=== PATIENT | male | born 1960 | race Caucasian/White ===

== ENCOUNTER 2019-03-27 11:33 | Inpatient (IN) | payer MEDICARE ==
--- NOTE | 2019-03-27 12:00 | ED ---
Lower Extremity - HPI Summary HPI Summary: 58-year-old male presents with right foot wound for the past year. He states he has seen multiple providers for this infection. He was following up with wound clinic but it has not been healing. He states he saw dr Almanzar yesterday who wants to do an amputation tomorrow so told him to come for admission. He denies any fevers or chills. has been changing dressing and has noticed some erythema around it yesterday but that has resolved today. has been having bloody discharge from the wound. Not currently on antibiotics. Has no pain or sensation in the foot. Denies any other symptoms. No chest pain shortness breath or abdominal pain. No nausea vomiting. He has history of high blood pressure and diabetes. - History of Current Complaint Chief Complaint: EDGeneral Stated Complaint: FOOT PAIN PER PT Time Seen by Provider: 03/27/19 11:40 Pain Intensity: 3 - Allergies/Home Medications Allergies/Adverse Reactions: Allergies Allergy/AdvReac Type Severity Reaction Status Date / Time hydrocortisone Allergy Vomiting Verified 03/27/19 11:38 [From Hydrocortone] Home Medications: Home Medications Aspirin EC TAB* [Ecotrin EC Low Dose 81 MG*] 81 mg PO DAILY 03/27/19 [History Confirmed 03/27/19] Insulin NPH Human Isophane [Novolin N Relion] 50 unit SUBCUT BEDTIME 03/27/19 [ History Confirmed 03/27/19] Insulin NPH Human Isophane [Novolin N Relion] 90 units SUBCUT QAM 03/27/19 [ History Confirmed 03/27/19] Morphine Sulfate [Ms Contin] 15 mg PO Q12HR 03/27/19 [History Confirmed 03/27/19 ] Nortriptyline CAP* [Pamelor CAP*] 125 mg PO BEDTIME 03/27/19 [History Confirmed 03/27/19] Pravastatin (NF) [Pravachol (NF)] 40 mg PO QPM 03/27/19 [History Confirmed 03/27] SitaGLIPtin (NF) [Januvia (NF)] 100 mg PO DAILY 03/27/19 [History Confirmed ] amLODIPine TAB* [Norvasc 5 mg TAB*] 10 mg PO DAILY 03/27/19 [History Confirmed 03/27/19] oxyCODONE/Acetamin 10/325(NF) [Percocet (NF)] 1 tab PO TID PRN 03/27/19 [ History Confirmed 03/27/19] PMH/Surg Hx/FS Hx/Imm Hx Endocrine/Hematology History: Reports: Hx Diabetes Cardiovascular History: Reports: Hx Hypertension - Surgical History Surgery Procedure, Year, and Place: Back x 2 plus stimulator, rods in L3,4,5; left foot; Infectious Disease History: No Infectious Disease History: Denies: Traveled Outside the [place] in Last 30 Days - Family History Known Family History: Positive: Cardiac Disease, Hypertension, Diabetes, Other - cancer, ms Negative: Blood Disorder - Social History Alcohol Use: Rare Substance Use Type: Reports: Prescribed Smoking Status (MU): Former Smoker Review of Systems Negative: Fever Negative: Chest Pain Negative: Shortness Of Breath Positive: Other - diabetic ulcer All Other Systems Reviewed And Are Negative: Yes Physical Exam Triage Information Reviewed: Yes Vital Signs On Initial Exam: Initial Vitals Temp Pulse Resp BP Pulse Ox 98.4 F 78 19 136/86 98 03/27/19 11:34 03/27/19 11:34 03/27/19 11:34 03/27/19 11:34 03/27/19 11:34 Vital Signs Reviewed: Yes Appearance: Positive: Well-Appearing Skin: Positive: Other - 5cm by 6cm ulcer with minimial surround erythema to bottom of right foot Head/Face: Positive: Normal Head/Face Inspection Eyes: Positive: Normal, Conjunctiva Clear ENT: Positive: Pharynx normal Respiratory/Lung Sounds: Positive: Clear to Auscultation, Breath Sounds Present Cardiovascular: Positive: Normal, RRR Musculoskeletal: Positive: Normal, Other - loss of sensation on right foot chronic, capillary refill<2secs Neurological: Positive: Normal Psychiatric: Positive: Normal Diagnostics - Vital Signs Vital Signs Temp Pulse Resp BP Pulse Ox 03/27/19 11:50 75 98 03/27/19 11:49 76 138/80 99 03/27/19 11:34 98.4 F 78 19 136/86 98 - Laboratory Result Diagrams: 03/27/19 12:38 03/27/19 12:38 Lab Statement: Any lab studies that have been ordered have been reviewed, and results considered in the medical decision making process. - EKG No standard instances Cardiac Rate: NL EKG Rhythm: Sinus Rhythm EKG Comparison: No Significant Change Summary of EKG Findings: sinus rhythm Lower Extremity Course/Dx - Course Course Of Treatment: 58-year-old male presents with right foot wound for the past year. He states he has seen multiple providers for this infection. He was following up with wound clinic but it has not been healing. He states he saw dr Almanzar yesterday who wants to do an amputation tomorrow so told him to come for admission. He denies any fevers or chills. has been changing dressing and has noticed some erythema around it yesterday but that has resolved today. has been having bloody discharge from the wound. Not currently on antibiotics. Has no pain or sensation in the foot. Denies any other symptoms. on exam has 6cm by 5cm ulcer on bottom of right foot. minimal erythema around such. wbc normal. ekg sinus rhythm. chest xray shows no acute finding. gave dose of vancomycin as likely osteomyelitis. spoke with dr bolaños who says to talk with ortho. dr almanzar ended up admitting patient - Diagnoses Differential Diagnosis/HQI/PQRI: Positive: Infection, Osteomyelitis, Other - diabetic ulcer Provider Diagnoses: Diabetic ulcer of left foot Discharge - Sign-Out/Discharge Documenting (check all that apply): Patient Departure - Discharge Plan Condition: Stable Disposition: ADMITTED TO [facility] Referrals: Donta Brady MD [Primary Care Provider] - - Billing Disposition and Condition Condition: STABLE Disposition: Admitted to [facility]
[2019-03-27] MEDS ORDERED: Vancomycin(*) 1,750 MG in NS 0.9% 250 ML* 250 ML IVPB ONE (12:03)
[2019-03-27] MEDS ORDERED: Vancomycin(*) 1,750 MG in NS 0.9% 500 ML* 500 ML IVPB ONE (13:00)
[2019-03-27 13:03] LABS: ABS Eosinophils 0.2 10^3/ul (0-0.6); ABS Lymphocytes 1.2 10^3/ul (1.0-4.8); ABS Monocytes 0.7 10^3/ul (0-0.8); ABS Neutrophils 5.5 10^3/ul (1.5-7.7); Eosinophil % 2.2 %; Hematocrit 34 % (42-52); Hemoglobin 11.4 g/dL (14.0-18.0); Lymphocyte % 16.1 %; Mean Corpuscular HGB Conc 34 g/dL (31-36); Mean Corpuscular Hemoglobin 28 pg (27-31); Mean Corpuscular Volume 82 fL (80-94); Mean Platelet Volume 7.6 fL (7.4-10.4); Platelet Count 191 10^3/uL (150-450); Red Cell Distribution Width 14 % (10.5-15); White Blood Count 7.6 10^3/uL (3.5-10.8)
[2019-03-27 13:12] LABS: Activated Partial Thrombo Time 30.7 seconds (26.0-36.3); INR 0.95 (0.82-1.09)
[2019-03-27 13:23] LABS: Albumin 3.8 g/dL (3.2-5.2); Albumin/Globulin Ratio 1.2 (1-3); BUN/Creatinine Ratio 9.6 (8-20); Calcium 9.2 mg/dL (8.6-10.3); EGFR African American 45.3 (>60); EGFR Non-African American 37.4 (>60); Globulin 3.1 g/dL (2-4); Potassium 3.6 mmol/L (3.5-5.0); Total Bilirubin 0.3 mg/dL (0.2-1.0); Total Protein 6.9 g/dL (6.4-8.9)
[2019-03-27 14:07] LABS: C Reactive Protein 55.97 mg/L (<8.01)
[2019-03-27 14:22] LABS: Urine Appearance Clear; Urine Bacteria Absent (Absent); Urine Bilirubin Negative (Negative); Urine Blood 1+ (Negative); Urine Color Straw; Urine Glucose Negative (Negative); Urine Ketones Negative (Negative); Urine Nitrite Negative (Negative); Urine Protein Negative (Negative); Urine Red Blood Cell Trace(0-2/hpf) (Absent); Urine Specific Gravity 1.008 (1.010-1.030); Urine Urobilinogen Negative (Negative); Urine White Blood Cell Absent (Absent)
[2019-03-27 14:26] LABS: Hepatitis C Antibody Nonreactive (Nonreactive)
[2019-03-27] MEDS ORDERED: diPHENhydraMINE IV* 50 MG/ML 1 ml VIAL (BENADRYL) IV PRN (15:21)
[2019-03-27] MEDS ORDERED: Ondansetron INJ* 2 MG/ML VIAL IV PRN (15:21)
[2019-03-27] MEDS: Lactated Ringers 1000 ML Bag* 1,000 ML IV SCH (16:57)
[2019-03-27] MEDS: Atorvastatin* 10 MG TAB PO SCH (18:05)
[2019-03-27] MEDS: Nortriptyline CAP* 25 MG PO SCH (20:51)
[2019-03-27] MEDS: Morphine TAB Extended Release (*) 15 MG TAB.ER PO SCH (20:52)
[2019-03-27] MEDS: cloNIDine TAB* 0.1 MG PO SCH (20:53)
[2019-03-27] MEDS: Metoprolol Tartrate TAB* 100 MG TAB PO SCH (20:53)
[2019-03-27] MEDS: Cyclobenzaprine TAB* 10 MG PO SCH (20:53)
[2019-03-27] MEDS: Insulin NPH(*) 1 UNITS UNIT SUBCUT SCH (20:54)
[2019-03-27] MEDS ORDERED: Insulin NPH(*) 1 UNITS UNIT SUBCUT SCH (21:00)
[2019-03-27] MEDS: oxyCODONE/Acetamin 5/325 MG* TAB PO PRN (21:05)
[2019-03-27] MEDS: oxyCODONE TAB* 5 MG TAB PO PRN (21:05)
[2019-03-27] MEDS: Heparin VIAL(*) 5000 UNITS/ML VIAL (FIVE THOUSAND) SUBCUT SCH (22:31)
--- NOTE | 2019-03-27 22:36 | CONS ---
[facility] MEDICINE CONSULTATION REPORT: DATE OF CONSULT: 03/27/19 PROVIDER: Steph Cannon NP ATTENDING PHYSICIAN: Dr. Perez. CONSULTING PHYSICIAN: Dr. Chandrakant Dee (dictated by Steph Cannon NP). REASON FOR CONSULT: Co-management of chronic medical conditions. HISTORY OF PRESENT ILLNESS: Mr. Landrum is a 58-year-old male with a past medical history significant for diabetes, hypertension, hyperlipidemia, who reports for the past 40 weeks, he has had an infection in his right foot and is currently being followed by the wound clinic due to the foot not healing. He reports he saw Dr. Perez yesterday and wants to amputate part of his foot, so Dr. Perez instructed the patient to present to the emergency room for admission. The patient denies any fever, chills. Denies any chest pain or edema. Denies any cough, hemoptysis, or shortness of breath. No nausea, vomiting, diarrhea or abdominal pain, gross hematuria or dysuria. Denies any focal weakness or sensory loss. No visual complaints, dysphagia. No arthralgias or myalgias. He does have a dressing to the right foot with an ulcer noted to the bottom of the foot with minimal surrounding erythema. While in the emergency room, the patient had routine lab work drawn and was admitted by Orthopedics for surgical intervention of his right foot ulcer. PAST MEDICAL HISTORY: Significant for diabetes, hypertension, hyperlipidemia, chronic foot ulcer, diabetic neuropathy, acid reflux. PAST SURGICAL HISTORY: 1. Laminectomy. 2. Hernia repairs. 3. Surgical removal of nail from left foot. HOME MEDICATIONS: 1. Insulin NPH 50 units at bedtime, 90 units in the a.m. 2. Aspirin 81 mg p.o. daily. 3. Clonidine 0.2 mg p.o. b.i.d. 4. Flexeril 10 mg p.o. t.i.d. 5. Amlodipine 10 mg p.o. daily. 6. Nortriptyline 125 mg p.o. at bedtime. 7. Torsemide 80 mg p.o. daily. 8. Metoprolol 100 mg p.o. b.i.d. 9. Oxycodone 1 tablet t.i.d. 10. Januvia 100 mg p.o. daily. 11. Omeprazole 20 mg p.o. daily. 12. Morphine sulfate 15 mg p.o. q.12 hours. 13. Oxycodone/acetaminophen 10/325 one tablet p.o. t.i.d. p.r.n. ALLERGIES: He has an allergy to VICODIN and HYDROCODONE. FAMILY HISTORY: Father with a pacemaker and hypertension. Father with diabetes and mother with breast cancer. SOCIAL HISTORY: The patient reports he smoked for approximately 1 year at the age of 18. Denies any alcohol or illicit drug use. He is . Surrogate decision maker in the event he is unable to make his own decisions is his , Izabella. He is a full code. REVIEW OF SYSTEMS: An 11-point review of systems was completed, all pertinent positives are mentioned in the HPI. PHYSICAL EXAMINATION: General: At this time, Mr. Landrum is resting comfortably on the stretcher in the emergency room. He is alert and oriented x3. He is in no acute distress. Vital Signs: Temperature 97.8, heart rate 74, respirations 16, O2 saturation 99%, blood pressure was 151/94. HEENT: Head is atraumatic, normocephalic. Eyes: EOMs are intact. Sclerae anicteric and not pale. Oral mucosa appeared to be moist. Neck is supple. Lungs are clear to auscultation bilaterally. No wheezes, rales, or rhonchi. Cardiac: S1 and S2. Regular rate and rhythm. No murmurs, rubs, or gallops. Abdomen is soft and nontender. Bowel sounds are present x4. Extremities: He is able to move all 4 extremities with 5/5 strength. Pedal pulses are +2 bilaterally. He does have a dressing that is dry and intact to the right foot with ulceration noted to the bottom of the foot. Skin: He has a dressing that is dry and intact to the right foot. Neurologic: He is awake, alert, oriented x3. Speech is clear. Thought process is intact. There are no gross focal deficits. DIAGNOSTIC STUDIES/LAB DATA: WBCs are 7.6, RBCs 4.10, hemoglobin 11.4, hematocrit was 34, platelet count 191. INR is 0.95. Sodium 137, potassium 3.6 , chloride 100, carbon dioxide was 31, anion gap was 6, BUN was 18, creatinine 1.87, lactic acid was 1.0 and 0.7, calcium 9.2. ASTs were 8, ALTs were 6, alkaline phosphatase was 91. Troponin is 0.00. C-reactive protein was 55.97. Urine was within normal limits with the exception of specific gravity was 1.008 and blood was 1+. Hepatitis C was nonreactive and CAB index was less than 0.0. He had a chest x-ray, no evidence of active cardiopulmonary disease. He had an electrocardiogram, which showed sinus rhythm at a rate of 72. ASSESSMENT AND PLAN: Mr. Landrum is a 58-year-old male who was sent in by Dr. Perez to have right foot surgical revision of nonhealing foot ulcer. Our recommendations are as follows: 1. Right foot ulcer. Management per Orthopedics. PT/OT per Orthopedics. DVT prophylaxis per Orthopedics. I agree with continued vancomycin pending cultures and sensitivities. 2. Diabetes. I would recommend that we cut his NPH insulin in half as the patient is going to be n.p.o. tomorrow for surgery and even consider holding morning dose of NPH given the fact that the patient will be n.p.o. I would continue with fingersticks a.c. and h.s. and I would recommend that you stop Januvia while in the hospital, can resume at discharge. 3. Hypertension. He can continue on clonidine, metoprolol 100 mg p.o. b.i.d. I will continue amlodipine 10. 4. Gastroesophageal reflux disease. He should continue on Prilosec as previously prescribed. 5. Hyperlipidemia. He will be placed on atorvastatin 10 mg while in the hospitalization, then at discharge can resume pravastatin as previously prescribed. 6. FEN. He should have heart healthy, consistent carb diet. 7. Code status. He is a full code. 8. DVT prophylaxis. As per Orthopedics. TIME SPENT: Time spent on this consultation was approximately 45 minutes, greater than half that time was spent at the bedside reviewing events leading thus far to his hospitalization, performing my physical exam, and reviewing my plan of care. I have discussed with my attending, Dr. Chandrakant Dee, he is in agreement with my plan. STEPH CANNON, HYDRO PLANT TECHNICIAN [id number]/[facility] #: [id number] [facility]ENTERStar
[2019-03-28] MEDS ORDERED: Bupivacaine 0.5%* 50 ML VIAL ONE (06:50)
[2019-03-28] MEDS ORDERED: Lidocaine 2% PF* 10 ML AMP ONE (06:51)
[2019-03-28] MEDS ORDERED: KETAMINE HCL* 50 MG/ML 10 ML VIAL ONE (07:03)
[2019-03-28] MEDS ORDERED: Lidocaine 2% PF * 5 ML VIAL ONE (07:03)
[2019-03-28] MEDS ORDERED: Propofol* 10 MG/ML 20 ML BTL ONE (07:03)
[2019-03-28] MEDS ORDERED: Propofol* 500 MG/50 ML BTL ONE (07:03)
[2019-03-28] MEDS ORDERED: Midazolam* 1 MG/ML 2 ML VIAL (2 MG) ONE (07:08)
[2019-03-28] MEDS ORDERED: fentaNYL* 50 MCG/ML 2 ML VIAL (100 MCG VIAL) ONE (07:09)
[2019-03-28] MEDS ORDERED: Naloxone* 0.4 MG/ML 1 ML VIAL IV PRN (07:59)
[2019-03-28] MEDS ORDERED: fentaNYL* 50 MCG/ML 2 ML VIAL (100 MCG VIAL) IV PRN (07:59)
[2019-03-28] MEDS ORDERED: Acetaminophen TAB* 325 MG PO PRN (07:59)
[2019-03-28] MEDS ORDERED: Metoclopramide IV* 5 MG/ML 2 ML VIAL IV PRN (07:59)
[2019-03-28] MEDS ORDERED: oxyCODONE TAB* 5 MG TAB PO PRN (07:59)
[2019-03-28] MEDS ORDERED: Vancomycin(*) 1,500 MG in NS 0.9% 250 ML* 250 ML IVPB ONE (08:00)
[2019-03-28] MEDS ORDERED: Ondansetron INJ* 2 MG/ML VIAL ONE (08:00)
[2019-03-28] MEDS ORDERED: Labetalol IV* 5 MG/ML 20 ML VIAL ONE (08:17)
[2019-03-28] MEDS ORDERED: CMCS:SitaGLIPtin (NF) 100 MG TAB PO SCH (09:00)
[2019-03-28] MEDS ORDERED: Insulin NPH(*) 1 UNITS UNIT SUBCUT SCH (09:00)
[2019-03-28 10:52] LABS: Hematocrit 29 % (42-52); Hemoglobin 9.9 g/dL (14.0-18.0)
--- NOTE | 2019-03-28 10:59 | OP ---
OPERATIVE REPORT: DATE OF OPERATION: 03/28/19 - Inpatient, room [place] [address]- DATE OF : 62 SURGEON: Chandrakant Perez MD SUBSTANCE ABUSE NURSE: Brandon Gaming PA-C ANESTHESIOLOGIST: Portia Sosa DO ANESTHESIA: MAC. PRE-OP DIAGNOSES: Chronic osteomyelitis, diabetes, right foot. POST-OP DIAGNOSES: Chronic osteomyelitis, diabetes, right foot. OPERATIVE PROCEDURE: Syme amputation, right foot. DESCRIPTION OF PROCEDURE: The patient was taken to the operating room where we made the transverse incision over the anterior crease of the tibiotalar joint and then directly down through the heel pads. This created 2 well-vascularized flaps. We dissected out the talus and calcaneus and dropped the tourniquet to obtain hemostasis. The patient had vigorous bleeding surprisingly so and he required about 4 different arterial suture ligatures. I would say his blood loss was about 100 cc. We irrigated thoroughly with 3 L of pulsatile lavage and obtained cultures and then sewed the flaps with the deep layer of the #1 Monocryl, more superficial layer of 2-0 Monocryl, and then Prolene to the skin and compression dressing and plaster splint applied. We did trim malleoli with the sagittal saw. [id number]/[facility] #: [id number] TAMERA
[2019-03-28] MEDS: Morphine TAB Extended Release (*) 15 MG TAB.ER PO SCH ×2 (11:11→20:11)
[2019-03-28] MEDS: Insulin NPH(*) 1 UNITS UNIT SUBCUT SCH ×2 (11:29→21:40)
[2019-03-28] MEDS: Torsemide TAB* 20 MG PO SCH (11:30)
[2019-03-28] MEDS: cloNIDine TAB* 0.1 MG PO SCH ×2 (11:30→20:11)
[2019-03-28] MEDS: Cyclobenzaprine TAB* 10 MG PO SCH ×3 (11:30→21:40)
[2019-03-28] MEDS: Metoprolol Tartrate TAB* 100 MG TAB PO SCH ×2 (11:31→21:40)
[2019-03-28] MEDS: amLODIPine TAB* 5 MG PO SCH (11:31)
[2019-03-28] MEDS: Aspirin EC TAB* 81 MG TAB.EC PO SCH (11:31)
[2019-03-28] MEDS: Pantoprazole TAB * 40 MG TAB PO SCH (11:31)
[2019-03-28] MEDS: ceFAZolin 2 GM PREMIX in ORs 2 GM/50 ML BAG IVPB SCH ×2 (12:10→20:10)
--- NOTE | 2019-03-28 13:20 | CONS ---
CONSULTATION REPORT: DATE OF CONSULT: 03/28/19 REQUESTING PHYSICIAN: Dr. Perez.* CONSULTING SERVICE: Infectious Disease. REASON FOR CONSULTATION: Right foot infection. IMPRESSION: 1. Chronic osteomyelitis of the right foot in the setting of diabetes. He has had an amputation this morning. Operative cultures were obtained. The Gram stain showed 2+ gram-positive cocci. The PCR is Staph aureus positive, MRSA negative. 2. Diabetes with neuropathy and Charcot joint. 3. Morbid obesity. 4. Chronic kidney disease. 5. Cirrhosis. RECOMMENDATION: We will stop vancomycin and start Ancef 2 g IV every 8 hours. Follow his kidney function. I will see if it may need to be adjusted. Because of the chronicity of infection, I think it would make sense for him to continue IV antibiotics for 2 weeks through the process of wound healing and so we can have close followup as well. He will have weekly CBC, CMP, and CRP during that time. HISTORY OF PRESENT ILLNESS: This is a 58-year-old diabetic with a right foot infection. MRI showed osteomyelitis, which is longstanding. He was admitted for Syme amputation which he had this morning and tolerated well. Wound cultures with the results noted above. He has been on vancomycin since this morning with no adverse reaction. He has not been on any oral antibiotics recently that he can recall. He has not had infection requiring hospitalization in the past. PAST MEDICAL HISTORY: 1. Type 2 diabetes with peripheral neuropathy. 2. Charcot joint. 3. Hypertension. 4. Hyperlipidemia. 5. Chronic back pain. 6. Umbilical hernia. 7. Acid reflux. 8. Obstructive sleep apnea. 9. Morbid obesity. 10. Anemia. 11. Chronic kidney disease. 12. Cirrhosis. 13. Migraines. 14. Thrombocytopenia. 15. Lumbar spine surgery. 16. History of spinal stimulator which was removed in 2013. 17. Prostate cancer. ALLERGIES: Hydrocodone and hydrocortisone. MEDICATIONS: 1. Amlodipine. 2. Aspirin. 3. Lipitor. 4. Clonidine. 5. Cyclobenzaprine. 6. Enoxaparin injection. 7. Insulin injection. 8. Metoprolol. 9. Nortriptyline. 10. Pantoprazole. 11. Torsemide. 12. Vancomycin. SOCIAL HISTORY: He is a past smoker. No alcohol use. He is . FAMILY HISTORY: Father has pacemaker, hypertension. Mother with breast cancer. REVIEW OF SYSTEMS: A 14-point review is all negative except as noted above in the history of present illness. PHYSICAL EXAM: Vital signs: Temperature 36.4, heart rate 56, respiratory rate 14, blood pressure 145/77. Oxygen saturation 95% on 2 L. In general, he is awake, but drowsy. Answers questions. HEENT: There is no conjunctival hemorrhage. Oropharynx is without lesions. Neck: Supple without mass. Heart: Regular rate and rhythm, without murmurs, rubs or gallops. Lungs: Clear to auscultation bilaterally. Abdomen: Soft, nontender, nondistended. There are bowel sounds present. Skin: There are no rashes or splinter hemorrhages. Musculoskeletal: Right foot casted. LAB DATA: White blood cell count 7, hemoglobin 11, platelets 191. Creatinine 1.8. CRP 55. Please see impression and recommendations as outlined above. Thank you for asking me to see Mr. Landrum in consultation. [id number]/[facility] #: [id number] TAMERA
[2019-03-28] MEDS: Heparin VIAL(*) 5000 UNITS/ML VIAL (FIVE THOUSAND) SUBCUT SCH (13:57)
[2019-03-28] MEDS: oxyCODONE/Acetamin 5/325 MG* TAB PO PRN ×2 (15:59→23:21)
--- NOTE | 2019-03-28 16:45 | PN ---
Subjective Date of Service: 03/28/19 Interval History: Awake, alert. no distress. S/p Syme Amputation Right foot. Patient denies any pain from the amputation site. Past Medical History: Unchanged from Admission Objective Active Medications: Amlodipine Besylate (Norvasc Tab*) 10 mg PO DAILY [facility] Last Admin: 03/28/19 11:31 Dose: 10 mg Aspirin (Aspirin Ec Tab*) 81 mg PO DAILY [facility] Last Admin: 03/28/19 11:31 Dose: 81 mg Atorvastatin Calcium (Lipitor*) 10 mg PO QPM [facility]; Protocol Last Admin: 03/27/19 18:05 Dose: 10 mg Clonidine HCl (Catapres Tab*) 0.2 mg PO BID [facility] Last Admin: 03/28/19 11:30 Dose: Not Given Cyclobenzaprine HCl (Flexeril Tab*) 10 mg PO TID [facility] Last Admin: 03/28/19 15:01 Dose: 10 mg Diphenhydramine HCl (Benadryl Iv*) 25 mg IV Q6H PRN PRN Reason: PRURITIS Enoxaparin Sodium (Lovenox(*)) 40 mg SUBCUT Q24H [facility] Lactated Ringer's (Lactated Ringers 1000 Ml Bag*) 1,000 mls @ 75 mls/hr IV PER RATE [facility] Last Admin: 03/27/19 16:57 Dose: 75 mls/hr Cefazolin Sodium/Dextrose (Kefzol 2 Gm Premix In Ors(*)) 2 gm in 50 mls @ 100 mls/hr IVPB Q8H [facility] Last Admin: 03/28/19 12:10 Dose: 100 mls/hr Insulin Human NPH (Insulin Nph(*)) 45 units SUBCUT QAM [facility] Last Admin: 03/28/19 11:29 Dose: 45 units Insulin Human NPH (Insulin Nph(*)) 25 units SUBCUT BEDTIME [facility] Last Admin: 03/27/19 20:54 Dose: 25 unit Metoprolol Tartrate (Lopressor Tab*) 100 mg PO BID [facility] Last Admin: 03/28/19 11:31 Dose: 100 mg Morphine Sulfate (Ms Contin(*)) 15 mg PO Q12HR [facility] Last Admin: 03/28/19 11:11 Dose: Not Given Nortriptyline HCl (Pamelor Cap*) 125 mg PO BEDTIME [facility] Last Admin: 03/27/19 20:51 Dose: 125 mg Ondansetron HCl (Zofran Inj*) 4 mg IV Q6H PRN PRN Reason: NAUSEA Oxycodone HCl (Roxycodone Tab*) 5 mg PO TID PRN PRN Reason: PAIN Last Admin: 03/27/19 21:05 Dose: 5 mg Oxycodone/Acetaminophen (Percocet 5/325 Tab*) 1 tab PO TID PRN PRN Reason: PAIN Last Admin: 03/28/19 15:59 Dose: 1 tab Pantoprazole Sodium (Protonix Tab*) 40 mg PO DAILY [facility] Last Admin: 03/28/19 11:31 Dose: 40 mg Torsemide (Demadex*) 80 mg PO DAILY [facility] Last Admin: 03/28/19 11:30 Dose: 80 mg Vital Signs - 8 hr 03/28/19 03/28/19 03/28/19 08:55 09:00 09:15 Temperature 98.1 F Pulse Rate 66 64 65 Respiratory 16 16 16 Rate Blood Pressure 173/95 150/87 139/84 (mmHg) O2 Sat by Pulse 100 99 98 Oximetry 03/28/19 03/28/19 03/28/19 09:30 09:45 10:28 Temperature 97.5 F Pulse Rate 61 62 56 Respiratory 16 14 Rate Blood Pressure 137/87 140/84 145/77 (mmHg) O2 Sat by Pulse 98 98 95 Oximetry 03/28/19 03/28/19 03/28/19 11:49 12:29 15:01 Temperature 97.8 F Pulse Rate 65 Respiratory 16 15 18 Rate Blood Pressure 130/73 (mmHg) O2 Sat by Pulse 100 Oximetry 03/28/19 15:59 Temperature Pulse Rate Respiratory 18 Rate Blood Pressure (mmHg) O2 Sat by Pulse Oximetry Oxygen Devices in Use Now: Nasal Cannula Appearance: awake, alert. obese. no distress. eating candy at bedside Eyes: No Scleral Icterus, PERRLA Ears/Nose/Mouth/Throat: Mucous Membranes Moist Neck: NL Appearance and Movements; NL JVP, Trachea Midline Respiratory: Symmetrical Chest Expansion and Respiratory Effort, Clear to Auscultation Cardiovascular: NL Sounds; No Murmurs; No JVD, RRR Extremities: - - RLE dressing in place. dry clean. Neurological: Alert and Oriented x 3 Result Diagrams: 03/28/19 10:38 03/27/19 12:38 Microbiology and Other Data: Microbiology 03/28/19 08:00 Gram Stain - Final Foot Right 03/27/19 12:31 Aerobic Blood Culture - Preliminary Blood Venous No Growth Day 1 Anaerobic Blood Culture - Preliminary No Growth Day 1 03/27/19 12:38 Aerobic Blood Culture - Preliminary Blood Venous No Growth Day 1 Anaerobic Blood Culture - Preliminary No Growth Day 1 03/27/19 12:10 Skin and Soft Tissue MRSA/MSSA (PCR - Final Foot Right Mrsa Negative S.aureus Positive Gram Stain - Final Wound Culture - Preliminary Staphylococcus Aureus Assess/Plan/Problems-Billing Assessment: 58 year old male presented with chronic osteomyelitis of his right foot s/p amputation. Intra-op wound culture is pending - Patient Problems (1) S/P Syme amputation of foot Current Visit: Yes Status: Acute Code(s): Z89.439 - ACQUIRED ABSENCE OF UNSPECIFIED FOOT SNOMED Code(s): 576994242 Comment: - Activity, diet as per surgery - Minimize naroctic medication as he is a risk for post op ileus (2) Chronic osteomyelitis involving right ankle and foot Current Visit: Yes Status: Acute Code(s): M86.671 - OTHER CHRONIC OSTEOMYELITIS, RIGHT ANKLE AND FOOT SNOMED Code(s): 852241939 (3) Diabetes Current Visit: Yes Status: Acute Code(s): E11.9 - TYPE 2 DIABETES MELLITUS WITHOUT COMPLICATIONS SNOMED Code(s): 06694913 Comment: - On NPH 40 am and 25 pm - Sliding scale with coverage (4) Hypertension Current Visit: Yes Status: Acute Code(s): I10 - ESSENTIAL (PRIMARY) HYPERTENSION SNOMED Code(s): 90152889 Comment: - continue lopressor 100 mg bid; Amlodipine 10 mg daily; Lipitor 80 mg HS; ASA 81 mg Daily (5) GERD (gastroesophageal reflux disease) Current Visit: Yes Status: Acute Code(s): K21.9 - GASTRO-ESOPHAGEAL REFLUX DISEASE WITHOUT ESOPHAGITIS SNOMED Code(s): 603864175 (6) DVT prophylaxis Current Visit: Yes Status: Acute Code(s): Z29.9 - ENCOUNTER FOR PROPHYLACTIC MEASURES, UNSPECIFIED SNOMED Code(s): 276344730 Comment: lovenox 40 mg HS
[2019-03-28] MEDS: Atorvastatin* 10 MG TAB PO SCH (18:49)
[2019-03-28] MEDS: oxyCODONE TAB* 5 MG TAB PO PRN ×2 (18:49→23:22)
[2019-03-28] MEDS: Nortriptyline CAP* 25 MG PO SCH (23:20)
[2019-03-29] MEDS: Lactated Ringers 1000 ML Bag* 1,000 ML IV SCH ×2 (00:47→16:08)
[2019-03-29] MEDS: ceFAZolin 2 GM PREMIX in ORs 2 GM/50 ML BAG IVPB SCH ×3 (03:55→20:47)
[2019-03-29] MEDS: oxyCODONE TAB* 5 MG TAB PO PRN ×2 (08:07→16:18)
[2019-03-29] MEDS: oxyCODONE/Acetamin 5/325 MG* TAB PO PRN ×2 (08:08→16:18)
[2019-03-29] MEDS: Morphine TAB Extended Release (*) 15 MG TAB.ER PO SCH ×2 (09:41→21:07)
[2019-03-29] MEDS: Metoprolol Tartrate TAB* 100 MG TAB PO SCH ×2 (09:42→21:08)
[2019-03-29] MEDS: Torsemide TAB* 20 MG PO SCH (09:42)
[2019-03-29] MEDS: cloNIDine TAB* 0.1 MG PO SCH ×2 (09:42→21:07)
[2019-03-29] MEDS: Cyclobenzaprine TAB* 10 MG PO SCH ×3 (09:43→21:08)
[2019-03-29] MEDS: amLODIPine TAB* 5 MG PO SCH (09:43)
[2019-03-29] MEDS: Pantoprazole TAB * 40 MG TAB PO SCH (09:43)
[2019-03-29] MEDS: Aspirin EC TAB* 81 MG TAB.EC PO SCH (09:43)
[2019-03-29] MEDS: Enoxaparin(*) 40 MG/0.4 ML SYR SUBCUT SCH (09:44)
[2019-03-29] MEDS: Insulin NPH(*) 1 UNITS UNIT SUBCUT SCH ×2 (09:51→21:08)
--- NOTE | 2019-03-29 10:54 | PN ---
Progress Note - Progress Note Date of Service: 03/29/19 SOAP: Subjective: [Pt seen lying in bed this morning. Minimal complaints. No chest pain, SOB, nausea or vomiting. ] Objective: [General: Pt alert and oriented MSK, RLE: Dressing is c/d/i. Full ROM of the knee. ] Vital Signs Temp 98.4 F 03/29/19 07:54 Pulse 81 03/29/19 07:54 Resp 18 03/29/19 09:43 BP 122/61 03/29/19 07:54 Pulse Ox 97 03/29/19 08:00 Intake & Output 03/28/19 03/29/19 03/29/19 18:59 06:59 18:59 Intake Total 945 1480 Output Total 900 1500 Balance 45 -20 Intake: IV Fluids 705 980 ABX - CEFAZOLIN 55 LR 400 980 VANCOMYCIN 1500 MG 250 Oral 240 500 Output: Urine 900 1500 Assessment: [POD 1 Syme amputation of RLE ] Plan: [Continue with IV abx per ID Continue with lovenox for DVT Pain medication prn ]
[2019-03-29] MEDS ORDERED: Dextrose 50% Syringe 50 ML* 25 GM/50 ML SYRINGE IV PUSH PRN (17:14)
--- NOTE | 2019-03-29 17:20 | PN ---
Subjective Date of Service: 03/29/19 Interval History: in bed. minimal pain... no events overnight. tolerating diet well. BG in 200's Past Medical History: Unchanged from Admission Objective Active Medications: Amlodipine Besylate (Norvasc Tab*) 10 mg PO DAILY [facility] Last Admin: 03/29/19 09:43 Dose: 10 mg Aspirin (Aspirin Ec Tab*) 81 mg PO DAILY [facility] Last Admin: 03/29/19 09:43 Dose: 81 mg Atorvastatin Calcium (Lipitor*) 10 mg PO QPM [facility]; Protocol Last Admin: 03/28/19 18:49 Dose: 10 mg Clonidine HCl (Catapres Tab*) 0.2 mg PO BID [facility] Last Admin: 03/29/19 09:42 Dose: 0.2 mg Cyclobenzaprine HCl (Flexeril Tab*) 10 mg PO TID [facility] Last Admin: 03/29/19 14:04 Dose: 10 mg Dextrose (D50w Syringe 50 Ml*) 12.5 gm IV PUSH .FOR FS < 60 - SS PRN PRN Reason: FS < 60 Diphenhydramine HCl (Benadryl Iv*) 25 mg IV Q6H PRN PRN Reason: PRURITIS Enoxaparin Sodium (Lovenox(*)) 40 mg SUBCUT Q24H [facility] Last Admin: 03/29/19 09:44 Dose: 40 mg Cefazolin Sodium/Dextrose (Kefzol 2 Gm Premix In Ors(*)) 2 gm in 50 mls @ 100 mls/hr IVPB Q8H [facility] Last Admin: 03/29/19 11:38 Dose: 100 mls/hr Insulin Human Lispro (Humalog*) 0 units SUBCUT ACHS [facility]; Protocol Insulin Human NPH (Insulin Nph(*)) 45 units SUBCUT QAM [facility] Last Admin: 03/29/19 09:51 Dose: 45 units Insulin Human NPH (Insulin Nph(*)) 25 units SUBCUT BEDTIME [facility] Last Admin: 03/28/19 21:40 Dose: 25 unit Metoprolol Tartrate (Lopressor Tab*) 100 mg PO BID [facility] Last Admin: 03/29/19 09:42 Dose: 100 mg Morphine Sulfate (Ms Contin(*)) 15 mg PO Q12HR [facility] Last Admin: 03/29/19 09:41 Dose: 15 mg Nortriptyline HCl (Pamelor Cap*) 125 mg PO BEDTIME [facility] Last Admin: 03/28/19 23:20 Dose: 125 mg Ondansetron HCl (Zofran Inj*) 4 mg IV Q6H PRN PRN Reason: NAUSEA Oxycodone HCl (Roxycodone Tab*) 5 mg PO TID PRN PRN Reason: PAIN Last Admin: 03/29/19 16:18 Dose: 5 mg Oxycodone/Acetaminophen (Percocet 5/325 Tab*) 1 tab PO TID PRN PRN Reason: PAIN Last Admin: 03/29/19 16:18 Dose: 1 tab Pantoprazole Sodium (Protonix Tab*) 40 mg PO DAILY [facility] Last Admin: 03/29/19 09:43 Dose: 40 mg Torsemide (Demadex*) 80 mg PO DAILY [facility] Last Admin: 03/29/19 09:42 Dose: 80 mg Vital Signs - 8 hr 03/29/19 03/29/19 03/29/19 09:41 09:43 11:19 Temperature 98.0 F Pulse Rate 81 Respiratory 18 18 16 Rate Blood Pressure 134/62 (mmHg) O2 Sat by Pulse 96 Oximetry 03/29/19 03/29/19 03/29/19 14:04 15:15 16:18 Temperature 100.6 F Pulse Rate 82 Respiratory 16 18 18 Rate Blood Pressure 126/64 (mmHg) O2 Sat by Pulse 97 Oximetry Oxygen Devices in Use Now: Nasal Cannula Appearance: awake, alert. no distress Eyes: No Scleral Icterus Neck: NL Appearance and Movements; NL JVP, Trachea Midline Respiratory: Symmetrical Chest Expansion and Respiratory Effort, Clear to Auscultation Cardiovascular: NL Sounds; No Murmurs; No JVD, RRR Abdominal: NL Sounds; No Tenderness; No Distention Extremities: - - RLE dressing in place, intact. dry covered with LYUBOV wrap Result Diagrams: 03/28/19 10:38 03/27/19 12:38 Microbiology and Other Data: Microbiology 03/28/19 08:00 Gram Stain - Final Foot Right 03/27/19 12:31 Aerobic Blood Culture - Preliminary Blood Venous No Growth Day 1 Anaerobic Blood Culture - Preliminary No Growth Day 1 03/27/19 12:38 Aerobic Blood Culture - Preliminary Blood Venous No Growth Day 1 Anaerobic Blood Culture - Preliminary No Growth Day 1 03/27/19 12:10 Skin and Soft Tissue MRSA/MSSA (PCR - Final Foot Right Mrsa Negative S.aureus Positive Gram Stain - Final Wound Culture - Preliminary Staphylococcus Aureus Assess/Plan/Problems-Billing Assessment: 58 year old male presented with chronic osteomyelitis of his right foot s/p amputation. Intra-op wound culture is pending - Patient Problems (1) S/P Syme amputation of foot Current Visit: Yes Status: Acute Code(s): Z89.439 - ACQUIRED ABSENCE OF UNSPECIFIED FOOT SNOMED Code(s): 159418153 Comment: - Activity, diet as per surgery - Minimize naroctic medication as he is a risk for post op ileus (2) Chronic osteomyelitis involving right ankle and foot Current Visit: Yes Status: Acute Code(s): M86.671 - OTHER CHRONIC OSTEOMYELITIS, RIGHT ANKLE AND FOOT SNOMED Code(s): 121699588 Comment: - Continue IV abx with cefazolin 2 gm IV Q8hrs day # 2 (3) Diabetes Current Visit: Yes Status: Acute Code(s): E11.9 - TYPE 2 DIABETES MELLITUS WITHOUT COMPLICATIONS SNOMED Code(s): 92268717 Comment: - On NPH 40 am and 25 pm - Sliding scale with coverage added as his BG in 200's (4) Hypertension Current Visit: Yes Status: Acute Code(s): I10 - ESSENTIAL (PRIMARY) HYPERTENSION SNOMED Code(s): 32431077 Comment: - continue lopressor 100 mg bid; Amlodipine 10 mg daily; Lipitor 80 mg HS; ASA 81 mg Daily (5) GERD (gastroesophageal reflux disease) Current Visit: Yes Status: Acute Code(s): K21.9 - GASTRO-ESOPHAGEAL REFLUX DISEASE WITHOUT ESOPHAGITIS SNOMED Code(s): 284731054 (6) DVT prophylaxis Current Visit: Yes Status: Acute Code(s): Z29.9 - ENCOUNTER FOR PROPHYLACTIC MEASURES, UNSPECIFIED SNOMED Code(s): 863693798 Comment: lovenox 40 mg HS
[2019-03-29] MEDS: Atorvastatin* 10 MG TAB PO SCH (17:48)
[2019-03-29] MEDS: Nortriptyline CAP* 25 MG PO SCH (21:05)
[2019-03-29] MEDS: Insulin LISPRO* 1 UNITS UNIT SUBCUT SCH (21:09)
[2019-03-30] MEDS: oxyCODONE/Acetamin 5/325 MG* TAB PO PRN ×3 (00:09→17:55)
[2019-03-30] MEDS: oxyCODONE TAB* 5 MG TAB PO PRN ×2 (00:09→08:58)
[2019-03-30] MEDS: ceFAZolin 2 GM PREMIX in ORs 2 GM/50 ML BAG IVPB SCH ×3 (04:51→20:13)
[2019-03-30 06:04] LABS: ABS Basophils 0.1 10^3/ul (0-0.2); ABS Eosinophils 0.1 10^3/ul (0-0.6); ABS Lymphocytes 1.4 10^3/ul (1.0-4.8); ABS Monocytes 0.8 10^3/ul (0-0.8); ABS Neutrophils 5.8 10^3/ul (1.5-7.7); Eosinophil % 0.9 %; Hematocrit 22 % (42-52); Hemoglobin 7.9 g/dL (14.0-18.0); Lymphocyte % 17.5 %; Mean Corpuscular HGB Conc 36 g/dL (31-36); Mean Corpuscular Hemoglobin 29 pg (27-31); Mean Corpuscular Volume 82 fL (80-94); Mean Platelet Volume 7.7 fL (7.4-10.4); Nucleated Red Blood Cells % 0.1; Platelet Count 135 10^3/uL (150-450); Red Blood Count 2.73 10^6 /uL (4.18-5.48); Red Cell Distribution Width 14 % (10.5-15); White Blood Count 8.2 10^3/uL (3.5-10.8)
[2019-03-30 06:17] LABS: BUN/Creatinine Ratio 10.7 (8-20); Calcium 8.5 mg/dL (8.6-10.3); EGFR African American 47.9 (>60); EGFR Non-African American 39.6 (>60); Magnesium 1.8 mg/dL (1.9-2.7); Phosphorus 4.5 mg/dL (2.5-5.0); Potassium 4.3 mmol/L (3.5-5.0)
[2019-03-30] MEDS: Insulin LISPRO* 1 UNITS UNIT SUBCUT SCH ×4 (08:55→21:45)
[2019-03-30] MEDS: Insulin NPH(*) 1 UNITS UNIT SUBCUT SCH ×2 (08:55→21:14)
[2019-03-30] MEDS: Enoxaparin(*) 40 MG/0.4 ML SYR SUBCUT SCH (08:56)
[2019-03-30] MEDS: Cyclobenzaprine TAB* 10 MG PO SCH ×3 (08:56→21:14)
[2019-03-30] MEDS: Torsemide TAB* 20 MG PO SCH (08:57)
[2019-03-30] MEDS: Morphine TAB Extended Release (*) 15 MG TAB.ER PO SCH ×2 (08:58→21:13)
[2019-03-30] MEDS: Metoprolol Tartrate TAB* 100 MG TAB PO SCH ×2 (08:58→21:14)
[2019-03-30] MEDS: Pantoprazole TAB * 40 MG TAB PO SCH (08:58)
[2019-03-30] MEDS: amLODIPine TAB* 5 MG PO SCH (08:59)
[2019-03-30] MEDS: Aspirin EC TAB* 81 MG TAB.EC PO SCH (08:59)
[2019-03-30] MEDS: cloNIDine TAB* 0.1 MG PO SCH ×2 (08:59→21:15)
--- NOTE | 2019-03-30 11:20 | PN ---
Progress Note - Progress Note Date of Service: 03/30/19 SOAP: Subjective: [Pt seen lying in bed this morning. Minimal complaints. No chest pain, SOB, nausea or vomiting, lightheadedness or dizzy. ] Objective: [General: Pt alert and oriented MSK, RLE: Dressing is c/d/i. Full ROM of the knee. ] Vital Signs Temp 98.2 F 03/30/19 08:46 Pulse 84 03/30/19 08:46 Resp 18 03/30/19 08:58 BP 120/61 03/30/19 08:46 Pulse Ox 91 03/30/19 08:46 Intake & Output 03/29/19 03/30/19 03/30/19 18:59 06:59 18:59 Intake Total 1140 510 Output Total 1700 400 450 Balance -560 110 -450 Intake: IV Fluids 990 170 ABX - CEFAZOLIN 110 LR 990 60 IVPB 150 ABX - CEFAZOLIN 150 Oral 340 Output: Urine 1700 400 450 Other: # Bowel Movements 0 Laboratory Last Values WBC 8.2 10^3/uL (3.5-10.8) 03/30/19 05:52 RBC 2.73 10^6 /uL (4.18-5.48) L 03/30/19 05:52 Hgb 7.9 g/dL (14.0-18.0) L 03/30/19 05:52 Hct 22 % (42-52) L 03/30/19 05:52 MCV 82 fL (80-94) 03/30/19 05:52 MCH 29 pg (27-31) 03/30/19 05:52 MCHC 36 g/dL (31-36) 03/30/19 05:52 RDW 14 % (10.5-15) 03/30/19 05:52 Plt Count 135 10^3/uL (150-450) L 03/30/19 05:52 MPV 7.7 fL (7.4-10.4) 03/30/19 05:52 Neut % (Auto) 70.8 % 03/30/19 05:52 Lymph % (Auto) 17.5 % 03/30/19 05:52 Holmes % (Auto) 10.0 % 03/30/19 05:52 Eos % (Auto) 0.9 % 03/30/19 05:52 Baso % (Auto) 0.8 % 03/30/19 05:52 Absolute Neuts (auto) 5.8 10^3/ul (1.5-7.7) 03/30/19 05:52 Absolute Lymphs (auto) 1.4 10^3/ul (1.0-4.8) 03/30/19 05:52 Absolute Monos (auto) 0.8 10^3/ul (0-0.8) 03/30/19 05:52 Absolute Eos (auto) 0.1 10^3/ul (0-0.6) 03/30/19 05:52 Absolute Basos (auto) 0.1 10^3/ul (0-0.2) 03/30/19 05:52 Absolute Nucleated RBC 0.0 10^3/ul 03/30/19 05:52 Nucleated RBC % 0.1 03/30/19 05:52 INR (Anticoag Therapy) 0.95 (0.82-1.09) 03/27/19 12:38 APTT 30.7 seconds (26.0-36.3) 03/27/19 12:38 Sodium 132 mmol/L (135-145) L 03/30/19 05:52 Potassium 4.3 mmol/L (3.5-5.0) 03/30/19 05:52 Chloride 95 mmol/L (101-111) L 03/30/19 05:52 Carbon Dioxide 33 mmol/L (22-32) H 03/30/19 05:52 Anion Gap 4 mmol/L (2-11) 03/30/19 05:52 BUN 19 mg/dL (6-24) 03/30/19 05:52 Creatinine 1.78 mg/dL (0.67-1.17) H 03/30/19 05:52 Est GFR ( Amer) 47.9 (>60) 03/30/19 05:52 Est GFR (Non-Af Amer) 39.6 (>60) 03/30/19 05:52 BUN/Creatinine Ratio 10.7 (8-20) 03/30/19 05:52 Glucose 262 mg/dL (70-100) H 03/30/19 05:52 POC Glucose (mg/dL) 179 mg/dL (70-100) H 03/29/19 20:52 Lactic Acid 0.7 mmol/L (0.5-2.0) 03/27/19 15:55 Calcium 8.5 mg/dL (8.6-10.3) L 03/30/19 05:52 Phosphorus 4.5 mg/dL (2.5-5.0) 03/30/19 05:52 Magnesium 1.8 mg/dL (1.9-2.7) L 03/30/19 05:52 Total Bilirubin 0.30 mg/dL (0.2-1.0) 03/27/19 12:38 AST 8 U/L (13-39) L 03/27/19 12:38 ALT 6 U/L (7-52) L 03/27/19 12:38 Alkaline Phosphatase 91 U/L (34-104) 03/27/19 12:38 Troponin I 0.00 ng/mL (<0.04) 03/27/19 12:38 C-Reactive Protein 55.97 mg/L (<8.01) H 03/27/19 12:38 Total Protein 6.9 g/dL (6.4-8.9) 03/27/19 12:38 Albumin 3.8 g/dL (3.2-5.2) 03/27/19 12:38 Globulin 3.1 g/dL (2-4) 03/27/19 12:38 Albumin/Globulin Ratio 1.2 (1-3) 03/27/19 12:38 Urine Color Straw 03/27/19 13:55 Urine Appearance Clear 03/27/19 13:55 Urine pH 5.0 (5-9) 03/27/19 13:55 Ur Specific Hudson 1.008 (1.010-1.030) L 03/27/19 13:55 Urine Protein Negative (Negative) 03/27/19 13:55 Urine Ketones Negative (Negative) 03/27/19 13:55 Urine Blood 1+ (Negative) A 03/27/19 13:55 Urine Nitrate Negative (Negative) 03/27/19 13:55 Urine Bilirubin Negative (Negative) 03/27/19 13:55 Urine Urobilinogen Negative (Negative) 03/27/19 13:55 Ur Leukocyte Esterase Negative (Negative) 03/27/19 13:55 Urine WBC (Auto) Absent (Absent) 03/27/19 13:55 Urine RBC (Auto) Trace(0-2/hpf) (Absent) 03/27/19 13:55 Urine Bacteria Absent (Absent) 03/27/19 13:55 Urine Glucose Negative (Negative) 03/27/19 13:55 Hepatitis C Antibody Nonreactive (Nonreactive) 03/27/19 12:38 Hepatitis C Ab Index < 0.0 Index 03/27/19 12:38 Assessment: [POD 2 Syme amputation of RLE ] Plan: [Continue with IV abx per ID Continue with lovenox for DVT Pain medication prn Hgb was 7.9, discussed with hospitalist. We will continue to monitor. Pt is not diaphoretic, not pale. Nursing made aware that should anything change to call us and we can transfuse the pt.
--- NOTE | 2019-03-30 14:21 | PN ---
Subjective Date of Service: 03/30/19 Interval History: Occ shocks of pain but overall very comfortable. Appetite good, no bowel c/o. Able to stand unassisted. Past Medical History: Unchanged from Admission Objective Active Medications: Amlodipine Besylate (Norvasc Tab*) 10 mg PO DAILY [facility] Last Admin: 03/30/19 08:59 Dose: 10 mg Aspirin (Aspirin Ec Tab*) 81 mg PO DAILY [facility] Last Admin: 03/30/19 08:59 Dose: 81 mg Atorvastatin Calcium (Lipitor*) 10 mg PO QPM [facility]; Protocol Last Admin: 03/29/19 17:48 Dose: 10 mg Clonidine HCl (Catapres Tab*) 0.2 mg PO BID [facility] Last Admin: 03/30/19 08:59 Dose: 0.2 mg Cyclobenzaprine HCl (Flexeril Tab*) 10 mg PO TID [facility] Last Admin: 03/30/19 08:56 Dose: 10 mg Dextrose (D50w Syringe 50 Ml*) 12.5 gm IV PUSH .FOR FS < 60 - SS PRN PRN Reason: FS < 60 Diphenhydramine HCl (Benadryl Iv*) 25 mg IV Q6H PRN PRN Reason: PRURITIS Enoxaparin Sodium (Lovenox(*)) 40 mg SUBCUT Q24H [facility] Last Admin: 03/30/19 08:56 Dose: 40 mg Cefazolin Sodium/Dextrose (Kefzol 2 Gm Premix In Ors(*)) 2 gm in 50 mls @ 100 mls/hr IVPB Q8H [facility] Last Admin: 03/30/19 11:44 Dose: 100 mls/hr Insulin Human Lispro (Humalog*) 0 units SUBCUT ACHS [facility]; Protocol Last Admin: 03/30/19 12:51 Dose: 6 units Insulin Human NPH (Insulin Nph(*)) 45 units SUBCUT QAM [facility] Last Admin: 03/30/19 08:55 Dose: 45 units Insulin Human NPH (Insulin Nph(*)) 25 units SUBCUT BEDTIME [facility] Last Admin: 03/29/19 21:08 Dose: 25 unit Metoprolol Tartrate (Lopressor Tab*) 100 mg PO BID [facility] Last Admin: 03/30/19 08:58 Dose: 100 mg Morphine Sulfate (Ms Contin(*)) 15 mg PO Q12HR [facility] Last Admin: 03/30/19 08:58 Dose: 15 mg Nortriptyline HCl (Pamelor Cap*) 125 mg PO BEDTIME [facility] Last Admin: 03/29/19 21:05 Dose: 125 mg Ondansetron HCl (Zofran Inj*) 4 mg IV Q6H PRN PRN Reason: NAUSEA Oxycodone HCl (Roxycodone Tab*) 5 mg PO TID PRN PRN Reason: PAIN Last Admin: 03/30/19 08:58 Dose: 5 mg Oxycodone/Acetaminophen (Percocet 5/325 Tab*) 1 tab PO TID PRN PRN Reason: PAIN Last Admin: 03/30/19 08:56 Dose: 1 tab Pantoprazole Sodium (Protonix Tab*) 40 mg PO DAILY [facility] Last Admin: 03/30/19 08:58 Dose: 40 mg Torsemide (Demadex*) 80 mg PO DAILY [facility] Last Admin: 03/30/19 08:57 Dose: 80 mg Vital Signs - 8 hr 03/30/19 03/30/19 03/30/19 08:00 08:46 08:56 Temperature 98.2 F Pulse Rate 84 Respiratory 18 16 18 Rate Blood Pressure 120/61 (mmHg) O2 Sat by Pulse 91 91 Oximetry 03/30/19 03/30/19 03/30/19 08:58 11:12 11:43 Temperature 98.1 F Pulse Rate 84 Respiratory 18 17 18 Rate Blood Pressure 114/51 (mmHg) O2 Sat by Pulse 93 Oximetry Oxygen Devices in Use Now: Nasal Cannula Appearance: Alert, partly up in bed. In good spirits. Looks comfortable. Eyes: No Scleral Icterus Respiratory: Symmetrical Chest Expansion and Respiratory Effort, Clear to Auscultation, Clear to Percussion Cardiovascular: NL Sounds; No Murmurs; No JVD, RRR, No Edema, - Extremities: No Edema, No Clubbing, Cyanosis, - - R lower leg bandaged Skin: No Rash or Ulcers, No Nodules or Sclerosis, - Neurological: Alert and Oriented x 3, NL Sensation Result Diagrams: 03/30/19 05:52 03/30/19 05:52 Microbiology and Other Data: Microbiology 03/28/19 08:00 Gram Stain - Final Foot Right 03/27/19 12:31 Aerobic Blood Culture - Preliminary Blood Venous No Growth Day 1 Anaerobic Blood Culture - Preliminary No Growth Day 1 03/27/19 12:38 Aerobic Blood Culture - Preliminary Blood Venous No Growth Day 1 Anaerobic Blood Culture - Preliminary No Growth Day 1 03/27/19 12:10 Skin and Soft Tissue MRSA/MSSA (PCR - Final Foot Right Mrsa Negative S.aureus Positive Gram Stain - Final Wound Culture - Preliminary Staphylococcus Aureus Assess/Plan/Problems-Billing Assessment: 58 year old male presented with chronic osteomyelitis of his right foot s/p amputation. Intra-op wound culture is pending - Patient Problems (1) S/P Syme amputation of foot Current Visit: Yes Status: Acute Code(s): Z89.439 - ACQUIRED ABSENCE OF UNSPECIFIED FOOT SNOMED Code(s): 923034767 Comment: - Activity, diet as per surgery - Minimize naroctic medication as he is a risk for post op ileus Hgb 7.9, asymptomatic, should return to baseline over next few weeks. (2) DVT prophylaxis Current Visit: Yes Status: Acute Code(s): Z29.9 - ENCOUNTER FOR PROPHYLACTIC MEASURES, UNSPECIFIED SNOMED Code(s): 236224911 Comment: lovenox 40 mg q 24 hr. (3) Diabetes Current Visit: Yes Status: Acute Code(s): E11.9 - TYPE 2 DIABETES MELLITUS WITHOUT COMPLICATIONS SNOMED Code(s): 36090859 Comment: Continue NPH, Lispro. (4) GERD (gastroesophageal reflux disease) Current Visit: Yes Status: Acute Code(s): K21.9 - GASTRO-ESOPHAGEAL REFLUX DISEASE WITHOUT ESOPHAGITIS SNOMED Code(s): 861155934 Comment: On pantoprazole. (5) Hypertension Current Visit: Yes Status: Acute Code(s): I10 - ESSENTIAL (PRIMARY) HYPERTENSION SNOMED Code(s): 56079355 Comment: - continue lopressor 100 mg bid; Amlodipine 10 mg daily. (6) Hyperlipidemia Current Visit: Yes Status: Acute Code(s): E78.5 - HYPERLIPIDEMIA, UNSPECIFIED SNOMED Code(s): 32894414 Comment: Continue statin.
[2019-03-30] MEDS: Atorvastatin* 10 MG TAB PO SCH (17:55)
[2019-03-30] MEDS: Nortriptyline CAP* 25 MG PO SCH (21:13)
[2019-03-31] MEDS: oxyCODONE/Acetamin 5/325 MG* TAB PO PRN ×2 (03:47→17:18)
[2019-03-31] MEDS: ceFAZolin 2 GM PREMIX in ORs 2 GM/50 ML BAG IVPB SCH ×3 (03:47→20:30)
[2019-03-31] MEDS: oxyCODONE TAB* 5 MG TAB PO PRN (03:47)
[2019-03-31] MEDS ORDERED: Magnesium CITRATE* 300 ML BTL PO ONE (09:29)
--- NOTE | 2019-03-31 09:49 | PN ---
Progress Note - Progress Note Date of Service: 03/31/19 SOAP: Subjective: Pt seen lying in bed this morning. Minimal complaints. No chest pain, SOB, nausea or vomiting, lightheadedness or dizzy. ] Objective: [General: Pt alert and oriented MSK, RLE: Dressing is c/d/i. Full ROM of the knee. ] Vital Signs Temp 98.1 F 03/31/19 04:10 Pulse 82 03/31/19 04:10 Resp 18 03/31/19 08:00 BP 123/61 03/31/19 04:10 Pulse Ox 98 03/31/19 08:00 Intake & Output 03/30/19 03/31/19 03/31/19 18:59 06:59 18:59 Intake Total 715 800 Output Total 1450 480 Balance -735 320 Intake: IV Fluids 75 ABX - CEFAZOLIN 50 NS 25 Oral 640 800 Output: Urine 1450 480 Other: # Bowel Movements 0 Assessment: [POD 3 Syme amputation of RLE ] Plan: [Continue with IV abx per ID Continue with lovenox for DVT Pain medication prn Will start PT to work on transfers
[2019-03-31] MEDS: Insulin NPH(*) 1 UNITS UNIT SUBCUT SCH ×2 (10:26→21:00)
[2019-03-31] MEDS: Torsemide TAB* 20 MG PO SCH (10:26)
[2019-03-31] MEDS: Enoxaparin(*) 40 MG/0.4 ML SYR SUBCUT SCH (10:26)
[2019-03-31] MEDS: cloNIDine TAB* 0.1 MG PO SCH ×2 (10:27→21:01)
[2019-03-31] MEDS: amLODIPine TAB* 5 MG PO SCH (10:27)
[2019-03-31] MEDS: Pantoprazole TAB * 40 MG TAB PO SCH (10:28)
[2019-03-31] MEDS: Morphine TAB Extended Release (*) 15 MG TAB.ER PO SCH ×2 (10:28→21:01)
[2019-03-31] MEDS: Cyclobenzaprine TAB* 10 MG PO SCH ×3 (10:29→21:01)
[2019-03-31] MEDS: Aspirin EC TAB* 81 MG TAB.EC PO SCH (10:29)
[2019-03-31] MEDS: Metoprolol Tartrate TAB* 100 MG TAB PO SCH ×2 (10:29→21:01)
[2019-03-31] MEDS: Insulin LISPRO* 1 UNITS UNIT SUBCUT SCH ×4 (10:30→21:00)
[2019-03-31] MEDS ORDERED: Sodium Phosphate ADULT ENEMA* 118 ml bottle PR PRN (16:54)
--- NOTE | 2019-03-31 16:57 | PN ---
Subjective Date of Service: 03/31/19 Interval History: Patient sleeping in chair. I spoke with his nurse about his clinical course today. Past Medical History: Unchanged from Admission Objective Active Medications: Amlodipine Besylate (Norvasc Tab*) 10 mg PO DAILY [facility] Last Admin: 03/31/19 10:27 Dose: 10 mg Aspirin (Aspirin Ec Tab*) 81 mg PO DAILY [facility] Last Admin: 03/31/19 10:29 Dose: 81 mg Atorvastatin Calcium (Lipitor*) 10 mg PO QPM [facility]; Protocol Last Admin: 03/30/19 17:55 Dose: 10 mg Clonidine HCl (Catapres Tab*) 0.2 mg PO BID [facility] Last Admin: 03/31/19 10:27 Dose: 0.2 mg Cyclobenzaprine HCl (Flexeril Tab*) 10 mg PO TID [facility] Last Admin: 03/31/19 13:48 Dose: 10 mg Dextrose (D50w Syringe 50 Ml*) 12.5 gm IV PUSH .FOR FS < 60 - SS PRN PRN Reason: FS < 60 Diphenhydramine HCl (Benadryl Iv*) 25 mg IV Q6H PRN PRN Reason: PRURITIS Enoxaparin Sodium (Lovenox(*)) 40 mg SUBCUT Q24H [facility] Last Admin: 03/31/19 10:26 Dose: 40 mg Cefazolin Sodium/Dextrose (Kefzol 2 Gm Premix In Ors(*)) 2 gm in 50 mls @ 100 mls/hr IVPB Q8H [facility] Last Admin: 03/31/19 12:11 Dose: 100 mls/hr Insulin Human Lispro (Humalog*) 0 units SUBCUT ACHS [facility]; Protocol Last Admin: 03/31/19 13:47 Dose: 6 units Insulin Human NPH (Insulin Nph(*)) 45 units SUBCUT QAM [facility] Last Admin: 03/31/19 10:26 Dose: 45 units Insulin Human NPH (Insulin Nph(*)) 25 units SUBCUT BEDTIME [facility] Last Admin: 03/30/19 21:14 Dose: 25 unit Metoprolol Tartrate (Lopressor Tab*) 100 mg PO BID [facility] Last Admin: 03/31/19 10:29 Dose: 100 mg Morphine Sulfate (Ms Contin(*)) 15 mg PO Q12HR [facility] Last Admin: 03/31/19 10:28 Dose: 15 mg Nortriptyline HCl (Pamelor Cap*) 125 mg PO BEDTIME [facility] Last Admin: 03/30/19 21:13 Dose: 125 mg Ondansetron HCl (Zofran Inj*) 4 mg IV Q6H PRN PRN Reason: NAUSEA Oxycodone HCl (Roxycodone Tab*) 5 mg PO TID PRN PRN Reason: PAIN Last Admin: 03/31/19 03:47 Dose: 5 mg Oxycodone/Acetaminophen (Percocet 5/325 Tab*) 1 tab PO TID PRN PRN Reason: PAIN Last Admin: 03/31/19 03:47 Dose: 1 tab Pantoprazole Sodium (Protonix Tab*) 40 mg PO DAILY [facility] Last Admin: 03/31/19 10:28 Dose: 40 mg Polyethylene Glycol/Electrolytes (Miralax*) 17 gm PO 0800,2100 LIBAN Torsemide (Demadex*) 80 mg PO DAILY [facility] Last Admin: 03/31/19 10:26 Dose: 80 mg Vital Signs - 8 hr 03/31/19 03/31/19 03/31/19 10:28 10:29 12:26 Temperature 98.3 F Pulse Rate 78 Respiratory 18 18 16 Rate Blood Pressure 95/43 (mmHg) O2 Sat by Pulse 96 Oximetry 03/31/19 03/31/19 03/31/19 12:30 13:48 16:09 Temperature 98.4 F Pulse Rate 78 Respiratory 18 18 18 Rate Blood Pressure 97/47 (mmHg) O2 Sat by Pulse 96 Oximetry Oxygen Devices in Use Now: Nasal Cannula Appearance: Inchair, sleeping, looks comfortable. Extremities: No Clubbing, Cyanosis, - - R lower leg/foot bandaged Skin: No Rash or Ulcers, No Nodules or Sclerosis, - Result Diagrams: 03/30/19 05:52 03/30/19 05:52 Microbiology and Other Data: Microbiology 03/28/19 08:00 Gram Stain - Final Foot Right 03/27/19 12:31 Aerobic Blood Culture - Preliminary Blood Venous No Growth Day 1 Anaerobic Blood Culture - Preliminary No Growth Day 1 03/27/19 12:38 Aerobic Blood Culture - Preliminary Blood Venous No Growth Day 1 Anaerobic Blood Culture - Preliminary No Growth Day 1 03/27/19 12:10 Skin and Soft Tissue MRSA/MSSA (PCR - Final Foot Right Mrsa Negative S.aureus Positive Gram Stain - Final Wound Culture - Preliminary Staphylococcus Aureus Assess/Plan/Problems-Billing Assessment: 58 year old male presented with chronic osteomyelitis of his right foot s/p amputation. Intra-op wound culture is pending - Patient Problems (1) S/P Syme amputation of foot Current Visit: Yes Status: Acute Code(s): Z89.439 - ACQUIRED ABSENCE OF UNSPECIFIED FOOT SNOMED Code(s): 612562625 Comment: - Activity, diet as per surgery - Minimize naroctic medication as he is a risk for post op ileus Hgb 7.9, asymptomatic, should return to baseline over next few weeks. (2) DVT prophylaxis Current Visit: Yes Status: Acute Code(s): Z29.9 - ENCOUNTER FOR PROPHYLACTIC MEASURES, UNSPECIFIED SNOMED Code(s): 041298045 Comment: lovenox 40 mg q 24 hr. (3) Diabetes Current Visit: Yes Status: Acute Code(s): E11.9 - TYPE 2 DIABETES MELLITUS WITHOUT COMPLICATIONS SNOMED Code(s): 07644491 Comment: Continue NPH, Lispro. (4) GERD (gastroesophageal reflux disease) Current Visit: Yes Status: Acute Code(s): K21.9 - GASTRO-ESOPHAGEAL REFLUX DISEASE WITHOUT ESOPHAGITIS SNOMED Code(s): 111963143 Comment: On pantoprazole. (5) Hypertension Current Visit: Yes Status: Acute Code(s): I10 - ESSENTIAL (PRIMARY) HYPERTENSION SNOMED Code(s): 12126583 Comment: - continue lopressor 100 mg bid; Amlodipine 10 mg daily. (6) Hyperlipidemia Current Visit: Yes Status: Acute Code(s): E78.5 - HYPERLIPIDEMIA, UNSPECIFIED SNOMED Code(s): 93566747 Comment: Continue statin. (7) Constipation Current Visit: Yes Status: Acute Code(s): K59.00 - CONSTIPATION, UNSPECIFIED SNOMED Code(s): 68348924 Comment: Received mag citrate 300 ml 5/ AM, no BM, starting bid PEG. Will give lactulose 120 ml 5/ PM, also PRN Fleet's enema.
[2019-03-31] MEDS: Atorvastatin* 10 MG TAB PO SCH (17:19)
[2019-03-31] MEDS: Nortriptyline CAP* 25 MG PO SCH (21:01)
[2019-03-31] MEDS: Polyethylene Glycol 3350* 17 GM PACKET PO SCH (21:02)
[2019-04-01] MEDS: ceFAZolin 2 GM PREMIX in ORs 2 GM/50 ML BAG IVPB SCH ×3 (04:13→20:02)
[2019-04-01] MEDS: oxyCODONE/Acetamin 5/325 MG* TAB PO PRN ×2 (04:13→14:34)
--- NOTE | 2019-04-01 07:40 | PN ---
Progress Note - Progress Note Date of Service: 04/01/19 SOAP: Subjective: resting comfortably with minimal pain Objective: Vital Signs Temp Pulse Resp BP Pulse Ox 98.1 F 79 18 101/50 96 03/31/19 23:36 03/31/19 23:36 04/01/19 04:19 03/31/19 23:36 04/01/19 03:51 Laboratory Last Values WBC 8.2 10^3/uL (3.5-10.8) 03/30/19 05:52 RBC 2.73 10^6 /uL (4.18-5.48) L 03/30/19 05:52 Hgb 7.9 g/dL (14.0-18.0) L 03/30/19 05:52 Hct 22 % (42-52) L 03/30/19 05:52 MCV 82 fL (80-94) 03/30/19 05:52 MCH 29 pg (27-31) 03/30/19 05:52 MCHC 36 g/dL (31-36) 03/30/19 05:52 RDW 14 % (10.5-15) 03/30/19 05:52 Plt Count 135 10^3/uL (150-450) L 03/30/19 05:52 MPV 7.7 fL (7.4-10.4) 03/30/19 05:52 Neut % (Auto) 70.8 % 03/30/19 05:52 Lymph % (Auto) 17.5 % 03/30/19 05:52 [place] % (Auto) 10.0 % 03/30/19 05:52 Eos % (Auto) 0.9 % 03/30/19 05:52 Baso % (Auto) 0.8 % 03/30/19 05:52 Absolute Neuts (auto) 5.8 10^3/ul (1.5-7.7) 03/30/19 05:52 Absolute Lymphs (auto) 1.4 10^3/ul (1.0-4.8) 03/30/19 05:52 Absolute Monos (auto) 0.8 10^3/ul (0-0.8) 03/30/19 05:52 Absolute Eos (auto) 0.1 10^3/ul (0-0.6) 03/30/19 05:52 Absolute Basos (auto) 0.1 10^3/ul (0-0.2) 03/30/19 05:52 Absolute Nucleated RBC 0.0 10^3/ul 03/30/19 05:52 Nucleated RBC % 0.1 03/30/19 05:52 INR (Anticoag Therapy) 0.95 (0.82-1.09) 03/27/19 12:38 APTT 30.7 seconds (26.0-36.3) 03/27/19 12:38 Sodium 132 mmol/L (135-145) L 03/30/19 05:52 Potassium 4.3 mmol/L (3.5-5.0) 03/30/19 05:52 Chloride 95 mmol/L (101-111) L 03/30/19 05:52 Carbon Dioxide 33 mmol/L (22-32) H 03/30/19 05:52 Anion Gap 4 mmol/L (2-11) 03/30/19 05:52 BUN 19 mg/dL (6-24) 03/30/19 05:52 Creatinine 1.78 mg/dL (0.67-1.17) H 03/30/19 05:52 Est GFR ( Amer) 47.9 (>60) 03/30/19 05:52 Est GFR (Non-Af Amer) 39.6 (>60) 03/30/19 05:52 BUN/Creatinine Ratio 10.7 (8-20) 03/30/19 05:52 Glucose 262 mg/dL (70-100) H 03/30/19 05:52 POC Glucose (mg/dL) 143 mg/dL (70-100) H 04/01/19 07:00 Lactic Acid 0.7 mmol/L (0.5-2.0) 03/27/19 15:55 Calcium 8.5 mg/dL (8.6-10.3) L 03/30/19 05:52 Phosphorus 4.5 mg/dL (2.5-5.0) 03/30/19 05:52 Magnesium 1.8 mg/dL (1.9-2.7) L 03/30/19 05:52 Total Bilirubin 0.30 mg/dL (0.2-1.0) 03/27/19 12:38 AST 8 U/L (13-39) L 03/27/19 12:38 ALT 6 U/L (7-52) L 03/27/19 12:38 Alkaline Phosphatase 91 U/L (34-104) 03/27/19 12:38 Troponin I 0.00 ng/mL (<0.04) 03/27/19 12:38 C-Reactive Protein 55.97 mg/L (<8.01) H 03/27/19 12:38 Total Protein 6.9 g/dL (6.4-8.9) 03/27/19 12:38 Albumin 3.8 g/dL (3.2-5.2) 03/27/19 12:38 Globulin 3.1 g/dL (2-4) 03/27/19 12:38 Albumin/Globulin Ratio 1.2 (1-3) 03/27/19 12:38 Urine Color Straw 03/27/19 13:55 Urine Appearance Clear 03/27/19 13:55 Urine pH 5.0 (5-9) 03/27/19 13:55 Ur Specific [place] 1.008 (1.010-1.030) L 03/27/19 13:55 Urine Protein Negative (Negative) 03/27/19 13:55 Urine Ketones Negative (Negative) 03/27/19 13:55 Urine Blood 1+ (Negative) A 03/27/19 13:55 Urine Nitrate Negative (Negative) 03/27/19 13:55 Urine Bilirubin Negative (Negative) 03/27/19 13:55 Urine Urobilinogen Negative (Negative) 03/27/19 13:55 Ur Leukocyte Esterase Negative (Negative) 03/27/19 13:55 Urine WBC (Auto) Absent (Absent) 03/27/19 13:55 Urine RBC (Auto) Trace(0-2/hpf) (Absent) 03/27/19 13:55 Urine Bacteria Absent (Absent) 03/27/19 13:55 Urine Glucose Negative (Negative) 03/27/19 13:55 Hepatitis C Antibody Nonreactive (Nonreactive) 03/27/19 12:38 Hepatitis C Ab Index < 0.0 Index 03/27/19 12:38 incision: c/d/i Assessment: s/p RLE amputation Plan: 1) continue PT/OT- NWB RLE 2) continue DVT prophylaxis 3) continue IV abx per ID 4) patient requesting inpat rehab in [place]
[2019-04-01] MEDS: Polyethylene Glycol 3350* 17 GM PACKET PO SCH ×2 (08:58→22:34)
[2019-04-01] MEDS: Metoprolol Tartrate TAB* 100 MG TAB PO SCH ×2 (09:13→22:31)
[2019-04-01] MEDS: Pantoprazole TAB * 40 MG TAB PO SCH (09:13)
[2019-04-01] MEDS: Aspirin EC TAB* 81 MG TAB.EC PO SCH (09:13)
[2019-04-01] MEDS: oxyCODONE TAB* 5 MG TAB PO PRN ×2 (09:13→14:35)
[2019-04-01] MEDS: Morphine TAB Extended Release (*) 15 MG TAB.ER PO SCH ×2 (09:14→22:31)
[2019-04-01] MEDS: Enoxaparin(*) 40 MG/0.4 ML SYR SUBCUT SCH (09:14)
[2019-04-01] MEDS: Cyclobenzaprine TAB* 10 MG PO SCH ×3 (09:14→22:33)
[2019-04-01] MEDS: Insulin NPH(*) 1 UNITS UNIT SUBCUT SCH ×2 (09:15→22:35)
[2019-04-01] MEDS: Insulin LISPRO* 1 UNITS UNIT SUBCUT SCH ×4 (09:15→22:36)
[2019-04-01] MEDS: cloNIDine TAB* 0.1 MG PO SCH ×2 (09:15→22:33)
[2019-04-01] MEDS: Torsemide TAB* 20 MG PO SCH (09:16)
--- NOTE | 2019-04-01 10:02 | PN ---
Progress Note - Progress Note Date of Service: 04/01/19 SOAP: Subjective: CC: Right foot infection HPI: Mr. Landrum is a 58 yo male with PMH significant for DM2 with neuropathy and charcot joint, morbid obesity, CKD, HTN, HLD, chronic back pain, GERD, SHAI, prostate CA, cirrhosis, and chronic osteomyelitis. Denies fever, chills, shortness of breath, chest discomfort, nausea, vomiting, diarrhea, or constipation. Denies right foot pain. Objective: Vital Signs - 8 hr 04/01/19 04/01/19 04/01/19 03:23 03:51 04:13 Temperature 98.0 F Pulse Rate 78 Respiratory 20 18 Rate Blood Pressure 104/56 (mmHg) O2 Sat by Pulse 94 96 Oximetry 04/01/19 04/01/19 04/01/19 04:18 04:19 07:03 Temperature 97.9 F Pulse Rate 79 Respiratory 18 18 Rate Blood Pressure 98/65 (mmHg) O2 Sat by Pulse 97 Oximetry Physical Exam: General: NAD, sitting up in a chair Neurological: Alert and Oriented x4 HEENT: Moist MM, no thrush Cardiovascular: Heart rate regular Respiratory: Lung sounds clear Abdominal: Bowel sounds present; ABD soft, non tender and non distended Skin: No rash Laboratory Last Values WBC 8.2 10^3/uL (3.5-10.8) 03/30/19 05:52 RBC 2.73 10^6 /uL (4.18-5.48) L 03/30/19 05:52 Hgb 7.9 g/dL (14.0-18.0) L 03/30/19 05:52 Hct 22 % (42-52) L 03/30/19 05:52 MCV 82 fL (80-94) 03/30/19 05:52 MCH 29 pg (27-31) 03/30/19 05:52 MCHC 36 g/dL (31-36) 03/30/19 05:52 RDW 14 % (10.5-15) 03/30/19 05:52 Plt Count 135 10^3/uL (150-450) L 03/30/19 05:52 MPV 7.7 fL (7.4-10.4) 03/30/19 05:52 Neut % (Auto) 70.8 % 03/30/19 05:52 Lymph % (Auto) 17.5 % 03/30/19 05:52 [place] % (Auto) 10.0 % 03/30/19 05:52 Eos % (Auto) 0.9 % 03/30/19 05:52 Baso % (Auto) 0.8 % 03/30/19 05:52 Absolute Neuts (auto) 5.8 10^3/ul (1.5-7.7) 03/30/19 05:52 Absolute Lymphs (auto) 1.4 10^3/ul (1.0-4.8) 03/30/19 05:52 Absolute Monos (auto) 0.8 10^3/ul (0-0.8) 03/30/19 05:52 Absolute Eos (auto) 0.1 10^3/ul (0-0.6) 03/30/19 05:52 Absolute Basos (auto) 0.1 10^3/ul (0-0.2) 03/30/19 05:52 Absolute Nucleated RBC 0.0 10^3/ul 03/30/19 05:52 Nucleated RBC % 0.1 03/30/19 05:52 INR (Anticoag Therapy) 0.95 (0.82-1.09) 03/27/19 12:38 APTT 30.7 seconds (26.0-36.3) 03/27/19 12:38 Sodium 132 mmol/L (135-145) L 03/30/19 05:52 Potassium 4.3 mmol/L (3.5-5.0) 03/30/19 05:52 Chloride 95 mmol/L (101-111) L 03/30/19 05:52 Carbon Dioxide 33 mmol/L (22-32) H 03/30/19 05:52 Anion Gap 4 mmol/L (2-11) 03/30/19 05:52 BUN 19 mg/dL (6-24) 03/30/19 05:52 Creatinine 1.78 mg/dL (0.67-1.17) H 03/30/19 05:52 Est GFR ( Amer) 47.9 (>60) 03/30/19 05:52 Est GFR (Non-Af Amer) 39.6 (>60) 03/30/19 05:52 BUN/Creatinine Ratio 10.7 (8-20) 03/30/19 05:52 Glucose 262 mg/dL (70-100) H 03/30/19 05:52 POC Glucose (mg/dL) 143 mg/dL (70-100) H 04/01/19 07:00 Lactic Acid 0.7 mmol/L (0.5-2.0) 03/27/19 15:55 Calcium 8.5 mg/dL (8.6-10.3) L 03/30/19 05:52 Phosphorus 4.5 mg/dL (2.5-5.0) 03/30/19 05:52 Magnesium 1.8 mg/dL (1.9-2.7) L 03/30/19 05:52 Total Bilirubin 0.30 mg/dL (0.2-1.0) 03/27/19 12:38 AST 8 U/L (13-39) L 03/27/19 12:38 ALT 6 U/L (7-52) L 03/27/19 12:38 Alkaline Phosphatase 91 U/L (34-104) 03/27/19 12:38 Troponin I 0.00 ng/mL (<0.04) 03/27/19 12:38 C-Reactive Protein 55.97 mg/L (<8.01) H 03/27/19 12:38 Total Protein 6.9 g/dL (6.4-8.9) 03/27/19 12:38 Albumin 3.8 g/dL (3.2-5.2) 03/27/19 12:38 Globulin 3.1 g/dL (2-4) 03/27/19 12:38 Albumin/Globulin Ratio 1.2 (1-3) 03/27/19 12:38 Urine Color Straw 03/27/19 13:55 Urine Appearance Clear 03/27/19 13:55 Urine pH 5.0 (5-9) 03/27/19 13:55 Ur Specific [place] 1.008 (1.010-1.030) L 03/27/19 13:55 Urine Protein Negative (Negative) 03/27/19 13:55 Urine Ketones Negative (Negative) 03/27/19 13:55 Urine Blood 1+ (Negative) A 03/27/19 13:55 Urine Nitrate Negative (Negative) 03/27/19 13:55 Urine Bilirubin Negative (Negative) 03/27/19 13:55 Urine Urobilinogen Negative (Negative) 03/27/19 13:55 Ur Leukocyte Esterase Negative (Negative) 03/27/19 13:55 Urine WBC (Auto) Absent (Absent) 03/27/19 13:55 Urine RBC (Auto) Trace(0-2/hpf) (Absent) 03/27/19 13:55 Urine Bacteria Absent (Absent) 03/27/19 13:55 Urine Glucose Negative (Negative) 03/27/19 13:55 Hepatitis C Antibody Nonreactive (Nonreactive) 03/27/19 12:38 Hepatitis C Ab Index < 0.0 Index 03/27/19 12:38 Microbiology 03/28/19 08:00 Anaerobic Culture - Final Wound - Right No Growth Day 4 03/28/19 08:00 Gram Stain - Final Foot Right Wound Culture - Final Staphylococcus Aureus 03/27/19 12:38 Aerobic Blood Culture - Preliminary Blood Venous No Growth Day 4 Anaerobic Blood Culture - Preliminary No Growth Day 4 03/27/19 12:31 Aerobic Blood Culture - Preliminary Blood Venous No Growth Day 4 Anaerobic Blood Culture - Preliminary No Growth Day 4 03/27/19 12:10 Skin and Soft Tissue MRSA/MSSA (PCR - Final Foot Right Mrsa Negative S.aureus Positive Gram Stain - Final Wound Culture - Final Staphylococcus Aureus Normal Trudy Assessment: 1. Chronic osteomyelitis of the right foot. MRI showing osteomyelitis, which is previously known. S/P syme amputation, POD #4. Wound cultures with MSSA. Blood cultures with no growth on day 4. Afebrile and no leukocytosis. 2. DM2 with neuropathy and charcot joint. 3. Morbid obesity. BMI 36.2 4. CKD, stage 3. Plan: Continue Ancef 2 gm IV every 8 hours. Day 02/16. Weekly labs while on IV ABX: CBC , CRP and CMP.
--- NOTE | 2019-04-01 16:42 | PN ---
Subjective Date of Service: 04/01/19 Interval History: Pt just showered. Feels well. denies pain, SOB Past Medical History: Unchanged from Admission Objective Active Medications: Aspirin (Aspirin Ec Tab*) 81 mg PO DAILY [facility] Last Admin: 04/01/19 09:13 Dose: 81 mg Atorvastatin Calcium (Lipitor*) 10 mg PO QPM [facility]; Protocol Last Admin: 03/31/19 17:19 Dose: 10 mg Clonidine HCl (Catapres Tab*) 0.2 mg PO BID [facility] Last Admin: 04/01/19 09:15 Dose: Not Given Cyclobenzaprine HCl (Flexeril Tab*) 10 mg PO TID [facility] Last Admin: 04/01/19 14:36 Dose: 10 mg Dextrose (D50w Syringe 50 Ml*) 12.5 gm IV PUSH .FOR FS < 60 - SS PRN PRN Reason: FS < 60 Diphenhydramine HCl (Benadryl Iv*) 25 mg IV Q6H PRN PRN Reason: PRURITIS Enoxaparin Sodium (Lovenox(*)) 40 mg SUBCUT Q24H [facility] Last Admin: 04/01/19 09:14 Dose: 40 mg Cefazolin Sodium/Dextrose (Kefzol 2 Gm Premix In Ors(*)) 2 gm in 50 mls @ 100 mls/hr IVPB Q8H [facility] Last Admin: 04/01/19 12:19 Dose: 100 mls/hr Insulin Human Lispro (Humalog*) 0 units SUBCUT ACHS [facility]; Protocol Last Admin: 04/01/19 12:40 Dose: 4 units Insulin Human NPH (Insulin Nph(*)) 45 units SUBCUT QAM [facility] Last Admin: 04/01/19 09:15 Dose: 45 units Insulin Human NPH (Insulin Nph(*)) 25 units SUBCUT BEDTIME [facility] Last Admin: 03/31/19 21:00 Dose: 25 unit Metoprolol Tartrate (Lopressor Tab*) 100 mg PO BID [facility] Last Admin: 04/01/19 09:13 Dose: 100 mg Morphine Sulfate (Ms Contin(*)) 15 mg PO Q12HR [facility] Last Admin: 04/01/19 09:14 Dose: 15 mg Nortriptyline HCl (Pamelor Cap*) 125 mg PO BEDTIME [facility] Last Admin: 03/31/19 21:01 Dose: 125 mg Ondansetron HCl (Zofran Inj*) 4 mg IV Q6H PRN PRN Reason: NAUSEA Oxycodone HCl (Roxycodone Tab*) 5 mg PO TID PRN PRN Reason: PAIN Last Admin: 04/01/19 14:35 Dose: 5 mg Oxycodone/Acetaminophen (Percocet 5/325 Tab*) 1 tab PO TID PRN PRN Reason: PAIN Last Admin: 04/01/19 14:34 Dose: 1 tab Pantoprazole Sodium (Protonix Tab*) 40 mg PO DAILY [facility] Last Admin: 04/01/19 09:13 Dose: 40 mg Polyethylene Glycol/Electrolytes (Miralax*) 17 gm PO 0800,2100 [facility] Last Admin: 04/01/19 08:58 Dose: Not Given Sodium Biphosphate/Sodium Phosphate (Fleet Enema*) 1 bottle [place] DAILY PRN PRN Reason: CONSTIPATION Torsemide (Demadex*) 80 mg PO DAILY [facility] Last Admin: 04/01/19 09:16 Dose: Not Given Vital Signs - 8 hr 04/01/19 04/01/19 04/01/19 09:13 09:14 11:10 Temperature Pulse Rate Respiratory 18 18 18 Rate Blood Pressure (mmHg) O2 Sat by Pulse Oximetry 04/01/19 04/01/19 04/01/19 12:27 14:34 14:35 Temperature 97.9 F Pulse Rate 78 Respiratory 17 20 20 Rate Blood Pressure 104/72 (mmHg) O2 Sat by Pulse 100 Oximetry 04/01/19 14:36 Temperature Pulse Rate Respiratory 20 Rate Blood Pressure (mmHg) O2 Sat by Pulse Oximetry Oxygen Devices in Use Now: None Appearance: 58 yo M in nAD, AAOx3 Eyes: No Scleral Icterus, PERRLA Ears/Nose/Mouth/Throat: NL Teeth, Lips, Gums, Mucous Membranes Moist Neck: NL Appearance and Movements; NL JVP Respiratory: Symmetrical Chest Expansion and Respiratory Effort, Clear to Auscultation Cardiovascular: NL Sounds; No Murmurs; No JVD, RRR Abdominal: NL Sounds; No Tenderness; No Distention Lymphatic: No Cervical Adenopathy Extremities: No Clubbing, Cyanosis, - - R LE' edema +1, R foot s/p SYME amputation , incision with no dehiscence, cellulitis Result Diagrams: 03/30/19 05:52 03/30/19 05:52 Microbiology and Other Data: Microbiology 03/28/19 08:00 Gram Stain - Final Foot Right 03/27/19 12:31 Aerobic Blood Culture - Preliminary Blood Venous No Growth Day 1 Anaerobic Blood Culture - Preliminary No Growth Day 1 03/27/19 12:38 Aerobic Blood Culture - Preliminary Blood Venous No Growth Day 1 Anaerobic Blood Culture - Preliminary No Growth Day 1 03/27/19 12:10 Skin and Soft Tissue MRSA/MSSA (PCR - Final Foot Right Mrsa Negative S.aureus Positive Gram Stain - Final Wound Culture - Preliminary Staphylococcus Aureus Assess/Plan/Problems-Billing Assessment: 58 year old male presented with chronic osteomyelitis of his right foot s/p amputation. Intra-op wound culture is pending - Patient Problems (1) Chronic osteomyelitis involving right ankle and foot Comment: - Continue IV abx with cefazolin 2 gm IV Q8hrs, total 14 days appreciate ID consult (2) Diabetes Comment: Continue NPH, Lispro. (3) Hypertension Comment: - continue lopressor 100 mg bid; low SBP today, d/c Amlodipine 10 mg , clonidine/torsemide cont with hold parameters. (4) S/P Syme amputation of foot Comment: - Activity, diet as per surgery -Hgb 7.9, asymptomatic, should return to baseline over next few weeks. -cont to monitor (5) DVT prophylaxis Comment: lovenox 40 mg q 24 hr. Status and Disposition: medicine consult
[2019-04-01] MEDS: Atorvastatin* 10 MG TAB PO SCH (17:26)
[2019-04-01] MEDS: Nortriptyline CAP* 25 MG PO SCH (22:32)
[2019-04-02] MEDS: ceFAZolin 2 GM PREMIX in ORs 2 GM/50 ML BAG IVPB SCH ×3 (04:19→21:01)
[2019-04-02 06:04] LABS: ABS Eosinophils 0.2 10^3/ul (0-0.6); ABS Monocytes 0.4 10^3/ul (0-0.8); ABS Neutrophils 3.2 10^3/ul (1.5-7.7); Hematocrit 23 % (42-52); Hemoglobin 7.9 g/dL (14.0-18.0); Lymphocyte % 20.4 %; Mean Corpuscular HGB Conc 34 g/dL (31-36); Mean Corpuscular Hemoglobin 28 pg (27-31); Mean Corpuscular Volume 84 fL (80-94); Mean Platelet Volume 7.5 fL (7.4-10.4); Nucleated Red Blood Cells % 0.1; Platelet Count 206 10^3/uL (150-450); Red Blood Count 2.79 10^6 /uL (4.18-5.48); Red Cell Distribution Width 14 % (10.5-15); White Blood Count 4.9 10^3/uL (3.5-10.8)
[2019-04-02 06:14] LABS: BUN/Creatinine Ratio 12.8 (8-20); Calcium 8.8 mg/dL (8.6-10.3); EGFR African American 59.3 (>60); Potassium 4.6 mmol/L (3.5-5.0)
[2019-04-02] MEDS: Pantoprazole TAB * 40 MG TAB PO SCH (08:56)
[2019-04-02] MEDS: Torsemide TAB* 20 MG PO SCH (08:56)
[2019-04-02] MEDS: Aspirin EC TAB* 81 MG TAB.EC PO SCH (08:56)
[2019-04-02] MEDS: Metoprolol Tartrate TAB* 100 MG TAB PO SCH ×2 (08:56→21:07)
[2019-04-02] MEDS: cloNIDine TAB* 0.1 MG PO SCH ×2 (08:56→21:07)
[2019-04-02] MEDS: Cyclobenzaprine TAB* 10 MG PO SCH ×3 (08:57→21:08)
[2019-04-02] MEDS: oxyCODONE/Acetamin 5/325 MG* TAB PO PRN ×3 (08:57→23:59)
[2019-04-02] MEDS: oxyCODONE TAB* 5 MG TAB PO PRN ×2 (08:58→14:16)
[2019-04-02] MEDS: Morphine TAB Extended Release (*) 15 MG TAB.ER PO SCH ×2 (08:58→21:06)
[2019-04-02] MEDS: Enoxaparin(*) 40 MG/0.4 ML SYR SUBCUT SCH (08:58)
[2019-04-02] MEDS: Insulin NPH(*) 1 UNITS UNIT SUBCUT SCH ×2 (08:59→21:11)
[2019-04-02] MEDS: Insulin LISPRO* 1 UNITS UNIT SUBCUT SCH ×4 (08:59→21:09)
[2019-04-02] MEDS: Polyethylene Glycol 3350* 17 GM PACKET PO SCH ×2 (09:01→21:09)
--- NOTE | 2019-04-02 10:45 | PN ---
Subjective Date of Service: 04/02/19 Interval History: Pt feels well. Post op pain well controlled. 3 BM's today, solid Past Medical History: Unchanged from Admission Objective Active Medications: Aspirin (Aspirin Ec Tab*) 81 mg PO DAILY [facility] Last Admin: 04/02/19 08:56 Dose: 81 mg Atorvastatin Calcium (Lipitor*) 10 mg PO QPM [facility]; Protocol Last Admin: 04/01/19 17:26 Dose: 10 mg Clonidine HCl (Catapres Tab*) 0.2 mg PO BID [facility] Last Admin: 04/02/19 08:56 Dose: 0.2 mg Cyclobenzaprine HCl (Flexeril Tab*) 10 mg PO TID [facility] Last Admin: 04/02/19 08:57 Dose: 10 mg Dextrose (D50w Syringe 50 Ml*) 12.5 gm IV PUSH .FOR FS < 60 - SS PRN PRN Reason: FS < 60 Diphenhydramine HCl (Benadryl Iv*) 25 mg IV Q6H PRN PRN Reason: PRURITIS Enoxaparin Sodium (Lovenox(*)) 40 mg SUBCUT Q24H [facility] Last Admin: 04/02/19 08:58 Dose: 40 mg Cefazolin Sodium/Dextrose (Kefzol 2 Gm Premix In Ors(*)) 2 gm in 50 mls @ 100 mls/hr IVPB Q8H [facility] Last Admin: 04/02/19 04:19 Dose: 100 mls/hr Insulin Human Lispro (Humalog*) 0 units SUBCUT ACHS [facility]; Protocol Last Admin: 04/02/19 08:59 Dose: 6 units Insulin Human NPH (Insulin Nph(*)) 45 units SUBCUT QAM [facility] Last Admin: 04/02/19 08:59 Dose: 45 units Insulin Human NPH (Insulin Nph(*)) 25 units SUBCUT BEDTIME [facility] Last Admin: 04/01/19 22:35 Dose: 25 unit Metoprolol Tartrate (Lopressor Tab*) 100 mg PO BID [facility] Last Admin: 04/02/19 08:56 Dose: 100 mg Morphine Sulfate (Ms Contin(*)) 15 mg PO Q12HR [facility] Last Admin: 04/02/19 08:58 Dose: 15 mg Nortriptyline HCl (Pamelor Cap*) 125 mg PO BEDTIME [facility] Last Admin: 04/01/19 22:32 Dose: 125 mg Ondansetron HCl (Zofran Inj*) 4 mg IV Q6H PRN PRN Reason: NAUSEA Oxycodone HCl (Roxycodone Tab*) 5 mg PO TID PRN PRN Reason: PAIN Last Admin: 04/02/19 08:58 Dose: 5 mg Oxycodone/Acetaminophen (Percocet 5/325 Tab*) 1 tab PO TID PRN PRN Reason: PAIN Last Admin: 04/02/19 08:57 Dose: 1 tab Pantoprazole Sodium (Protonix Tab*) 40 mg PO DAILY [facility] Last Admin: 04/02/19 08:56 Dose: 40 mg Polyethylene Glycol/Electrolytes (Miralax*) 17 gm PO 0800,2100 [facility] Last Admin: 04/02/19 09:01 Dose: Not Given Sodium Biphosphate/Sodium Phosphate (Fleet Enema*) 1 bottle [place] DAILY PRN PRN Reason: CONSTIPATION Torsemide (Demadex*) 80 mg PO DAILY [facility] Last Admin: 04/02/19 08:56 Dose: 80 mg Vital Signs - 8 hr 04/02/19 04/02/19 04/02/19 03:49 07:20 07:53 Temperature 98.5 F 98.7 F Pulse Rate 82 83 Respiratory 16 14 14 Rate Blood Pressure 127/58 122/66 (mmHg) O2 Sat by Pulse 98 94 Oximetry 04/02/19 04/02/19 08:57 08:58 Temperature Pulse Rate Respiratory 16 16 Rate Blood Pressure (mmHg) O2 Sat by Pulse Oximetry Oxygen Devices in Use Now: None Appearance: 58 yo M in nAD, AAOx3 Eyes: No Scleral Icterus, PERRLA Ears/Nose/Mouth/Throat: NL Teeth, Lips, Gums, Mucous Membranes Moist Neck: NL Appearance and Movements; NL JVP, Trachea Midline Respiratory: Symmetrical Chest Expansion and Respiratory Effort, Clear to Auscultation Cardiovascular: NL Sounds; No Murmurs; No JVD, RRR Abdominal: NL Sounds; No Tenderness; No Distention Lymphatic: No Cervical Adenopathy Extremities: No Edema, No Clubbing, Cyanosis, - - R foot stump in post op dressings, no removed Skin: No Nodules or Sclerosis Neurological: Alert and Oriented x 3, NL Muscle Strength and Tone Result Diagrams: 04/02/19 05:34 04/02/19 05:34 Microbiology and Other Data: Microbiology 03/28/19 08:00 Gram Stain - Final Foot Right 03/27/19 12:31 Aerobic Blood Culture - Preliminary Blood Venous No Growth Day 1 Anaerobic Blood Culture - Preliminary No Growth Day 1 03/27/19 12:38 Aerobic Blood Culture - Preliminary Blood Venous No Growth Day 1 Anaerobic Blood Culture - Preliminary No Growth Day 1 03/27/19 12:10 Skin and Soft Tissue MRSA/MSSA (PCR - Final Foot Right Mrsa Negative S.aureus Positive Gram Stain - Final Wound Culture - Preliminary Staphylococcus Aureus Assess/Plan/Problems-Billing Assessment: 58 year old male presented with chronic osteomyelitis of his right foot s/p amputation. Intra-op wound culture is pending - Patient Problems (1) Chronic osteomyelitis involving right ankle and foot Comment: - Continue IV abx with cefazolin 2 gm IV Q8hrs, total 14 days appreciate ID consult (2) Diabetes Comment: uncontroled, will increase NPO in AM from 45 to 60 U, cont Lispro. (3) Hypertension Comment: - continue lopressor 100 mg bid; Due to low SBP Amlodipine 10 mg was d/c'd on 04/01/19 , clonidine/torsemide cont with hold parameters. (4) S/P Syme amputation of foot Comment: - Activity, diet as per surgery -Hgb 7.9, asymptomatic, should return to baseline over next few weeks. -cont to monitor (5) DVT prophylaxis Comment: lovenox 40 mg q 24 hr. Status and Disposition: medicine consult
--- NOTE | 2019-04-02 10:55 | PN ---
Progress Note - Progress Note Date of Service: 04/02/19 SOAP: Subjective: CC: foot infection HPI: 58 year old man with chronic osteomyelitis right foot s/p amputation. He feels well, no fever, rash, or diarrhea. Appetite is good. Objective: Vital Signs Temp 37.1 C 04/02/19 07:53 Pulse 83 04/02/19 07:53 Resp 16 04/02/19 08:58 BP 122/66 04/02/19 07:53 Pulse Ox 94 04/02/19 07:53 Intake & Output 04/01/19 04/02/19 04/02/19 18:59 06:59 18:59 Intake Total 680 1040 240 Output Total 650 955 400 Balance 30 85 -160 Intake: Oral 680 1040 240 Output: Urine 650 955 400 Other: # Bowel Movements 0 Gen:awake, no distress HEENT: no thrush Heart:RRR no murmur Lungs:CTA BL Abd:+BS NTND soft Skin: no rash MSK: R foot wrapped Laboratory Results - last 24 hr 04/01/19 04/01/19 04/01/19 12:22 16:43 22:13 WBC RBC Hgb Hct MCV MCH MCHC RDW Plt Count MPV Neut % (Auto) Lymph % (Auto) [place] % (Auto) Eos % (Auto) Baso % (Auto) Absolute Neuts (auto) Absolute Lymphs (auto) Absolute Monos (auto) Absolute Eos (auto) Absolute Basos (auto) Absolute Nucleated RBC Nucleated RBC % Sodium Potassium Chloride Carbon Dioxide Anion Gap BUN Creatinine Est GFR ( Amer) Est GFR (Non-Af Amer) BUN/Creatinine Ratio Glucose POC Glucose (mg/dL) 240 H 189 H 354 H Calcium 04/02/19 04/02/19 05:34 05:34 WBC 4.9 RBC 2.79 L Hgb 7.9 L Hct 23 L MCV 84 MCH 28 MCHC 34 RDW 14 Plt Count 206 MPV 7.5 Neut % (Auto) 65.9 Lymph % (Auto) 20.4 [place] % (Auto) 8.2 Eos % (Auto) 5.0 Baso % (Auto) 0.5 Absolute Neuts (auto) 3.2 Absolute Lymphs (auto) 1.0 Absolute Monos (auto) 0.4 Absolute Eos (auto) 0.2 Absolute Basos (auto) 0.0 Absolute Nucleated RBC 0.0 Nucleated RBC % 0.1 Sodium 134 L Potassium 4.6 Chloride 97 L Carbon Dioxide 33 H Anion Gap 4 BUN 19 Creatinine 1.48 H Est GFR ( Amer) 59.3 Est GFR (Non-Af Amer) 49.0 BUN/Creatinine Ratio 12.8 Glucose 279 H POC Glucose (mg/dL) Calcium 8.8 Microbiology 03/27/19 12:38 Blood Venous Aerobic Blood Culture - Final No Growth Day 5 03/27/19 12:38 Blood Venous Anaerobic Blood Culture - Final No Growth Day 5 03/27/19 12:31 Blood Venous Aerobic Blood Culture - Final No Growth Day 5 03/27/19 12:31 Blood Venous Anaerobic Blood Culture - Final No Growth Day 5 03/28/19 08:00 Wound - Right Anaerobic Culture - Final No Growth Day 4 03/28/19 08:00 Foot Right Gram Stain - Final 03/28/19 08:00 Foot Right Wound Culture - Final Staphylococcus Aureus Assessment: 1. MSSA chronic osteomyelitis right foot 2. diabetes with peripheral neuropathy 3. cirrhosis 4. CKD Plan: 1. ancef 2 gm IV Q8hrs day 6 w weekly cbc, cmp, crp; midline ordered for placement. Discussed with Dr Jackson
--- NOTE | 2019-04-02 12:23 | PN ---
Progress Note - Progress Note Date of Service: 04/02/19 SOAP: Subjective: []Patient seen at bedside. Denies fever, chills, CP, SOB, dizziness, nausea. RLE is nonpainful. Objective: []General: NAD, alert, appropriate conversation RLE: Dressing CDI, no erythema proximal Calves are supple and nontender Assessment: []s/p RLE syme amputation Plan: 1) continue PT/OT- NWB RLE 2) continue DVT prophylaxis, lovenox 49 mg sq qd 3) continue IV abx per ID, ancef 2 gm IV Q8hrs day 6/ w weekly cbc, cmp, crp 4) Needs midline placement 5) Bed at [facility] Vital Signs Temp 98.4 F 04/02/19 11:37 Pulse 79 04/02/19 11:37 Resp 17 04/02/19 11:37 BP 126/68 04/02/19 11:37 Pulse Ox 90 04/02/19 11:37 Intake & Output 04/01/19 04/02/19 04/02/19 18:59 06:59 18:59 Intake Total 680 1040 240 Output Total 650 955 800 Balance 30 85 -560 Intake: Oral 680 1040 240 Output: Urine 650 955 800 Other: # Bowel Movements 0 Laboratory Last Values WBC 4.9 10^3/uL (3.5-10.8) 04/02/19 05:34 RBC 2.79 10^6 /uL (4.18-5.48) L 04/02/19 05:34 Hgb 7.9 g/dL (14.0-18.0) L 04/02/19 05:34 Hct 23 % (42-52) L 04/02/19 05:34 MCV 84 fL (80-94) 04/02/19 05:34 MCH 28 pg (27-31) 04/02/19 05:34 MCHC 34 g/dL (31-36) 04/02/19 05:34 RDW 14 % (10.5-15) 04/02/19 05:34 Plt Count 206 10^3/uL (150-450) 04/02/19 05:34 MPV 7.5 fL (7.4-10.4) 04/02/19 05:34 Neut % (Auto) 65.9 % 04/02/19 05:34 Lymph % (Auto) 20.4 % 04/02/19 05:34 [place] % (Auto) 8.2 % 04/02/19 05:34 Eos % (Auto) 5.0 % 04/02/19 05:34 Baso % (Auto) 0.5 % 04/02/19 05:34 Absolute Neuts (auto) 3.2 10^3/ul (1.5-7.7) 04/02/19 05:34 Absolute Lymphs (auto) 1.0 10^3/ul (1.0-4.8) 04/02/19 05:34 Absolute Monos (auto) 0.4 10^3/ul (0-0.8) 04/02/19 05:34 Absolute Eos (auto) 0.2 10^3/ul (0-0.6) 04/02/19 05:34 Absolute Basos (auto) 0.0 10^3/ul (0-0.2) 04/02/19 05:34 Absolute Nucleated RBC 0.0 10^3/ul 04/02/19 05:34 Nucleated RBC % 0.1 04/02/19 05:34 INR (Anticoag Therapy) 0.95 (0.82-1.09) 03/27/19 12:38 APTT 30.7 seconds (26.0-36.3) 03/27/19 12:38 Sodium 134 mmol/L (135-145) L 04/02/19 05:34 Potassium 4.6 mmol/L (3.5-5.0) 04/02/19 05:34 Chloride 97 mmol/L (101-111) L 04/02/19 05:34 Carbon Dioxide 33 mmol/L (22-32) H 04/02/19 05:34 Anion Gap 4 mmol/L (2-11) 04/02/19 05:34 BUN 19 mg/dL (6-24) 04/02/19 05:34 Creatinine 1.48 mg/dL (0.67-1.17) H 04/02/19 05:34 Est GFR ( Amer) 59.3 (>60) 04/02/19 05:34 Est GFR (Non-Af Amer) 49.0 (>60) 04/02/19 05:34 BUN/Creatinine Ratio 12.8 (8-20) 04/02/19 05:34 Glucose 279 mg/dL (70-100) H 04/02/19 05:34 POC Glucose (mg/dL) 261 mg/dL (70-100) H 04/02/19 11:43 Lactic Acid 0.7 mmol/L (0.5-2.0) 03/27/19 15:55 Calcium 8.8 mg/dL (8.6-10.3) 04/02/19 05:34 Phosphorus 4.5 mg/dL (2.5-5.0) 03/30/19 05:52 Magnesium 1.8 mg/dL (1.9-2.7) L 03/30/19 05:52 Total Bilirubin 0.30 mg/dL (0.2-1.0) 03/27/19 12:38 AST 8 U/L (13-39) L 03/27/19 12:38 ALT 6 U/L (7-52) L 03/27/19 12:38 Alkaline Phosphatase 91 U/L (34-104) 03/27/19 12:38 Troponin I 0.00 ng/mL (<0.04) 03/27/19 12:38 C-Reactive Protein 55.97 mg/L (<8.01) H 03/27/19 12:38 Total Protein 6.9 g/dL (6.4-8.9) 03/27/19 12:38 Albumin 3.8 g/dL (3.2-5.2) 03/27/19 12:38 Globulin 3.1 g/dL (2-4) 03/27/19 12:38 Albumin/Globulin Ratio 1.2 (1-3) 03/27/19 12:38 Urine Color Straw 03/27/19 13:55 Urine Appearance Clear 03/27/19 13:55 Urine pH 5.0 (5-9) 03/27/19 13:55 Ur Specific [place] 1.008 (1.010-1.030) L 03/27/19 13:55 Urine Protein Negative (Negative) 03/27/19 13:55 Urine Ketones Negative (Negative) 03/27/19 13:55 Urine Blood 1+ (Negative) A 03/27/19 13:55 Urine Nitrate Negative (Negative) 03/27/19 13:55 Urine Bilirubin Negative (Negative) 03/27/19 13:55 Urine Urobilinogen Negative (Negative) 03/27/19 13:55 Ur Leukocyte Esterase Negative (Negative) 03/27/19 13:55 Urine WBC (Auto) Absent (Absent) 03/27/19 13:55 Urine RBC (Auto) Trace(0-2/hpf) (Absent) 03/27/19 13:55 Urine Bacteria Absent (Absent) 03/27/19 13:55 Urine Glucose Negative (Negative) 03/27/19 13:55 Hepatitis C Antibody Nonreactive (Nonreactive) 03/27/19 12:38 Hepatitis C Ab Index < 0.0 Index 03/27/19 12:38
[2019-04-02] MEDS: Atorvastatin* 10 MG TAB PO SCH (17:24)
[2019-04-02] MEDS: Nortriptyline CAP* 25 MG PO SCH (21:05)
[2019-04-03] MEDS: ceFAZolin 2 GM PREMIX in ORs 2 GM/50 ML BAG IVPB SCH ×2 (04:12→11:20)
[2019-04-03] MEDS: Enoxaparin(*) 40 MG/0.4 ML SYR SUBCUT SCH (08:26)
[2019-04-03] MEDS: Torsemide TAB* 20 MG PO SCH (08:26)
[2019-04-03] MEDS: Polyethylene Glycol 3350* 17 GM PACKET PO SCH (08:26)
[2019-04-03] MEDS: Cyclobenzaprine TAB* 10 MG PO SCH (08:27)
[2019-04-03] MEDS: Morphine TAB Extended Release (*) 15 MG TAB.ER PO SCH (08:27)
[2019-04-03] MEDS: Aspirin EC TAB* 81 MG TAB.EC PO SCH (08:27)
[2019-04-03] MEDS: Pantoprazole TAB * 40 MG TAB PO SCH (08:27)
[2019-04-03] MEDS: cloNIDine TAB* 0.1 MG PO SCH (08:27)
[2019-04-03] MEDS: Metoprolol Tartrate TAB* 100 MG TAB PO SCH (08:28)
[2019-04-03] MEDS ORDERED: Insulin NPH(*) 1 UNITS UNIT SUBCUT SCH (09:00)
[2019-04-03] MEDS: Insulin LISPRO* 1 UNITS UNIT SUBCUT SCH ×2 (09:02→11:56)
--- NOTE | 2019-04-03 09:47 | PN ---
Progress Note - Progress Note Date of Service: 04/03/19 SOAP: Subjective: []Pt seen at bedside. He feels well today without fever, chills, CP, SOB, dizziness, nausea Objective: []General: NAD, alert, appropriate conversation RLE: Dressing CDI, no erythema proximal Calves are supple and nontender Assessment: []s/p RLE syme amputation Plan: 1) continue PT/OT- NWB RLE 2) continue DVT prophylaxis, lovenox 40 mg sq qd 3) continue IV abx per ID, ancef 2 gm IV Q8hrs day 05/18 with weekly cbc, cmp, crp 4) Midline placed yesterday 5) DC to [facility] today Vital Signs Temp 97.5 F 04/03/19 07:27 Pulse 74 04/03/19 07:27 Resp 18 04/03/19 08:27 BP 126/67 04/03/19 07:27 Pulse Ox 96 04/03/19 07:42 Intake & Output 04/02/19 04/03/19 04/03/19 18:59 06:59 18:59 Intake Total 1583 745 Output Total 1300 1000 Balance 283 -255 Intake: IV Fluids 30 20 NS 30 20 IVPB 53 65 ABX - CEFAZOLIN 53 65 Oral 1500 660 Output: Urine 1300 1000 Other: # Bowel Movements 0 Laboratory Last Values WBC 4.9 10^3/uL (3.5-10.8) 04/02/19 05:34 RBC 2.79 10^6 /uL (4.18-5.48) L 04/02/19 05:34 Hgb 7.9 g/dL (14.0-18.0) L 04/02/19 05:34 Hct 23 % (42-52) L 04/02/19 05:34 MCV 84 fL (80-94) 04/02/19 05:34 MCH 28 pg (27-31) 04/02/19 05:34 MCHC 34 g/dL (31-36) 04/02/19 05:34 RDW 14 % (10.5-15) 04/02/19 05:34 Plt Count 206 10^3/uL (150-450) 04/02/19 05:34 MPV 7.5 fL (7.4-10.4) 04/02/19 05:34 Neut % (Auto) 65.9 % 04/02/19 05:34 Lymph % (Auto) 20.4 % 04/02/19 05:34 [place] % (Auto) 8.2 % 04/02/19 05:34 Eos % (Auto) 5.0 % 04/02/19 05:34 Baso % (Auto) 0.5 % 04/02/19 05:34 Absolute Neuts (auto) 3.2 10^3/ul (1.5-7.7) 04/02/19 05:34 Absolute Lymphs (auto) 1.0 10^3/ul (1.0-4.8) 04/02/19 05:34 Absolute Monos (auto) 0.4 10^3/ul (0-0.8) 04/02/19 05:34 Absolute Eos (auto) 0.2 10^3/ul (0-0.6) 04/02/19 05:34 Absolute Basos (auto) 0.0 10^3/ul (0-0.2) 04/02/19 05:34 Absolute Nucleated RBC 0.0 10^3/ul 04/02/19 05:34 Nucleated RBC % 0.1 04/02/19 05:34 INR (Anticoag Therapy) 0.95 (0.82-1.09) 03/27/19 12:38 APTT 30.7 seconds (26.0-36.3) 03/27/19 12:38 Sodium 134 mmol/L (135-145) L 04/02/19 05:34 Potassium 4.6 mmol/L (3.5-5.0) 04/02/19 05:34 Chloride 97 mmol/L (101-111) L 04/02/19 05:34 Carbon Dioxide 33 mmol/L (22-32) H 04/02/19 05:34 Anion Gap 4 mmol/L (2-11) 04/02/19 05:34 BUN 19 mg/dL (6-24) 04/02/19 05:34 Creatinine 1.48 mg/dL (0.67-1.17) H 04/02/19 05:34 Est GFR ( Amer) 59.3 (>60) 04/02/19 05:34 Est GFR (Non-Af Amer) 49.0 (>60) 04/02/19 05:34 BUN/Creatinine Ratio 12.8 (8-20) 04/02/19 05:34 Glucose 279 mg/dL (70-100) H 04/02/19 05:34 POC Glucose (mg/dL) 260 mg/dL (70-100) H 04/03/19 07:29 Lactic Acid 0.7 mmol/L (0.5-2.0) 03/27/19 15:55 Calcium 8.8 mg/dL (8.6-10.3) 04/02/19 05:34 Phosphorus 4.5 mg/dL (2.5-5.0) 03/30/19 05:52 Magnesium 1.8 mg/dL (1.9-2.7) L 03/30/19 05:52 Total Bilirubin 0.30 mg/dL (0.2-1.0) 03/27/19 12:38 AST 8 U/L (13-39) L 03/27/19 12:38 ALT 6 U/L (7-52) L 03/27/19 12:38 Alkaline Phosphatase 91 U/L (34-104) 03/27/19 12:38 Troponin I 0.00 ng/mL (<0.04) 03/27/19 12:38 C-Reactive Protein 55.97 mg/L (<8.01) H 03/27/19 12:38 Total Protein 6.9 g/dL (6.4-8.9) 03/27/19 12:38 Albumin 3.8 g/dL (3.2-5.2) 03/27/19 12:38 Globulin 3.1 g/dL (2-4) 03/27/19 12:38 Albumin/Globulin Ratio 1.2 (1-3) 03/27/19 12:38 Urine Color Straw 03/27/19 13:55 Urine Appearance Clear 03/27/19 13:55 Urine pH 5.0 (5-9) 03/27/19 13:55 Ur Specific [place] 1.008 (1.010-1.030) L 03/27/19 13:55 Urine Protein Negative (Negative) 03/27/19 13:55 Urine Ketones Negative (Negative) 03/27/19 13:55 Urine Blood 1+ (Negative) A 03/27/19 13:55 Urine Nitrate Negative (Negative) 03/27/19 13:55 Urine Bilirubin Negative (Negative) 03/27/19 13:55 Urine Urobilinogen Negative (Negative) 03/27/19 13:55 Ur Leukocyte Esterase Negative (Negative) 03/27/19 13:55 Urine WBC (Auto) Absent (Absent) 03/27/19 13:55 Urine RBC (Auto) Trace(0-2/hpf) (Absent) 03/27/19 13:55 Urine Bacteria Absent (Absent) 03/27/19 13:55 Urine Glucose Negative (Negative) 03/27/19 13:55 Hepatitis C Antibody Nonreactive (Nonreactive) 03/27/19 12:38 Hepatitis C Ab Index < 0.0 Index 03/27/19 12:38
--- NOTE | 2019-04-03 09:49 | PN ---
Progress Note - Progress Note Date of Service: 04/03/19 SOAP: Subjective: CC: foot infection HPI: 58 year old man with chronic osteomyelitis right foot s/p amputation. He feels well, no fever, rash, or diarrhea. No problem with midline which was placed yesterday. Objective: Vital Signs Temp 36.4 C 04/03/19 07:27 Pulse 74 04/03/19 07:27 Resp 18 04/03/19 08:27 BP 126/67 04/03/19 07:27 Pulse Ox 96 04/03/19 07:42 Intake & Output 04/02/19 04/03/19 04/03/19 18:59 06:59 18:59 Intake Total 1583 745 Output Total 1300 1000 Balance 283 -255 Intake: IV Fluids 30 20 NS 30 20 IVPB 53 65 ABX - CEFAZOLIN 53 65 Oral 1500 660 Output: Urine 1300 1000 Other: # Bowel Movements 0 Gen:awake, no distress HEENT: no thrush Heart:RRR no murmur Lungs:CTA BL Abd:+BS NTND soft Skin: no rash MSK: R foot wrapped Laboratory Results - last 24 hr 04/02/19 04/02/19 04/02/19 11:43 16:27 20:44 POC Glucose (mg/dL) 261 H 196 H 189 H 04/03/19 07:29 POC Glucose (mg/dL) 260 H Assessment: 1. MSSA chronic osteomyelitis right foot 2. diabetes with peripheral neuropathy 3. cirrhosis 4. CKD Plan: 1. ancef 2 gm IV Q8hrs day 05/18 w weekly cbc, cmp, crp while at SNF
--- NOTE | 2019-04-03 10:00 | DS ---
Orthopedic Discharge Summary - Discharge Summary Date of Admission:03/27/19 Date of Discharge: 04/03/19 Date of Surgery: 03/28/19 Attending Orthopedic Provider: Dr Perez Pre-operative Diagnosis: osteomyelitis right foot Operative Procedure: Right syme amputation Disposition of [facility]: [facility] Condition of Patient: stable History: YAYA MARKS is a 58 year old M with chronic osteomyelitis of the right foot. Hospital Course: YAYA was admitted to [facility] on 03/27/19. Patient underwent a [right syme amputation] without complication followed by a brief recovery in PACU and transfer to the Short Stay Surgical Unit in stable condition. Our hospitalist service, infectious disease, physical therapy and occupational therapy also participated in this patients care. Our hospitalist service assist in management of his hypertension and diabetes, per medicine service home med changes at discharge include stopping amlodipine, decreased dose of insulin NPH from 90 to 60 units in the morning and 50 to 25 units in the evening. On 04/01 he was discovered to have bed bugs, his splint was removed and new dressing placed. Day of discharge 04/03/19 dressing was CDI, no erythema proximally. Calves supple and nontender. Patient was afebrile without complaints. He will require a repeat H&H 04/04, ACHS glucose monitoring with insulin titration as appropriate and blood pressure monitoring with PCP follow up. Home Medications Medication Instructions Recorded Confirmed Type Cyclobenzaprine TAB* [Flexeril 10 10 mg PO TID 04/28/16 03/27/19 History MG TAB*] Metoprolol Tartrate TAB* 100 mg PO BID 04/28/16 03/27/19 History [Lopressor TAB*] Omeprazole CAP (NF) [Prilosec CAP* 20 mg PO DAILY 04/28/16 03/27/19 History 20 MG] Torsemide TAB* [Demadex 20 MG*] 80 mg PO DAILY 04/28/16 03/27/19 History cloNIDine TAB* [Catapres 0.1 MG 0.2 mg PO BID 04/28/16 03/27/19 History TAB*] Aspirin EC TAB* [Ecotrin EC Low 81 mg PO DAILY 03/27/19 03/27/19 History Dose 81 MG*] Morphine Sulfate [Ms Contin] 15 mg PO Q12HR 03/27/19 03/27/19 History Nortriptyline CAP* [Pamelor CAP*] 125 mg PO BEDTIME 03/27/19 03/27/19 History Pravastatin (NF) [Pravachol (NF)] 40 mg PO QPM 03/27/19 03/27/19 History SitaGLIPtin (NF) [Januvia (NF)] 100 mg PO DAILY 03/27/19 03/27/19 History oxyCODONE/Acetamin 10325(NF) 1 tab PO TID PRN 03/27/19 03/27/19 History [Percocet 10325 (NF)] Enoxaparin(*) [Lovenox(*)] 40 mg SUBCUT Q24H #0 syringe 04/03/19 Rx Insulin NPH(*) 25 units SUBCUT BEDTIME unit 04/03/19 Rx Insulin NPH(*) 60 units SUBCUT QAM unit 04/03/19 Rx oxyCODONE TAB* [Roxycodone TAB 5 5 mg PO TID PRN tab 04/03/19 Rx mg*] Ancef 2g IV q 8 hr x 7 more days Discharge Instructions continue nonweightbearing right lower extremity. keep dressing clean, dry and intact until follow up visit continue DVT prophylaxis, lovenox 40 mg subcutaneous injection daily during post op period, stop date per Dr Perez at follow up continue IV antibiotic per ID, ancef 2 gm IV every 8hrs until 04/10/19 w weekly cbc, cmp, crp follow up with Dr Perez in 1 week for wound check Diabetes: morning NPH was changed from 90 to 60 units, evening NPH changed from 50 to 25 units. Monitor glucose finger sticks ACHS and titrate insulin dosages as needed Stop amlodipine, Monitor BP and follow up with PCP for BP control within 1 week Anemia: monitor H&H over the next week, recheck 04/04/19
[2019-04-03] MEDS: oxyCODONE TAB* 5 MG TAB PO PRN ×2 (11:15)
[2019-04-03] MEDS: oxyCODONE/Acetamin 5/325 MG* TAB PO PRN (11:16)
[2019-04-03 11:39] VITALS: BP 102/58
== END 2019-04-03 12:36 | DRG 617 ==
LOC: ED 11:33 → SSU 15:21
PROVIDERS: ADMIT Orthopaedic Surgery; ATTEND Orthopaedic Surgery
PROC: 0Y6M0Z0 Detachment at Right Foot, Complete, Open Approach (ICD-10-PCS; principal; 2019-03-27)
DX: E11.69 Type 2 diabetes mellitus with other specified complication (principal); M86.671 Other chronic osteomyelitis, right ankle and foot; E78.5 Hyperlipidemia, unspecified; K21.9 Gastro-esophageal reflux disease without esophagitis; G43.909 Migraine, unspecified, not intractable, without status migrainosus; E11.40 Type 2 diabetes mellitus with diabetic neuropathy, unspecified; G89.29 Other chronic pain; E66.01 Morbid (severe) obesity due to excess calories; K74.60 Unspecified cirrhosis of liver; N52.9 Male erectile dysfunction, unspecified; M19.90 Unspecified osteoarthritis, unspecified site; E11.22 Type 2 diabetes mellitus with diabetic chronic kidney disease; I12.9 Hypertensive chronic kidney disease with stage 1 through stage 4 chronic kidney disease, or unspecified chronic kidney disease; L40.9 Psoriasis, unspecified; E11.610 Type 2 diabetes mellitus with diabetic neuropathic arthropathy; E11.621 Type 2 diabetes mellitus with foot ulcer; B95.61 Methicillin susceptible Staphylococcus aureus infection as the cause of diseases classified elsewhere; N18.3 Chronic kidney disease, stage 3 (moderate); G47.33 Obstructive sleep apnea (adult) (pediatric); Z68.36 Body mass index [BMI] 36.0-36.9, adult; Z87.891 Personal history of nicotine dependence; Z85.46 Personal history of malignant neoplasm of prostate; Z98.1 Arthrodesis status; Z82.49 Family history of ischemic heart disease and other diseases of the circulatory system; Z79.82 Long term (current) use of aspirin; Z79.4 Long term (current) use of insulin; Z88.5 Allergy status to narcotic agent; Z88.8 Allergy status to other drugs, medicaments and biological substances; Z83.3 Family history of diabetes mellitus; Z82.3 Family history of stroke; K59.00 Constipation, unspecified
CPT/HCPCS: 36415; 71045; 80048; 80053; 81003; 81015; 83605; 83735; 84100; 84484; 85014; 85018; 85025; 85610; 85730; 86140; 86803; 87040; 87070; 87073; 87077; 87186; 87205; 87640; 87641; 88307; 88311; 93005; 99283; A9270-GY; G8978-GP-CJ; G8979-GP-CI; G8987-GO-CK; G8988-GO-CI; J0690; J1644; J1650; J2001; J2250; J2405; J2704; J3010; J3370; J3490

== ENCOUNTER 2019-05-16 10:12 | Inpatient (IN) | payer MEDICARE ==
[2019-05-16] MEDS ORDERED: Buffered Lidocaine 1% SYRIN* 1 ML/SYRINGE INTRADERM ONE (15:28)
[2019-05-19] MEDS ORDERED: Metoclopramide TAB* 10 MG PO ONE (06:00)
[2019-05-19] MEDS ORDERED: Famotidine IV* 10 MG/ML 2 ML (20 mg) IV ONE (06:00)
[2019-05-19] MEDS ORDERED: Scopolamine 1.5 mg* PATCH TRANSDERM SCH (06:00)
[2019-05-19] MEDS ORDERED: Lactated Ringers 1000 ML Bag* 1,000 ML IV SCH (06:00)
[2019-05-19] MEDS ORDERED: ceFAZolin 2 GM in NS PREMIX(*) 2 GM/100 ML BAG IVPB ONE (07:57)
[2019-05-19] MEDS ORDERED: Metoclopramide TAB* 10 MG ONE (07:57)
[2019-05-19] MEDS ORDERED: Scopolamine 1.5 mg* PATCH ONE (07:57)
[2019-05-19] MEDS ORDERED: Famotidine IV* 10 MG/ML 2 ML (20 mg) ONE (07:57)
[2019-05-19] MEDS ORDERED: ceFAZolin 1 GM ADVAN(*) 1 GM ADDV.VIAL IVPB ONE (07:57)
[2019-05-19] MEDS ORDERED: Propofol* 10 MG/ML 20 ML BTL ONE (08:39)
[2019-05-19] MEDS ORDERED: Insulin NPH(*) 1 UNITS UNIT SUBCUT ONE (09:00)
[2019-05-19] MEDS ORDERED: Bupivacaine 0.25% SDV PF* 10 ML VIAL INJ ONE (09:09)
[2019-05-19] MEDS ORDERED: Midazolam* 1 MG/ML 2 ML VIAL (2 MG) ONE (09:19)
[2019-05-19] MEDS ORDERED: fentaNYL* 50 MCG/ML 2 ML VIAL (100 MCG VIAL) ONE (09:19)
[2019-05-19] MEDS ORDERED: Lidocaine 2% w/ EPI 1:200,000* 20 ML VIAL ONE (09:33)
[2019-05-19] MEDS ORDERED: Lidocaine 2% PF* 10 ML AMP ONE (09:34)
[2019-05-19] MEDS ORDERED: Naloxone* 0.4 MG/ML 1 ML VIAL IV PRN (09:56)
[2019-05-19] MEDS ORDERED: traZODone TAB* 50 MG TAB PO PRN (10:54)
[2019-05-19] MEDS ORDERED: oxyCODONE/Acetamin 5/325 MG* TAB PO PRN (10:54)
[2019-05-19] MEDS ORDERED: Ondansetron INJ* 2 MG/ML VIAL IV PRN (10:54)
[2019-05-19] MEDS ORDERED: Magnesium Hydroxide LIQ* 30 ML UDC PO PRN (10:54)
[2019-05-19] MEDS ORDERED: Vancomycin(*) 0 MG in NS 0.9% 250 ML* 250 ML IVPB SCH (12:00)
[2019-05-19] MEDS: Lactated Ringers 1000 ML Bag* 1,000 ML IV SCH (12:26)
[2019-05-19] MEDS ORDERED: Vancomycin per Pharmacy* NOTE FOLLOW UP PRN (14:11)
[2019-05-19] MEDS ORDERED: Vancomycin(*) 2,000 MG in NS 0.9% 500 ML* 500 ML IVPB ONE (14:30)
[2019-05-19] MEDS: Acetaminophen TAB* 325 MG PO SCH ×2 (15:38→22:23)
[2019-05-19] MEDS: Cyclobenzaprine TAB* 10 MG PO SCH ×2 (15:38→22:24)
--- NOTE | 2019-05-19 16:39 | CONS ---
CC: Dr. Donta Vanegas; Dr. Chandrakant Perez * CONSULTATION REPORT: DATE OF CONSULT: 05/19/19 PRIMARY CARE PROVIDER: Dr. Donta Vanegas. MY ATTENDING WHILE IN THE HOSPITAL: Dr. Gudelia Hernandez. CONSULTING PHYSICIAN: Dr. Chandrakant Perez. REASON FOR CONSULT: Co-management of comorbid medical conditions. HISTORY OF PRESENT ILLNESS: Mr. Landrum is a 58-year-old male with past medical history significant for diabetes with diabetic neuropathy and nephropathy and Charcot joint of the right ankle as well as high blood pressure and hyperlipidemia who is admitted for a hindfoot amputation due to chronic osteomyelitis of the right foot complicating his Charcot joint. The patient was admitted in late March to early April of this year for a forefoot amputation and has been treated since then with IV cefazolin as well as at some point being started on levofloxacin for unknown reasons. The patient's wound culture at that time was positive for MSSA. The patient underwent surgery today for a hindfoot amputation without complication. The patient is currently in no pain. Denies fevers, chills, chest pain, shortness of breath, nausea, vomiting, abdominal pain, diarrhea, or constipation. The patient has been able to be mobile on his scooter at rehab. The patient has no other recent illnesses, complaints, or changes in his medications that he knows. His thinks his blood glucose control has been very good on his current regimen. PAST MEDICAL HISTORY: Diabetes mellitus type 2; complicated by neuropathy, nephropathy, and Charcot joint; hypertension; hyperlipidemia; chronic right foot ulcer; acid reflux; back pain; chronic kidney disease stage 3. PAST SURGICAL HISTORY: Laminectomy, hernia repair, surgical removal of nail from left foot, right forefoot amputation, and now hindfoot amputation. MEDICATIONS: Per [facility] records: 1. Ibuprofen 400 mg p.o. q.6 hours as needed for pain. 2. Oxycodone 10 mg t.i.d. by mouth as needed for pain. 3. Aspirin 81 mg p.o. daily. 4. Insulin NPH 26 units subcutaneously at bedtime. 5. Insulin NPH 60 units subcutaneously in the morning. 6. Levofloxacin 500 mg p.o. daily. 7. Lovenox 40 mg subcutaneous daily. 8. Alogliptin 25 mg p.o. daily. 9. Nortriptyline 125 mg p.o. daily. 10. Omeprazole 20 mg p.o. daily. 11. Pravastatin 40 mg p.o. daily. 12. Torsemide 80 mg p.o. daily. 13. Clonidine 0.2 mg p.o. b.i.d. 14. Metoprolol tartrate 100 mg p.o. twice daily. 15. Morphine sulfate ER 15 mg p.o. q.12 hours for pain. 16. Cefazolin 2 g intravenously 3 times a day. 17. Cyclobenzaprine 10 mg p.o. 3 times daily as needed for spasms. 18. Heparin flush. ALLERGIES: VICODIN and HYDROCODONE. FAMILY HISTORY: The patient's father has pacemaker, diabetes, and hypertension. The patient's mother has MS and breast cancer. The patient has a sister with MS. SOCIAL HISTORY: The patient has a remote history of brief time smoking. The patient denies alcohol or illicit drug use. The patient is . The patient's surrogate decision maker will be his , Izabella. REVIEW OF SYSTEMS: A 14-point review of systems was reviewed and is negative, except as above in the HPI. PHYSICAL EXAM: General: The patient is a 58-year-old male who appears stated age and sitting comfortably in bed, in no acute distress. Vital Signs: Temperature 97.7, pulse rate 78, respiratory rate 14, O2 saturation 90%, blood pressure 131/73. HEENT: Head normocephalic, atraumatic. Sclerae anicteric. No conjunctival injection. Nasal mucosa moist. Oral mucosa moist. No oropharyngeal erythema, discharge, or exudate. Neck: Supple, nontender. No lymphadenopathy. No carotid bruits auscultated. No JVD. Cardiac: Regular rate and rhythm. No clicks, murmurs, gallops, or rubs. Pulses are 2+ in the bilateral dorsalis pedis, posterior tibialis and radial areas. Respiratory: Clear to auscultation bilaterally. No wheezes, rales, or rhonchi. Good air exchange bilaterally. Abdomen: Soft, nontender, nondistended. Bowel sounds present and normoactive in all 4 quadrants. No hepatosplenomegaly. No abdominal bruits auscultated. No hepatojugular reflux. Genitourinary: No suprapubic or CVA tenderness. Skin: Clean, dry, and intact. No rash. Right lower extremity covered in bulky dressing. Wound not visualized. Right foot surgically absent. Neuro: Cranial nerves II through XII intact. Neuropathy in the left lower extremity. No focal deficits. Alert and oriented x3. Psychiatric: Pleasant and cooperative. ASSESSMENT AND PLAN: Impression: Mr. Landrum is a 58-year-old male with past medical history significant for diabetes with Charcot foot, chronic kidney disease and neuropathy as well as hypertension and hyperlipidemia who presents for his second amputation on his right foot in the last 2 months, first forefoot and then hindfoot. The patient has been on long-term antibiotics and would be continued on treatment for his foot ulcer and management of his diabetes. 1. Postoperative state. Management per orthopedics. The patient should have PT/OT, DVT prophylaxis with Lovenox, bowel regimen, and pain control. 2. Chronic osteomyelitis of the right foot. The primary treatment for this is the patient's amputation; however, the patient has been started on vancomycin. This has been discussed with Dr. Ian Hill of infectious disease, who stated that even though the PCR from MRSA and MSSA was negative that vancomycin should be continued at this time due to his failing of cefazolin. Narrowing of antibiotics will be pending culture and sensitivities. Levofloxacin will be held at this time as well as the patient's cefazolin. The patient has no signs of systemic infection. The patient will be seen in consultation by Dr. Ian Hill of infectious disease tomorrow. 3. Diabetes mellitus type 2. The patient has had very good blood glucose control per records from [facility]. Continue the patient's current insulin regimen. The patient might be anticipated to have slightly worsened blood glucose control given that alogliptin will not be available during this hospitalization. The patient's insulin will be adjusted as needed for this. 4. Chronic kidney disease, at the patient's baseline on last check. There will be a repeat check tomorrow morning and nephrotoxins will be avoided. The patient appears euvolemic. Continue the patient's torsemide. 5. Hypertension. Continue the patient's torsemide, clonidine, and metoprolol. Avoid abrupt discontinuation of metoprolol or clonidine. 6. Gastroesophageal reflux disease. Continue omeprazole. 7. Chronic back pain. Pain control per orthopedics including the patient's chronic opiate therapy. 8. DVT prophylaxis. Lovenox as the patient is at high risk. 9. FEN. Consistent carbohydrate diet. 10. Disposition. Per orthopedics. TIME SPENT: Approximately 60 minutes were spent on this consultation, 30 of which were spent [id number] with the patient, obtaining history and physical, and discussing the treatment plan. This plan was discussed with my attending, Dr. Gudelia Hernandez, and she is in agreement. GUILLERMO CASTRO [id number]/[facility] #: [id number] MTDD
[2019-05-19] MEDS: Atorvastatin* 10 MG TAB PO SCH (18:33)
--- NOTE | 2019-05-19 18:47 | OP ---
DATE OF OPERATION: 05/19/19 - ROOM #342 DATE OF : 62 ATTENDING SURGEON: Chandrakant Perez MD. PEDIATRIC ONCOLOGY NURSE: Urmila Simon PA-C. PRE-OP DIAGNOSIS: Dehiscence of right side amputation stump. POST-OP DIAGNOSIS: With deep necrotic material. OPERATIVE PROCEDURE: Revision of this amputation with cleansing and excision of necrotic material. DESCRIPTION OF PROCEDURE: The patient was taken to the operating room where we opened up the entire anterior wound, excising the wound edges along with the sutures. We then carved deeply down towards the undersurface of the tibia and articular surface. There was some necrotic bloody material at the end of the stump and just posterior to where the Achilles was. We removed a small wafer of calcaneus, which seemed to be attached to the Achilles. We also debrided any of this necrotic material. We used a 3 L pulsatile lavage. Cultures were sent. We then placed a Hemovac drain posteriorly, closed the anterior flap in layers with 2- 0 Prolene interrupted for the skin and a compression dressing applied. [id number]/[facility] #: [id number] MTDStar
[2019-05-19] MEDS: Nortriptyline CAP* 25 MG PO SCH (22:23)
[2019-05-19] MEDS: Metoprolol Tartrate TAB* 100 MG TAB PO SCH (22:24)
[2019-05-19] MEDS: Insulin NPH(*) 1 UNITS UNIT SUBCUT SCH (22:24)
[2019-05-19] MEDS: Morphine TAB Extended Release (*) 15 MG TAB.ER PO SCH (22:24)
[2019-05-19] MEDS: cloNIDine TAB* 0.1 MG PO SCH (22:24)
[2019-05-19 22:31] LABS: EGFR African American 41.9 (>60); EGFR Non-African American 34.6 (>60)
[2019-05-20] MEDS: Lactated Ringers 1000 ML Bag* 1,000 ML IV SCH (01:53)
[2019-05-20] MEDS: Vancomycin(*) 1,250 MG in NS 0.9% 250 ML* 250 ML IVPB SCH ×2 (04:41→16:02)
[2019-05-20] MEDS: Acetaminophen TAB* 325 MG PO SCH ×3 (05:47→22:00)
[2019-05-20 06:08] LABS: Hematocrit 26 % (42-52); Hemoglobin 8.9 g/dL (14.0-18.0); Mean Platelet Volume 7.9 fL (7.4-10.4); Platelet Count 100 10^3/uL (150-450)
[2019-05-20 06:30] LABS: Calcium 8.8 mg/dL (8.6-10.3); EGFR African American 45.5 (>60); EGFR Non-African American 37.6 (>60); Potassium 4.1 mmol/L (3.5-5.0)
[2019-05-20] MEDS: Morphine TAB Extended Release (*) 15 MG TAB.ER PO SCH ×2 (09:06→21:10)
[2019-05-20] MEDS: Pantoprazole TAB * 40 MG TAB PO SCH (09:07)
[2019-05-20] MEDS: cloNIDine TAB* 0.1 MG PO SCH ×2 (09:07→21:10)
[2019-05-20] MEDS: Cyclobenzaprine TAB* 10 MG PO SCH ×3 (09:07→21:09)
[2019-05-20] MEDS: Aspirin EC TAB* 81 MG TAB.EC PO SCH (09:07)
[2019-05-20] MEDS: Torsemide TAB 10 MG PO SCH (09:07)
[2019-05-20] MEDS: Metoprolol Tartrate TAB* 100 MG TAB PO SCH ×2 (09:07→21:09)
[2019-05-20] MEDS: Insulin NPH(*) 1 UNITS UNIT SUBCUT SCH ×2 (09:09→21:10)
[2019-05-20] MEDS: Enoxaparin(*) 30 MG/0.3 ML SYR SUBCUT SCH (09:11)
--- NOTE | 2019-05-20 12:25 | PN ---
Progress Note - Progress Note Date of Service: 05/20/19 SOAP: Subjective: []Saw Mr Diallo at bedside, he feels well today without complaint of fever, chills, RLE pain, CP, SOB, dizziness or nausea. Objective: []Gen: NAD, nontoxic appearing RLE: Dressing CDI, no erythema proximal to splint. Haemovac pulled with tip intact, tolerated well by patient L calf supple and nontender without erythema, edema or palpable cords Assessment: [] Revision of RLE amputation with cleansing and excision of necrotic material. Plan: [] NWB RLE Cultures with no growth so far, on vancomycin. ID consulted for abx mgmt lovenox for dvt prophy Vital Signs Temp 98.2 F 05/20/19 11:07 Pulse 70 05/20/19 11:07 Resp 16 05/20/19 11:10 BP 136/70 05/20/19 11:07 Pulse Ox 98 05/20/19 11:07 Intake & Output 05/19/19 05/20/19 05/20/19 18:59 06:59 18:59 Intake Total 1270 2490 120 Output Total 475 850 800 Balance 795 1640 -680 Weight 239 lb Intake: IV Fluids 1000 990 LR 1000 990 Oral 270 1500 120 Output: Wound Vac 100 Urine 475 750 800 Other: # Bowel Movements 0 0 Laboratory Last Values Hgb 8.9 g/dL (14.0-18.0) L 05/20/19 05:45 Hct 26 % (42-52) L 05/20/19 05:45 Plt Count 100 10^3/uL (150-450) L 05/20/19 05:45 MPV 7.9 fL (7.4-10.4) 05/20/19 05:45 Sodium 138 mmol/L (135-145) 05/20/19 05:45 Potassium 4.1 mmol/L (3.5-5.0) 05/20/19 05:45 Chloride 103 mmol/L (101-111) 05/20/19 05:45 Carbon Dioxide 31 mmol/L (22-32) 05/20/19 05:45 Anion Gap 4 mmol/L (2-11) 05/20/19 05:45 BUN 26 mg/dL (6-24) H 05/20/19 05:45 Creatinine 1.86 mg/dL (0.67-1.17) H 05/20/19 05:45 Est GFR ( Amer) 45.5 (>60) 05/20/19 05:45 Est GFR (Non-Af Amer) 37.6 (>60) 05/20/19 05:45 BUN/Creatinine Ratio 14.0 (8-20) 05/20/19 05:45 Glucose 152 mg/dL (70-100) H 05/20/19 05:45 POC Glucose (mg/dL) 222 mg/dL (70-100) H 05/19/19 21:44 Calcium 8.8 mg/dL (8.6-10.3) 05/20/19 05:45
[2019-05-20] MEDS: Atorvastatin* 10 MG TAB PO SCH (17:40)
[2019-05-20] MEDS: Nortriptyline CAP* 25 MG PO SCH (21:08)
[2019-05-21] MEDS: oxyCODONE TAB* 5 MG TAB PO PRN ×3 (03:23→17:49)
[2019-05-21] MEDS: Vancomycin(*) 1,250 MG in NS 0.9% 250 ML* 250 ML IVPB SCH ×2 (03:24→16:51)
[2019-05-21 05:30] LABS: Mean Platelet Volume 7.8 fL (7.4-10.4); Platelet Count 99 10^3/uL (150-450)
[2019-05-21] MEDS: Acetaminophen TAB* 325 MG PO SCH ×3 (05:31→21:53)
[2019-05-21 05:46] LABS: EGFR African American 47.3 (>60); EGFR Non-African American 39.1 (>60)
[2019-05-21] MEDS: Pantoprazole TAB * 40 MG TAB PO SCH (09:31)
[2019-05-21] MEDS: cloNIDine TAB* 0.1 MG PO SCH ×2 (09:31→21:30)
[2019-05-21] MEDS: Torsemide TAB 10 MG PO SCH (09:32)
[2019-05-21] MEDS: Cyclobenzaprine TAB* 10 MG PO SCH ×3 (09:32→21:31)
[2019-05-21] MEDS: Morphine TAB Extended Release (*) 15 MG TAB.ER PO SCH ×2 (09:32→21:31)
[2019-05-21] MEDS: Metoprolol Tartrate TAB* 100 MG TAB PO SCH ×2 (09:32→21:30)
[2019-05-21] MEDS: Aspirin EC TAB* 81 MG TAB.EC PO SCH (09:32)
[2019-05-21] MEDS: Insulin NPH(*) 1 UNITS UNIT SUBCUT SCH ×2 (09:34→21:29)
[2019-05-21] MEDS: Enoxaparin(*) 30 MG/0.3 ML SYR SUBCUT SCH (09:34)
[2019-05-21] MEDS ORDERED: Vancomycin Trough Check NOTE FOLLOW UP ONE (15:00)
--- NOTE | 2019-05-21 16:13 | PN ---
Progress Note - Progress Note Date of Service: 05/21/19 SOAP: Subjective: []Pt seen at bedside. He feels well. Denies feeling of fever or chills. Denies CP, SOB, dizziness, nausea. Objective: [] Gen: NAD, nontoxic appearing RLE: Dressing CDI, no erythema proximal to splint. L calf supple and nontender without erythema, edema or palpable cords Assessment: [] Revision of RLE amputation with cleansing and excision of necrotic material. Plan: [] NWB RLE Cultures with no growth so far, on vancomycin. ID consulting for abx mgmt lovenox for dvt prophy Vital Signs Temp 97.7 F 05/21/19 15:41 Pulse 66 05/21/19 15:41 Resp 18 05/21/19 15:41 BP 142/72 05/21/19 15:41 Pulse Ox 95 05/21/19 15:41 Intake & Output 05/20/19 05/21/19 05/21/19 18:59 06:59 18:59 Intake Total 520 2019 300 Output Total 1750 0 Balance -1230 2020 300 Intake: IVPB 250 ABX - VANCOMYCIN 250 Oral 520 1770 300 Output: Urine 1750 0 Other: Estimated Void Medium Date of Last Bowel 05/21/19 Movement # Bowel Movements 1 0 Estimated Stool Amount Medium # Voids 2 Laboratory Last Values Hgb 8.9 g/dL (14.0-18.0) L 05/20/19 05:45 Hct 26 % (42-52) L 05/20/19 05:45 Plt Count 99 10^3/uL (150-450) L 05/21/19 05:10 MPV 7.8 fL (7.4-10.4) 05/21/19 05:10 Sodium 138 mmol/L (135-145) 05/20/19 05:45 Potassium 4.1 mmol/L (3.5-5.0) 05/20/19 05:45 Chloride 103 mmol/L (101-111) 05/20/19 05:45 Carbon Dioxide 31 mmol/L (22-32) 05/20/19 05:45 Anion Gap 4 mmol/L (2-11) 05/20/19 05:45 BUN 25 mg/dL (6-24) H 05/21/19 05:10 Creatinine 1.80 mg/dL (0.67-1.17) H 05/21/19 05:10 Est GFR ( Amer) 47.3 (>60) 05/21/19 05:10 Est GFR (Non-Af Amer) 39.1 (>60) 05/21/19 05:10 BUN/Creatinine Ratio 14.0 (8-20) 05/20/19 05:45 Glucose 152 mg/dL (70-100) H 05/20/19 05:45 POC Glucose (mg/dL) 226 mg/dL (70-100) H 05/21/19 12:36 Calcium 8.8 mg/dL (8.6-10.3) 05/20/19 05:45 Vancomycin Trough 25.1 mcg/mL 05/21/19 14:36
[2019-05-21] MEDS: Atorvastatin* 10 MG TAB PO SCH (17:49)
--- NOTE | 2019-05-21 18:16 | PN ---
Hospitalist Progress Note Date of Service: 05/21/19 Labs and vitals reviewed. No concerning findings and no changes made to medication regime. Discussed care with Shayy LI and Michelle ALEGRIA. Will continue to follow remotely. Thank you
[2019-05-21 19:04] LABS: C Reactive Protein 23.39 mg/L (<8.01)
--- NOTE | 2019-05-21 19:34 | CONS ---
CONSULTATION REPORT: DATE OF CONSULT: 05/21/19 PRIMARY CARE PROVIDER: Dr. Donta Vanegas. PROVIDER REQUESTING CONSULTATION: GUILLERMO Hill CONSULTING SERVICE: Infectious Disease. PROVIDER: Mila Wick NP ATTENDING PROVIDER: Dr. Ian Hill.* (DICTATED BY MILA WICK NP) REASON FOR CONSULT: Right hindfoot infection. IMPRESSION: 1. Right foot infection. He was on Levaquin and cefazolin prior to his admission. Previous cultures from this wound have grown Staph aureus. Status post right Syme amputation revision with debridment of abscess and necrotic tissue, post op day 2. The patient has not had a white blood cell count checked. He has been afebrile. Wound cultures with no growth on day 2. 2. Diabetes mellitus type 2 with peripheral neuropathy. 3. History of Charcot joint. 4. Chronic kidney disease, stage 3. RECOMMENDATIONS: Recommend continuing vancomycin for now since there was no improvement in the infection well on Cefazolin and Levaquin. The patient will likely need 2 to 4 weeks of IV antibiotics at discharge. Recommend adding white blood cell count to the H and H that will be drawn tomorrow. Additionally , we will add CRP to the labs drawn on 05/20/19 if possible. HISTORY OF PRESENT ILLNESS: Mr. Landrum is a 58-year-old male with past medical history significant for diabetes mellitus type 2; diabetic neuropathy; Charcot joint; hypertension; hyperlipidemia; chronic right foot ulcer, status post amputation; GERD; back pain and chronic kidney disease stage 3, who presented to the hospital for dehiscence of the right side of his amputation stump. The patient was initially hospitalized back in March 2019 for a right foot infection. At that time, he was diagnosed with chronic osteomyelitis of the right foot in the setting of diabetes and underwent a right foot Syme amputation on 03/28/19. The wound at that time grew Staph aureus. The patient was discharged on a long course of IV cefazolin. The patient has been following with Orthopedics, who recently put him on Levaquin in addition to cefazolin after part of his incision on his right lower extremity stump did not heal. The patient presented to the hospital and underwent a revision of his right lower extremity Syme amputation with cleaning and excision of the necrotic material with Dr. Perez on 05/19/19. He denies fevers, chills, joint pain, and muscle pain. He reports back pain at baseline and states this has not changed. He denies nausea, vomiting, diarrhea. He denies any recent travel. PAST MEDICAL HISTORY: 1. Diabetes mellitus type 2. 2. Diabetic neuropathy. 3. Charcot joint. 4. Hyperlipidemia. 5. Hypertension. 6. History of chronic right foot ulcer. 7. GERD. 8. Chronic back pain. 9. Chronic kidney disease, stage 3. 10. Morbid obesity. 11. Obstructive sleep apnea. 12. Umbilical hernia. 13. Anemia. 14. Cirrhosis. 15. Thrombocytopenia. 16. Prostate cancer. PAST SURGICAL HISTORY: 1. Status post laminectomy. 2. Status post hernia repair. 3. Status post right lower extremity Syme amputation in March 2019. 4. Status post spinal stimulator insertion, followed by explant in 2013. MEDICATIONS: Home medications include: 1. Aspirin 81 mg by mouth daily. 2. NPH insulin 60 units subcutaneous in the morning and 20 units subcutaneous at bedtime. 3. Levaquin 500 mg by mouth daily. 4. Lovenox 40 mg subcu every morning. 5. Alogliptin 25 mg by mouth daily. 6. Torsemide 80 mg by mouth daily. 7. Pravastatin 40 mg by mouth every morning. 8. Nortriptyline 125 mg by mouth at bedtime. 9. Morphine sulfate 15 mg by mouth every 12 hours. 10. Clonidine 0.2 mg by mouth twice daily. 11. Flexeril 10 mg by mouth 3 times daily. 12. Oxycodone 10 mg by mouth 3 times daily as needed for pain. 13. Omeprazole 20 mg by mouth every morning. 14. Metoprolol tartrate 100 mg by mouth twice daily. 15. Cefazolin 2 gm IV every 8 hours. Hospital medications: 1. Acetaminophen 975 mg by mouth every 8 hours. 2. Aspirin 81 mg by mouth every morning. 3. Atorvastatin 10 mg by mouth every evening. 4. Catapres 0.2 mg by mouth twice daily. 5. Flexeril 10 mg by mouth 3 times daily. 6. Lovenox 30 mg subcu daily. 7. Heparin sodium flush 1 mL flush twice daily as needed. 8. NPH insulin 60 units subcutaneous every morning and 26 units subcutaneous at bedtime. 9. Milk of magnesia 30 mL by mouth every 6 hours as needed for constipation. 10. Metoprolol tartrate 100 by mouth twice daily. 11. Morphine sulfate 15 mg by mouth every 12 hours. 12. Nortriptyline 125 mg by mouth daily at bedtime. 13. Zofran 4 mg IV every 6 hours as needed for nausea. 14. Oxycodone 10 mg by mouth 3 times daily as needed for pain. 15. Percocet 5/325 one tablet by mouth every 4 hours as needed for pain. 16. Protonix 40 mg by mouth daily. 17. Torsemide 80 mg by mouth every morning. 18. Trazodone 25 mg by mouth daily as needed at bedtime for insomnia. 19. Vancomycin 1250 mg IV daily. ALLERGIES: HYDROCODONE. FAMILY HISTORY: Denies family history of recurrent or resistant infections. Father with a history of a pacemaker and diabetes. Mother with a history of multiple sclerosis and breast cancer. Sister with a history of multiple sclerosis. SOCIAL HISTORY: Denies alcohol or recreational drug use. He is a former smoker. He smoked for a short period of time when he was 19 years old and has not smoked since. REVIEW OF SYSTEMS: I performed a 10-point review of systems. All the pertinent positives and negatives are mentioned in the history of present illness. The remaining review of systems are negative. PHYSICAL EXAM: Vital Signs: Temperature 97.7, heart rate 72, respiratory rate 13, O2 sat 95% on room air, blood pressure 147/74. General Appearance: Alert, appears to be in no acute distress. Head: Normocephalic, atraumatic. EENT: Pupils are equal and reactive to light. Extraocular movements are intact. Moist mucous membranes. Neurological: Cranial nerves II through XII are grossly intact. He is alert and oriented x3. Cardiovascular: Heart rate is regular. S1, S2 present. No murmurs, rubs, or gallops. Respiratory: No accessory muscle use. Lungs are clear to auscultation bilaterally. Abdomen: Bowel sounds present. Abdomen is large, soft, nontender, nondistended. Musculoskeletal: No clubbing or cyanosis noted. The right foot has a surgical dressing in place. There is no tenderness with palpation of the right knee or hip. Log roll was negative on the left hip. No tenderness with palpation of the neck, spine or back. Psychological: Calm and cooperative. Skin: No rashes or abnormalities seen. Per above, the right lower extremity is in a surgical dressing. DIAGNOSTIC STUDIES/LAB DATA: Sodium 138, potassium 4.1, chloride 103, CO2 of 31 , BUN 26, creatinine 1.86, glucose 152. Hemoglobin 8.9, hematocrit 26, platelet count 100. Cultures with no growth to date. Please see impression and recommendations outlined above. Thank you for asking us to see Mr. Landrum in consultation. The recommendations have been discussed with GUILLERMO Urbano. The case has been reviewed with my attending, Dr. Ian Hill, who agrees with the plan of care. Reviewed by MILA WICK, CATHERINE-C 05/22/19 [id number]/[facility] #: [id number] TAMERA
[2019-05-21] MEDS: Nortriptyline CAP* 25 MG PO SCH (21:30)
[2019-05-22] MEDS: Acetaminophen TAB* 325 MG PO SCH ×3 (06:08→22:00)
[2019-05-22] MEDS: Vancomycin(*) 1,250 MG in NS 0.9% 250 ML* 250 ML IVPB SCH (06:12)
[2019-05-22 06:50] LABS: ABS Eosinophils 0.2 10^3/ul (0-0.6); ABS Lymphocytes 1.2 10^3/ul (1.0-4.8); ABS Monocytes 0.3 10^3/ul (0-0.8); ABS Neutrophils 1.7 10^3/ul (1.5-7.7); Hematocrit 25 % (42-52); Hemoglobin 8.6 g/dL (14.0-18.0); Lymphocyte % 36.2 %; Mean Corpuscular HGB Conc 35 g/dL (31-36); Mean Corpuscular Hemoglobin 26 pg (27-31); Mean Corpuscular Volume 75 fL (80-94); Mean Platelet Volume 8.1 fL (7.4-10.4); Platelet Count 101 10^3/uL (150-450); Red Blood Count 3.33 10^6 /uL (4.18-5.48); Red Cell Distribution Width 15 % (10-15); White Blood Count 3.3 10^3/uL (3.5-10.8)
[2019-05-22 07:07] LABS: BUN/Creatinine Ratio 15.2 (8-20); Calcium 8.7 mg/dL (8.6-10.3); EGFR Non-African American 45.4 (>60); Potassium 3.7 mmol/L (3.5-5.0)
[2019-05-22] MEDS ORDERED: Scopolamine PATCH Remove* 1 NOTE MISC PATCH OFF ONE (08:00)
[2019-05-22] MEDS: Torsemide TAB 10 MG PO SCH (08:23)
[2019-05-22] MEDS: Cyclobenzaprine TAB* 10 MG PO SCH ×3 (08:23→22:01)
[2019-05-22] MEDS: Morphine TAB Extended Release (*) 15 MG TAB.ER PO SCH ×2 (08:23→22:01)
[2019-05-22] MEDS: Metoprolol Tartrate TAB* 100 MG TAB PO SCH ×2 (08:23→22:02)
[2019-05-22] MEDS: Aspirin EC TAB* 81 MG TAB.EC PO SCH (08:24)
[2019-05-22] MEDS: Insulin NPH(*) 1 UNITS UNIT SUBCUT SCH ×2 (08:24→22:00)
[2019-05-22] MEDS: Enoxaparin(*) 30 MG/0.3 ML SYR SUBCUT SCH (08:24)
[2019-05-22] MEDS: Pantoprazole TAB * 40 MG TAB PO SCH (08:24)
[2019-05-22] MEDS: cloNIDine TAB* 0.1 MG PO SCH ×2 (08:24→22:00)
--- NOTE | 2019-05-22 10:58 | PN ---
Progress Note - Progress Note Date of Service: 05/22/19 SOAP: Subjective: CC: Right foot infection HPI: Mr. Landrum is a 58 yo male with PMH significant for DN2, neuropathy, right foot charcot joint, HTN, HLD, chronic right foot ulcer, GERD, chronic back pain , and CKD stage 3; who presented to the hospital with a right stump infection. Denies fever, chills, nausea, vomiting, or diarrhea. Denies pain in the right LE. Objective: Vital Signs - 8 hr 05/22/19 05/22/19 05/22/19 04:24 05:40 07:32 Temperature 98.3 F 97.9 F Pulse Rate 67 66 Respiratory 17 17 Rate Blood Pressure 140/68 161/77 (mmHg) O2 Sat by Pulse 94 94 97 Oximetry Physical Exam: General: NAD, sitting up in a chair Neurological: Alert and Oriented HEENT: Moist MM, no thrush Cardiovascular: Heart rate regular, no murmur Respiratory: Lung sounds clear Abdominal: Bowel sounds present; ABD soft, non tender and non distended MSK: No tenderness with palpation of the right knee Skin: Surgical dressing to right LE, no erythema extending above the dressing Laboratory Last Values WBC 3.3 10^3/uL (3.5-10.8) L 05/22/19 06:00 RBC 3.33 10^6 /uL (4.18-5.48) L 05/22/19 06:00 Hgb 8.6 g/dL (14.0-18.0) L 05/22/19 06:00 Hct 25 % (42-52) L 05/22/19 06:00 MCV 75 fL (80-94) L 05/22/19 06:00 MCH 26 pg (27-31) L 05/22/19 06:00 MCHC 35 g/dL (31-36) 05/22/19 06:00 RDW 15 % (10-15) 05/22/19 06:00 Plt Count 101 10^3/uL (150-450) L 05/22/19 06:00 MPV 8.1 fL (7.4-10.4) 05/22/19 06:00 Neut % (Auto) 50.0 % 05/22/19 06:00 Lymph % (Auto) 36.2 % 05/22/19 06:00 [place] % (Auto) 8.5 % 05/22/19 06:00 Eos % (Auto) 5.0 % 05/22/19 06:00 Baso % (Auto) 0.3 % 05/22/19 06:00 Absolute Neuts (auto) 1.7 10^3/ul (1.5-7.7) 05/22/19 06:00 Absolute Lymphs (auto) 1.2 10^3/ul (1.0-4.8) 05/22/19 06:00 Absolute Monos (auto) 0.3 10^3/ul (0-0.8) 05/22/19 06:00 Absolute Eos (auto) 0.2 10^3/ul (0-0.6) 05/22/19 06:00 Absolute Basos (auto) 0.0 10^3/ul (0-0.2) 05/22/19 06:00 Absolute Nucleated RBC 0.0 10^3/ul 05/22/19 06:00 Nucleated RBC % 0.0 05/22/19 06:00 Sodium 140 mmol/L (135-145) 05/22/19 06:00 Potassium 3.7 mmol/L (3.5-5.0) 05/22/19 06:00 Chloride 103 mmol/L (101-111) 05/22/19 06:00 Carbon Dioxide 30 mmol/L (22-32) 05/22/19 06:00 Anion Gap 7 mmol/L (2-11) 05/22/19 06:00 BUN 24 mg/dL (6-24) 05/22/19 06:00 Creatinine 1.58 mg/dL (0.67-1.17) H 05/22/19 06:00 Est GFR ( Amer) 55.0 (>60) 05/22/19 06:00 Est GFR (Non-Af Amer) 45.4 (>60) 05/22/19 06:00 BUN/Creatinine Ratio 15.2 (8-20) 05/22/19 06:00 Glucose 131 mg/dL (70-100) H 05/22/19 06:00 POC Glucose (mg/dL) 160 mg/dL (70-100) H 05/22/19 07:17 Calcium 8.7 mg/dL (8.6-10.3) 05/22/19 06:00 C-Reactive Protein 23.39 mg/L (<8.01) H 05/20/19 05:45 Vancomycin Trough 25.1 mcg/mL 05/21/19 14:36 Microbiology 05/19/19 10:00 Anaerobic Culture - Preliminary Wound - Right Leg No Growth Day 2 Skin and Soft Tissue MRSA/MSSA (PCR - Final Mrsa Negative S.aureus Negative Gram Stain - Final Wound Culture - Preliminary No Growth Day 2 Assessment: 1. Right hindfoot infection. Previous cultures with staph aureus. S/P revision of right LE amputation, POD #3. Wound cultures from the OR with no growth to date. Afebrile and no leukocytosis but noted to have mild leukopenia. 2. DM2 with peripheral neuropathy. 3. CKD stage 3. Plan: Continue Vancomycin. Will need to have 2-4 weeks of IV ABX. Already has a PICC in place.
--- NOTE | 2019-05-22 14:15 | PN ---
Progress Note - Progress Note Date of Service: 05/22/19 SOAP: Subjective: []Pt seen at bedside. He denies fever, chills, CP, SOB, dizziness or nausea. Objective: []Gen: NAD, nontoxic appearing RLE: Dressing CDI, no erythema proximal to splint. L calf supple and nontender without erythema, edema or palpable cords Assessment: [] Revision of RLE amputation with cleansing and excision of necrotic material. Plan: [] NWB RLE Cultures with no growth so far, on vancomycin. ID consulting for abx mgmt lovenox for dvt prophy Plan for DC to [place] pending bed/ins Vital Signs Temp 97.7 F 05/22/19 11:47 Pulse 67 05/22/19 11:47 Resp 18 05/22/19 14:14 BP 142/69 05/22/19 11:47 Pulse Ox 96 05/22/19 11:47 Intake & Output 05/21/19 05/22/19 05/22/19 18:59 06:59 18:59 Intake Total 690 680 Output Total 0 600 0 Balance 690 80 0 Intake: Oral 690 680 Output: Urine 0 600 0 Other: Estimated Void Medium # Bowel Movements 0 1 # Voids 2 Laboratory Last Values WBC 3.3 10^3/uL (3.5-10.8) L 05/22/19 06:00 RBC 3.33 10^6 /uL (4.18-5.48) L 05/22/19 06:00 Hgb 8.6 g/dL (14.0-18.0) L 05/22/19 06:00 Hct 25 % (42-52) L 05/22/19 06:00 MCV 75 fL (80-94) L 05/22/19 06:00 MCH 26 pg (27-31) L 05/22/19 06:00 MCHC 35 g/dL (31-36) 05/22/19 06:00 RDW 15 % (10-15) 05/22/19 06:00 Plt Count 101 10^3/uL (150-450) L 05/22/19 06:00 MPV 8.1 fL (7.4-10.4) 05/22/19 06:00 Neut % (Auto) 50.0 % 05/22/19 06:00 Lymph % (Auto) 36.2 % 05/22/19 06:00 [place] % (Auto) 8.5 % 05/22/19 06:00 Eos % (Auto) 5.0 % 05/22/19 06:00 Baso % (Auto) 0.3 % 05/22/19 06:00 Absolute Neuts (auto) 1.7 10^3/ul (1.5-7.7) 05/22/19 06:00 Absolute Lymphs (auto) 1.2 10^3/ul (1.0-4.8) 05/22/19 06:00 Absolute Monos (auto) 0.3 10^3/ul (0-0.8) 05/22/19 06:00 Absolute Eos (auto) 0.2 10^3/ul (0-0.6) 05/22/19 06:00 Absolute Basos (auto) 0.0 10^3/ul (0-0.2) 05/22/19 06:00 Absolute Nucleated RBC 0.0 10^3/ul 05/22/19 06:00 Nucleated RBC % 0.0 05/22/19 06:00 Sodium 140 mmol/L (135-145) 05/22/19 06:00 Potassium 3.7 mmol/L (3.5-5.0) 05/22/19 06:00 Chloride 103 mmol/L (101-111) 05/22/19 06:00 Carbon Dioxide 30 mmol/L (22-32) 05/22/19 06:00 Anion Gap 7 mmol/L (2-11) 05/22/19 06:00 BUN 24 mg/dL (6-24) 05/22/19 06:00 Creatinine 1.58 mg/dL (0.67-1.17) H 05/22/19 06:00 Est GFR ( Amer) 55.0 (>60) 05/22/19 06:00 Est GFR (Non-Af Amer) 45.4 (>60) 05/22/19 06:00 BUN/Creatinine Ratio 15.2 (8-20) 05/22/19 06:00 Glucose 131 mg/dL (70-100) H 05/22/19 06:00 POC Glucose (mg/dL) 234 mg/dL (70-100) H 05/22/19 11:58 Calcium 8.7 mg/dL (8.6-10.3) 05/22/19 06:00 C-Reactive Protein 23.39 mg/L (<8.01) H 05/20/19 05:45 Vancomycin Trough 25.1 mcg/mL 05/21/19 14:36
[2019-05-22] MEDS: Atorvastatin* 10 MG TAB PO SCH (17:49)
--- NOTE | 2019-05-22 18:20 | PN ---
Subjective Date of Service: 05/22/19 Interval History: Resting in bed on assessment. Denies pain. Reports he is feeling well. Denies fever, chills, cp, sob, cough. Objective Active Medications: Acetaminophen (Tylenol Tab*) 975 mg PO Q8HR [facility] Last Admin: 05/22/19 14:14 Dose: 975 mg Aspirin (Aspirin Ec Tab*) 81 mg PO QAM [facility] Last Admin: 05/22/19 08:24 Dose: 81 mg Atorvastatin Calcium (Lipitor*) 10 mg PO QPM [facility]; Protocol Last Admin: 05/22/19 17:49 Dose: 10 mg Clonidine HCl (Catapres Tab*) 0.2 mg PO BID [facility] Last Admin: 05/22/19 08:24 Dose: 0.2 mg Cyclobenzaprine HCl (Flexeril Tab*) 10 mg PO TID [facility] Last Admin: 05/22/19 14:14 Dose: 10 mg Enoxaparin Sodium (Lovenox(*)) 30 mg SUBCUT Q24H [facility] Last Admin: 05/22/19 08:24 Dose: 30 mg Heparin Sodium (Porcine) (Heparin Flush Picc/Ml/Cvc(*)) 1 ml FLUSH 0600,1800 PRN; Protocol PRN Reason: flush Last Admin: 05/22/19 10:14 Dose: 1 ml Vancomycin HCl 1,250 mg/ (Sodium Chloride) 250 mls @ 166.667 mls/hr IVPB Q24H [facility] Last Admin: 05/22/19 06:12 Dose: 166.667 mls/hr Insulin Human NPH (Insulin Nph(*)) 26 units SUBCUT BEDTIME [facility] Last Admin: 05/21/19 21:29 Dose: 26 units Insulin Human NPH (Insulin Nph(*)) 60 units SUBCUT QAM [facility] Last Admin: 05/22/19 08:24 Dose: 60 units Magnesium Hydroxide (Milk Of Magnesia Liq*) 30 ml PO Q6H PRN PRN Reason: constipation Metoprolol Tartrate (Lopressor Tab*) 100 mg PO BID [facility] Last Admin: 05/22/19 08:23 Dose: 100 mg Morphine Sulfate (Ms Contin(*)) 15 mg PO Q12HR [facility] Last Admin: 05/22/19 08:23 Dose: 15 mg Nortriptyline HCl (Pamelor Cap*) 125 mg PO BEDTIME [facility] Last Admin: 05/21/19 21:30 Dose: 125 mg Ondansetron HCl (Zofran Inj*) 4 mg IV Q6H PRN PRN Reason: nausea Oxycodone HCl (Roxycodone Tab*) 10 mg PO TID PRN PRN Reason: PAIN - SEVERE Last Admin: 05/21/19 17:49 Dose: 10 mg Oxycodone/Acetaminophen (Percocet 5/325 Tab*) 1 tab PO Q4H PRN PRN Reason: PAIN Last Admin: 05/20/19 21:57 Dose: 1 tab Pantoprazole Sodium (Protonix Tab*) 40 mg PO QAM [facility] Last Admin: 05/22/19 08:24 Dose: 40 mg Pharmacy Consult (Vancomycin Per Pharmacy*) 1 note FOLLOW UP . PRN PRN Reason: PER PROTOCOL Pharmacy Profile Note (Vancomycin Trough Check) 1 note FOLLOW UP 529 ONE Stop: 05/24/19 05:31 [facility] [place] [facility] Admin: 05/22/19 08:23 Dose: 80 mg Trazodone HCl (Desyrel Tab*) 25 mg PO BEDTIME PRN PRN Reason: insomnia Vital Signs - 8 hr 05/22/19 05/22/19 05/22/19 11:47 14:14 14:56 Temperature 97.7 F 97.8 F Pulse Rate 67 71 Respiratory 18 18 17 Rate Blood Pressure 142/69 157/79 (mmHg) O2 Sat by Pulse 96 94 Oximetry 05/22/19 05/22/19 15:56 16:00 Temperature Pulse Rate Respiratory 16 Rate Blood Pressure (mmHg) O2 Sat by Pulse 94 Oximetry Oxygen Devices in Use Now: None Appearance: Comfortable, NAD Eyes: No Scleral Icterus Ears/Nose/Mouth/Throat: Clear Oropharnyx, Mucous Membranes Moist Neck: NL Appearance and Movements; NL JVP Respiratory: Symmetrical Chest Expansion and Respiratory Effort, Clear to Auscultation Cardiovascular: NL Sounds; No Murmurs; No JVD, RRR, No Edema Abdominal: NL Sounds; No Tenderness; No Distention Lymphatic: No Cervical Adenopathy Extremities: No Edema Skin: - - Dressing to RLE CDI Neurological: Alert and Oriented x 3 Nutrition: Taking PO's Result Diagrams: 05/22/19 06:00 05/22/19 06:00 Additional Lab and Data: Laboratory Results - last 24 hr 05/20/19 05/21/19 05/22/19 05:45 21:23 06:00 WBC RBC Hgb Hct MCV MCH MCHC RDW Plt Count MPV Neut % (Auto) Lymph % (Auto) [place] % (Auto) Eos % (Auto) Baso % (Auto) Absolute Neuts (auto) Absolute Lymphs (auto) Absolute Monos (auto) Absolute Eos (auto) Absolute Basos (auto) Absolute Nucleated RBC Nucleated RBC % Sodium 138 140 Potassium 4.1 3.7 Chloride 103 103 Carbon Dioxide 31 30 Anion Gap 4 7 BUN 26 H 24 Creatinine 1.86 H 1.58 H Est GFR ( Amer) 45.5 55.0 Est GFR (Non-Af Amer) 37.6 45.4 BUN/Creatinine Ratio 14.0 15.2 Glucose 152 H 131 H POC Glucose (mg/dL) 159 H Calcium 8.8 8.7 C-Reactive Protein 23.39 H 05/22/19 05/22/19 05/22/19 06:00 07:17 11:58 WBC 3.3 L RBC 3.33 L Hgb 8.6 L Hct 25 L MCV 75 L MCH 26 L MCHC 35 RDW 15 Plt Count 101 L MPV 8.1 Neut % (Auto) 50.0 Lymph % (Auto) 36.2 [place] % (Auto) 8.5 Eos % (Auto) 5.0 Baso % (Auto) 0.3 Absolute Neuts (auto) 1.7 Absolute Lymphs (auto) 1.2 Absolute Monos (auto) 0.3 Absolute Eos (auto) 0.2 Absolute Basos (auto) 0.0 Absolute Nucleated RBC 0.0 Nucleated RBC % 0.0 Sodium Potassium Chloride Carbon Dioxide Anion Gap BUN Creatinine Est GFR ( Amer) Est GFR (Non-Af Amer) BUN/Creatinine Ratio Glucose POC Glucose (mg/dL) 160 H 234 H Calcium C-Reactive Protein 05/22/19 17:14 WBC RBC Hgb Hct MCV MCH MCHC RDW Plt Count MPV Neut % (Auto) Lymph % (Auto) [place] % (Auto) Eos % (Auto) Baso % (Auto) Absolute Neuts (auto) Absolute Lymphs (auto) Absolute Monos (auto) Absolute Eos (auto) Absolute Basos (auto) Absolute Nucleated RBC Nucleated RBC % Sodium Potassium Chloride Carbon Dioxide Anion Gap BUN Creatinine Est GFR ( Amer) Est GFR (Non-Af Amer) BUN/Creatinine Ratio Glucose POC Glucose (mg/dL) 181 H Calcium C-Reactive Protein Microbiology and Other Data: Microbiology 05/19/19 10:00 Anaerobic Culture - Preliminary Wound - Right Leg No Growth Day 3 Skin and Soft Tissue MRSA/MSSA (PCR - Final Mrsa Negative S.aureus Negative Gram Stain - Final Wound Culture - Preliminary No Growth Day 3 Assess/Plan/Problems-Billing Assessment: 58 yr old male with pmh of DM, neuropathy, charcot joint, htn, hld, ckd3; who presented for [facility] for amputation of right foot - Patient Problems (1) Amputation of right lower extremity Comment: - POD 3 - S/P revision of RLE amputation - Management per ortho (2) Right foot infection Comment: - Vanco per ID - PICC ordered by ID for antibiotics (3) CKD (chronic kidney disease) Comment: - Cr at baseline per available data - Cont to refrain from use of nephrotoxic medications - Euvolemic (4) Chronic back pain Comment: - Pain control per ortho (5) Diabetes Comment: - Cont home regime - Mildly elevated BG probably secondary to recent surgery and not receiving alogliptin here in the hospital as it is not available. - May need increase insulin if too high while hospitalized, but will not at this time - Resume home medications as same upon discharge (6) Hypertension Comment: - Cont home regime (7) DVT prophylaxis Comment: - Lovenox pe ortho. Status and Disposition: Thank you for allowing us to assist in the care of this patient. Attending: Ronan Rodriguez
[2019-05-22] MEDS: Nortriptyline CAP* 25 MG PO SCH (22:01)
[2019-05-23] MEDS: oxyCODONE TAB* 5 MG TAB PO PRN ×3 (03:39→23:29)
[2019-05-23] MEDS: Vancomycin(*) 1,250 MG in NS 0.9% 250 ML* 250 ML IVPB SCH (05:13)
[2019-05-23] MEDS: Acetaminophen TAB* 325 MG PO SCH ×3 (05:13→23:28)
[2019-05-23 06:09] LABS: ABS Eosinophils 0.1 10^3/ul (0-0.6); ABS Lymphocytes 1.1 10^3/ul (1.0-4.8); ABS Monocytes 0.3 10^3/ul (0-0.8); ABS Neutrophils 1.9 10^3/ul (1.5-7.7); Eosinophil % 4.3 %; Hematocrit 25 % (42-52); Hemoglobin 8.4 g/dL (14.0-18.0); Lymphocyte % 31.8 %; Mean Corpuscular HGB Conc 34 g/dL (31-36); Mean Corpuscular Hemoglobin 25 pg (27-31); Mean Corpuscular Volume 75 fL (80-94); Mean Platelet Volume 8.3 fL (7.4-10.4); Platelet Count 117 10^3/uL (150-450); Red Blood Count 3.33 10^6 /uL (4.18-5.48); Red Cell Distribution Width 15 % (10-15); White Blood Count 3.4 10^3/uL (3.5-10.8)
[2019-05-23] MEDS: cloNIDine TAB* 0.1 MG PO SCH ×2 (09:13→21:17)
[2019-05-23] MEDS: Aspirin EC TAB* 81 MG TAB.EC PO SCH (09:13)
[2019-05-23] MEDS: Morphine TAB Extended Release (*) 15 MG TAB.ER PO SCH ×2 (09:13→21:16)
[2019-05-23] MEDS: Torsemide TAB 10 MG PO SCH (09:13)
[2019-05-23] MEDS: Pantoprazole TAB * 40 MG TAB PO SCH (09:14)
[2019-05-23] MEDS: Metoprolol Tartrate TAB* 100 MG TAB PO SCH ×2 (09:14→21:17)
[2019-05-23] MEDS: Insulin NPH(*) 1 UNITS UNIT SUBCUT SCH ×2 (09:14→23:29)
[2019-05-23] MEDS: Cyclobenzaprine TAB* 10 MG PO SCH ×3 (09:16→21:17)
[2019-05-23] MEDS: Enoxaparin(*) 30 MG/0.3 ML SYR SUBCUT SCH (09:16)
--- NOTE | 2019-05-23 11:46 | PN ---
Progress Note - Progress Note Date of Service: 05/23/19 SOAP: Subjective: CC: Right LE stump infection HPI: Mr. Landrum is a 58 yo male with PMH significant for DN2, neuropathy, right foot charcot joint, HTN, HLD, chronic right foot ulcer, GERD, chronic back pain , and CKD stage 3; who presented to the hospital with a right stump infection. Denies fever, chills, nausea, vomiting, diarrhea. He reprots moving his bowels once daily. Denies pain in right LE. Objective: Vital Signs - 8 hr 05/23/19 05/23/19 05/23/19 08:00 09:13 09:16 Temperature 97.7 F Pulse Rate 66 Respiratory 18 16 16 Rate Blood Pressure 161/83 (mmHg) O2 Sat by Pulse 98 Oximetry Physical Exam: General: NAD, sitting up on the side of the bed Neurological: Alert and Oriented HEENT: Moist MM, no thrush Cardiovascular: Heart rate regular, no murmur Respiratory: Lung sounds clear Abdominal: Bowel sounds present; ABD large, non tender and non distended Skin: Surgical dressing to the right LE clean, dry and intact Laboratory Results - last 24 hr 05/23/19 05/23/19 05:20 08:38 WBC 3.4 L RBC 3.33 L Hgb 8.4 L Hct 25 L MCV 75 L MCH 25 L MCHC 34 RDW 15 Plt Count 117 L MPV 8.3 Neut % (Auto) 55.1 Lymph % (Auto) 31.8 [place] % (Auto) 8.5 Eos % (Auto) 4.3 Baso % (Auto) 0.3 Absolute Neuts (auto) 1.9 Absolute Lymphs (auto) 1.1 Absolute Monos (auto) 0.3 Absolute Eos (auto) 0.1 Absolute Basos (auto) 0.0 Absolute Nucleated RBC 0.0 Nucleated RBC % 0.0 POC Glucose (mg/dL) 190 H Microbiology 05/19/19 10:00 Anaerobic Culture - Final Wound - Right Leg No Growth Day 4 Skin and Soft Tissue MRSA/MSSA (PCR - Final Mrsa Negative S.aureus Negative Gram Stain - Final Wound Culture - Final No Growth Day 4 Assessment: 1. Right hindfoot infection. Previous cultures with staph aureus. S/P I+D and revision of stump, POD # 4. Afebrile and no leukocytosis. Wound cultures from the OR with no growth to date, day 4 (he was on cefazolin and levaquin prior to the surgery). 2. Pancytopenia. Suspect this may be secondary to the cefazolin he was on prior to admission. 3. DM2 with peripheral neuropathy. 4. CKD stage 3. Plan: Continue vancomycin, trough goal 10-15. Day 4/14. Recommend discharging on Vancomycin 1gm daily if he goes today, if he is still here for his vanco trough in the morning, the dose may need to be adjusted. Weekly labs while on ABX: CBC , CMP, CRP and vanco trough (on Sunday or Tuesdays). Followup with ID 1 week after discharge.
--- NOTE | 2019-05-23 12:13 | PN ---
Progress Note - Progress Note Date of Service: 05/23/19 SOAP: Subjective: []Patient seen at bedside, he is comfortable, denies stump pain, fever, chills, nasuea or vomiting. Objective: [] Vital Signs Temp 98.3 F 05/23/19 11:55 Pulse 74 05/23/19 11:55 Resp 16 05/23/19 11:55 BP 151/78 05/23/19 11:55 Pulse Ox 95 05/23/19 11:55 Intake & Output 05/22/19 05/23/19 05/23/19 18:59 06:59 18:59 Intake Total 1290 1600 Output Total 0 Balance 1290 1600 Intake: Oral 1290 1600 Output: Urine 0 Other: Estimated Void Medium Large Date of Last Bowel 04/22/19 Movement # Bowel Movements 1 Estimated Stool Amount Medium # Voids 2 1 Laboratory Results - last 24 hr 05/22/19 05/22/19 05/22/19 11:58 17:14 20:26 WBC RBC Hgb Hct MCV MCH MCHC RDW Plt Count MPV Neut % (Auto) Lymph % (Auto) [place] % (Auto) Eos % (Auto) Baso % (Auto) Absolute Neuts (auto) Absolute Lymphs (auto) Absolute Monos (auto) Absolute Eos (auto) Absolute Basos (auto) Absolute Nucleated RBC Nucleated RBC % POC Glucose (mg/dL) 234 H 181 H 114 H 05/23/19 05/23/19 05/23/19 05:20 08:38 11:57 WBC 3.4 L RBC 3.33 L Hgb 8.4 L Hct 25 L MCV 75 L MCH 25 L MCHC 34 RDW 15 Plt Count 117 L MPV 8.3 Neut % (Auto) 55.1 Lymph % (Auto) 31.8 Angelina % (Auto) 8.5 Eos % (Auto) 4.3 Baso % (Auto) 0.3 Absolute Neuts (auto) 1.9 Absolute Lymphs (auto) 1.1 Absolute Monos (auto) 0.3 Absolute Eos (auto) 0.1 Absolute Basos (auto) 0.0 Absolute Nucleated RBC 0.0 Nucleated RBC % 0.0 POC Glucose (mg/dL) 190 H 218 H Microbiology 05/19/19 10:00 Anaerobic Culture - Final Wound - Right Leg No Growth Day 4 Skin and Soft Tissue MRSA/MSSA (PCR - Final Mrsa Negative S.aureus Negative Gram Stain - Final Wound Culture - Final No Growth Day 4 Splint/ dressings are dry and intact RLE Assessment: []Revision of RLE amputation with cleansing and excision of necrotic material. Plan: []NWB RLE Cultures with no growth so far, on vancomycin. ID recommending 2 weeks Vanco then transition to oral antibiotics lovenox for dvt prophy Plan for DC to [place] pending bed/ins Follow up with ID in 1 week after discharge
[2019-05-23] MEDS: Atorvastatin* 10 MG TAB PO SCH (17:56)
--- NOTE | 2019-05-23 19:26 | PN ---
Subjective Date of Service: 05/23/19 Interval History: Resting in bed. No complaints. Looking forward to discharge. Objective Active Medications: Acetaminophen (Tylenol Tab*) 975 mg PO Q8HR [facility] Last Admin: 05/23/19 13:44 Dose: 975 mg Aspirin (Aspirin Ec Tab*) 81 mg PO QAM [facility] Last Admin: 05/23/19 09:13 Dose: 81 mg Atorvastatin Calcium (Lipitor*) 10 mg PO QPM [facility]; Protocol Last Admin: 05/23/19 17:56 Dose: 10 mg Clonidine HCl (Catapres Tab*) 0.2 mg PO BID [facility] Last Admin: 05/23/19 09:13 Dose: 0.2 mg Cyclobenzaprine HCl (Flexeril Tab*) 10 mg PO TID [facility] Last Admin: 05/23/19 13:45 Dose: 10 mg Enoxaparin Sodium (Lovenox(*)) 30 mg SUBCUT Q24H [facility] Last Admin: 05/23/19 09:16 Dose: 30 mg Heparin Sodium (Porcine) (Heparin Flush Picc/Ml/Cvc(*)) 1 ml FLUSH 0600,1800 PRN; Protocol PRN Reason: flush Last Admin: 05/22/19 10:14 Dose: 1 ml Vancomycin HCl 1,250 mg/ (Sodium Chloride) 250 mls @ 166.667 mls/hr IVPB Q24H [facility] Last Admin: 05/23/19 05:13 Dose: 166.667 mls/hr Insulin Human NPH (Insulin Nph(*)) 26 units SUBCUT BEDTIME [facility] Last Admin: 05/22/19 22:00 Dose: 26 units Insulin Human NPH (Insulin Nph(*)) 60 units SUBCUT QAM [facility] Last Admin: 05/23/19 09:14 Dose: 60 units Magnesium Hydroxide (Milk Of Magnesia Liq*) 30 ml PO Q6H PRN PRN Reason: constipation Metoprolol Tartrate (Lopressor Tab*) 100 mg PO BID [facility] Last Admin: 05/23/19 09:14 Dose: 100 mg Morphine Sulfate (Ms Contin(*)) 15 mg PO Q12HR [facility] Last Admin: 05/23/19 09:13 Dose: 15 mg Nortriptyline HCl (Pamelor Cap*) 125 mg PO BEDTIME [facility] Last Admin: 05/22/19 22:01 Dose: 125 mg Ondansetron HCl (Zofran Inj*) 4 mg IV Q6H PRN PRN Reason: nausea Oxycodone HCl (Roxycodone Tab*) 10 mg PO TID PRN PRN Reason: PAIN - SEVERE Last Admin: 05/23/19 13:44 Dose: 10 mg Oxycodone/Acetaminophen (Percocet 5/325 Tab*) 1 tab PO Q4H PRN PRN Reason: PAIN Last Admin: 05/20/19 21:57 Dose: 1 tab Pantoprazole Sodium (Protonix Tab*) 40 mg PO QAM [facility] Last Admin: 05/23/19 09:14 Dose: 40 mg Pharmacy Consult (Vancomycin Per Pharmacy*) 1 note FOLLOW UP . PRN PRN Reason: PER PROTOCOL Pharmacy Profile Note (Vancomycin Trough Check) 1 note FOLLOW UP 529 ONE Stop: 05/24/19 05:31 [facility]) [facility] Admin: 05/23/19 09:13 Dose: 80 mg Trazodone HCl (Desyrel Tab*) 25 mg PO BEDTIME PRN PRN Reason: insomnia Vital Signs - 8 hr 05/23/19 05/23/19 05/23/19 11:55 13:44 13:45 Temperature 98.3 F Pulse Rate 74 Respiratory 16 16 16 Rate Blood Pressure 151/78 (mmHg) O2 Sat by Pulse 95 Oximetry 05/23/19 15:36 Temperature 98.2 F Pulse Rate 69 Respiratory 16 Rate Blood Pressure 146/68 (mmHg) O2 Sat by Pulse 97 Oximetry Oxygen Devices in Use Now: None Appearance: Comfortable, NAD Eyes: No Scleral Icterus Ears/Nose/Mouth/Throat: Clear Oropharnyx, Mucous Membranes Moist Neck: NL Appearance and Movements; NL JVP Respiratory: Symmetrical Chest Expansion and Respiratory Effort, Clear to Auscultation Cardiovascular: NL Sounds; No Murmurs; No JVD, RRR, No Edema Abdominal: NL Sounds; No Tenderness; No Distention Lymphatic: No Cervical Adenopathy Extremities: No Edema Skin: - - Dressing to RLE CDI Neurological: Alert and Oriented x 3, NL Muscle Strength and Tone Nutrition: Taking PO's Result Diagrams: 05/23/19 05:20 05/22/19 06:00 Additional Lab and Data: Laboratory Results - last 24 hr 05/22/19 05/23/19 05/23/19 20:26 05:20 08:38 WBC 3.4 L RBC 3.33 L Hgb 8.4 L Hct 25 L MCV 75 L MCH 25 L MCHC 34 RDW 15 Plt Count 117 L MPV 8.3 Neut % (Auto) 55.1 Lymph % (Auto) 31.8 [place] % (Auto) 8.5 Eos % (Auto) 4.3 Baso % (Auto) 0.3 Absolute Neuts (auto) 1.9 Absolute Lymphs (auto) 1.1 Absolute Monos (auto) 0.3 Absolute Eos (auto) 0.1 Absolute Basos (auto) 0.0 Absolute Nucleated RBC 0.0 Nucleated RBC % 0.0 POC Glucose (mg/dL) 114 H 190 H 05/23/19 05/23/19 11:57 17:59 WBC RBC Hgb Hct MCV MCH MCHC RDW Plt Count MPV Neut % (Auto) Lymph % (Auto) [place] % (Auto) Eos % (Auto) Baso % (Auto) Absolute Neuts (auto) Absolute Lymphs (auto) Absolute Monos (auto) Absolute Eos (auto) Absolute Basos (auto) Absolute Nucleated RBC Nucleated RBC % POC Glucose (mg/dL) 218 H 134 H Microbiology and Other Data: Microbiology 05/19/19 10:00 Anaerobic Culture - Final Wound - Right Leg No Growth Day 4 Skin and Soft Tissue MRSA/MSSA (PCR - Final Mrsa Negative S.aureus Negative Gram Stain - Final Wound Culture - Final No Growth Day 4 Assess/Plan/Problems-Billing Assessment: 58 yr old male with pmh of DM, neuropathy, charcot joint, htn, hld, ckd3; who [place] [facility] - Patient Problems (1) Amputation of right lower extremity Comment: - POD 4 - S/P revision of RLE amputation - Management per ortho (2) Right foot infection Comment: - Vanco per ID - PICC in RUE from previous hospital (3) CKD (chronic kidney disease) Comment: - Cr at baseline per available data - Cont to refrain from use of nephrotoxic medications - Euvolemic (4) Chronic back pain Comment: - Pain control per ortho (5) Diabetes Comment: - Cont home regime - Mildly elevated BG probably secondary to recent surgery and not receiving alogliptin here in the hospital as it is not available. - Resume home medications as same upon discharge (6) Hypertension Comment: - Cont home regime (7) DVT prophylaxis Comment: - Lovenox pe ortho. Status and Disposition: Thank you for allowing us to assist in the care of this patient. We will be signing off, but will be available as needed. Attending: Ronan Rodriguez
[2019-05-23] MEDS: Nortriptyline CAP* 25 MG PO SCH (21:16)
[2019-05-24 05:17] LABS: Mean Platelet Volume 7.7 fL (7.4-10.4); Platelet Count 120 10^3/uL (150-450)
[2019-05-24] MEDS ORDERED: Vancomycin Trough Check NOTE FOLLOW UP ONE (05:30)
[2019-05-24] MEDS: Acetaminophen TAB* 325 MG PO SCH (06:08)
[2019-05-24] MEDS: Vancomycin(*) 1,250 MG in NS 0.9% 250 ML* 250 ML IVPB SCH (06:08)
[2019-05-24 08:26] VITALS: BP 149/72
[2019-05-24] MEDS: Morphine TAB Extended Release (*) 15 MG TAB.ER PO SCH (09:32)
[2019-05-24] MEDS: Torsemide TAB 10 MG PO SCH (09:32)
[2019-05-24] MEDS: cloNIDine TAB* 0.1 MG PO SCH (09:33)
[2019-05-24] MEDS: Pantoprazole TAB * 40 MG TAB PO SCH (09:34)
[2019-05-24] MEDS: Metoprolol Tartrate TAB* 100 MG TAB PO SCH (09:34)
[2019-05-24] MEDS: Aspirin EC TAB* 81 MG TAB.EC PO SCH (09:34)
[2019-05-24] MEDS: Cyclobenzaprine TAB* 10 MG PO SCH (09:34)
[2019-05-24] MEDS: Enoxaparin(*) 30 MG/0.3 ML SYR SUBCUT SCH (09:35)
[2019-05-24] MEDS: Insulin NPH(*) 1 UNITS UNIT SUBCUT SCH (09:35)
--- NOTE | 2019-05-24 10:03 | DS ---
AMENDED REPORT NOW INCLUDES DESIGNATED COSIGNER DISCHARGE SUMMARY: DATE OF ADMISSION: 05/19/19 DATE OF DISCHARGE: 05/24/19 ATTENDING PHYSICIAN: Dr. Chandrakant Perez.* (DICTATED BY GUILLERMO CHUNG) ADMISSION DIAGNOSIS: Chronic osteomyelitis, right foot. DISCHARGE DIAGNOSIS: Chronic osteomyelitis, right foot. SURGERY PERFORMED: Revision amputation with cleansing and excision of necrotic material right lower extremity stump. HOSPITAL COURSE: Mr. Landrum is a 58-year-old male with a history of diabetes and diabetic neuropathy with Charcot joint of the right ankle, who underwent a hindfoot amputation due to chronic osteomyelitis of the right foot. He developed increased drainage along the stump site and was readmitted on , taken to the operating room by Dr. Chandrakant Perez for the aforementioned procedure. He was followed by the medical service and Infectious Disease, and it was found that he would need to be on vancomycin 1 g q.24 hours for 2 weeks for the best likely outcome of his infection. The patient had been at [facility] prior to his admission and is being discharged back to [facility] today, 05/24/19. CONDITION ON DISCHARGE: Today, the splint and dressing on the right lower extremity is clean, dry, and intact. His temperature is 98.2, pulse 62, respiratory rate 18, O2 saturation 98% on room air, blood pressure 149/72. PLAN: He will remain nonweightbearing on the right lower extremity. He uses a knee scooter. Per Infectious Disease, it is recommended that he continue with 9 more days of vancomycin [address] Hill is requesting a followup with he or his nurse practitioner Diann in 1 week for reevaluation. He should be seen by Dr. Perez at the [place] office on 05/28/19. At that time, he will have his splint and dressings removed. All questions were answered for the patient today prior to discharge. GUILLERMO CHUNG [id number]/[facility] #: [id number] [facility]
== END 2019-05-24 10:55 | DRG 464 ==
LOC: AA 05-19 06:50 → SSU 05-19 10:54
PROVIDERS: ADMIT Orthopaedic Surgery; ATTEND Orthopaedic Surgery
PROC: 0JBQ0ZZ Excision of Right Foot Subcutaneous Tissue and Fascia, Open Approach (ICD-10-PCS; principal; 2019-05-19 09:00)
DX: T87.43 Infection of amputation stump, right lower extremity (principal); M86.671 Other chronic osteomyelitis, right ankle and foot; D61.818 Other pancytopenia; Y83.5 Amputation of limb(s) as the cause of abnormal reaction of the patient, or of later complication, without mention of misadventure at the time of the procedure; E11.69 Type 2 diabetes mellitus with other specified complication; E11.40 Type 2 diabetes mellitus with diabetic neuropathy, unspecified; I10 Essential (primary) hypertension; E78.5 Hyperlipidemia, unspecified; K21.9 Gastro-esophageal reflux disease without esophagitis; L40.9 Psoriasis, unspecified; G89.4 Chronic pain syndrome; E11.22 Type 2 diabetes mellitus with diabetic chronic kidney disease; N18.3 Chronic kidney disease, stage 3 (moderate); E55.9 Vitamin D deficiency, unspecified; N52.9 Male erectile dysfunction, unspecified; M19.90 Unspecified osteoarthritis, unspecified site; G43.909 Migraine, unspecified, not intractable, without status migrainosus; M54.9 Dorsalgia, unspecified; E11.65 Type 2 diabetes mellitus with hyperglycemia; E11.42 Type 2 diabetes mellitus with diabetic polyneuropathy; E66.01 Morbid (severe) obesity due to excess calories; G47.33 Obstructive sleep apnea (adult) (pediatric); Y92.9 Unspecified place or not applicable; Z88.5 Allergy status to narcotic agent; Z88.8 Allergy status to other drugs, medicaments and biological substances; Z68.35 Body mass index [BMI] 35.0-35.9, adult; Z85.46 Personal history of malignant neoplasm of prostate; Z82.49 Family history of ischemic heart disease and other diseases of the circulatory system; Z83.3 Family history of diabetes mellitus; Z82.3 Family history of stroke; Z80.42 Family history of malignant neoplasm of prostate; Z82.0 Family history of epilepsy and other diseases of the nervous system
CPT/HCPCS: 36415; 80048; 80202; 82565; 84520; 85014; 85018; 85025; 85049; 86140; 87070; 87073; 87205; 87640; 87641; 88304; A9270-GY; G8978-GP-CI; G8979-GP-CI; G8980-GP-CI; J0690; J1650; J2001; J2250; J2704; J3010; J3370; J3490

== ENCOUNTER 2019-09-03 09:46 | Inpatient (IN) | payer MEDICARE ==
[2019-09-03] MEDS ORDERED: Docusate CAP* 100 MG PO PRN (14:15)
[2019-09-03] MEDS ORDERED: Morphine INJ* 2 MG/ML 1 ML SYRINGE (TWO MG - NEW SYRINGE VERSION) IV PRN (14:15)
[2019-09-03] MEDS ORDERED: traMADol TAB* 50 MG PO PRN (14:15)
[2019-09-03] MEDS ORDERED: Ondansetron ODT TAB* 4 MG PO PRN (14:15)
[2019-09-03] MEDS ORDERED: diPHENhydraMINE PO* 25 MG PO PRN (14:15)
[2019-09-03] MEDS ORDERED: diPHENhydraMINE IV* 50 MG/ML 1 ml VIAL (BENADRYL) IV PRN (14:15)
[2019-09-03] MEDS ORDERED: Magnesium Hydroxide LIQ* 30 ML UDC PO PRN (14:15)
[2019-09-03] MEDS ORDERED: Heparin VIAL(*) 5000 UNITS/ML VIAL (FIVE THOUSAND) SUBCUT SCH (14:19)
[2019-09-03] MEDS ORDERED: Vancomycin per Pharmacy* NOTE FOLLOW UP SCH ×2 (15:00→16:00)
[2019-09-03] MEDS ORDERED: Zosyn per Pharmacy* NOTE FOLLOW UP SCH (16:00)
--- OUTSIDE RECORDS SUMMARY | 2019-09-03 17:06 | XMS REPORT | Continuity of Care Document ---
:1960 External Reference #:[id number] Author Name Chandrakant Perez M.D. (transmitted by agent of provider Ha Khalil) Address [address] [place] [address] [place] [address] Problems Description No Information Available Social History Type Date Description Comments Sex Unknown Tobacco Use Start: Unknown Never Smoked Cigarettes Smoking Status Reviewed: 08/20/19 Never Smoked Cigarettes ETOH Use Rarely consumes alcohol Tobacco Use Start: Unknown Patient has never smoked Recreational Drug Use Denies Drug Use Exercise Type/Frequency Does not exercise Allergies, Adverse Reactions, Alerts Active Allergies Reaction Severity Comments Date Vicodin 04/19/2018 Hydrocodone 04/19/2018 Medications Active Medications SIG Qnty Indications Ordering Date Provider Fingerstick BS ac And hs Chandrakant Perez, 04/09/2019 Nesha Aspir-Low 1 by mouth every Unknown 81mg Tablets DR day Clonidine HCL 1 by mouth twice Unknown 0.2mg Tablets daily Torsemide 4 tabs by mouth Unknown 20mg Tablets every day Morphine Sulfate ER 1 by mouth twice Unknown 15mg a day Tablets ER Omeprazole 1 by mouth every Unknown 20mg Capsules DR day Cyclobenzaprine HCL 1 tablet by mouth Unknown 10mg three times daily Tablets Nortriptyline HCL 1 capsule by Unknown 50mg mouth at bedtime Capsules Pravastatin Sodium 1 by mouth every Unknown 40mg day Tablets Metoprolol Tartrate 1 by mouth twice Unknown 100mg a day Tablets NPH Insulin Isophane 100 inject 60 units Unknown Units/ML in A.M. 25 units SQ at bedtime Nortriptyline HCL 1 tab by mouth at Unknown 75mg bedtime in Capsules addition to 25mg tab Oxycodone HCL 2 tabs by mouth Unknown 5mg Tablets every 8 hours as needed Apap 3 tabs every 8 Unknown 325mg Tablets hours History Medications Doxycycline Hyclate one tablet twice 42caps Michelle Abdon 06/04/2019 - daily for 3 weeks RAJI Wick 07/14/2019 100mg Capsules (to start the day after he finishes IV vancomycin) Levofloxacin 1 by mouth every 14tabs M86.671 Chandrakant Perez, 04/09/2019 - 500mg day M.D. 05/27/2019 Tablets Immunizations Description No Information Available Vital Signs Date Vital Result Comment 08/20/2019 11:47am Heart Rate 74 /min BP Systolic Sitting 120 mmHg BP Diastolic Sitting 86 mmHg Respiratory Rate 12 /min no resp difficulties Pain Level 8 O2 % BldC Oximetry 96 % 07/30/2019 2:01pm Height 69 inches 5'9" Weight 236.00 lb Heart Rate 74 /min BP Systolic Sitting 124 mmHg BP Diastolic Sitting 74 mmHg Respiratory Rate 16 /min Body Temperature 98.6 F Pain Level 0 O2 % BldC Oximetry 96 % BMI (Body Mass Index) 34.8 kg/m2 Results Test Date Facility Test Result H/L Range Note Comp Metabolic 06/20/2019 [facility] Sodium 137 mmol/L Normal 135-145 Panel [address] [place] [address] [phone] Potassium 4.4 mmol/L Normal 3.5-5.0 Chloride 101 mmol/L Normal 101-111 Co2 Carbon Dioxide 27 mmol/L Normal 22-32 Anion Gap 9 mmol/L Normal 2-11 Glucose 269 mg/dL High 70-100 Blood Urea Nitrogen 25 mg/dL High 6-24 Creatinine 1.78 mg/dL High 0.67-1.17 BUN/Creatinine Ratio 14.0 Normal 8-20 Calcium 9.3 mg/dL Normal 8.6-10.3 Total Protein 6.5 g/dL Normal 6.4-8.9 Albumin 4.0 g/dL Normal 3.2-5.2 Globulin 2.5 g/dL Normal 2-4 Albumin/Globulin Ratio 1.6 Normal 1-3 Total Bilirubin 0.50 mg/dL Normal 0.2-1.0 Alkaline Phosphatase 100 U/L Normal 34-104 Alt 8 U/L Normal 7-52 Ast 8 U/L Low 13-39 Egfr Non- 39.6 >60 Egfr 47.9 >60 1 CBC Auto 06/20/2019 [facility] White Blood 6.2 10^3/uL Normal 3.5-10.[address] [place] [address] [phone] Red Blood Count 4.35 10^6/uL Normal 4.18-5.48 Hemoglobin 10.6 g/dL Low 14.0-18.0 Hematocrit 32 % Low 42-52 Mean Corpuscular Volume 74 fL Low 80-94 Mean Corpuscular Hemoglobin 24 pg Low 27-31 Mean Corpuscular HGB Conc 33 g/dL Normal 31-36 Red Cell Distribution Width 16 % High 10-15 Platelet Count 185 10^3/uL Normal 150-450 Mean Platelet Volume 8.7 fL Normal 7.4-10.4 Abs Neutrophils 4.4 10^3/uL Normal 1.5-7.7 Abs Lymphocytes 1.4 10^3/uL Normal 1.0-4.8 Abs Monocytes 0.4 10^3/uL Normal 0-0.8 Abs Eosinophils 0.1 10^3/uL Normal 0-0.6 Abs Basophils 0.0 10^3/uL Normal 0-0.2 Abs Nucleated RBC 0.0 10^3/uL Granulocyte % 70.1 % Lymphocyte % 22.1 % Monocyte % 5.7 % Eosinophil % 1.7 % Basophil % 0.4 % Nucleated Red Blood Cells % 0.0 Laboratory test 06/20/2019 [facility] C Reactive 11.62 mg/L High <8.[address] [place] [address] [phone] 1 Because ethnic data is not always readily available, this report includes an eGFR for both -Americans and non- Americans. The National Kidney Disease Education Program (NKDEP) does not endorse the use of the MDRD equation for patients that are not between the ages of 18 and 70, are , have extremes of body size, muscle mass, or nutritional status, or are non- or non-. According to the National Kidney Foundation, irrespective of diagnosis, the stage of the disease is based on the level of kidney function: Stage Description GFR(mL/min/1.73 m(2)) 1 Kidney damage with normal or decreased GFR 90 2 Kidney damage with mild decrease in GFR 60-89 3 Moderate decrease in GFR 30-59 4 Severe decrease in GFR 15-29 5 Kidney failure <15 (or dialysis) Procedures Date Code Description Status 07/30/2019 89457 Walking Cast Completed 06/04/2019 54431 Short Leg Cast Completed 05/19/2019 18583 Amputation Ankle Through Malleoli Tibia/Fib Nerve Completed Resection 05/19/2019 47771 Amputation Ankle Through [place]alle[place] Tibia/Fib Nerve Completed Resection 03/28/2019 97417 Amputation Ankle Through [place] Tibia/Fib Nerve Completed Resection 03/28/2019 81244 Amputation Ankle Through [place]alleoli Tibia/Fib Nerve Completed Resection Medical Devices Description No Information Available Encounters Type Date Location Provider Dx Diagnosis Office Visit 08/20/2019 [facility] Karo Atkins671 Other chronic 11:15a at [place] Nesha osteomyelitis, right ankle and foot E11.22 Type 2 diabetes mellitus w diabetic chronic kidney disease Office Visit 07/16/2019 Thee Zhao Other chronic 1:30p Orthopedics gabi Perez M.D. osteomyelitis, [place] right ankle and foot E11.22 Type 2 diabetes mellitus w diabetic chronic kidney disease Office Visit 06/26/2019 [facility] Michelle Coppola [id number] Other chronic 11:30a For Infectious RAJI Wick osteomyelitis, Diseases right ankle and foot T87.43 Infection of amputation stump, right lower extremity E11.22 Type 2 diabetes mellitus w diabetic chronic kidney disease Z79.2 long-term (current) use of antibiotics E11.69 Type 2 diabetes mellitus with other specified complication Office 06/18/2019 Pura [id number] Other chronic Visit 11:00a Orthopedics gabi Jeffries osteomyelitis, [place] right ankle and foot Office 05/29/2019 [facility] Michelle Coppola T87.43 Infection of Visit 1:30p For Infectious RAJI Wick amputation stump, Diseases right lower extremity M86.671 Other chronic osteomyelitis, right ankle and foot E11.22 Type 2 diabetes mellitus w diabetic chronic kidney disease Z79.2 intermediate accountant (current) use of antibiotics E11.69 Type 2 diabetes mellitus with other specified complication Office Visit 05/23/2019 [facility] Michelle Coppola T87.43 Infection of 8:49a For Infectious Shamika [employer] amputation Diseases stump, right lower extremity E11.22 Type 2 diabetes mellitus w diabetic chronic kidney disease N18.3 Chronic kidney disease, stage 3 (moderate) E11.40 Type 2 diabetes mellitus with diabetic neuropathy, unsp D61.818 Other pancytopenia Office Visit 05/23/2019 8:50a [facility] E11.22 Type 2 Assoc,gigi Allen NP diabetes Hospitalists mellitus w diabetic chronic kidney disease I12.9 Hypertensive chronic kidney disease w stg 1-4/unsp chr kdny N18.9 Chronic kidney disease, unspecified M54.9 Dorsalgia, unspecified Office Visit 05/22/2019 [facility] Michelle Abdon E11.69 Type 2 diabetes 9:19a For Infectious Shamika [employer] mellitus with Diseases other specified complication T87.43 Infection of amputation stump, right lower extremity E11.22 Type 2 diabetes mellitus w diabetic chronic kidney disease N18.3 Chronic kidney disease, stage 3 (moderate) Office Visit 05/22/2019 8:46a [facility] E11.22 Type 2 Assoc,gigi Allen NP diabetes Hospitalists mellitus w diabetic chronic kidney disease I12.9 Hypertensive chronic kidney disease w stg 1-4/unsp chr kdny N18.9 Chronic kidney disease, unspecified Office Visit 05/21/2019 [facility] Michelle Abdon T87.43 Infection of 9:17a For Infectious Wick [employer] amputation Diseases stump, right lower extremity E11.69 Type 2 diabetes mellitus with other specified complication E11.40 Type 2 diabetes mellitus with diabetic neuropathy, unsp E11.22 Type 2 diabetes mellitus w diabetic chronic kidney disease N18.3 Chronic kidney disease, stage 3 (moderate) Office Visit 05/19/2019 8:40a [facility] I12.9 Hypertensive Assoc,pc GUILLERMO Castro chronic kidney Hospitalists disease w stg 1-4/unsp chr kdny E11.22 Type 2 diabetes mellitus w diabetic chronic kidney disease N18.9 Chronic kidney disease, unspecified M54.9 Dorsalgia, unspecified Office Visit 04/03/2019 [facility] Ian Turk E11.69 Type 2 diabetes 10:47a For Infectious Nesha Reagan mellitus with Diseases other specified complication M86.671 Other chronic osteomyelitis, right ankle and foot B95.61 Methicillin suscep staph infct causing dis classd elswhr Office Visit 04/02/2019 [facility] Ian Turk E11.69 Type 2 diabetes 10:46a For Infectious Nesha Reagan mellitus with Diseases other specified complication M86.671 Other chronic osteomyelitis, right ankle and foot B95.61 Methicillin suscep staph infct causing dis classd elswhr Office Visit 04/02/2019 8:26a [facility] Jasmine Hohn, Z89.441 Acquired gigi Dugan M.D. 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 absence of Hospitalists right ankle I10 Essential (primary) hypertension Z79.4 intermediate accountant (current) use of insulin Office Visit 03/31/2019 8:25a [facility] Z89.441 Acquired Assgigi leon M.D. absence of Hospitalists right ankle I10 Essential (primary) hypertension K59.00 Constipation, unspecified Z79.4 intermediate accountant (current) use of insulin Office Visit 03/30/2019 8:25a [facility] Z89.441 Acquired Assgigi leon M.D. absence of Hospitalists right ankle I10 Essential (primary) hypertension Z79.4 long-term (current) use of insulin [facility] Ac[facility] 8:24a gigi Dugan M.D. 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 absence of Hospitalists right ankle I10 Essential (primary) hypertension Z79.4 long-term (current) use of insulin Office Visit 03/27/2019 8:24a [facility] Steph I10 Essential Assocgigi NP (primary) Hospitalists hypertension K21.9 Gastro-esophageal reflux disease without esophagitis Office Visit 03/05/2019 10:00a [facility] Chandrakant M14.671 Charcot' s at Tushar Perez M.D. joint, right ankle and foot Assessments Date Code Description Provider 08/20/2019 M86.671 Other chronic osteomyelitis, right Chandrakant Perez M.D. ankle and foot 08/20/2019 E11.22 Type 2 diabetes mellitus with Chandrakant Perez M.D. diabetic chronic kidney diseas 07/30/2019 M86.671 Other chronic osteomyelitis, right Chandrakant Perez M.D. ankle and foot 07/16/2019 M86.671 Other chronic osteomyelitis, right Chandrakant Perez M.D. ankle and foot 07/16/2019 E11.22 Type 2 diabetes mellitus with Chandrakant Perez M.D. diabetic chronic kidney diseas 06/26/2019 M86.671 Other chronic osteomyelitis, right Michelle Wick NP ankle and foot 06/26/2019 T87.43 Infection of amputation stump, right Michelle Wick NP lower extremity 06/26/2019 E11.22 Type 2 diabetes mellitus with Michelle Wick NP diabetic chronic kidney diseas 06/26/2019 Z79.2 long-term (current) use of Michelle Wick NP antibiotics 06/26/2019 E11.69 Type 2 diabetes mellitus with other Michelle Wick NP specified complication 06/18/2019 M86.671 Other chronic osteomyelitis, right Chandrakant Perez M.D. ankle and foot 06/04/2019 M86.671 Other chronic osteomyelitis, right Chandrakant Perez M.D. ankle and foot 05/29/2019 T87.43 Infection of amputation stump, right Michelle Wick NP lower extremity 05/29/2019 M86.671 Other chronic osteomyelitis, right Michelle Wick NP ankle and foot 05/29/2019 E11.22 Type 2 diabetes mellitus with Michelle Wick NP diabetic chronic kidney diseas 05/29/2019 Z79.2 intermediate accountant (current) use of Michelle Wick NP antibiotics 05/29/2019 E11.69 Type 2 diabetes mellitus with other Michelle Wick NP specified complication 05/28/2019 Z47.81 Encounter for orthopedic aftercare Chandrakant Perez M.D. following surgical amputa 05/23/2019 T87.43 Infection of amputation stump, right Michelle Wick NP lower extremity 05/23/2019 E11.22 Type 2 diabetes mellitus w diabetic Lori Allen NP chronic kidney disease 05/23/2019 E11.22 Type 2 diabetes mellitus with Michelle Wick NP diabetic chronic kidney diseas 05/23/2019 I12.9 Hypertensive chronic kidney disease w Lori Allen NP stg 1-4/unsp chr kdny 05/23/2019 N18.3 Chronic kidney disease, stage 3 Michelle Wick NP (moderate) 05/23/2019 N18.9 Chronic kidney disease, unspecified Lori Allen NP 05/23/2019 E11.40 Type 2 diabetes mellitus with Michelle Wick NP diabetic neuropathy, unspecified 05/23/2019 M54.9 Dorsalgia, unspecified Lori Allen NP 05/23/2019 D61.818 Other pancytopenia Michelle Wick NP 05/22/2019 Z47.89 Encounter for other orthopedic GUILLERMO Urbano aftercare 05/22/2019 E11.69 Type 2 diabetes mellitus with other Michelle Wick NP specified complication 05/22/2019 E11.22 Type 2 diabetes mellitus w diabetic Lori Allen, [employer] chronic kidney disease 05/22/2019 T87.43 Infection of amputation stump, right Michelle Wick, [employer] lower extremity 05/22/2019 I12.9 Hypertensive chronic kidney disease w Lori Allen, [employer] stg 1-4/unsp chr kdny 05/22/2019 E11.22 Type 2 diabetes mellitus w diabetic Michelle Abdon Wick NP chronic kidney disease 05/22/2019 N18.9 Chronic kidney disease, unspecified Lori Landishalle [employer] 05/22/2019 N18.3 Chronic kidney disease, stage 3 Michelle Wick NP (moderate) 05/21/2019 T87.43 Infection of amputation stump, right Michelle Abdon Wick NP lower extremity 05/21/2019 E11.69 Type 2 diabetes mellitus with other Michelle Wick NP specified complication 05/21/2019 E11.40 Type 2 diabetes mellitus with Michelle Wick NP diabetic neuropathy, unsp 05/21/2019 E11.22 Type 2 diabetes mellitus w diabetic Michellejoesph Wick NP chronic kidney disease 05/21/2019 N18.3 Chronic kidney disease, stage 3 Michelle Wick NP (moderate) 05/20/2019 Z47.89 Encounter for other orthopedic GUILLERMO Urbano aftercare 05/19/2019 T87.43 Infection of amputation stump, right Urmila Aurora, RPA-C lower extremity 05/19/2019 T87.43 Infection of amputation stump, right Chandrakant Perez M.D. lower extremity 05/19/2019 M86.671 Other chronic osteomyelitis, right Urmila Aurora RPA-C ankle and foot 05/19/2019 I12.9 Hypertensive chronic kidney disease w GUILLERMO Mendoza [facility] 05/[facility]/2019 E11.22 Type 2 diabetes mellitus with Urmial Simon RPA-Evangelina diabetic chronic kidney diseas 05/19/2019 M86.671 Other chronic osteomyelitis, right Chandrakant Perez M.D. ankle and foot 05/19/2019 E11.22 Type 2 diabetes mellitus w diabetic GUILLERMO Mendoza chronic kidney disease 05/19/2019 E11.22 Type 2 diabetes mellitus with Chandrakant Perez M.D. diabetic chronic kidney diseas 05/19/2019 N18.9 Chronic kidney disease, unspecified GUILLERMO Mendoza 05/19/2019 M54.9 Dorsalgia, unspecified GUILLERMO Mendoza 05/14/2019 M86.671 Other chronic osteomyelitis, right Chandrakant Perez M.D. ankle and foot 05/07/2019 M86.671 Other chronic osteomyelitis, right Chandrakant Perez M.D. 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 ankle and foot 04/16/2019 M86.671 Other chronic osteomyelitis, right Chandrakant Perez M.D. ankle and foot 04/16/2019 E11.621 Type 2 diabetes mellitus with foot Chandrakant Perez M.D. ulcer 04/16/2019 Z47.81 Encounter for orthopedic aftercare Chandrakant Perez M.D. following surgical amputa 04/16/2019 B95.61 Methicillin susceptible Chandrakant Perez M.D. Staphylococcus aureus infection as t 04/09/2019 M86.671 Other chronic osteomyelitis, right Chandrakant Perez M.D. ankle and foot 04/09/2019 E11.621 Type 2 diabetes mellitus with foot Chandrakant Perez M.D. ulcer 04/03/2019 Z47.81 Encounter for orthopedic aftercare GUILLERMO Urbano following surgical amp 04/03/2019 E11.69 Type 2 diabetes mellitus with other Ian Reagan M.D. specified complication 04/03/2019 Z89.431 Acquired absence of right foot GUILLERMO Urbano 04/03/2019 M86.671 Other chronic osteomyelitis, right Ian Reagan M.D. ankle and foot 04/03/2019 B95.61 Methicillin suscep staph infct Ian Reagan M.D. causing dis classd elswhr 04/02/2019 Z47.81 Encounter for orthopedic aftercare GUILLERMO Urbano following surgical amp 04/02/2019 E11.69 Type 2 diabetes mellitus with other Ian Reagan M.D. 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 04/02/2019 M86.671 Other chronic osteomyelitis, right Ian Reagan M.D. ankle and foot 04/02/2019 I10 Essential (primary) hypertension Jasmine Jackson M.D. 04/02/2019 B95.61 Methicillin suscep staph infct Ian Reagan M.D. causing dis classd elswhr 04/02/2019 Z79.4 intermediate accountant (current) use of insulin Jasmine Jackson M.D. 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 04/01/2019 M86.671 Other chronic osteomyelitis, right Michelle Wick NP ankle and foot 04/01/2019 I10 Essential (primary) hypertension Jasmine Jackson M.D. 04/01/2019 E11.40 Type 2 diabetes mellitus with Michelle Wick NP diabetic neuropathy, unsp 04/01/2019 Z79.4 long-term (current) use of insulin Jasmine Jackson M.D. 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 03/31/2019 K59.00 Constipation, unspecified Wilbert Glaser M.D. 03/31/2019 Z79.4 intermediate accountant (current) use of insulin Wilbert Glaser M.D. 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 03/30/2019 Z79.4 long-term (current) use of insulin Wilbert Glaser M.D. 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 03/29/2019 Z79.4 long-term (current) use of enrique Rodriguez M.D. 03/28/2019 E11.69 Type 2 diabetes mellitus with other Ian Reagan M.D. specified complication 03/28/2019 E11.621 Type 2 diabetes mellitus with foot Brandon Gaming PA-C ulcer 03/28/2019 M86.671 Other chronic osteomyelitis, right Ian Reagan M.D. ankle and foot 03/28/2019 M86.671 Other chronic osteomyelitis, right Chandrakant Perez M.D. ankle and foot 03/28/2019 E11.610 Type 2 diabetes mellitus w diabetic Ian Reagan M.D. neuropathic arthropathy 03/28/2019 M86.671 Other chronic osteomyelitis, right Brandon Gaming PA-C ankle and foot 03/28/2019 E11.40 Type 2 diabetes mellitus with Ian Reagan M.D. 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 03/28/2019 E11.22 Type 2 diabetes mellitus w diabetic Ian Reagan M.D. chronic kidney disease 03/28/2019 E11.621 Type 2 diabetes mellitus with foot Chandrakant Perez M.D. ulcer 03/28/2019 N18.9 Chronic kidney disease, unspecified Ian Reagan M.D. 03/28/2019 I10 Essential (primary) hypertension Ronan Rodriguez M.D. 03/28/2019 Z79.4 long-term (current) use of insulin Ronan Rodriguez M.D. 03/27/2019 I10 Essential (primary) hypertension Steph Cannon, RAJI 03/27/2019 K21.9 Gastro-esophageal reflux disease Steph Cannon NP without esophagitis 03/26/2019 M14.671 Charcot's joint, right ankle and foot Chandrakant Perez M.D. 03/26/2019 M86.671 Other chronic osteomyelitis, right Chandrakant Perez M.D. ankle and foot 03/20/2019 M14.671 Charcot's joint, right ankle and foot Chandrakant Perez M.D. 03/20/2019 M86.671 Other chronic osteomyelitis, right Chandrakant Perez M.D. ankle and foot 03/19/2019 M14.671 Charcot's joint, right ankle and foot Chandrakant Perez M.D. 03/19/2019 M86.671 Other chronic osteomyelitis, right Chandrakant Perez M.D. ankle and foot 03/05/2019 M14.671 Charcot's joint, right ankle and foot Chandrakant Perez M.D. Plan of Treatment Future Appointment(s):09/03/2019 11:00 am - Chandrakant Perez M.D. at [facility] at [id number]/16/2019 - Chandrakant Perez M.D.M86.671 Other chronic osteomyelitis, right ankle and footFollow up:Follow up: 2 [id number] Type 2 diabetes mellitus with diabetic chronic kidney diseas Functional Status Description No Information Available Mental Status Description No Information Available Referrals Description No Information Available
--- OUTSIDE RECORDS SUMMARY | 2019-09-03 17:06 | XMS REPORT | Continuity of Care Document ---
:1960 External Reference #:[id number] Author Name Chandrakant Perez M.D. (transmitted by agent of provider Ha Khalil) Address [address] [place] [address] [place] [address] Problems Description No Information Available Social History Type Date Description Comments Sex Unknown Tobacco Use Start: Unknown Never Smoked Cigarettes Smoking Status Reviewed: 07/16/19 Never Smoked Cigarettes ETOH Use Rarely consumes alcohol Tobacco Use Start: Unknown Patient has never smoked Recreational Drug Use Denies Drug Use Exercise Type/Frequency Does not exercise Allergies, Adverse Reactions, Alerts Active Allergies Reaction Severity Comments Date Vicodin 04/19/2018 Hydrocodone 04/19/2018 Medications Active Medications SIG Qnty Indications Ordering Date Provider Fingerstick BS ac And hs Chandrakant Perez, 04/09/2019 Nehsa Aspir-Low 1 by mouth every Unknown 81mg [...] Available Vital Signs Date Vital Result Comment 07/16/2019 1:12pm Height 69 inches 5'9" Weight 236.00 lb Heart Rate 83 /min BP Systolic Sitting 128 mmHg BP Diastolic Sitting 72 mmHg Pain Level 0 O2 % BldC Oximetry 98 % BMI (Body Mass Index) 34.8 kg/m2 06/26/2019 11:17am Height 69 inches 5'9" Weight 235.25 lb Heart Rate 72 /min BP Systolic Sitting 144 mmHg BP Diastolic Sitting 80 mmHg Respiratory Rate 14 /min Body Temperature 98.2 F BMI (Body Mass Index) 34.7 kg/m2 Results Test Date Facility Test Result H/L Range Note Comp Metabolic 06/20/2019 [facility] Sodium 137 mmol/L Normal 135-145 [address] [place] [address] [phone] Potassium 4.4 mmol/L Normal 3.5-5.0 Chloride 101 [...] Egfr 47.9 >60 1 CBC Auto 06/20/2019 [facility] White Blood 6.2 10^3/uL Normal 3.5-10.[address] [place] [address] [phone] Red Blood Count 4.35 10^6/uL Normal 4.18-5.48 [...] Blood Cells % 0.0 Laboratory test 06/20/2019 [facility] C Reactive 11.62 mg/L High <8.[address] [place] [address] [phone] 1 Because ethnic data is not always [...] (or dialysis) Procedures Date Code Description Status 06/04/2019 72107 Short Leg Cast Completed 05/19/2019 46677 Amputation Ankle Through [place] Tibia/Fib Nerve Completed Resection 05/19/2019 95156 Amputation Ankle Through [place] Tibia/Fib Nerve Completed Resection 03/28/2019 03140 Amputation Ankle Through [place] Tibia/Fib Nerve Completed Resection 03/28/2019 28575 Amputation Ankle Through [place] Tibia/Fib Nerve Completed Resection Medical Devices Description No Information Available Encounters Type Date Location Provider Dx Diagnosis Office Visit 07/16/2019 [facility] Pura Atkins86.671 Other chronic 1:30p [facility] AT [place]ha osteomyelitis, [place] right ankle and foot E11.22 Type 2 diabetes mellitus w diabetic chronic kidney disease Office Visit 06/26/2019 [facility] Michelle Coppola M86.671 Other chronic 11:30a For Infectious Wick, SEEING EYE DOG TRAINER osteomyelitis, Diseases right ankle and foot T87.43 Infection of amputation stump, right lower extremity E11.22 Type 2 diabetes mellitus w diabetic chronic kidney disease Z79.2 exterminator helper termite (current) use of antibiotics E11.69 Type 2 diabetes mellitus with other specified complication Office Visit 06/18/2019 [facility] Pura Atkins86.671 Other chronic 11:00a [facility] [place] osteomyelitis, AT [place] right ankle and foot Office Visit 05/29/2019 [facility] Michelle Coppola T87.43 Infection of 1:30p For Infectious Wick, SEEING EYE DOG TRAINER amputation stump, Diseases right lower extremity M86.671 Other chronic osteomyelitis, right ankle and foot E11.22 Type 2 diabetes mellitus w diabetic chronic kidney disease Z79.2 exterminator helper termite (current) use of antibiotics E11.69 Type 2 diabetes mellitus with other specified complication Office Visit 05/23/2019 [facility] Michelle Coppola T87.43 Infection of 8:49a For Infectious Wick, SEEING EYE DOG TRAINER amputation Diseases stump, right lower extremity E11.22 Type 2 diabetes mellitus w diabetic chronic kidney disease N18.3 Chronic kidney disease, stage 3 (moderate) E11.40 Type 2 diabetes mellitus with diabetic neuropathy, unsp D61.818 Other pancytopenia Office Visit 05/23/2019 8:50a [facility] E11.22 Type 2 Assoc,gigi Allen NP diabetes Hospitalists mellitus w diabetic chronic kidney disease I12.9 Hypertensive chronic kidney disease w stg 1-4/unsp chr kdny N18.9 Chronic kidney disease, unspecified M54.9 Dorsalgia, unspecified Office Visit 05/22/2019 [facility] E11.69 Type 2 diabetes 9:19a For Infectious RAJI Wick mellitus with Diseases other specified complication T87.43 Infection of amputation stump, right lower extremity E11.22 Type 2 diabetes mellitus w diabetic chronic kidney disease N18.3 Chronic kidney disease, stage 3 (moderate) Office Visit 05/22/2019 8:46a [facility] E11.22 Type 2 Assoc,gigi Allen NP diabetes Hospitalists mellitus w diabetic chronic kidney disease I12.9 Hypertensive chronic kidney disease w stg 1-4/unsp chr kdny N18.9 Chronic kidney disease, unspecified Office Visit 05/21/2019 [facility] T87.43 Infection of 9:17a For Infectious RAJI Wick amputation Diseases stump, right lower extremity E11.69 Type 2 diabetes mellitus with other specified complication E11.40 Type 2 diabetes mellitus with diabetic neuropathy, unsp E11.22 Type 2 diabetes mellitus w diabetic chronic kidney disease N18.3 Chronic kidney disease, stage 3 (moderate) Office Visit 05/19/2019 8:40a [facility] Sergei I12.9 Hypertensive Assoc,GUILLERMO Dumont chronic kidney Hospitalists disease w stg 1-4/unsp [facility] kdny E11.22 Type 2 diabetes mellitus w diabetic chronic kidney disease N18.9 Chronic kidney disease, unspecified M54.9 Dorsalgia, unspecified Office Visit 04/03/2019 [facility] Ian Turk E11.69 Type 2 diabetes 10:47a For Infectious Nesha Reagan mellitus with Diseases other specified complication M86.671 Other chronic osteomyelitis, right ankle and foot B95.61 Methicillin suscep staph infct causing dis classd elswhr Office Visit 04/02/2019 8:26a [facility] Jasmine Jackson, Z89.441 Acquired Assoc,gigi Jeffries absence of Hospitalists right ankle I10 Essential (primary) hypertension Z79.4 exterminator helper termite (current) use of insulin Office Visit 04/02/2019 [facility] Ian Turk E11.69 Type 2 diabetes 10:46a For Infectious Arnulfo Reagan. 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 absence of Hospitalists right ankle I10 Essential (primary) hypertension Z79.4 exterminator helper termite (current) use of insulin Office Visit 03/31/2019 8:25a [facility] Z89.441 Acquired Assocgigi M.D. absence of Hospitalists right ankle I10 Essential (primary) hypertension K59.00 Constipation, unspecified Z79.4 [facility] (current) use of insulin Office Visit 03/30/2019 8:25a [facility] Z89.441 Acquired Assocgigi M.D. absence of Hospitalists right ankle I10 Essential (primary) hypertension Z79.4 exterminator helper termite (current) use of insulin [facility]:24a Assocgigi M.D. absence of Hospitalists right ankle I10 Essential (primary) hypertension Z79.4 exterminator helper termite (current) use of insulin Office Visit 03/28/2019 [facility] Ian Turk E11.69 Type 2 diabetes 10:41a For Infectious Arnulfo Reagan. 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 absence of Hospitalists right ankle I10 Essential (primary) hypertension Z79.4 MCC (current) use of insulin Office Visit 03/27/2019 8:24a [facility] Steph I10 Essential Assocgigi NP (primary) Hospitalists hypertension K21.9 Gastro-esophageal reflux disease without esophagitis Office Visit 03/05/2019 10:00a Orthopedic Chandrakant M14.671 Charcot's joint, Services Of Tim Perez M.D. right ankle and AT [place] foot Assessments Date Code Description Provider 07/16/2019 M86.671 Other chronic osteomyelitis, right Chandrakant [...] NP diabetic chronic kidney diseas 06/26/2019 Z79.2 [facility]CC (current) use of Michelle Wick NP antibiotics [...] NP diabetic chronic kidney diseas 05/29/2019 Z79.2 exterminator helper termite (current) use of Michelle Wick NP antibiotics 05/29/2019 E11.69 Type 2 diabetes mellitus with other Michelle Wick NP specified complication 05/28/2019 Z47.81 Encounter for orthopedic aftercare Chandrakant Perez M.D. following surgical amputa 05/23/2019 T87.43 Infection of amputation stump, right Michelle Wikc NP lower extremity 05/23/2019 E11.22 Type 2 diabetes mellitus w diabetic Lori Allen NP chronic kidney disease 05/23/2019 E11.22 Type 2 diabetes mellitus with Michelle Wick NP diabetic chronic kidney diseas 05/23/2019 I12.9 Hypertensive chronic kidney disease w Lori Allen NP stg 1-4/unsp chr kdny 05/23/2019 N18.3 Chronic kidney disease, stage 3 Michelle Wick NP (moderate) 05/23/2019 N18.9 Chronic kidney disease, unspecified Lori Alejandro, SEEING EYE DOG TRAINER 05/23/2019 E11.40 Type 2 diabetes mellitus with Michelle Wick NP diabetic neuropathy, unspecified 05/23/2019 M54.9 Dorsalgia, unspecified Lori Allen, SEEING EYE DOG TRAINER 05/23/2019 D61.818 Other pancytopenia Michelle Wick NP 05/22/2019 Z47.89 Encounter for other orthopedic GUILLERMO Urbano aftercare 05/22/2019 E11.69 Type 2 diabetes mellitus with other Michelle Wick NP specified complication 05/22/2019 E11.22 Type 2 diabetes mellitus w diabetic Lori Allen NP chronic kidney disease 05/22/2019 T87.43 Infection of amputation stump, right Michelle Wick NP lower extremity 05/22/2019 I12.9 Hypertensive chronic kidney disease w Lori Allen NP stg 1-4/unsp chr kdny 05/22/2019 E11.22 Type 2 diabetes mellitus w diabetic Michelle Wick NP chronic kidney disease 05/22/2019 N18.9 Chronic kidney disease, unspecified Lori Allen, SEEING EYE DOG TRAINER 05/22/2019 N18.3 Chronic kidney disease, stage 3 Michelle Wick NP (moderate) 05/21/2019 T87.43 Infection of amputation stump, right Michelle Wick NP lower extremity 05/21/2019 E11.69 Type 2 diabetes mellitus with other Michelle Wick NP specified complication 05/21/2019 E11.40 Type 2 diabetes mellitus with Michelle Wick NP diabetic neuropathy, unsp 05/21/2019 E11.22 Type 2 diabetes mellitus w diabetic Michelle Wick NP chronic kidney disease 05/21/2019 N18.3 Chronic kidney disease, stage 3 Michelle Wick NP (moderate) 05/20/2019 Z47.89 Encounter for other orthopedic GUILLERMO Urbano aftercare 05/19/2019 T87.43 Infection of amputation stump, right Urmila Simon RPA-C lower extremity 05/19/2019 T87.43 Infection of amputation stump, right Chandrakant Perez M.D. lower extremity 05/19/2019 M86.671 Other chronic osteomyelitis, right Urmila JONATHAN Simon-C ankle and foot 05/19/2019 I12.9 Hypertensive chronic kidney disease w GUILLERMO Mendoza stg 1-4/unsp chr kdny 05/19/2019 E11.22 Type 2 diabetes mellitus with ELIESER Hill diabetic chronic kidney diseas 05/19/2019 M86.671 Other [...] M.D. causing dis classd elswhr 04/02/2019 Z79.4 exterminator helper termite (current) use of insulin Jasmine Jackson M.D. 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 04/01/2019 M86.671 Other chronic osteomyelitis, right Michelle Wikc NP ankle and foot 04/01/2019 I10 Essential (primary) hypertension Jasmine Jackson M.D. 04/01/2019 E11.40 Type 2 diabetes mellitus with Michelle Wick NP diabetic neuropathy, unsp 04/01/2019 Z79.4 exterminator helper termite (current) use of insulin Jasmine Jackson M.D. [...] absence of right ankle Wilbert Glaser M.D. 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 03/31/2019 K59.00 Constipation, unspecified Wilbert Glaser M.D. 03/31/2019 Z79.4 exterminator helper termite (current) use of insulin Wilbert Glaser M.D. 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 03/30/2019 Z79.4 MCC (current) use of insulin Wilbert Glaser M.D. 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 03/29/2019 Z79.4 exterminator helper termite (current) use of insulin Ronan Rodriguez M.D. 03/28/2019 E11.69 Type 2 diabetes [...] (primary) hypertension Ronan Rodriguez M.D. 03/28/2019 Z79.4 exterminator helper termite (current) use of insulin Ronan Rodriguez M.D. [...] Chandrakant Perez M.D. Plan of Treatment Future Appointment(s):07/30/2019 2:15 pm - Chandrakant Perez M.D. at [facility]07/24/2019 11:30 am - Michelle Wick NP at [facility] Infectious Oodirakg27/11/2019 - Chandrakant Perez M.D.M86.671 Other chronic osteomyelitis, right ankle and footFollow up:Follow up : 2 -3 ttoybG75.22 Type 2 diabetes mellitus with diabetic chronic kidney diseas Functional Status Description No Information Available Mental Status Description No Information Available Referrals Description No Information Available
--- OUTSIDE RECORDS SUMMARY | 2019-09-03 17:06 | XMS REPORT | Continuity of Care Document ---
:1960 External Reference #:[id number] Author Name Chandrakant Perez M.D. (transmitted by agent of provider Ha Khalil) Address [address] [place] [address] [place] [address] Problems Description No Information Available Social History Type Date Description Comments Sex Unknown Tobacco Use Start: Unknown Never Smoked Cigarettes Smoking Status Reviewed: 07/30/19 Never Smoked Cigarettes ETOH Use Rarely consumes [...] Available Vital Signs Date Vital Result Comment 07/30/2019 2:01pm Height 69 inches 5'9" Weight 236.00 lb Heart Rate 74 /min BP Systolic Sitting 124 mmHg BP Diastolic Sitting 74 mmHg Respiratory Rate 16 /min Body Temperature 98.6 F Pain Level 0 O2 % BldC Oximetry 96 % BMI (Body Mass Index) 34.8 kg/m2 07/16/2019 1:12pm Height 69 inches 5'9" Weight 236.00 lb Heart Rate 83 /min BP Systolic Sitting 128 mmHg BP Diastolic Sitting 72 mmHg Pain Level 0 O2 % BldC Oximetry 98 % BMI (Body Mass Index) 34.8 kg/m2 Results Test Date Facility Test Result H/L Range Note Comp Metabolic 06/20/2019 [facility] Sodium 137 mmol/L Normal 135-145 [address] [place] [address] [phone] Potassium 4.4 mmol/L Normal 3.5-5.0 Chloride 101 [...] Egfr 47.9 >60 1 CBC Auto 06/20/2019 [facility] White Blood 6.2 10^3/uL Normal 3.5-10.[address] [place] [address] [phone] Red Blood Count 4.35 10^6/uL Normal 4.18-5.48 [...] Blood Cells % 0.0 Laboratory test 06/20/2019 [facility] C Reactive 11.62 mg/L High <8.[address] [place] [address] [phone] 1 Because ethnic data is not always [...] dialysis) Procedures Date Code Description Status 07/30/2019 24154 Walking Cast Completed 06/04/2019 60009 Short Leg Cast Completed 05/19/2019 32144 Amputation Ankle Through Malleoli Tibia/Fib Nerve Completed Resection 05/19/2019 69349 Amputation Ankle Through Malleoli Tibia/Fib Nerve Completed Resection 03/28/2019 15372 Amputation Ankle Through Malleoli Tibia/Fib Nerve Completed Resection 03/28/2019 06296 Amputation Ankle Through Malleoli Tibia/Fib Nerve Completed Resection Medical Devices Description No Information Available Encounters Type Date Location Provider Dx Diagnosis Office Visit 06/26/2019 [facility] Michelle Coppola M86.671 Other chronic 11:30a Infectious RAJI Wick osteomyelitis, Diseases right ankle and foot T87.43 Infection of amputation stump, right lower extremity E11.22 Type 2 diabetes mellitus w diabetic chronic kidney disease Z79.2 terminal block assembler (current) use of antibiotics E11.69 Type 2 diabetes mellitus with other specified complication Office Visit 06/18/2019 Orthopedic Chandrakant Perez M86.671 Other chronic 11:00a Services Of Tim Jeffries osteomyelitis, AT Mar Lin right ankle and foot Office Visit 05/29/2019 [facility] Michelle Coppola T87.43 Infection of 1:30p For Infectious RAJI Wick amputation stump, Diseases right lower extremity M86.671 Other chronic osteomyelitis, right ankle and foot E11.22 Type 2 diabetes mellitus w diabetic chronic kidney disease Z79.2 FDC (current) use of antibiotics E11.69 Type 2 diabetes mellitus with other specified complication Office Visit 05/23/2019 [facility] Michelle Coppola T87.43 Infection of 8:49a For Infectious Shamika [employer] amputation Diseases stump, right lower extremity E11.22 Type 2 diabetes mellitus w diabetic chronic kidney disease N18.3 Chronic kidney disease, stage 3 (moderate) E11.40 Type 2 diabetes mellitus with diabetic neuropathy, unsp D61.818 Other pancytopenia Office Visit 05/23/2019 8:50a [facility] E11.22 Type 2 Assoc,gigi Allen NP diabetes Hospitalists mellitus w diabetic chronic kidney disease I12.9 Hypertensive chronic kidney disease w stg 1-4/unsp chr kdny N18.9 Chronic kidney disease, unspecified M54.9 Dorsalgia, unspecified Office Visit 05/22/2019 [facility] Michelle Sandraparagkimberlyn E11.69 Type 2 diabetes 9:19a For Infectious RAJI Wick mellitus with Diseases other specified complication T87.43 Infection of amputation stump, right lower extremity E11.22 Type 2 diabetes mellitus w diabetic chronic kidney disease N18.3 Chronic kidney disease, stage 3 (moderate) Office Visit 05/22/2019 8:46a [facility] E11.22 Type 2 Assoc,gigi Allen NP diabetes Hospitalists mellitus w diabetic chronic kidney disease I12.9 Hypertensive chronic kidney disease w stg 1-4/unsp chr kdny N18.9 Chronic kidney disease, unspecified Office Visit 05/21/2019 [facility] Michelle Abdon T87.43 Infection of 9:17a For Infectious RAJI Wick amputation Diseases stump, right lower extremity E11.69 Type 2 diabetes mellitus with other specified complication E11.40 Type 2 diabetes mellitus with diabetic neuropathy, unsp E11.22 Type 2 diabetes mellitus w diabetic chronic kidney disease N18.3 Chronic kidney disease, stage 3 (moderate) Office Visit 05/19/2019 8:40a [facility] Sergei I12.9 Hypertensive Assoc,pc GUILLERMO Castro chronic kidney Hospitalists disease w stg 1-4/unsp chr kdny E11.22 Type 2 diabetes mellitus w diabetic chronic kidney disease N18.9 Chronic kidney disease, unspecified M54.9 Dorsalgia, unspecified Office Visit 04/03/2019 [facility] Ian Turk E11.69 Type 2 diabetes 10:47a For Infectious Nesha Reagan mellitus with Diseases other specified complication M86.671 Other chronic osteomyelitis, right ankle and foot B95.61 Methicillin suscep staph infct causing dis classd elswhr Office Visit 04/02/2019 8:26a [facility] Jasmine Jackson, Z89.441 Acquired Assoc,gigi Jeffries absence of Hospitalists right ankle I10 Essential (primary) hypertension Z79.4 terminal block assembler (current) use of insulin Office Visit 04/02/2019 [facility] Ian Turk E11.69 Type 2 diabetes 10:46a For Infectious Arnulfo Reagan. 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 absence of Hospitalists right ankle I10 Essential (primary) hypertension Z79.4 terminal block assembler (current) use of insulin Office Visit 03/31/2019 8:25a [facility] Z89.441 Acquired Assocgigi M.D. absence of Hospitalists right ankle I10 Essential (primary) hypertension K59.00 Constipation, unspecified Z79.4 FDC (current) use of insulin Office Visit 03/30/2019 8:25a [facility] Z89.441 Acquired Assgigi leon M.D. absence of Hospitalists right ankle I10 Essential (primary) hypertension Z79.4 terminal block assembler (current) use of insulin [facility] 8:24a Assoc,gigi Rodriguez M.D. 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 right ankle and AT Mar Lin foot Assessments Date Code Description Provider 07/30/2019 M86.671 Other chronic osteomyelitis, right Chandrakant [...] NP diabetic chronic kidney diseas 06/26/2019 Z79.2 terminal block assembler (current) use of Michelle Wick NP antibiotics [...] NP diabetic chronic kidney diseas 05/29/2019 Z79.2 terminal block assembler (current) use of Michelle Wick NP antibiotics [...] disease w Lori Allen NP stg 1-4/unsp [facility] kdny 05/23/2019 N18.3 Chronic kidney disease, stage 3 Michelle Wick NP (moderate) 05/23/2019 N18.9 Chronic kidney disease, unspecified Lori Allen NP 05/23/2019 E11.40 Type 2 diabetes mellitus with Michelle Wick NP diabetic neuropathy, unspecified 05/23/2019 M54.9 Dorsalgia, unspecified Lori Allen, RAJI 05/23/2019 D61.818 Other pancytopenia Michelle Wick NP [...] 05/22/2019 N18.9 Chronic kidney disease, unspecified Lori Allen NP 05/22/2019 N18.3 Chronic kidney disease, stage 3 [...] 05/19/2019 M86.671 Other chronic osteomyelitis, right Urmila Simon RPA-C ankle and foot 05/19/2019 I12.9 Hypertensive [...] M.D. causing dis classd elswhr 04/02/2019 Z79.4 terminal block assembler (current) use of insulin Jasmine Jackson M.D. [...] Wick NP diabetic neuropathy, unsp 04/01/2019 Z79.4 FDC (current) use of insulin Jasmine Jackson M.D. [...] Constipation, unspecified Wilbert Glaser M.D. 03/31/2019 Z79.4 FDC (current) use of insulin Wilbert Glaser M.D. 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 03/30/2019 Z79.4 FDC (current) use of insulin Wilbert Glaser M.D. 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 03/29/2019 Z79.4 FDC (current) use of insulin Ronan Rodriguez M.D. [...] (primary) hypertension Ronan Rodriguez M.D. 03/28/2019 Z79.4 terminal block assembler (current) use of insulin Ronan Rodriguez M.D. 03/27/2019 I10 Essential (primary) hypertension Steph Cannon, [employer] 03/27/2019 K21.9 Gastro-esophageal reflux disease Steph Cannon, [employer]ANT without esophagitis 03/26/2019 M14.671 Charcot's joint, right [...] Chandrakant Perez M.D. Plan of Treatment Future Appointment(s):08/20/2019 11:15 am - Chandrakant Perez M.D. at [facility] AT [place]55/25/2019 - Chandrakant Perez M.D.M86.671 Other chronic osteomyelitis, right ankle and footFollow up:3 weeks Functional Status Description No Information Available Mental Status Description No Information Available Referrals Description No Information Available
[2019-09-03] MEDS ORDERED: ZOSYN 3.375 GM x ONE DOSE over 30 miuntes IVPB ×2 (17:30)
[2019-09-03 17:54] LABS: ABS Eosinophils 0.1 10^3/ul (0-0.6); ABS Lymphocytes 0.7 10^3/ul (1.0-4.8); ABS Monocytes 0.6 10^3/ul (0-0.8); Eosinophil % 1.9 %; Hematocrit 22 % (42-52); Hemoglobin 7.2 g/dL (14.0-18.0); Lymphocyte % 10.4 %; Mean Corpuscular HGB Conc 33 g/dL (31-36); Mean Corpuscular Hemoglobin 24 pg (27-31); Mean Corpuscular Volume 74 fL (80-94); Mean Platelet Volume 8.5 fL (7.4-10.4); Nucleated Red Blood Cells % 0.4; Platelet Count 166 10^3/uL (150-450); Red Blood Count 2.96 10^6 /uL (4.18-5.48); Red Cell Distribution Width 16 % (10-15); White Blood Count 6.3 10^3/uL (3.5-10.8)
[2019-09-03 17:58] LABS: INR 1.27 (0.82-1.09)
[2019-09-03 18:01] LABS: BUN/Creatinine Ratio 9.9 (8-20); Calcium 7.9 mg/dL (8.6-10.3); EGFR African American 33.4 (>60); EGFR Non-African American 27.6 (>60); Potassium 4.1 mmol/L (3.5-5.0)
[2019-09-03 19:18] LABS: Erythrocyte Sed Rate > 120 mm/Hr (0-19)
--- NOTE | 2019-09-03 20:08 | HP ---
ADMISSION HISTORY AND PHYSICAL: DATE OF ADMISSION: 09/03/19 The patient is transferred from [facility]. PRIMARY CARE PHYSICIAN: Dr. Donta Vanegas. ATTENDING ORTHOPEDIC PROVIDER: Dr. Vickey Iniguez.* (DICTATED BY GUILLERMO ZACARIAS) REASON FOR ADMISSION: Right Syme amputation stump infection. HISTORY OF PRESENT ILLNESS: Mr. Landrum is a 58-year-old male who presented to [facility] on 09/03/19 after being transferred from [facility] with an infection of his right lower extremity amputation stump. He has been admitted to [facility] for 4 days where he has been treated with vancomycin and Zosyn for MRSA bacteremia as well as right stump infection. Previous surgeries of the right lower extremity were by Dr. Chandrakant Perez on. 03/28/19, he had a Syme amputation and then on 05/19/19, he had revision amputation due to stump dehiscence. He was on vancomycin outpatient after this surgery. The patient reports that 1 week ago, his stump became red, it has not been painful though he lacks sensation of his distal lower extremities. He was not feeling as though he had fever or chills, he went to the hospital only because he had redness of the stump. Today, he has no pain of the right lower extremity. No feeling of chest pain, fever or chills. He does feel short of breath. Per nursing report from [place], his hemoglobin was 7 today, though I do not yet have lab studies to confirm additional values. He has had surgery in the past and tolerated anesthesia well. No history of NC, does have new onset afib since hospitalization this past 4 days. No history of stroke. PAST MEDICAL HISTORY: Significant for: 1. Type 2 diabetes with neuropathy. 2. Hypertension. 3. Hyperlipidemia. 4. Chronic kidney disease, stage 3. PAST SURGICAL HISTORY: 1. Laminectomy. 2. Hernia repair. 3. Right lower extremity Syme amputation. HOME MEDICATIONS: Currently being entered by nursing staff. ALLERGIES: To VICODIN and HYDROCODONE. FAMILY HISTORY: Father is status post pacemaker, diabetes, hypertension. Mother with a massive breast cancer. SOCIAL HISTORY: The patient lives at home with his , Izabella. He denies any alcohol, drug or tobacco use. He gets around his home with a knee scooter. REVIEW OF SYSTEMS: General: Negative for fever or chills. HEENT: Negative for headache. Cardiac: Positive for new-onset AFib at [facility]. No history of heart attack and no chest pain. Respiratory: Positive for shortness of breath. He has chronic dyspnea with exertion. Abdomen: No abdominal pain. No nausea, vomiting, or diarrhea. : No dysuria. Musculoskeletal: Positive for right stump redness, though no pain. The patient does not have any other extremity pain. Neuro: The patient has dense neuropathy of bilateral lower extremities from the knee distally. PHYSICAL EXAMINATION GENERAL: The patient is very pale appearing. NAD VITAL SIGNS: currently being taken will review when available HEENT: Normocephalic, atraumatic. Extraocular movements intact. RESPIRATORY: Clear to auscultation bilaterally. On 2 L O2 by nasal cannula CARDIAC: S1, S2. Irregular rate and rhythm. No appreciable murmur. ABDOMEN: Nondistended, soft, nontender. No guarding. No rigidity. MUSCULOSKELETAL: Bilateral upper extremities and left lower extremity with skin envelope intact, Nontender to palpation, Moves well all joints without pain. Right lower extremity: The patient has what appears to be a Syme amputation. There is significant erythema about the distal stump. The incision is well approximated without any discharge. There are no open ulcerations. He is nontender to palpation, though distal stump is insensate. Erythema does not extend beyond the demarcated line. NEURO: He has severely decreased sensation from the knee down. VASCULAR: DP pulse palpable on the left lower extremity. Capillary refill less than 2 seconds distally bilateral lower extremities. DIAGNOSTIC STUDIES: MRI done at [facility] report impression: Reports about fluid collection measuring 8.7 x 4.6 cm. Cannot exclude osteomyelitis of the distal tibia. Imaging disc was received. This will be sent to Radiology in order to be uploaded into our system. ASSESSMENT: The patient is a 58-year-old male with cellulitis and abscess of the right lower extremity stump, possible osteomyelitis PLAN: Labs Ordered BMP, CBC, blood cultures, CRP, INR, lactic acid. EKG, CXR, tele monitoring ordered. Anticipate need for pRBC, will await return of H&H. Discussed anticoagulation with Medicine, due to hemoglobin of 7 We will utilize SCDs alone at this time, rather than putting him on chemical dvt prophy. When medically appropriate, okay to start chemical DVT prophylaxis, but will need to be held at midnight prior to anticipated surgery tomorrow. The patient should be nonweightbearing on the right lower extremity. He can be out of bed with assist. ABIs have been ordered. Infectious Disease has been consulted. Infectious Disease was also consulted at [facility] with recommendation of placing the patient on vancomycin and Zosyn due to MRSA bacteremia,. I have continued this medication regimen until Infectious Disease in our hospital is able to meet with the patient. There is currently no discharge to culture, if any drainage, it needs to be cultured. The patient should be n.p.o. after midnight. Medicine consult is currently underway. I have transferred this patient to hospitalist service due to complex medical management, this was discussed with Dr Jackson. Orthopedics will continue to follow. Anticipate he will need a RLE BKA, if he is not medically well enough for this procedure he will likely still require I&D of the infected stump on 09.04.19. GUILLERMO ZACARIAS [id number]/[facility] #: [id number] MTDStar
[2019-09-03 20:19] LABS: Urine Appearance Cloudy; Urine Bacteria Absent (Absent); Urine Bilirubin Negative (Negative); Urine Blood 1+ (Negative); Urine Color Yellow; Urine Glucose 1+(50 mg/dL) (Negative); Urine Ketones Negative (Negative); Urine Nitrite Negative (Negative); Urine Protein 1+(30 mg/dL) (Negative); Urine Red Blood Cell Trace(0-2/hpf) (Absent); Urine Specific Gravity 1.012 (1.010-1.030); Urine Urobilinogen Negative (Negative); Urine White Blood Cell Absent (Absent)
--- NOTE | 2019-09-03 20:25 | CONS ---
[facility] MEDICINE CONSULTATION REPORT: DATE OF CONSULT: 09/03/19 PROVIDER: Steph Cannon NP ATTENDING PHYSICIAN: Dr. Iniguez. CONSULTING PHYSICIAN: Dr. Jasmine Jackson (dictated by Steph Cannon NP). REASON FOR CONSULT: Co-management of chronic medical conditions and bacteremia , sepsis. HISTORY OF PRESENT ILLNESS: Mr. Landrum is a 58-year-old male who was transferred from [facility] for further care of his osteomyelitis and MRSA bacteremia. Mr. Landrum initially had a right foot amputation in May 2019 and has been doing well. He does report that approximately 3 weeks ago, he developed swelling and an open sore on the lateral aspect of his right stump. He saw Dr. Perez at that time. He reports that the stump was dressed and the area healed up. He then reports over the weekend, he developed pain in his right leg, redness, swelling and hot to touch at the stump, so he presented to [facility] for further evaluation as he reports he has never had pain in the stump before. The patient reports that he was admitted on 08/30/19 at [facility]. At that time, he was found to have MRSA bacteremia and an infection in the right foot stump. According to his old records, He had significant weakness, pain and increase in pain at the right stump with associated erythema, which worsened, that is why he presented to [facility]. The patient reports that he had fever and chills at home. On admission at [facility], his white count was 12.4. He was started on vancomycin, Zosyn and his initial CRP was 382 and an ESR of 127. He was also found to be anemic, p and last H and H at [facility] was noted to be 7.4. He was seen by Oncology who suggested this could be related to his sepsis and bacteremia as well as underlying chronic renal disease and a combination of vitamin B12 and folate deficiency. He was given an iron infusion , b12 and folic acid. During that hospitalization, the patient was also found to have new-onset atrial fibrillation. He was seen by cardiac nurse practitioner, Dr. Harriett Bellamy at [facility], who recommended full strength Lovenox and amiodarone at 400 mg b.i.d. for which he was start on. The patient was also found to have hyponatremia with a sodium of 122 on admission. His sodium today is 126. He had 4/4 bottles positive for MRSA, Staphylococcus aureus, sensitive to vancomycin only. At this time, Hospital Medicine was consulted to help co- manage the patient's chronic and acute medical conditions. PAST MEDICAL HISTORY: Significant for: 1. Diabetes type 2, uncontrolled. 2. neuropathy. 3. Charcot joint. 4. Hypertension. 5. Hyperlipidemia. 6. History of osteomyelitis of the right foot. 7. GERD. 8. Chronic kidney disease stage 3. PAST SURGICAL HISTORY: 1. Laminectomy. 2. Hernia repair. 3. Surgical removal of the right forefoot and hindfoot amputation. CURRENT MEDICATIONS: 1. Oxycodone 10 mg t.i.d. as needed for pain. 2. Aspirin 81 mg p.o. daily. 3. Nortriptyline 125 mg p.o. daily. 4. Omeprazole 20 mg p.o. daily. 5. Pravastatin 40 mg p.o. daily. 6. Torsemide 80 mg p.o. daily. 7. Clonidine 0.2 mg p.o. b.i.d. 8. Metoprolol 100 mg p.o. b.i.d. 9. Morphine sulfate 15 mg every 12 hours as needed for pain. 10. Cyclobenzaprine 10 mg t.i.d. as needed for spasms. 11. Vancomycin. 12. Zosyn. ALLERGIES: HYDROCODONE. FAMILY HISTORY: Father with a history of pacemaker, diabetes and hypertension. Mother with a history of MS and breast cancer. Sister with a history of MS. SOCIAL HISTORY: The patient has remote history of smoking. Denies any alcohol or illicit drug use. He is . He lives with his . Surrogate decision maker in the event he is unable to make his own decisions is his , Izabella. He is a full code. REVIEW OF SYSTEMS: The patient currently denies any fever or chills. He does report that since his admission at [facility], he did have episodes of fever with a temperature as high as 102, but no fevers today. He does report fatigue and exertional shortness of breath. He is pale. He denies any cough or hemoptysis. He denies any nausea, vomiting, or diarrhea. He denies black or tarry stools. Denies vomiting up blood or coughing up blood. Denies any blood in the urine or trouble urinating. Denies any weakness, sensory loss, visual complaints, dysphagia, arthralgias, or myalgias. He does complain of redness and erythema to his right foot stump. He denies any psychosis or anxiety. PHYSICAL EXAM: General: At this time, Mr. Landrum is a 58-year-old male, he is pale, resting in his hospital bed. He is in no acute distress. Vital Signs : Blood pressure 123/67, heart rate 81, respirations are 14, O2 saturation 94% on 2 L nasal cannula, temperature is 99.0. HEENT: Head is atraumatic, normocephalic. Eyes: EOMs are intact. Sclerae anicteric. Conjunctivae are pale. Mucous membranes are dry and pale. Skin color is pale. Neck is supple. Lungs are diminished bilaterally. No wheezes, rales, or rhonchi. Cardiac: S1, S2. Irregular rate and rhythm. No rubs or gallops. Abdomen is obese, soft and nontender. Bowel sounds are present x4. Extremities: He is able to move all 4 extremities. He does have redness. He does have erythema and swelling noted to his right foot stump. Pedal pulses are +1 to the left foot. Neurologic: He is awake, alert, and oriented x3. Speech is clear. Thought process is intact. There are no gross focal deficits. Skin: He does have erythema and swelling to the right foot stump. No drainage. There is a small scabbed area noted to the right lateral aspect of the stump. DIAGNOSTIC STUDIES/LAB DATA: WBCs are 6.3, RBCs 2.96, hemoglobin 7.2, hematocrit is 22, platelet count is 166. INR is 1.27. Sodium 126, potassium 4.1, chloride 95, carbon dioxide is 24, anion gap was 7, BUN was 24, creatinine 2.43, glucose was 222, calcium 7.9 and lactic acid was 0.8. Urine is pending. Chest x-ray is pending. ASSESSMENT AND PLAN: Mr. Landrum is a 58-year-old male who was transferred from [facility] for further care of his right foot stump, sepsis and bacteremia with methicillin-resistant Staphylococcus aureus in 4/4 bottles for blood cultures that cleared on 09/01/19. Our recommendations are as follows: 1. Right stump cellulitis, possible abscess, recent history of sepsis and bacteremia with methicillin-resistant Staphylococcus aureus. Management per Orthopedics. PT/OT per Orthopedics and DVT prophylaxis per Orthopedics. Will continue vancomycin and zosyn. 2. Hyponatremia. The patient was found to be hyponatremic on admission to [facility] with a sodium of 122, his repeat was 129 . His sodium level is 126 now. I will add on serum osmolality, urine for osmolality and sodium. We will repeat a BMP in the a.m. We will base his treatment pending these lab results as this could be a component of SIADH. 3. Recent history of bacteremia due to osteomyelitis, methicillin-resistant Staphylococcus aureus. I would recommend consultation to Dr. Hill. Continue on Zosyn and vancomycin. He will need further management of abscess in the right foot stump by orthopedics. 4. Anemia. The patient is anemic with an H and H of 7.2 and 22. I am going to transfuse him 2 units of packed red blood cells as the patient will likely need to go to the OR tomorrow for [id number] amputation and washout and has a history of new-onset atrial fibrillation . We will continue to trend his H and H. I am going to hold all anticoagulation at this time as the patient's H and H has dropped from 9.2 to 7.2. Our previous records here show a hemoglobin on 06/20/19 of 10.6. He did receive Iron infusion and vit b12 and folate at [facility] and was seen by hematology who suspect this was related to anemia of chronic disease Given his new onset afib and needing surgery he will be transfused. 5. Diabetes Type II. The patient will be placed on lispro sliding scale with fingersticks a.c. and h.s., will resume lantus when he is not NPO for surgery. 6. Chronic pain. The patient can continue his pain medicines as previously prescribed. 7. Gastroesophageal reflux disease. The patient should continue on omeprazole 20 mg p.o. daily. 8. Hypertension. The patient will continue metoprolol as previously prescribed. 9. New-onset atrial fibrillation. The patient has new onset atrial fibrillation. He was seen by Cardiology at [facility], who placed him on full strength Lovenox and amiodarone 400 mg b.i.d. I will consult Cardiology for further recommendations on his medication management. cardiology recommended holding amiodarone until the patient is seen in the AM. He did have a transthoracic echocardiogram at [facility] that showed normal wall motion and EF of 65% . I will hold off on lovenox as patient is anemic and will likely need surgery tomorrow. 10. FEN: He can have a consistent carbohydrate diet. 11. DVT prophylaxis: I would recommend SCDs at this time as the patient is anemic, below his baseline. TIME SPENT: Time spent on this admission was 60 minutes, greater than half that time was spent [id number] with the patient obtaining my history and physical and performing physical exam. I have discussed this with my attending, Dr. Jasmine Jackson, she is in agreement with my plan. The hospital medicine team will assume care of this patient with orthopedics as the consulting service. STEPH CANNON, LEAN LEADER [id number]/[facility] #: [id number] TAMERA
[2019-09-03] MEDS ORDERED: Dextrose 50% VIAL 50 ml IV PUSH PRN (21:32)
[2019-09-03 22:52] LABS: Magnesium 1.8 mg/dL (1.9-2.7)
[2019-09-03] MEDS ORDERED: Vancomycin(*) 1,000 MG in NS 0.9% 250 ML* 250 ML IVPB ONE (23:00)
[2019-09-03] MEDS ORDERED: ZOSYN 3.375 GM Q8H per EXTENDED INFUSION IVPB SCH ×2 (23:30)
[2019-09-03] MEDS: Acetaminophen TAB* 325 MG PO SCH (23:40)
[2019-09-04] MEDS: oxyCODONE TAB* 5 MG TAB PO PRN (00:59)
[2019-09-04 03:10] LABS: Urine Appearance Cloudy; Urine Bacteria 1+ (Absent); Urine Bilirubin Negative (Negative); Urine Blood 1+ (Negative); Urine Color Yellow; Urine Glucose 1+(50 mg/dL) (Negative); Urine Ketones Negative (Negative); Urine Nitrite Negative (Negative); Urine Protein Negative (Negative); Urine Red Blood Cell Trace(0-2/hpf) (Absent); Urine Specific Gravity 1.011 (1.010-1.030); Urine Urobilinogen Negative (Negative); Urine White Blood Cell Absent (Absent)
[2019-09-04] MEDS: ZOSYN 3.375 GM Q8H per EXTENDED INFUSION IVPB SCH ×6 (03:33→19:35)
[2019-09-04] MEDS: Acetaminophen TAB* 325 MG PO SCH ×3 (07:35→21:21)
[2019-09-04 07:59] LABS: Hematocrit 26 % (42-52); Hemoglobin 8.9 g/dL (14.0-18.0); Mean Corpuscular HGB Conc 34 g/dL (31-36); Mean Corpuscular Hemoglobin 26 pg (27-31); Mean Corpuscular Volume 76 fL (80-94); Mean Platelet Volume 8.2 fL (7.4-10.4); Platelet Count 190 10^3/uL (150-450); Red Blood Count 3.46 10^6 /uL (4.18-5.48); Red Cell Distribution Width 17 % (10-15); White Blood Count 8.8 10^3/uL (3.5-10.8)
[2019-09-04 08:12] LABS: ALT 7 U/L (7-52); AST 9 U/L (13-39); Albumin 2.3 g/dL (3.2-5.2); Albumin/Globulin Ratio 0.7 (1-3); Alkaline Phosphatase 139 U/L (34-104); Anion Gap 7 mmol/L (2-11); BUN/Creatinine Ratio 9.4 (8-20); Blood Urea Nitrogen 24 mg/dL (6-24); C Reactive Protein 212.66 mg/L (<8.01); CO2 Carbon Dioxide 23 mmol/L (22-32); Chloride 98 mmol/L (101-111); EGFR African American 31.8 (>60); EGFR Non-African American 26.3 (>60); Globulin 3.4 g/dL (2-4); Glucose 262 mg/dL (70-100); Sodium 128 mmol/L (135-145); Total Protein 5.7 g/dL (6.4-8.9)
[2019-09-04 08:24] LABS: % Iron Saturation 50 % (15-55); Iron 74 ug/dL (50-212); Total Iron Binding Capacity 147 mcg/dL (250-450); Transferrin 105 mg/dL (203-362); Vancomycin Random 28.3 mcg/mL
[2019-09-04 08:45] LABS: Ferritin 200.4 ng/mL (24-336)
[2019-09-04 08:49] LABS: Folate 12.47 ng/mL (>3.99)
[2019-09-04] MEDS: Insulin LISPRO* 1 UNITS UNIT SUBCUT SCH ×4 (08:59→22:46)
[2019-09-04] MEDS: Morphine TAB Extended Release (*) 15 MG TAB.ER PO SCH ×2 (09:09→21:20)
[2019-09-04] MEDS: Pantoprazole TAB * 40 MG TAB PO SCH (09:09)
[2019-09-04] MEDS: Vitamin THERAPEUTIC TAB PO SCH (09:09)
[2019-09-04] MEDS: Metoprolol Tartrate TAB* 50 mg PO SCH ×2 (09:10→21:21)
--- NOTE | 2019-09-04 09:13 | CONSULT ---
Subjective Date of Service: 09/04/19 Interval History: Consult date 09/04/2019 Service Hospitalist CC: Stump cellulitis, osteomyelitis Reason for consult: Paroxysmal atrial fibrillation HPI Mr. Landrum is a 58 year old man with history as below. He was admitted to [facility] with diabetic wound infection. He was noted to have asymptomatic atrial fibrillation and was seen by Dr. Harriett Bellamy for a consultation. He had been given a dose of IV digoxin and therapeutic lovenox and later amiodarone.. He is currently in sinus rhythm. He denies any chest discomfort, palpitations or syncope. 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 He has noted LARKIN on more extended moving the last + 1 month. He was found with anemia to 7.4 (which may have accounted for patients LARKIN and was transfused) and MRSA bacteremia. Transthoracic echocardiogram as below essentially unremarkable. Pmhx DM CKD HTN Obesity Dyslipidemia chronic back pain s/p multiple surgeries depresson/anxiety Pshx: back surgeries right foot amputation 05/2019 Allergies: hydrocodone Fam hx: Diabete Father had heart disease and pacemaker, details uncertain Soc Hx: Prior tobacco use No drugs or excessive alcohol Medications Active Medications: Acetaminophen (Tylenol Tab*) 975 mg PO Q8HR LIBAN Last Admin: 09/04/19 07:35 Dose: 975 mg Atorvastatin Calcium (Lipitor*) 10 mg PO QPM LIBAN; Protocol Bisacodyl (Dulcolax Supp*) 10 mg MT DAILY PRN PRN Reason: CONSTIPATION Clonidine HCl (Catapres Tab*) 0.2 mg PO BID LIBAN Cyclobenzaprine HCl (Flexeril Tab*) 10 mg PO Q6H PRN PRN Reason: SPASMS Dextrose (Dextrose 50% Vial 50 Ml*) 25 ml IV PUSH .FOR FS < 60 - SS PRN PRN Reason: FS < 60 Diphenhydramine HCl (Benadryl Iv*) 25 mg IV Q6H PRN PRN Reason: PRURITIS Diphenhydramine HCl (Benadryl Po*) 25 mg PO Q6H PRN PRN Reason: PRURITIS Docusate Sodium (Colace Cap*) 100 mg PO BID PRN PRN Reason: CONSTIPATION Heparin Sodium (Porcine) (Heparin Flush Picc/Ml/Cvc(*)) 1 ml FLUSH 0600,1800 PRN; Protocol PRN Reason: flush Piperacillin Sod/Tazobactam (Sod 3.375 gm/ Sodium Chloride) 100 mls @ 25 mls/ hr IVPB Q8H [facility] Last Admin: 09/04/19 08:39 Dose: 25 mls/hr Insulin Human Lispro (Humalog*) 0 units SUBCUT ACHS [facility]; Protocol Last Admin: 09/04/19 08:59 Dose: Not Given Magnesium Hydroxide (Milk Of Magnesia Liq*) 30 ml PO Q6H PRN PRN Reason: CONSTIPATION Metoprolol Tartrate (Lopressor Tab*) 50 mg PO Q12HR [facility] Morphine Sulfate (Ms Contin(*)) 15 mg PO Q12HR [facility] Multivitamins (Theragran Tab*) 1 tab PO DAILY [facility] Ondansetron HCl (Zofran Inj*) 4 mg IV Q6H PRN PRN Reason: NAUSEA Ondansetron HCl (Zofran Odt Tab*) 4 mg PO Q6H PRN PRN Reason: NAUSEA Oxycodone HCl (Roxycodone Tab*) 5 mg PO Q4H PRN PRN Reason: Pain - Breakthrough Last Admin: 09/04/19 00:59 Dose: 5 mg Oxycodone HCl (Roxycodone Tab*) 10 mg PO TID PRN PRN Reason: PAIN - SEVERE Pantoprazole Sodium (Protonix Tab*) 40 mg PO QAM [facility] Pharmacy Consult (Zosyn Per Pharmacy*) 1 note FOLLOW UP .ZOSYN PER PHARMACY [facility] Pharmacy Consult (Vancomycin Per Pharmacy*) 1 note FOLLOW UP .VANC PER PHARMACY [facility]; Protocol Home Medications: Omeprazole CAP (NF) [Prilosec CAP* 20 MG] 20 mg PO QAM 04/28/16 [History Confirmed 09/03/19] Torsemide TAB* [Demadex 20 MG*] 80 mg PO QAM 04/28/16 [History Confirmed ] cloNIDine TAB* [Catapres 0.1 MG TAB*] 0.2 mg PO BID 04/28/16 [History Confirmed 09/03/19] Morphine Sulfate [Ms Contin] 15 mg PO Q12HR 03/27/19 [History Confirmed 09/03/19 ] Nortriptyline CAP* [Pamelor CAP*] 125 mg PO BEDTIME 03/27/19 [History Confirmed 09/03/19] Pravastatin (NF) [Pravachol (NF)] 40 mg PO QPM 03/27/19 [History Confirmed 09/03] oxyCODONE TAB* [Roxycodone TAB 5 mg*] 2 tab PO TID PRN 05/15/19 [History Confirmed 09/03/19] Acetaminophen TAB* [Tylenol TAB*] 975 mg PO Q8HR tab 05/23/19 [Rx] Amiodarone TAB* [Cordarone Tab*] 400 mg PO BID 09/04/19 [History Confirmed 09/04] Aspirin [Aspirin EC] 81 mg PO DAILY 09/04/19 [History Confirmed 09/04/19] Cyclobenzaprine TAB* [Flexeril 10 MG TAB*] 10 mg PO TID 09/04/19 [History Confirmed 09/04/19] Enoxaparin Sodium [Lovenox] 100 mg SUBCUT Q12HR 09/04/19 [History Confirmed ] Folic Acid TAB* [Folvite TAB*] 1 mg PO DAILY 09/04/19 [History Confirmed ] Heparin Sodium,Porcine/Pf [Heparin 100 Unit/10 ml (10/ml)] 30 units IV Q12H [History Confirmed 09/04/19] Ibuprofen TAB* [Motrin TAB* 400 MG] 400 mg PO QID 09/04/19 [History Confirmed ] Insulin Detemir [Levemir Flextouch] 15 units SUBCUT DAILY 09/04/19 [History Confirmed 09/04/19] Insulin Detemir [Levemir Flextouch] 40 units SUBCUT BEDTIME 09/04/19 [History Confirmed 09/04/19] Metoprolol Tartrate TAB* [Lopressor TAB*] 50 mg PO TID 09/04/19 [History Confirmed 09/04/19] Pantoprazole TAB (NF) [Protonix TAB (NF)] 20 mg PO QAM 09/04/19 [History Confirmed 09/04/19] Tyoxlakysree-Pfwe-Abqtsjzw,Iso [Zosyn 3.375 gm/50 ml Galaxy] 50 ml IV Q6HR 09/04 [History Confirmed 09/04/19] Potassium Chlor TAB* [Potassium Chlor TAB 20 MEQ*] 40 meq PO Q4H 09/04/19 [ History Confirmed 09/04/19] Vancomycin HCl in 5 % Dextrose 200 ml IV Q12HR 09/04/19 [History Confirmed 09/04] Review of Systems - Measurements Intake and Output: Intake and Output Last 24 Hours 09/02/19 09/03/19 09/04/19 09/05/19 06:59 06:59 06:59 06:59 Intake Total 606 Output Total 750 Balance -144 Weight 251 lb 3.2 oz Intake: IV Fluids 15 Vancomycin 15 IVPB 591 Blood Product 306 Vancomycin 285 Output: Urine 750 - Review of Systems Constitutional Symptoms: Positive: Weakness, Fatigue Negative: Weight Gain, Weight Loss Dermatology: Negative: Rash, Skin Lesions HEENT: Negative: Change in Hearing, Vertigo Eyes: Negative: Change in Vision, Double Vision Thyroid: Negative: Cold Intolerance, Heat Intolerance, Palpitations, Weight Loss, Weight Gain Pulmonary: Positive: Shortness of Breath Negative: Hemoptysis, Wheezing, Respiratory Distress Cardiology: Positive: Edema Negative: Chest Pain, Palpitations, Peripheral Vascular Dis, Syncope, Claudication, Paroxysmal Nocturnal Dyspnea, Orthopnea Gastroenterology: Negative: Abdominal Pain, Nausea, Vomiting, Anorexia, Blood in Stools, Haematemesis, Melena Genital - Urinary: Negative: Dysuria, Hematuria Musculoskeletal: Negative: Joint Pain, Joint Stiffness Endocrinology: Positive: Obesity, Diabetes Negative: Polydipsia, Polyuria Hematologic/Lymphatic: Positive: Anemia, Use of Antiplatelet Drugs Negative: Hx Leukemia, Hx Lymphoma Neurology: Negative: Hx of Stroke\TIA, Hx Seizures Psychiatry: Negative: Unusual Anxiety, Suicidal Ideation Allergic/Immunologic: Negative: Hx HIV, Immunocompromise Review of Systems Statement: All other review of systems negative, unless stated above. Objective Vital Signs: Temp Pulse Resp BP Pulse Ox 96.8 F 85 20 110/65 99 09/04/19 09:05 09/04/19 09:05 09/04/19 09:05 09/04/19 09:05 09/04/19 09:05 Oxygen Devices in Use Now: Nasal Cannula Appearance: nad, pleasant Ears/Nose/Mouth/Throat: Clear Oropharnyx, Mucous Membranes Moist Neck: NL Appearance and Movements; NL JVP, Trachea Midline Respiratory: Symmetrical Chest Expansion and Respiratory Effort, Clear to Auscultation Cardiovascular: NL Sounds; No Murmurs; No JVD, RRR, - - 1+ edema s/p r aka Skin: No Rash or Ulcers Neurological: Alert and Oriented x 3 Laboratory Results: 09/04/19 07:30 09/04/19 07:30 INR (Anticoag Therapy) 1.27 (0.82-1.09) H 09/03/19 17:31 Total Bilirubin 1.00 mg/dL (0.2-1.0) 09/04/19 07:30 AST 9 U/L (13-39) L 09/04/19 07:30 ALT 7 U/L (7-52) 09/04/19 07:30 Alkaline Phosphatase 139 U/L (34-104) H 09/04/19 07:30 Total Protein 5.7 g/dL (6.4-8.9) L 09/04/19 07:30 Albumin 2.3 g/dL (3.2-5.2) L 09/04/19 07:30 Globulin 3.4 g/dL (2-4) 09/04/19 07:30 Albumin/Globulin Ratio 0.7 (1-3) L 09/04/19 07:30 [facility] labs: troponin reportedly normal at admission EKG Data: ekg 08/31/2018 reported to show AFib nonspecific st/t changes rate 129 bpm ekg 09/03/2019 shows probable atrial flutter ? rate 90 bpm, no ischemic changes ekg1: NSR 68 bpm, 1 avb, poor wave progression, no ischemic changes echo 09/01/2019 normal LVEF 65% no segmental wall motion abnormalities noted LA mildly dilated normal rv size and function no significant valvular abnormalites noted Assessment/Plan Patient has no history of KS, CHF, severe valve disease or malignant arrhythmias. His current EKG as above shows NSR and no ischemic EKG changes. He has < 4 mets of functional capacity limited by amputation but no angina on this level of activity. His recent mild LARKIN is likely related to anemia. Patient has no absolute cardiac contraindications to proposed amputation surgery under general anesthesia and can proceed without further cardiac evaluation warranted. We did discuss and patient expressed understanding that he is overall at risk of medical and cardiovascular complications from surgery given his comorbidities. He does express understanding of these risks and accepts these risks in favor of the expected benefits the surgery is to provide. Regarding patients atrial fibrillation, suspect it was provoked by bacteremia and now in sinus rhythm so can continue cardiac monitoring and would not require adjunct faculty for medical terminology anticoagulation. He states he was taking an aspirin previously and this was restarted (ordered). I would also continue clonidine and metoprolol without interruption. Thank you for allowing me to participate in the cardiovascular care of this patient. Please do not hesitate to contact me with questions or concerns.
--- NOTE | 2019-09-04 10:26 | CONS ---
CONSULTATION REPORT: DATE OF CONSULT: 09/04/19 REQUESTING PROVIDER: Steph Cannon NP. CONSULTING SERVICE: Infectious Disease. REASON FOR CONSULTATION: Bacteremia, right amputation site infection. IMPRESSION: 1. History of right Syme amputation, March 2019, now with cellulitis, abscess and possible osteomyelitis by MRI and I think likely clinically. The etiology is methicillin-resistant Staphylococcus aureus, which he has not had in the past , his prior infections were methicillin-susceptible Staphylococcus aureus. This could be polymicrobial. I will find that out from operative specimens. 2. History of lumbar spine fixation without new back or spine pain and no joint synovitis, no other prosthetic material present to suggest another site of staphylococcal infection. Infectious endocarditis is always a consideration ; however, he does have a good other source. He has no other peripheral stigmata of infective endocarditis and a transthoracic echocardiogram at [facility] was benign. 3. Obesity. 4. Diabetes with neuropathy. 5. Chronic kidney disease. 6. Anemia. RECOMMENDATION: We will continue vancomycin, goal trough at 20, and Zosyn for now awaiting operative cultures. He will need a long course of IV antibiotics. He has got a followup set of blood cultures pending. The only reason we would consider a transesophageal echocardiogram is if he had persistent bacteremia despite source control. HISTORY OF PRESENT ILLNESS: This is a 58-year-old male with diabetes, obesity, history of right Syme infection March 2019, had wound dehiscence and cellulitis May 2019, treated with incision and debridement and 4 weeks of IV antibiotics. He has apparently done well and then earlier in the week developed some open area on the lateral aspect of the wound that when it closed up he then noticed redness, pain, and swelling, was directed by Dr. Perez to the emergency room in [place]. He had some chills and sweats at home and felt unwell. In [place], he had an MRI that showed a possibility of early tibial osteomyelitis and abscess. Blood cultures showed MRSA. Echocardiogram showed normal ejection fraction and normal heart valves. Because Dr. Perez operates in this facility , he was transferred here for further evaluation, and here, he has had no fever , he did have blood transfusion. He was planned for a trip to the OR in the near future. He has had blood culture sent that are pending. He otherwise does not have anything other than his chronic low back pain. He has no joint pain, swelling, or stiffness. He has no other prosthetic material present. PAST MEDICAL HISTORY: 1. History of lumbar spine fusion, multiple. 2. History of a spinal stimulator, which has been removed. 3. Diabetes with neuropathy and nephropathy. 4. Chronic kidney disease. 5. Obesity. 6. History of right Syme amputation, March 2019. 7. Hypertension. 8. Hyperlipidemia. 9. Status post hernia repair. MEDICATIONS: 1. Tylenol. 2. Lipitor. 3. Bisacodyl as needed. 4. Clonidine. 5. Flexeril. 6. Heparin flush through the PICC, it was placed at [facility]. 7. Magnesium hydroxide. 8. Metoprolol. 9. Morphine. 10. Zofran. 11. Oxycodone as needed. 12. Pantoprazole. 13. Zosyn 3.375 g every 8 hours. 14. Vancomycin he had a gram overnight. ALLERGIES: VICODIN, HYDROCODONE. FAMILY HISTORY: Father had a pacemaker, diabetes, hypertension. Mother had breast cancer. SOCIAL HISTORY: He lives with his in [place]. He is a nondrinker. No tobacco use. REVIEW OF SYSTEMS: All negative except as noted above to a 14-point review of systems. PHYSICAL EXAM: Vital Signs: Temperature 36, heart rate 85, respiratory 20, blood pressure 110/65, oxygen saturation 99% on 2 L by nasal cannula. General: He is awake, not in distress, not diaphoretic. Neurologic: He is alert and oriented x3. Follows all commands. No sensation to light touch in the left foot. HEENT: There is no conjunctival hemorrhage. Oropharynx: No lesions. Neck is supple without mass. Heart is irregularly irregular without murmurs, rubs, or gallops. Lungs are clear to auscultation bilaterally. Abdomen: Soft , nontender, nondistended. Bowel sounds present. Skin: There is no rash or splinter hemorrhage. Musculoskeletal: No spine tenderness to palpation or joint synovitis. The right leg has diffuse edema with a healed Syme amputation site without wound. There is diffuse edema, erythema, and tenderness along the amputation site without fluctuance. On the left foot, there is no wound, and there is a 1+ dorsalis pedis pulse on the left. LAB DATA: White cell count 8.8, hemoglobin 8.9, platelets 190, creatinine is 2.5. CRP 212. Please see impressions and recommendations outlined above. Thanks for asking me to see Mr. Landrum in consultation. [id number]/[facility] #: [id number] TAMERA
[2019-09-04] MEDS: Aspirin TAB* 325 MG PO SCH (11:17)
[2019-09-04] MEDS ORDERED: Vancomycin Random Level* NOTE FOLLOW UP ONE (13:00)
[2019-09-04] MEDS ORDERED: Bupivacaine 0.5%* 50 ML MDV VIAL ONE (14:54)
[2019-09-04] MEDS ORDERED: Lidocaine 2% PF* 10 ML AMP ONE (14:54)
--- NOTE | 2019-09-04 15:02 | PN ---
Subjective Date of Service: 09/04/19 Interval History: Pt stated that the R leg stump had edema, pain and erythema x 3 days prior to his [place] admission. Pt denies BRBPR, or melena. denies CP or SOB Objective Active Medications: Acetaminophen (Tylenol Tab*) 975 mg PO Q8HR [facility] Last Admin: 09/04/19 07:35 Dose: 975 mg Aspirin (Aspirin Tab*) 325 mg PO DAILY [facility] Last Admin: 09/04/19 11:17 Dose: 325 mg Atorvastatin Calcium (Lipitor*) 10 mg PO QPM [facility]; Protocol Bisacodyl (Dulcolax Supp*) 10 mg FL DAILY PRN PRN Reason: CONSTIPATION Clonidine HCl (Catapres Tab*) 0.2 mg PO BID LIBAN Cyclobenzaprine HCl (Flexeril Tab*) 10 mg PO Q6H PRN PRN Reason: SPASMS Dextrose (Dextrose 50% Vial 50 Ml*) 25 ml IV PUSH .FOR FS < 60 - SS PRN PRN Reason: FS < 60 Diphenhydramine HCl (Benadryl Iv*) 25 mg IV Q6H PRN PRN Reason: PRURITIS Diphenhydramine HCl (Benadryl Po*) 25 mg PO Q6H PRN PRN Reason: PRURITIS Docusate Sodium (Colace Cap*) 100 mg PO BID PRN PRN Reason: CONSTIPATION Heparin Sodium (Porcine) (Heparin Flush Picc/Ml/Cvc(*)) 1 ml FLUSH 0600,1800 PRN; Protocol PRN Reason: flush Piperacillin Sod/Tazobactam (Sod 3.375 gm/ Sodium Chloride) 100 mls @ 25 mls/ hr IVPB Q8H [facility] Last Admin: 09/04/19 08:39 Dose: 25 mls/hr Insulin Human Lispro (Humalog*) 0 units SUBCUT ACHS [facility]; Protocol Last Admin: 09/04/19 12:39 Dose: Not Given Magnesium Hydroxide (Milk Of Magnesia Liq*) 30 ml PO Q6H PRN PRN Reason: CONSTIPATION Metoprolol Tartrate (Lopressor Tab*) 50 mg PO Q12HR [facility] Last Admin: 09/04/19 09:10 Dose: 50 mg Morphine Sulfate (Ms Contin(*)) 15 mg PO Q12HR [facility] Last Admin: 09/04/19 09:09 Dose: 15 mg Multivitamins (Theragran Tab*) 1 tab PO DAILY [facility] Last Admin: 09/04/19 09:09 Dose: 1 tab Ondansetron HCl (Zofran Inj*) 4 mg IV Q6H PRN PRN Reason: NAUSEA Ondansetron HCl (Zofran Odt Tab*) 4 mg PO Q6H PRN PRN Reason: NAUSEA Oxycodone HCl (Roxycodone Tab*) 5 mg PO Q4H PRN PRN Reason: Pain - Breakthrough Last Admin: 09/04/19 00:59 Dose: 5 mg Oxycodone HCl (Roxycodone Tab*) 10 mg PO TID PRN PRN Reason: PAIN - SEVERE Pantoprazole Sodium (Protonix Tab*) 40 mg PO QAM [facility] Last Admin: 09/04/19 09:09 Dose: 40 mg Pharmacy Consult (Zosyn Per Pharmacy*) 1 note FOLLOW UP .ZOSYN PER PHARMACY [facility] Pharmacy Consult (Vancomycin Per Pharmacy*) 1 note FOLLOW UP .VANC PER PHARMACY [facility]; Protocol Pharmacy Consult (Vancomycin Random Level*) 1 note FOLLOW UP 1300 ONE Stop: 09/05/19 13:01 Vital Signs - 8 hr 09/04/19 09/04/19 09/04/19 08:00 09:05 09:09 Temperature 96.8 F Pulse Rate 85 Respiratory 16 20 20 Rate Blood Pressure 110/65 (mmHg) O2 Sat by Pulse 99 Oximetry 09/04/19 09/04/19 11:05 12:14 Temperature 96.8 F Pulse Rate 72 Respiratory 18 18 Rate Blood Pressure 114/65 (mmHg) O2 Sat by Pulse 97 Oximetry Oxygen Devices in Use Now: Nasal Cannula Appearance: 58 yo M in nAD, aAOx3 Eyes: No Scleral Icterus, PERRLA Ears/Nose/Mouth/Throat: NL Teeth, Lips, Gums, Mucous Membranes Moist Neck: NL Appearance and Movements; NL JVP, Trachea Midline Respiratory: Symmetrical Chest Expansion and Respiratory Effort, Clear to Auscultation Cardiovascular: NL Sounds; No Murmurs; No JVD, RRR Abdominal: NL Sounds; No Tenderness; No Distention Lymphatic: No Cervical Adenopathy Extremities: No Clubbing, Cyanosis, - - R foot, s/p SYME ambutation with stump well healed, but erythema and edema in medial aspect of stump Skin: No Nodules or Sclerosis Neurological: Alert and Oriented x 3, NL Muscle Strength and Tone Result Diagrams: 09/04/19 07:30 09/04/19 07:30 Microbiology and Other Data: Microbiology 09/04/19 02:05 Transfusion Reaction Gram Stain - Final Blood Bag Assess/Plan/Problems-Billing Assessment: 58 yo m with h/o DM2, CKD 3, HTN transferred from [place] for R stump abscess - Patient Problems (1) Amputation stump infection Comment: cont Vanc /Zosyn , to OR today ID consulted Pt had MRSA bacteremia at [place] (2) Diabetes Comment: - Cont ISS -holding home insulin when NPO (3) Hypertension Comment: - Cont Clinidine, lopressor, holding Torsemide, controlled (4) Atrial fib/flutter, transient Comment: paroxysmal, converted in [place]. Off amiodarone. Anicoagulation held periop On ASA (5) CKD (chronic kidney disease) Comment: - Cr at baseline 1.7 , today worse. Placed on gentle IVF preop - Euvolemic -holding torsemide (6) Anemia Comment: Of chronic disease, s/p 2 U PRBC transfusion on 09/03/19 (7) Hyponatremia Comment: mild, cont iVF, monitor (8) DVT prophylaxis Comment: anticiagulation held due to awaiting OR today Status and Disposition: inpatient
[2019-09-04] MEDS ORDERED: NS 0.9% 1000 ML** 1,000 ML IV SCH (15:45)
[2019-09-04] MEDS ORDERED: Midazolam* 1 MG/ML 2 ML VIAL (2 MG) ONE (16:53)
[2019-09-04] MEDS ORDERED: KETAMINE HCL* 50 MG/ML 10 ML VIAL ONE (16:53)
[2019-09-04] MEDS ORDERED: fentaNYL* 50 MCG/ML 2 ML VIAL (100 MCG VIAL) ONE ×2 (16:53→17:34)
[2019-09-04] MEDS ORDERED: Naloxone* 0.4 MG/ML 1 ML VIAL IV PRN (17:34)
[2019-09-04] MEDS ORDERED: fentaNYL* 50 MCG/ML 2 ML VIAL (100 MCG VIAL) IV PRN (17:34)
[2019-09-04] MEDS ORDERED: DiMENhydriNATE IV* 50 MG/ML VIAL IV PUSH PRN (17:34)
--- NOTE | 2019-09-04 17:36 | OP ---
Operative Report - Blank - Operative Report Date of Operation: 09/04/19 Note: PATIENT: Lalit Landrum DATE OF : 1960 DATE OF SURGERY: 09/04/2019 SURGEON: Vickey Iniguez MD MISSILE INSPECTOR PREFLIGHT: GUILLERMO Urbano, whos assistance was necessary for positioning, retraction, help with instrumentation, and closure. ANESTHESIOLOGIST: Dr. Leo PREOPERATIVE DIAGNOSIS: Right stump infection with abscess and osteomyelitis POSTOPERATIVE DIAGNOSIS: Right stump infection with abscess and osteomyelitis OPERATION: Right lower extremity stump irrigation and debridement and placement of wound VAC ANESTHESIA: MAC IMPLANTS: none TOURNIQUET TIME: Less than 1 hour with a well-padded calf tourniquet at 250mmHg SPECIMENS: Culture swabs to micro ESTIMATED BLOOD LOSS: minimal COMPLICATIONS: none STATUS: Stable from the operating room to the recovery room. INDICATIONS FOR PROCEDURE: Lalit had a prior right lower extremity Symes amputation and has developed a stump infection with abscess and osteomyelitis. We did discuss both I&D, as well as a below the knee amputation. He was not cleared today for general anesthesia, so we elected to move forward with an I&D and likely perform a BKA once he is more medically optimized. Both operative and non-operative treatment alternatives were reviewed. Further, the nature and risks of surgery were reviewed in careful detail. Our discussions regarding the risks of surgery included, but were not limited to, persistent or worsening infection, wound problems, need for further surgery, failure of the surgery, and even the remote chance of catastrophic complication. DESCRIPTION OF PROCEDURE: The patient was seen in the preoperative holding unit and informed written consent was obtained. The appropriate extremity was marked. The patient was then brought to the operating room and carefully positioned on the operating room table. Anesthesia was induced. All bony prominences were padded with great care. A chlorhexidine based pre-scrub was performed followed by a chloraprep prep and drape in standard sterile fashion. A surgical safety pause was then conducted in which we confirmed the appropriate patient, extremity, planned procedure, availability of equipment, indication and administration of prophylactic antibiotics, and DVT prophylaxis in the form of a compression boot on the non-surgical extremity. I began with gravity Esmarch exsanguination of the limb and inflated the tourniquet. I made a transverse incision at the stump, utilizing his prior surgical incision. There is a very large abscess encountered, under a lot of pressure. A large amount of purulent fluid was encountered. Culture swabs were taken and sent to microbiology. I then thoroughly debrided with a 15 blade scalpel all nonviable appearing tissue in the skin, subcutaneous, fascial , muscular, periosteal layer down to bone. The wound was then copiously irrigated with sterile saline and cystoscopy tubing. The wound measured 5 cm in width and 10 cm in depth. A wound VAC was placed with good suction. The patient was then awakened from anesthesia and transferred to the recovery room in stable condition. There were no complications. All needle and sponge counts were correct at the end of the case. ATTESTATION: I attest I was present and scrubbed and performed the critical portions of the procedure myself. POSTOPERATIVE PLAN: We will plan on a right below the knee amputation when more medically optimized. Continue antibiotics as guided by the infectious disease service.
[2019-09-04] MEDS ORDERED: DiMENhydriNATE IV* 50 MG/ML VIAL ONE (17:43)
[2019-09-04] MEDS: cloNIDine TAB* 0.1 MG PO SCH (21:20)
[2019-09-04] MEDS: Atorvastatin* 10 MG TAB PO SCH (21:20)
[2019-09-04] MEDS: Piperacillin/Tazobac ADVAN(*) 3.375 GM in NS 0.9% 100 ML* 100 ML IVPB SCH (21:21)
[2019-09-05] MEDS: oxyCODONE TAB* 5 MG TAB PO PRN (03:21)
[2019-09-05] MEDS: Acetaminophen TAB* 325 MG PO SCH ×3 (05:26→21:46)
[2019-09-05] MEDS: Piperacillin/Tazobac ADVAN(*) 3.375 GM in NS 0.9% 100 ML* 100 ML IVPB SCH ×2 (05:27→12:09)
[2019-09-05 05:59] LABS: Hematocrit 26 % (42-52); Hemoglobin 8.4 g/dL (14.0-18.0); Mean Corpuscular HGB Conc 33 g/dL (31-36); Mean Corpuscular Hemoglobin 25 pg (27-31); Mean Corpuscular Volume 76 fL (80-94); Mean Platelet Volume 7.9 fL (7.4-10.4); Platelet Count 223 10^3/uL (150-450); Red Cell Distribution Width 17 % (10-15); White Blood Count 7.6 10^3/uL (3.5-10.8)
[2019-09-05 06:16] LABS: BUN/Creatinine Ratio 10.8 (8-20); Calcium 7.9 mg/dL (8.6-10.3); EGFR African American 31.1 (>60); EGFR Non-African American 25.7 (>60); Potassium 4.1 mmol/L (3.5-5.0)
[2019-09-05 08:00] LABS: C Reactive Protein 206.9 mg/L (<8.01)
[2019-09-05] MEDS: Insulin LISPRO* 1 UNITS UNIT SUBCUT SCH ×4 (08:28→21:47)
[2019-09-05] MEDS: Aspirin TAB* 325 MG PO SCH (08:29)
[2019-09-05] MEDS: Morphine TAB Extended Release (*) 15 MG TAB.ER PO SCH ×2 (08:30→21:45)
[2019-09-05] MEDS: cloNIDine TAB* 0.1 MG PO SCH ×2 (08:31→21:46)
[2019-09-05] MEDS: Pantoprazole TAB * 40 MG TAB PO SCH (08:31)
[2019-09-05] MEDS: Metoprolol Tartrate TAB* 50 mg PO SCH ×2 (08:32→21:47)
[2019-09-05] MEDS: Vitamin THERAPEUTIC TAB PO SCH (08:32)
--- NOTE | 2019-09-05 08:44 | PN ---
Progress Note - Progress Note Date of Service: 09/05/19 - Post-op day 1 Note: Patient resting comfortably in bed. Alert, oriented and breathing easily. Dressing and wound vac in place without strike through or drainage. Skin warm and dry. Wound vac attached to wall suction due to issue with wound vac unit overnight. We will trouble shoot vac unit and appreciate medicine and I.D. guidance. We will continue to monitor with plan for further surgical management as able once medically stable.
[2019-09-05] MEDS: Insulin GLARGINE(*) 1 UNITS UNIT SUBCUT SCH (08:54)
--- NOTE | 2019-09-05 10:24 | PN ---
Subjective Date of Service: 09/05/19 Interval History: s/p I+D pod 1, provoked episode of atrial fibrillation no chest pain or dyspnea tele NSR Medications Active Medications: Acetaminophen (Tylenol Tab*) 975 mg PO Q8HR [facility] Last Admin: 09/05/19 05:26 Dose: 975 mg Aspirin (Aspirin Tab*) 325 mg PO DAILY [facility] Last Admin: 09/05/19 08:29 Dose: 325 mg Atorvastatin Calcium (Lipitor*) 10 mg PO QPM [facility]; Protocol Last Admin: 09/04/19 21:20 Dose: 10 mg Bisacodyl (Dulcolax Supp*) 10 mg RI DAILY PRN PRN Reason: CONSTIPATION Clonidine HCl (Catapres Tab*) 0.2 mg PO BID [facility] Last Admin: 09/05/19 08:31 Dose: 0.2 mg Cyclobenzaprine HCl (Flexeril Tab*) 10 mg PO Q6H PRN PRN Reason: SPASMS Dextrose (Dextrose 50% Vial 50 Ml*) 25 ml IV PUSH .FOR FS < 60 - SS PRN PRN Reason: FS < 60 Diphenhydramine HCl (Benadryl Iv*) 25 mg IV Q6H PRN PRN Reason: PRURITIS Diphenhydramine HCl (Benadryl Po*) 25 mg PO Q6H PRN PRN Reason: PRURITIS Docusate Sodium (Colace Cap*) 100 mg PO BID PRN PRN Reason: CONSTIPATION Heparin Sodium (Porcine) (Heparin Flush Picc/Ml/Cvc(*)) 1 ml FLUSH 0600,1800 PRN; Protocol PRN Reason: flush Heparin Sodium (Porcine) (Heparin Vial(*)) 5,000 units SUBCUT Q8HR [facility] Piperacillin Sod/Tazobactam (Sod 3.375 gm/ Sodium Chloride) 100 mls @ 25 mls/ hr IVPB Q8H [facility] Last Admin: 09/05/19 05:27 Dose: 25 mls/hr Insulin Glargine (Lantus(*)) 8 units SUBCUT Q24H [facility] Last Admin: 09/05/19 08:54 Dose: 8 unit Insulin Human Lispro (Humalog*) 0 units SUBCUT ACHS [facility]; Protocol Last Admin: 09/05/19 08:28 Dose: 6 units Magnesium Hydroxide (Milk Of Magnesia Liq*) 30 ml PO Q6H PRN PRN Reason: CONSTIPATION Metoprolol Tartrate (Lopressor Tab*) 50 mg PO Q12HR [facility] Last Admin: 09/05/19 08:32 Dose: 50 mg Morphine Sulfate (Ms Contin(*)) 15 mg PO Q12HR [facility] Last Admin: 09/05/19 08:30 Dose: 15 mg Multivitamins (Theragran Tab*) 1 tab PO DAILY [facility] Last Admin: 09/05/19 08:32 Dose: 1 tab Ondansetron HCl (Zofran Inj*) 4 mg IV Q6H PRN PRN Reason: NAUSEA Ondansetron HCl (Zofran Odt Tab*) 4 mg PO Q6H PRN PRN Reason: NAUSEA Oxycodone HCl (Roxycodone Tab*) 5 mg PO Q4H PRN PRN Reason: Pain - Breakthrough Last Admin: 09/05/19 03:21 Dose: 5 mg Oxycodone HCl (Roxycodone Tab*) 10 mg PO TID PRN PRN Reason: PAIN - SEVERE Pantoprazole Sodium (Protonix Tab*) 40 mg PO QAM [facility] Last Admin: 09/05/19 08:31 Dose: 40 mg Pharmacy Consult (Zosyn Per Pharmacy*) 1 note FOLLOW UP .ZOSYN PER PHARMACY [facility] Pharmacy Consult (Vancomycin Per Pharmacy*) 1 note FOLLOW UP .VANC PER PHARMACY [facility]; Protocol Pharmacy Consult (Vancomycin Random Level*) 1 note FOLLOW UP 1300 ONE Stop: 09/05/19 13:01 Objective Vital Signs: Temp Pulse Resp BP Pulse Ox 97.2 F 67 16 111/58 99 09/05/19 03:11 09/05/19 03:11 09/05/19 08:30 09/05/19 03:11 09/05/19 03:11 Oxygen Devices in Use Now: None Appearance: nad, pleasant Ears/Nose/Mouth/Throat: Clear Oropharnyx, Mucous Membranes Moist Neck: NL Appearance and Movements; NL JVP, Trachea Midline Respiratory: Symmetrical Chest Expansion and Respiratory Effort, Clear to Auscultation Cardiovascular: NL Sounds; No Murmurs; No JVD, RRR, - - 1+ edema s/p r aka Extremities: - - s/p right bka wound not directly examined Skin: No Rash or Ulcers Neurological: Alert and Oriented x 3 Laboratory Results: 09/05/19 05:40 09/05/19 05:40 INR (Anticoag Therapy) 1.27 (0.82-1.09) H 09/03/19 17:31 Total Bilirubin 1.00 mg/dL (0.2-1.0) 09/04/19 07:30 AST 9 U/L (13-39) L 09/04/19 07:30 ALT 7 U/L (7-52) 09/04/19 07:30 Alkaline Phosphatase 139 U/L (34-104) H 09/04/19 07:30 Total Protein 5.7 g/dL (6.4-8.9) L 09/04/19 07:30 Albumin 2.3 g/dL (3.2-5.2) L 09/04/19 07:30 Globulin 3.4 g/dL (2-4) 09/04/19 07:30 Albumin/Globulin Ratio 0.7 (1-3) L 09/04/19 07:30 EKG Data: ekg 08/31/2018 reported to show AFib nonspecific st/t changes rate 129 bpm ekg 09/03/2019 shows probable atrial flutter ? rate 90 bpm, no ischemic changes ekg1: NSR 68 bpm, 1 avb, poor wave progression, no ischemic changes echo 09/01/2019 normal LVEF 65% no segmental wall motion abnormalities noted LA mildly dilated normal rv size and function no significant valvular abnormalites noted Assessment/Plan Patient is stable from a cardiac standpoint, suspect patients atrial fibrillation episode was provoked by bacteremia and now in sinus rhythm so can continue cardiac monitoring and would not require penitentiary anticoagulation. He states he was taking an aspirin previously and would continue this as well as clonidine and metoprolol without interruption. From a cardiac standpoint, a s long as no change in clinical status, he can undergo further surgical management of his infection without further cardiac evaluation warranted. We discussed and patient expressed understanding that he is still at risk of medical and cardiovascular complications from surgery given his comorbidities. He does accept these risks in favor of the expected benefits the surgery is to provide. Will sign off, please reconsult as needed. Thank you for allowing me to participate in the cardiovascular care of this patient. Please do not hesitate to contact me with questions or concerns.
[2019-09-05] MEDS: Heparin VIAL(*) 5000 UNITS/ML VIAL (FIVE THOUSAND) SUBCUT SCH ×2 (12:51→21:47)
[2019-09-05] MEDS ORDERED: Vancomycin Random Level* NOTE FOLLOW UP ONE (13:00)
[2019-09-05] MEDS ORDERED: Bisacodyl SUPP* 10 MG SUPP PR PRN (14:15)
--- NOTE | 2019-09-05 14:30 | PN ---
Subjective Date of Service: 09/05/19 Interval History: Pt vomited this AM, denies abd pain. Had no problems eating lunch. Nausea resolved Objective Active Medications: Acetaminophen (Tylenol Tab*) 975 mg PO Q8HR [facility] Last Admin: 09/05/19 12:51 Dose: 975 mg Aspirin (Aspirin Tab*) 325 mg PO DAILY [facility] Last Admin: 09/05/19 08:29 Dose: 325 mg Atorvastatin Calcium (Lipitor*) 10 mg PO QPM [facility]; Protocol Last Admin: 09/04/19 21:20 Dose: 10 mg Bisacodyl (Dulcolax Supp*) 10 mg [place] DAILY PRN PRN Reason: CONSTIPATION Clonidine HCl (Catapres Tab*) 0.2 mg PO BID [facility] Last Admin: 09/05/19 08:31 Dose: 0.2 mg Cyclobenzaprine HCl (Flexeril Tab*) 10 mg PO Q6H PRN PRN Reason: SPASMS Dextrose (Dextrose 50% Vial 50 Ml*) 25 ml IV PUSH .FOR FS < 60 - SS PRN PRN Reason: FS < 60 Diphenhydramine HCl (Benadryl Iv*) 25 mg IV Q6H PRN PRN Reason: PRURITIS Diphenhydramine HCl (Benadryl Po*) 25 mg PO Q6H PRN PRN Reason: PRURITIS Docusate Sodium (Colace Cap*) 100 mg PO BID PRN PRN Reason: CONSTIPATION Heparin Sodium (Porcine) (Heparin Flush Picc/Ml/Cvc(*)) 1 ml FLUSH 0600,1800 PRN; Protocol PRN Reason: flush Heparin Sodium (Porcine) (Heparin Vial(*)) 5,000 units SUBCUT Q8HR [facility] Last Admin: 09/05/19 12:51 Dose: 5,000 units Lactated Ringer's (Lactated Ringers 1000 Ml Bag*) 1,000 mls @ 125 mls/hr IV PER RATE [facility] Insulin Glargine (Lantus(*)) 8 units SUBCUT Q24H [facility] Last Admin: 09/05/19 08:54 Dose: 8 unit Insulin Human Lispro (Humalog*) 0 units SUBCUT ACHS [facility]; Protocol Last Admin: 09/05/19 11:33 Dose: 6 units Lidocaine/Sodium Bicarbonate (Buffered Lidocaine 1% Syrin*) 0.2 ml INTRADERM ONCE ONE Stop: 09/08/19 06:01 Magnesium Hydroxide (Milk Of Magnesia Liq*) 30 ml PO Q6H PRN PRN Reason: CONSTIPATION Metoprolol Tartrate (Lopressor Tab*) 50 mg PO Q12HR [facility] Last Admin: 09/05/19 08:32 Dose: 50 mg Morphine Sulfate (Ms Contin(*)) 15 mg PO Q12HR [facility] Last Admin: 09/05/19 08:30 Dose: 15 mg Multivitamins (Theragran Tab*) 1 tab PO DAILY [facility] Last Admin: 09/05/19 08:32 Dose: 1 tab Ondansetron HCl (Zofran Inj*) 4 mg IV Q6H PRN PRN Reason: NAUSEA Ondansetron HCl (Zofran Odt Tab*) 4 mg PO Q6H PRN PRN Reason: NAUSEA Oxycodone HCl (Roxycodone Tab*) 5 mg PO Q4H PRN PRN Reason: Pain - Breakthrough Last Admin: 09/05/19 03:21 Dose: 5 mg Oxycodone HCl (Roxycodone Tab*) 10 mg PO TID PRN PRN Reason: PAIN - SEVERE Pantoprazole Sodium (Protonix Tab*) 40 mg PO QAM [facility] Last Admin: 09/05/19 08:31 Dose: 40 mg Pharmacy Consult (Zosyn Per Pharmacy*) 1 note FOLLOW UP .ZOSYN PER PHARMACY [facility] Pharmacy Consult (Vancomycin Per Pharmacy*) 1 note FOLLOW UP .VANC PER PHARMACY [facility]; Protocol Vital Signs - 8 hr 09/05/19 09/05/19 09/05/19 07:50 08:00 08:30 Temperature 97.6 F Pulse Rate 71 Respiratory 16 16 16 Rate Blood Pressure 114/60 (mmHg) O2 Sat by Pulse 96 Oximetry 09/05/19 09/05/19 10:43 11:52 Temperature 97.6 F Pulse Rate 76 Respiratory 16 18 Rate Blood Pressure 130/61 (mmHg) O2 Sat by Pulse 98 Oximetry Oxygen Devices in Use Now: None Appearance: 58 yo M in NAD, AAOx3 Eyes: No Scleral Icterus, PERRLA Ears/Nose/Mouth/Throat: NL Teeth, Lips, Gums, Mucous Membranes Moist Neck: NL Appearance and Movements; NL JVP, Trachea Midline Respiratory: Symmetrical Chest Expansion and Respiratory Effort, Clear to Auscultation Cardiovascular: NL Sounds; No Murmurs; No JVD, RRR Abdominal: NL Sounds; No Tenderness; No Distention Lymphatic: No Cervical Adenopathy Extremities: No Clubbing, Cyanosis, - - R stump in post op dressings with drain present Skin: No Nodules or Sclerosis Neurological: NL Muscle Strength and Tone Result Diagrams: 09/05/19 05:40 09/05/19 05:40 Microbiology and Other Data: Microbiology 09/04/19 02:05 Transfusion Reaction Gram Stain - Final Blood Bag Assess/Plan/Problems-Billing Assessment: 58 yo m with h/o DM2, CKD 3, HTN transferred from [place] for R stump abscess - Patient Problems (1) Amputation stump infection Comment: cont Vanc /Zosyn , s/p I&D on 09/04/19 , planned to go back to [place] Sunday09/08/19 ID consult appreciated Pt had MRSA bacteremia at [place], repeat blood cx NTD. TTE with no vegetations at [facility]. No need to ZEE so far (2) Diabetes Comment: - Cont ISS -starting Lantus (3) Hypertension Comment: - Cont Clinidine, lopressor, holding Torsemide, controlled (4) Atrial fib/flutter, transient Comment: one episode that occured when pt was bacteremic, converted to NSR in [place]. Off amiodarone. Anicoagulation not needed as d/w cardiology On ASA cont telem (5) CKD (chronic kidney disease) Comment: - Cr at baseline 1.7 , today worse. Placed on gentle IVF preop - Euvolemic -holding torsemide, cont to monitor (6) Anemia Comment: Of chronic disease, s/p 2 U PRBC transfusion on 09/03/19 (7) Hyponatremia Comment: mild, monitor (8) DVT prophylaxis Comment: HSQ, ASA Status and Disposition: inpatient
[2019-09-05 14:49] LABS: EGFR African American 32.1 (>60); EGFR Non-African American 26.5 (>60)
[2019-09-05] MEDS ORDERED: Vancomycin(*) 1,000 MG in NS 0.9% 250 ML* 250 ML IVPB ONE (15:30)
[2019-09-05] MEDS: Atorvastatin* 10 MG TAB PO SCH (16:52)
[2019-09-06] MEDS ORDERED: Vancomycin Random Level* NOTE FOLLOW UP ONE (06:00)
[2019-09-06] MEDS: Acetaminophen TAB* 325 MG PO SCH ×3 (06:02→21:52)
[2019-09-06] MEDS: Heparin VIAL(*) 5000 UNITS/ML VIAL (FIVE THOUSAND) SUBCUT SCH ×3 (06:03→21:53)
[2019-09-06 06:05] LABS: EGFR African American 32.7 (>60)
[2019-09-06 06:11] LABS: Vancomycin Random 22.6 mcg/mL
--- NOTE | 2019-09-06 09:01 | PN ---
Progress Note - Progress Note Date of Service: 09/06/19 SOAP: Subjective: resting comfortably with no complaints Objective: Vital Signs Temp Pulse Resp BP Pulse Ox 97.6 F 77 18 138/68 99 09/06/19 07:45 09/06/19 07:45 09/06/19 07:45 09/06/19 07:45 09/06/19 07:45 Laboratory Last Values WBC 7.6 10^3/uL (3.5-10.8) 09/05/19 05:40 RBC 3.40 10^6 /uL (4.18-5.48) L 09/05/19 05:40 Hgb 8.4 g/dL (14.0-18.0) L 09/05/19 05:40 Hct 26 % (42-52) L 09/05/19 05:40 MCV 76 fL (80-94) L 09/05/19 05:40 MCH 25 pg (27-31) L 09/05/19 05:40 MCHC 33 g/dL (31-36) 09/05/19 05:40 RDW 17 % (10-15) H 09/05/19 05:40 Plt Count 223 10^3/uL (150-450) 09/05/19 05:40 MPV 7.9 fL (7.4-10.4) 09/05/19 05:40 Neut % (Auto) 78.5 % 09/03/19 17:31 Lymph % (Auto) 10.4 % 09/03/19 17:31 Meagher % (Auto) 8.9 % 09/03/19 17:31 Eos % (Auto) 1.9 % 09/03/19 17:31 Baso % (Auto) 0.3 % 09/03/19 17:31 Absolute Neuts (auto) 5.0 10^3/ul (1.5-7.7) 09/03/19 17:31 Absolute Lymphs (auto) 0.7 10^3/ul (1.0-4.8) L 09/03/19 17:31 Absolute Monos (auto) 0.6 10^3/ul (0-0.8) 09/03/19 17:31 Absolute Eos (auto) 0.1 10^3/ul (0-0.6) 09/03/19 17:31 Absolute Basos (auto) 0.0 10^3/ul (0-0.2) 09/03/19 17:31 Absolute Nucleated RBC 0.0 10^3/ul 09/03/19 17:31 Nucleated RBC % 0.4 09/03/19 17:31 ESR > 120 mm/Hr (0-19) H 09/03/19 17:31 INR (Anticoag Therapy) 1.27 (0.82-1.09) H 09/03/19 17:31 Sodium 133 mmol/L (135-145) L 09/05/19 05:40 Potassium 4.1 mmol/L (3.5-5.0) 09/05/19 05:40 Chloride 102 mmol/L (101-111) 09/05/19 05:40 Carbon Dioxide 22 mmol/L (22-32) 09/05/19 05:40 Anion Gap 9 mmol/L (2-11) 09/05/19 05:40 BUN 26 mg/dL (6-24) H 09/06/19 05:30 Creatinine 2.48 mg/dL (0.67-1.17) H 09/06/19 05:30 Est GFR ( Amer) 32.7 (>60) 09/06/19 05:30 Est GFR (Non-Af Amer) 27.0 (>60) 09/06/19 05:30 BUN/Creatinine Ratio 10.8 (8-20) 09/05/19 05:40 Glucose 197 mg/dL (70-100) H 09/05/19 05:40 POC Glucose (mg/dL) 173 mg/dL (70-100) H 09/06/19 07:40 Serum Osmolality 279 mOsm/kg (275-295) 09/03/19 17:31 Lactic Acid 0.8 mmol/L (0.5-2.0) 09/03/19 17:42 Calcium 7.9 mg/dL (8.6-10.3) L 09/05/19 05:40 Magnesium 2.0 mg/dL (1.9-2.7) 09/05/19 05:40 Iron 74 ug/dL (50-212) 09/04/19 07:30 TIBC 147 mcg/dL (250-450) L 09/04/19 07:30 % Saturation 50 % (15-55) 09/04/19 07:30 Unsat Iron Binding < 132 ug/dL 09/04/19 07:30 Transferrin 105 mg/dL (203-362) L 09/04/19 07:30 Ferritin 200.4 ng/mL (24-336) 09/04/19 07:30 Total Bilirubin 1.00 mg/dL (0.2-1.0) 09/04/19 07:30 AST 9 U/L (13-39) L 09/04/19 07:30 ALT 7 U/L (7-52) 09/04/19 07:30 Alkaline Phosphatase 139 U/L (34-104) H 09/04/19 07:30 C-Reactive Protein 206.90 mg/L (<8.01) H 09/05/19 05:40 Total Protein 5.7 g/dL (6.4-8.9) L 09/04/19 07:30 Albumin 2.3 g/dL (3.2-5.2) L 09/04/19 07:30 Globulin 3.4 g/dL (2-4) 09/04/19 07:30 Albumin/Globulin Ratio 0.7 (1-3) L 09/04/19 07:30 Vitamin B12 > 1450 pg/mL (180-914) H 09/04/19 07:30 Folate 12.47 ng/mL (>3.99) 09/04/19 07:30 Urine Color Yellow 09/04/19 02:27 Urine Appearance Cloudy 09/04/19 02:27 Urine pH 5.0 (5-9) 09/04/19 02:27 Ur Specific [place] 1.011 (1.010-1.030) 09/04/19 02:27 Urine Protein Negative (Negative) 09/04/19 02:27 Urine Ketones Negative (Negative) 09/04/19 02:27 Urine Blood 1+ (Negative) A 09/04/19 02:27 Urine Nitrate Negative (Negative) 09/04/19 02:27 Urine Bilirubin Negative (Negative) 09/04/19 02:27 Urine Urobilinogen Negative (Negative) 09/04/19 02:27 Ur Leukocyte Esterase Negative (Negative) 09/04/19 02:27 Urine WBC (Auto) Absent (Absent) 09/04/19 02:27 Urine RBC (Auto) Trace(0-2/hpf) (Absent) 09/04/19 02:27 Urine Bacteria 1+ (Absent) A 09/04/19 02:27 Urine Osmolality 236 mOsm/kg (100-1150) 09/03/19 19:58 U Sodium Concentration < 18 mmol/L 09/03/19 19:58 Urine Glucose 1+(50 mg/dl) (Negative) A 09/04/19 02:27 Random Vancomycin 22.6 mcg/mL 09/06/19 05:30 Blood Type O Positive 09/03/19 17:42 Antibody Screen Negative 09/03/19 17:42 Crossmatch See Detail 09/03/19 17:42 Transfusion React Rpt 09/04/19 02:05 Donor Unit # [id number] 09/04/19 02:05 Post-Trans Blood Type O Positive 09/04/19 02:05 Post-Trans SHARLENE Negative 09/04/19 02:05 Reaction Interpretation 09/04/19 02:[address], suction to wall Assessment: s/p RLE stump I&D with wound vac placement Plan: 1) NWB RLE 2) continue abx 3) likely to OR Sunday or Sunday
[2019-09-06] MEDS ORDERED: Polyethylene Glycol 3350* 17 GM PACKET PO PRN ×2 (09:18→14:33)
[2019-09-06] MEDS: Insulin LISPRO* 1 UNITS UNIT SUBCUT SCH ×4 (09:18→21:53)
[2019-09-06] MEDS ORDERED: Magnesium Hydroxide LIQ* 30 ML UDC PO PRN ×2 (09:18→14:33)
[2019-09-06] MEDS: Insulin GLARGINE(*) 1 UNITS UNIT SUBCUT SCH (09:19)
[2019-09-06] MEDS: Ondansetron INJ* 2 MG/ML VIAL IV PRN (09:21)
[2019-09-06] MEDS: Aspirin TAB* 325 MG PO SCH (09:23)
[2019-09-06] MEDS: Morphine TAB Extended Release (*) 15 MG TAB.ER PO SCH ×2 (09:23→21:51)
[2019-09-06] MEDS: Metoprolol Tartrate TAB* 50 mg PO SCH ×2 (09:24→21:54)
[2019-09-06] MEDS: Vitamin THERAPEUTIC TAB PO SCH (09:24)
[2019-09-06] MEDS: Pantoprazole TAB * 40 MG TAB PO SCH (09:24)
[2019-09-06] MEDS: cloNIDine TAB* 0.1 MG PO SCH ×2 (09:34→21:54)
[2019-09-06] MEDS ORDERED: NS 0.9% 250 ML* 250 ML ONE (12:44)
[2019-09-06] MEDS: Senna TAB 8.6 mg* TAB PO PRN (12:55)
[2019-09-06] MEDS: Vancomycin(*) 1,000 MG in NS 0.9% 250 ML* 250 ML IVPB SCH (12:55)
[2019-09-06] MEDS ORDERED: Senna TAB 8.6 mg* TAB PO PRN (14:33)
--- NOTE | 2019-09-06 14:33 | PN ---
Subjective Date of Service: 09/06/19 Interval History: Pt was nauseated in AM again, but had no problems with lunch. Denies abd pain. No BM since admission Objective Active Medications: Acetaminophen (Tylenol Tab*) 975 mg PO Q8HR [facility] Last Admin: 09/06/19 12:54 Dose: 975 mg Aspirin (Aspirin Tab*) 325 mg PO DAILY [facility] Last Admin: 09/06/19 09:23 Dose: 325 mg Atorvastatin Calcium (Lipitor*) 10 mg PO QPM [facility]; Protocol Last Admin: 09/05/19 16:52 Dose: 10 mg Bisacodyl (Dulcolax Supp*) 10 mg [place] DAILY PRN PRN Reason: CONSTIPATION Clonidine HCl (Catapres Tab*) 0.2 mg PO BID [facility] Last Admin: 09/06/19 09:34 Dose: 0.2 mg Cyclobenzaprine HCl (Flexeril Tab*) 10 mg PO Q6H PRN PRN Reason: SPASMS Dextrose (Dextrose 50% Vial 50 Ml*) 25 ml IV PUSH .FOR FS < 60 - SS PRN PRN Reason: FS < 60 Diphenhydramine HCl (Benadryl Iv*) 25 mg IV Q6H PRN PRN Reason: PRURITIS Diphenhydramine HCl (Benadryl Po*) 25 mg PO Q6H PRN PRN Reason: PRURITIS Docusate Sodium (Colace Cap*) 100 mg PO BID [facility] Heparin Sodium (Porcine) (Heparin Flush Picc/Ml/Cvc(*)) 1 ml FLUSH 0600,1800 PRN; Protocol PRN Reason: flush Heparin Sodium (Porcine) (Heparin Vial(*)) 5,000 units SUBCUT Q8HR [facility] Last Admin: 09/06/19 12:55 Dose: 5,000 units Lactated Ringer's (Lactated Ringers 1000 Ml Bag*) 1,000 mls @ 125 mls/hr IV PER RATE [facility] Vancomycin HCl 1,000 mg/ (Sodium Chloride) 250 mls @ 166.667 mls/hr IVPB Q24H [facility] Last Admin: 09/06/19 12:55 Dose: 166.667 mls/hr Insulin Glargine (Lantus(*)) 8 units SUBCUT Q24H [facility] Last Admin: 09/06/19 09:19 Dose: 8 unit Insulin Human Lispro (Humalog*) 0 units SUBCUT ACHS [facility]; Protocol Last Admin: 09/06/19 12:53 Dose: 3 units Lidocaine/Sodium Bicarbonate (Buffered Lidocaine 1% Syrin*) 0.2 ml INTRADERM ONCE ONE Stop: 09/08/19 06:01 Magnesium Hydroxide (Milk Of Magnesia Liq*) 30 ml PO BID [facility] Magnesium Hydroxide (Milk Of Magnesia Liq*) 30 ml PO BID PRN PRN Reason: CONSTIPATION Metoprolol Tartrate (Lopressor Tab*) 50 mg PO Q12HR [facility] Last Admin: 09/06/19 09:24 Dose: 50 mg Morphine Sulfate (Ms Contin(*)) 15 mg PO Q12HR [facility] Last Admin: 09/06/19 09:23 Dose: 15 mg Multivitamins (Theragran Tab*) 1 tab PO DAILY [facility] Last Admin: 09/06/19 09:24 Dose: 1 tab Ondansetron HCl (Zofran Inj*) 4 mg IV Q6H PRN PRN Reason: NAUSEA Last Admin: 09/06/19 09:21 Dose: 4 mg Ondansetron HCl (Zofran Odt Tab*) 4 mg PO Q6H PRN PRN Reason: NAUSEA Oxycodone HCl (Roxycodone Tab*) 5 mg PO Q4H PRN PRN Reason: Pain - Breakthrough Last Admin: 09/05/19 03:21 Dose: 5 mg Oxycodone HCl (Roxycodone Tab*) 10 mg PO TID PRN PRN Reason: PAIN - SEVERE Pantoprazole Sodium (Protonix Tab*) 40 mg PO QAM [facility] Last Admin: 09/06/19 09:24 Dose: 40 mg Pharmacy Consult (Vancomycin Per Pharmacy*) 1 note FOLLOW UP .VANC PER PHARMACY [facility]; Protocol Pharmacy Profile Note (Vancomycin Trough Check) 1 note FOLLOW UP ONCE ONE Stop: 09/08/19 11:31 Polyethylene Glycol/Electrolytes (Miralax*) 17 gm PO DAILY PRN PRN Reason: CONSTIPATION Senna (Senokot 8.6 Mg Tab*) 1 tab PO BEDTIME PRN PRN Reason: CONSTIPATION Last Admin: 09/06/19 12:55 Dose: 1 tab Vital Signs - 8 hr 09/06/19 09/06/19 09/06/19 07:45 08:00 09:23 Temperature 97.6 F Pulse Rate 77 Respiratory 18 18 16 Rate Blood Pressure 138/68 (mmHg) O2 Sat by Pulse 99 Oximetry 09/06/19 09/06/19 11:00 11:15 Temperature 97.1 F Pulse Rate 76 Respiratory 16 16 Rate Blood Pressure 132/70 (mmHg) O2 Sat by Pulse 97 Oximetry Oxygen Devices in Use Now: None Appearance: 58 yo m in NAD, aAOx3 Eyes: No Scleral Icterus, PERRLA Ears/Nose/Mouth/Throat: NL Teeth, Lips, Gums, Mucous Membranes Moist Neck: NL Appearance and Movements; NL JVP, Trachea Midline Respiratory: Symmetrical Chest Expansion and Respiratory Effort, Clear to Auscultation Cardiovascular: NL Sounds; No Murmurs; No JVD, RRR Abdominal: NL Sounds; No Tenderness; No Distention Lymphatic: No Axillary Adenopathy Extremities: No Clubbing, Cyanosis, - - R calf edema, r stump covered in post op dressings Skin: No Nodules or Sclerosis Neurological: Alert and Oriented x 3, NL Muscle Strength and Tone Result Diagrams: 09/05/19 05:40 09/06/19 05:30 Microbiology and Other Data: Microbiology 09/04/19 02:05 Transfusion Reaction Gram Stain - Final Blood Bag Assess/Plan/Problems-Billing Assessment: 58 yo m with h/o DM2, CKD 3, HTN transferred from [place] for R stump abscess - Patient Problems (1) Amputation stump infection Comment: cont Vanc /Zosyn , s/p I&D on 09/04/19 , planned to go back to [place] Sunday09/08/19 ID consult appreciated Pt had MRSA bacteremia at [place], repeat blood cx NTD. TTE with no vegetations at [place]. No need to ZEE so far (2) Diabetes Comment: - Cont ISS -cont Lantus (3) Hypertension Comment: - Cont Clinidine, lopressor, holding Torsemide, controlled (4) Atrial fib/flutter, transient Comment: one episode that occured when pt was bacteremic, converted to NSR in [place]. Off amiodarone. Anicoagulation not needed as d/w cardiology On ASA cont telem (5) CKD (chronic kidney disease) Comment: - Cr at baseline 1.7 , today worse. Placed on gentle IVF preop - Euvolemic -holding torsemide, cont to monitor (6) Anemia Comment: Of chronic disease, s/p 2 U PRBC transfusion on 09/03/19 (7) Hyponatremia Comment: mild, monitor (8) DVT prophylaxis Comment: HSQ, ASA Status and Disposition: inpatient
[2019-09-06] MEDS: Atorvastatin* 10 MG TAB PO SCH (16:57)
[2019-09-06] MEDS ORDERED: Docusate CAP* 100 MG PO SCH (21:00)
[2019-09-06] MEDS ORDERED: Magnesium Hydroxide LIQ* 30 ML UDC PO SCH (21:00)
[2019-09-06] MEDS: Magnesium Hydroxide LIQ* 30 ML UDC PO SCH ×2 (21:51→22:03)
[2019-09-06] MEDS: Docusate CAP* 100 MG PO SCH (21:54)
[2019-09-06] MEDS: oxyCODONE TAB* 5 MG TAB PO PRN (22:03)
[2019-09-07] MEDS: Ondansetron INJ* 2 MG/ML VIAL IV PRN ×2 (02:19→08:51)
[2019-09-07] MEDS: Heparin VIAL(*) 5000 UNITS/ML VIAL (FIVE THOUSAND) SUBCUT SCH ×3 (05:29→21:51)
[2019-09-07] MEDS: Acetaminophen TAB* 325 MG PO SCH ×3 (05:29→21:51)
[2019-09-07 06:17] LABS: BUN/Creatinine Ratio 10.6 (8-20); Calcium 8.2 mg/dL (8.6-10.3); EGFR African American 36.2 (>60); EGFR Non-African American 29.9 (>60)
[2019-09-07] MEDS: cloNIDine TAB* 0.1 MG PO SCH ×2 (08:51→21:52)
[2019-09-07] MEDS: Aspirin TAB* 325 MG PO SCH (08:52)
[2019-09-07] MEDS: Vitamin THERAPEUTIC TAB PO SCH (08:52)
[2019-09-07] MEDS: Docusate CAP* 100 MG PO SCH ×2 (08:52→21:51)
[2019-09-07] MEDS: Morphine TAB Extended Release (*) 15 MG TAB.ER PO SCH ×2 (08:52→21:53)
[2019-09-07] MEDS: Pantoprazole TAB * 40 MG TAB PO SCH (08:54)
[2019-09-07] MEDS: Insulin LISPRO* 1 UNITS UNIT SUBCUT SCH ×4 (08:54→21:50)
[2019-09-07] MEDS: Metoprolol Tartrate TAB* 50 mg PO SCH ×2 (08:54→21:51)
[2019-09-07] MEDS: Insulin GLARGINE(*) 1 UNITS UNIT SUBCUT SCH (08:55)
[2019-09-07] MEDS: Magnesium Hydroxide LIQ* 30 ML UDC PO SCH ×2 (09:00→21:54)
--- NOTE | 2019-09-07 09:43 | PN ---
Progress Note - Progress Note Date of Service: 09/07/19 SOAP: Subjective: resting comfortably, mild pain RLE Objective: Vital Signs Temp Pulse Resp BP Pulse Ox 97.4 F 75 12 150/66 97 09/07/19 07:50 09/07/19 07:50 09/07/19 08:52 09/07/19 07:50 09/07/19 07:50 Laboratory Last Values WBC 7.6 10^3/uL (3.5-10.8) 09/05/19 05:40 RBC 3.40 10^6 /uL (4.18-5.48) L 09/05/19 05:40 Hgb 8.4 g/dL (14.0-18.0) L 09/05/19 05:40 Hct 26 % (42-52) L 09/05/19 05:40 MCV 76 fL (80-94) L 09/05/19 05:40 MCH 25 pg (27-31) L 09/05/19 05:40 MCHC 33 g/dL (31-36) 09/05/19 05:40 RDW 17 % (10-15) H 09/05/19 05:40 Plt Count 223 10^3/uL (150-450) 09/05/19 05:40 MPV 7.9 fL (7.4-10.4) 09/05/19 05:40 Neut % (Auto) 78.5 % 09/03/19 17:31 Lymph % (Auto) 10.4 % 09/03/19 17:31 [place] % (Auto) 8.9 % 09/03/19 17:31 Eos % (Auto) 1.9 % 09/03/19 17:31 Baso % (Auto) 0.3 % 09/03/19 17:31 Absolute Neuts (auto) 5.0 10^3/ul (1.5-7.7) 09/03/19 17:31 Absolute Lymphs (auto) 0.7 10^3/ul (1.0-4.8) L 09/03/19 17:31 Absolute Monos (auto) 0.6 10^3/ul (0-0.8) 09/03/19 17:31 Absolute Eos (auto) 0.1 10^3/ul (0-0.6) 09/03/19 17:31 Absolute Basos (auto) 0.0 10^3/ul (0-0.2) 09/03/19 17:31 Absolute Nucleated RBC 0.0 10^3/ul 09/03/19 17:31 Nucleated RBC % 0.4 09/03/19 17:31 ESR > 120 mm/Hr (0-19) H 09/03/19 17:31 INR (Anticoag Therapy) 1.27 (0.82-1.09) H 09/03/19 17:31 Sodium 135 mmol/L (135-145) 09/07/19 05:23 Potassium 5.0 mmol/L (3.5-5.0) 09/07/19 05:23 Chloride 106 mmol/L (101-111) 09/07/19 05:23 Carbon Dioxide 25 mmol/L (22-32) 09/07/19 05:23 Anion Gap 4 mmol/L (2-11) 09/07/19 05:23 BUN 24 mg/dL (6-24) 09/07/19 05:23 Creatinine 2.27 mg/dL (0.67-1.17) H 09/07/19 05:23 Est GFR ( Amer) 36.2 (>60) 09/07/19 05:23 Est GFR (Non-Af Amer) 29.9 (>60) 09/07/19 05:23 BUN/Creatinine Ratio 10.6 (8-20) 09/07/19 05:23 Glucose 143 mg/dL (70-100) H 09/07/19 05:23 POC Glucose (mg/dL) 147 mg/dL (70-100) H 09/07/19 07:33 Serum Osmolality 279 mOsm/kg (275-295) 09/03/19 17:31 Lactic Acid 0.8 mmol/L (0.5-2.0) 09/03/19 17:42 Calcium 8.2 mg/dL (8.6-10.3) L 09/07/19 05:23 Magnesium 2.0 mg/dL (1.9-2.7) 09/05/19 05:40 Iron 74 ug/dL (50-212) 09/04/19 07:30 TIBC 147 mcg/dL (250-450) L 09/04/19 07:30 % Saturation 50 % (15-55) 09/04/19 07:30 Unsat Iron Binding < 132 ug/dL 09/04/19 07:30 Transferrin 105 mg/dL (203-362) L 09/04/19 07:30 Erythropoietin 10.5 mIU/mL (2.6 - 18.5) 09/04/19 07:30 Ferritin 200.4 ng/mL (24-336) 09/04/19 07:30 Total Bilirubin 1.00 mg/dL (0.2-1.0) 09/04/19 07:30 AST 9 U/L (13-39) L 09/04/19 07:30 ALT 7 U/L (7-52) 09/04/19 07:30 Alkaline Phosphatase 139 U/L (34-104) H 09/04/19 07:30 C-Reactive Protein 206.90 mg/L (<8.01) H 09/05/19 05:40 Total Protein 5.7 g/dL (6.4-8.9) L 09/04/19 07:30 Albumin 2.3 g/dL (3.2-5.2) L 09/04/19 07:30 Globulin 3.4 g/dL (2-4) 09/04/19 07:30 Albumin/Globulin Ratio 0.7 (1-3) L 09/04/19 07:30 Vitamin B12 > 1450 pg/mL (180-914) H 09/04/19 07:30 Folate 12.47 ng/mL (>3.99) 09/04/19 07:30 Urine Color Yellow 09/04/19 02:27 Urine Appearance Cloudy 09/04/19 02:27 Urine pH 5.0 (5-9) 09/04/19 02:27 Ur Specific [place] 1.011 (1.010-1.030) 09/04/19 02:27 Urine Protein Negative (Negative) 09/04/19 02:27 Urine Ketones Negative (Negative) 09/04/19 02:27 Urine Blood 1+ (Negative) A 09/04/19 02:27 Urine Nitrate Negative (Negative) 09/04/19 02:27 Urine Bilirubin Negative (Negative) 09/04/19 02:27 Urine Urobilinogen Negative (Negative) 09/04/19 02:27 Ur Leukocyte Esterase Negative (Negative) 09/04/19 02:27 Urine WBC (Auto) Absent (Absent) 09/04/19 02:27 Urine RBC (Auto) Trace(0-2/hpf) (Absent) 09/04/19 02:27 Urine Bacteria 1+ (Absent) A 09/04/19 02:27 Urine Osmolality 236 mOsm/kg (100-1150) 09/03/19 19:58 U Sodium Concentration < 18 mmol/L 09/03/19 19:58 Urine Glucose 1+(50 mg/dl) (Negative) A 09/04/19 02:27 Random Vancomycin 22.6 mcg/mL 09/06/19 05:30 Blood Type O Positive 09/03/19 17:42 Antibody Screen Negative 09/03/19 17:42 Crossmatch See Detail 09/03/19 17:42 Transfusion React Rpt 09/04/19 02:05 Donor Unit # [id number] 09/04/19 02:05 Post-Trans Blood Type O Positive 09/04/19 02:05 Post-Trans SHARLENE Negative 09/04/19 02:05 Reaction Interpretation 09/04/19 02:05 dressing/wound vac intact, suctioning well Assessment: s/p I&D RLE with wound vac placement Plan: 1) NWB RLE 2) IV abx 3) OR tomorrow with Chris- NPO after breakfast
[2019-09-07] MEDS: Vancomycin(*) 1,000 MG in NS 0.9% 250 ML* 250 ML IVPB SCH (12:23)
--- NOTE | 2019-09-07 15:38 | PN ---
Subjective Date of Service: 09/07/19 Interval History: Pt has no new complaints, awaiting surgery tomorrow Objective Active Medications: Acetaminophen (Tylenol Tab*) 975 mg PO Q8HR [facility] Last Admin: 09/07/19 13:50 Dose: 975 mg Aspirin (Aspirin Tab*) 325 mg PO DAILY [facility] Last Admin: 09/07/19 08:52 Dose: 325 mg Atorvastatin Calcium (Lipitor*) 10 mg PO QPM [facility]; Protocol Last Admin: 09/06/19 16:57 Dose: 10 mg Bisacodyl (Dulcolax Supp*) 10 mg [place] DAILY PRN PRN Reason: CONSTIPATION Clonidine HCl (Catapres Tab*) 0.2 mg PO BID [facility] Last Admin: 09/07/19 08:51 Dose: 0.2 mg Cyclobenzaprine HCl (Flexeril Tab*) 10 mg PO Q6H PRN PRN Reason: SPASMS Dextrose (Dextrose 50% Vial 50 Ml*) 25 ml IV PUSH .FOR FS < 60 - SS PRN PRN Reason: FS < 60 Diphenhydramine HCl (Benadryl Iv*) 25 mg IV Q6H PRN PRN Reason: PRURITIS Diphenhydramine HCl (Benadryl Po*) 25 mg PO Q6H PRN PRN Reason: PRURITIS Docusate Sodium (Colace Cap*) 100 mg PO BID [facility] Last Admin: 09/07/19 08:52 Dose: 100 mg Heparin Sodium (Porcine) (Heparin Flush Picc/Ml/Cvc(*)) 1 ml FLUSH 0600,1800 PRN; Protocol PRN Reason: flush Heparin Sodium (Porcine) (Heparin Vial(*)) 5,000 units SUBCUT Q8HR [facility] Last Admin: 09/07/19 13:50 Dose: 5,000 units Lactated Ringer's (Lactated Ringers 1000 Ml Bag*) 1,000 mls @ 125 mls/hr IV PER RATE [facility] Vancomycin HCl 1,000 mg/ (Sodium Chloride) 250 mls @ 166.667 mls/hr IVPB Q24H [facility] Last Admin: 09/07/19 12:23 Dose: 166.667 mls/hr Insulin Glargine (Lantus(*)) 8 units SUBCUT Q24H [facility] Stop: 09/07/19 23:59 Last Admin: 09/07/19 08:55 Dose: 8 unit Insulin Human Lispro (Humalog*) 0 units SUBCUT [facility]; Protocol Last Admin: 09/07/19 12:22 Dose: 3 units Lidocaine/Sodium Bicarbonate (Buffered Lidocaine 1% Syrin*) 0.2 ml INTRADERM ONCE ONE Stop: 09/08/19 06:01 Magnesium Hydroxide (Milk Of Magnesia Liq*) 30 ml PO BID [facility] Last Admin: 09/07/19 09:00 Dose: Not Given Magnesium Hydroxide (Milk Of Magnesia Liq*) 30 ml PO BID PRN PRN Reason: CONSTIPATION Metoprolol Tartrate (Lopressor Tab*) 50 mg PO Q12HR [facility] Last Admin: 09/07/19 08:54 Dose: 50 mg Morphine Sulfate (Ms Contin(*)) 15 mg PO Q12HR [facility] Last Admin: 09/07/19 08:52 Dose: 15 mg Multivitamins (Theragran Tab*) 1 tab PO DAILY [facility] Last Admin: 09/07/19 08:52 Dose: 1 tab Ondansetron HCl (Zofran Inj*) 4 mg IV Q6H PRN PRN Reason: NAUSEA Last Admin: 09/07/19 08:51 Dose: 4 mg Ondansetron HCl (Zofran Odt Tab*) 4 mg PO Q6H PRN PRN Reason: NAUSEA Last Admin: 09/06/19 16:58 Dose: 4 mg Oxycodone HCl (Roxycodone Tab*) 5 mg PO Q4H PRN PRN Reason: Pain - Breakthrough Last Admin: 09/05/19 03:21 Dose: 5 mg Oxycodone HCl (Roxycodone Tab*) 10 mg PO TID PRN PRN Reason: PAIN - SEVERE Last Admin: 09/06/19 22:03 Dose: 10 mg Pantoprazole Sodium (Protonix Tab*) 40 mg PO QAM [facility] Last Admin: 09/07/19 08:54 Dose: 40 mg Pharmacy Consult (Vancomycin Per Pharmacy*) 1 note FOLLOW UP .VANC PER PHARMACY [facility]; Protocol Pharmacy Profile Note (Vancomycin Trough Check) 1 note FOLLOW UP ONCE ONE Stop: 09/08/19 11:31 Polyethylene Glycol/Electrolytes (Miralax*) 17 gm PO DAILY PRN PRN Reason: CONSTIPATION Polyethylene Glycol/Electrolytes (Miralax*) 17 gm PO DAILY PRN PRN Reason: CONSTIPATION Senna (Senokot 8.6 Mg Tab*) 1 tab PO BEDTIME PRN PRN Reason: CONSTIPATION Last Admin: 09/06/19 12:55 Dose: 1 tab Senna (Senokot 8.6 Mg Tab*) 1 tab PO BEDTIME PRN PRN Reason: CONSTIPATION Vital Signs - 8 hr 09/07/19 09/07/19 09/07/19 07:50 08:00 08:52 Temperature 97.4 F Pulse Rate 75 Respiratory 16 16 12 Rate Blood Pressure 150/66 (mmHg) O2 Sat by Pulse 97 Oximetry 09/07/19 09/07/19 11:00 12:20 Temperature Pulse Rate 68 Respiratory 16 12 Rate Blood Pressure 157/76 (mmHg) O2 Sat by Pulse 99 Oximetry Oxygen Devices in Use Now: None Appearance: 58 yo m in nAD, aAOx3 Eyes: No Scleral Icterus, PERRLA Ears/Nose/Mouth/Throat: NL Teeth, Lips, Gums, Mucous Membranes Moist Neck: NL Appearance and Movements; NL JVP, Trachea Midline Respiratory: Symmetrical Chest Expansion and Respiratory Effort, Clear to Auscultation Cardiovascular: NL Sounds; No Murmurs; No JVD Abdominal: NL Sounds; No Tenderness; No Distention Lymphatic: No Cervical Adenopathy Extremities: No Clubbing, Cyanosis, - - R LE edema, stump in post op dressings, drain in place Skin: No Nodules or Sclerosis Neurological: Alert and Oriented x 3, NL Muscle Strength and Tone Result Diagrams: 09/05/19 05:40 09/07/19 05:23 Microbiology and Other Data: Microbiology 09/04/19 02:05 Transfusion Reaction Gram Stain - Final Blood Bag Assess/Plan/Problems-Billing Assessment: 58 yo m with h/o DM2, CKD 3, HTN transferred from [place] for R stump abscess - Patient Problems (1) Amputation stump infection Comment: cont Vanc /Zosyn , s/p I&D on 09/04/19 , planned to go back to [place] Sunday09/08/19 ID consult appreciated Pt had MRSA bacteremia at [place], repeat blood cx NTD. TTE with no vegetations at [place]. No need to ZEE so far (2) Diabetes Comment: - Cont ISS -cont Lantus (3) Hypertension Comment: - Cont Clinidine, lopressor, holding Torsemide, controlled (4) Atrial fib/flutter, transient Comment: one episode that occured when pt was bacteremic, converted to NSR in [place]. Off amiodarone. Anicoagulation not needed as d/w cardiology On ASA cont telem (5) CKD (chronic kidney disease) Comment: - Cr at baseline 1.7 ,increased this hospital stay likley [facility] due to bacteremia - Euvolemic -holding torsemide, cont to monitor (6) Anemia Comment: Of chronic disease, s/p 2 U PRBC transfusion on 09/03/19 (7) Hyponatremia Comment: mild, monitor (8) DVT prophylaxis Comment: HSQ, ASA Status and Disposition: inpatient
[2019-09-07 16:27] LABS: EGFR African American 37.9 (>60); EGFR Non-African American 31.3 (>60); Potassium 4.8 mmol/L (3.5-5.0)
[2019-09-07] MEDS: Senna TAB 8.6 mg* TAB PO PRN ×2 (16:37→21:51)
[2019-09-07] MEDS: oxyCODONE TAB* 5 MG TAB PO PRN (17:09)
[2019-09-07] MEDS: Atorvastatin* 10 MG TAB PO SCH (19:32)
[2019-09-08] MEDS: Acetaminophen TAB* 325 MG PO SCH ×3 (05:11→22:20)
[2019-09-08] MEDS: Lactated Ringers 1000 ML Bag* 1,000 ML IV SCH ×2 (05:11→13:32)
[2019-09-08] MEDS: Heparin VIAL(*) 5000 UNITS/ML VIAL (FIVE THOUSAND) SUBCUT SCH ×3 (05:11→22:21)
[2019-09-08 05:37] LABS: Hematocrit 27 % (42-52); Hemoglobin 8.4 g/dL (14.0-18.0); Mean Corpuscular HGB Conc 32 g/dL (31-36); Mean Corpuscular Hemoglobin 25 pg (27-31); Mean Corpuscular Volume 78 fL (80-94); Platelet Count 235 10^3/uL (150-450); Red Blood Count 3.39 10^6 /uL (4.18-5.48); Red Cell Distribution Width 17 % (10-15); White Blood Count 4.9 10^3/uL (3.5-10.8)
[2019-09-08] MEDS ORDERED: Buffered Lidocaine 1% SYRIN* 1 ML/SYRINGE INTRADERM ONE (06:00)
[2019-09-08 06:03] LABS: ABS Eosinophils 0.1 10^3/ul (0-0.6); ABS Lymphocytes 1.1 10^3/ul (1.0-4.8); ABS Monocytes 0.3 10^3/ul (0-0.8); ABS Neutrophils 3.3 10^3/ul (1.5-7.7); Lymphocyte % 22.4 %; Nucleated Red Blood Cells % 0.2
[2019-09-08] MEDS ORDERED: Bupivacaine 0.25% SDV PF* 10 ML VIAL INJ ONE (07:38)
[2019-09-08] MEDS ORDERED: Naloxone* 0.4 MG/ML 1 ML VIAL IV PRN (07:57)
[2019-09-08] MEDS: Insulin LISPRO* 1 UNITS UNIT SUBCUT SCH ×4 (07:59→22:08)
[2019-09-08] MEDS ORDERED: Propofol* 10 MG/ML 20 ML BTL ONE ×2 (08:09→09:24)
[2019-09-08] MEDS ORDERED: Lidocaine 2% PF * 5 ML VIAL ONE (08:10)
[2019-09-08] MEDS ORDERED: fentaNYL* 50 MCG/ML 2 ML VIAL (100 MCG VIAL) ONE ×2 (08:10→09:46)
[2019-09-08] MEDS ORDERED: Sodium Citrate/Citric Acid* 15 ML UDC ONE (08:13)
[2019-09-08] MEDS ORDERED: Succinylcholine* 20 MG/ML 10 ML VIAL ONE (08:55)
[2019-09-08] MEDS ORDERED: Metoprolol Tartrate TAB* 50 mg ONE (09:46)
[2019-09-08] MEDS: Metoprolol Tartrate TAB* 50 mg PO SCH ×2 (09:49→21:37)
[2019-09-08] MEDS: fentaNYL* 50 MCG/ML 2 ML VIAL (100 MCG VIAL) IV PRN ×4 (09:50→10:27)
[2019-09-08] MEDS: Docusate CAP* 100 MG PO SCH ×2 (11:18→21:38)
[2019-09-08] MEDS: Morphine TAB Extended Release (*) 15 MG TAB.ER PO SCH ×2 (11:18→18:07)
[2019-09-08] MEDS: Aspirin TAB* 325 MG PO SCH (11:18)
[2019-09-08] MEDS: cloNIDine TAB* 0.1 MG PO SCH ×2 (11:18→21:38)
[2019-09-08] MEDS: Magnesium Hydroxide LIQ* 30 ML UDC PO SCH ×2 (11:18→21:39)
[2019-09-08] MEDS ORDERED: Vancomycin Trough Check NOTE FOLLOW UP ONE (11:30)
[2019-09-08] MEDS: Pantoprazole TAB * 40 MG TAB PO SCH (11:42)
[2019-09-08] MEDS: Vitamin THERAPEUTIC TAB PO SCH (11:42)
[2019-09-08] MEDS: oxyCODONE TAB* 5 MG TAB PO PRN ×2 (12:34→20:14)
[2019-09-08] MEDS ORDERED: traMADol TAB* 50 MG PO PRN (13:45)
[2019-09-08] MEDS: Vancomycin(*) 1,000 MG in NS 0.9% 250 ML* 250 ML IVPB SCH (14:19)
--- NOTE | 2019-09-08 16:21 | PN ---
Subjective Date of Service: 09/08/19 Interval History: Pt is sad after his BKA, feels that he will not be able to enjoy playing basketball or running ever again. Post op pain well, controlled Objective Active Medications: Acetaminophen (Tylenol Tab*) 975 mg PO Q8HR [facility] Last Admin: 09/08/19 14:03 Dose: 975 mg Aspirin (Aspirin Tab*) 325 mg PO DAILY [facility] Last Admin: 09/08/19 11:18 Dose: Not Given Atorvastatin Calcium (Lipitor*) 10 mg PO QPM [facility]; Protocol Last Admin: 09/07/19 19:32 Dose: 10 mg Bisacodyl (Dulcolax Supp*) 10 mg [place] DAILY PRN PRN Reason: CONSTIPATION Clonidine HCl (Catapres Tab*) 0.2 mg PO BID [facility] Last Admin: 09/08/19 11:18 Dose: Not Given Cyclobenzaprine HCl (Flexeril Tab*) 10 mg PO Q6H PRN PRN Reason: SPASMS Dextrose (Dextrose 50% Vial 50 Ml*) 25 ml IV PUSH .FOR FS < 60 - SS PRN PRN Reason: FS < 60 Diphenhydramine HCl (Benadryl Iv*) 25 mg IV Q6H PRN PRN Reason: PRURITIS Diphenhydramine HCl (Benadryl Po*) 25 mg PO Q6H PRN PRN Reason: PRURITIS Docusate Sodium (Colace Cap*) 100 mg PO BID [facility] Last Admin: 09/08/19 11:18 Dose: Not Given Heparin Sodium (Porcine) (Heparin Flush Picc/Ml/Cvc(*)) 1 ml FLUSH 0600,1800 PRN; Protocol PRN Reason: flush Last Admin: 09/08/19 05:12 Dose: 1 ml Heparin Sodium (Porcine) (Heparin Vial(*)) 5,000 units SUBCUT Q8HR [facility] Last Admin: 09/08/19 14:02 Dose: 5,000 units Vancomycin HCl 1,000 mg/ (Sodium Chloride) 250 mls @ 166.667 mls/hr IVPB Q24H [facility] Last Admin: 09/08/19 14:19 Dose: 166.667 mls/hr Insulin Glargine (Lantus(*)) 8 units SUBCUT 1800 [facility] Insulin Human Lispro (Humalog*) 0 units SUBCUT ACHS [facility]; Protocol Last Admin: 09/08/19 12:33 Dose: 3 units Magnesium Hydroxide (Milk Of Magnesia Liq*) 30 ml PO BID [facility] Last Admin: 09/08/19 11:18 Dose: Not Given Magnesium Hydroxide (Milk Of Magnesia Liq*) 30 ml PO BID PRN PRN Reason: CONSTIPATION Metoprolol Tartrate (Lopressor Tab*) 50 mg PO Q12HR [facility] Last Admin: 09/08/19 09:49 Dose: 50 mg Morphine Sulfate (Ms Contin(*)) 15 mg PO Q12HR [facility] Last Admin: 09/08/19 11:18 Dose: Not Given Multivitamins (Theragran Tab*) 1 tab PO DAILY [facility] Last Admin: 09/08/19 11:42 Dose: Not Given Ondansetron HCl (Zofran Inj*) 4 mg IV Q6H PRN PRN Reason: NAUSEA Last Admin: 09/07/19 08:51 Dose: 4 mg Ondansetron HCl (Zofran Odt Tab*) 4 mg PO Q6H PRN PRN Reason: NAUSEA Last Admin: 09/06/19 16:58 Dose: 4 mg Oxycodone HCl (Roxycodone Tab*) 5 mg PO Q4H PRN PRN Reason: Pain - Breakthrough Last Admin: 09/07/19 17:09 Dose: 5 mg Oxycodone HCl (Roxycodone Tab*) 10 mg PO TID PRN PRN Reason: PAIN - SEVERE Last Admin: 09/08/19 12:34 Dose: 10 mg Pantoprazole Sodium (Protonix Tab*) 40 mg PO QAM [facility] Last Admin: 09/08/19 11:42 Dose: Not Given Pharmacy Consult (Vancomycin Per Pharmacy*) 1 note FOLLOW UP .VANC PER PHARMACY [facility]; Protocol Pharmacy Profile Note (Vancomycin Trough Check) 1 note FOLLOW UP 1130 ONE Stop: 09/10/19 11:31 Polyethylene Glycol/Electrolytes (Miralax*) 17 gm PO DAILY PRN PRN Reason: CONSTIPATION Senna (Senokot 8.6 Mg Tab*) 1 tab PO BEDTIME PRN PRN Reason: CONSTIPATION Last Admin: 09/07/19 21:51 Dose: 1 tab Tramadol HCl (Ultram*) 50 mg PO Q6H PRN PRN Reason: PAIN - MILD Stop: 09/08/19 23:59 Last Admin: 09/08/19 14:02 Dose: 50 mg Vital Signs - 8 hr 09/08/19 09/08/19 09/08/19 09:37 09:38 09:40 Temperature Pulse Rate 87 92 92 Respiratory Rate Blood Pressure 194/100 169/95 (mmHg) O2 Sat by Pulse 97 97 100 Oximetry 09/08/19 09/08/19 09/08/19 09:45 09:46 09:50 Temperature 99.1 F Pulse Rate 88 Respiratory 28 18 Rate Blood Pressure 169/91 171/129 (mmHg) O2 Sat by Pulse 99 Oximetry 09/08/19 09/08/19 09/08/19 09:51 09:55 10:00 Temperature Pulse Rate 84 Respiratory Rate Blood Pressure 174/78 170/89 (mmHg) O2 Sat by Pulse 94 Oximetry 09/08/19 09/08/19 09/08/19 10:01 10:15 10:27 Temperature Pulse Rate 86 87 Respiratory 13 13 16 Rate Blood Pressure 163/80 165/78 (mmHg) O2 Sat by Pulse 97 94 Oximetry 09/08/19 09/08/19 09/08/19 10:31 11:20 11:25 Temperature 97.7 F Pulse Rate 85 85 Respiratory 13 16 16 Rate Blood Pressure 172/83 164/82 (mmHg) O2 Sat by Pulse 96 99 Oximetry 09/08/19 09/08/19 09/08/19 12:18 12:34 13:08 Temperature 97.2 F 97.1 F Pulse Rate 85 80 Respiratory 18 18 18 Rate Blood Pressure 158/84 175/92 (mmHg) O2 Sat by Pulse 99 96 Oximetry 09/08/19 09/08/19 09/08/19 13:40 14:02 14:23 Temperature Pulse Rate Respiratory 18 18 Rate Blood Pressure 158/86 (mmHg) O2 Sat by Pulse Oximetry 09/08/19 09/08/19 15:33 15:52 Temperature 98.0 F Pulse Rate 73 Respiratory 16 18 Rate Blood Pressure 173/90 (mmHg) O2 Sat by Pulse 97 Oximetry Oxygen Devices in Use Now: None Appearance: 58 yo M in NAD, aAOx3 Eyes: No Scleral Icterus, PERRLA Ears/Nose/Mouth/Throat: NL Teeth, Lips, Gums, Mucous Membranes Moist Neck: NL Appearance and Movements; NL JVP, Trachea Midline Respiratory: Symmetrical Chest Expansion and Respiratory Effort, Clear to Auscultation Cardiovascular: NL Sounds; No Murmurs; No JVD, RRR Abdominal: NL Sounds; No Tenderness; No Distention Lymphatic: No Cervical Adenopathy Extremities: No Clubbing, Cyanosis, - - R stump in post op dressings Skin: No Nodules or Sclerosis Neurological: Alert and Oriented x 3, NL Muscle Strength and Tone Result Diagrams: 09/08/19 05:25 09/07/19 16:04 Microbiology and Other Data: Microbiology 09/04/19 02:05 Transfusion Reaction Gram Stain - Final Blood Bag Assess/Plan/Problems-Billing Assessment: 58 yo m with h/o DM2, CKD 3, HTN transferred from [place] for R stump abscess - Patient Problems (1) Amputation stump infection Comment: cont Vanc , s/p I&D on 09/04/19 , s/o BKA on R on09/08/19 ID consult appreciated Pt had MRSA bacteremia at [place], repeat blood cx NTD. TTE with no vegetations at [place]. No need to ZEE so far PICC in place, planned to STR on IV antibiotics (2) Diabetes Comment: - Cont ISS -cont Lantus (3) Hypertension Comment: - Cont Clinidine, lopressor, holding Torsemide, controlled (4) Atrial fib/flutter, transient Comment: one episode that occured when pt was bacteremic, converted to NSR in [place]. Off amiodarone. Anicoagulation not needed as d/w cardiology On ASA cont telem (5) CKD (chronic kidney disease) Comment: - Cr at baseline 1.7 ,increased this hospital stay likely [facility] due to bacteremia - Euvolemic -holding torsemide, cont to monitor (6) Anemia Comment: Of chronic disease, s/p 2 U PRBC transfusion on 09/03/19 (7) Hyponatremia Comment: mild, monitor (8) DVT prophylaxis Comment: HSQ, ASA Status and Disposition: inpatient
[2019-09-08] MEDS: Cyclobenzaprine TAB* 10 MG PO PRN ×2 (16:33→22:21)
[2019-09-08] MEDS: Insulin GLARGINE(*) 1 UNITS UNIT SUBCUT SCH (18:05)
[2019-09-08] MEDS: Atorvastatin* 10 MG TAB PO SCH (18:06)
--- NOTE | 2019-09-08 23:05 | OP ---
DATE OF OPERATION: 09/08/19 - ROOM #331 DATE OF : 62. SURGEON: Chandrakant Perez MD. JEWEL BEARING MAKER: Alvarado Zhang PA-C. PRE-OP DIAGNOSES: Osteomyelitis, diabetes, right distal tibia. POST-OP DIAGNOSES: Osteomyelitis, diabetes, right distal tibia. OPERATIVE PROCEDURE: Revision amputation transtibial right leg. DESCRIPTION OF PROCEDURE: The patient was taken to the operating room where a thigh tourniquet was raised. We made a transverse elliptical incision in the mid third of the right calf slightly along the posterior flap. We dissected proximally around the tibia at this level with a Ugarte elevator and we transected the tibia at this level a handbreadth below the tubercle. We then exposed the fibula at the same level with a Ugarte elevator and transected this 1 cm proximally. We beveled the anterior corner of the tibia. We then divided the anterior musculature, flexed through the osteotomy to expose the posterior compartment and divided this with a 10 blade. The leg was delivered to pathology. We then used #1 Vicryl sutures as the suture ligature to ligate the obvious vessel areas. Tourniquet was then dropped. Cultures sent from the tibia proximally and more hemostasis obtained with the tourniquet down. We then irrigated thoroughly closing front to back deep fascial sutures with #1 Vicryl, 2-0 Monocryl for the subcu and interrupted Prolene sutures for the skin. A compression dressing and plaster splint applied. [id number]/[facility] #: [id number] [employer]Star
[2019-09-09] MEDS: oxyCODONE TAB* 5 MG TAB PO PRN ×6 (01:39→22:01)
[2019-09-09] MEDS: Acetaminophen TAB* 325 MG PO SCH ×3 (06:00→22:06)
[2019-09-09] MEDS: Morphine TAB Extended Release (*) 15 MG TAB.ER PO SCH ×2 (06:00→17:15)
[2019-09-09] MEDS: Heparin VIAL(*) 5000 UNITS/ML VIAL (FIVE THOUSAND) SUBCUT SCH ×3 (06:01→22:06)
[2019-09-09 06:55] LABS: BUN/Creatinine Ratio 8.9 (8-20); EGFR African American 41.2 (>60)
[2019-09-09] MEDS: Senna TAB 8.6 mg* TAB PO PRN (08:19)
[2019-09-09] MEDS: Docusate CAP* 100 MG PO SCH ×2 (08:19→22:03)
[2019-09-09] MEDS: Cyclobenzaprine TAB* 10 MG PO PRN ×3 (08:20→22:04)
[2019-09-09] MEDS: cloNIDine TAB* 0.1 MG PO SCH ×2 (08:20→22:02)
[2019-09-09] MEDS: Aspirin TAB* 325 MG PO SCH (08:20)
[2019-09-09] MEDS: Vitamin THERAPEUTIC TAB PO SCH (08:21)
[2019-09-09] MEDS: Metoprolol Tartrate TAB* 50 mg PO SCH ×2 (08:21→22:02)
[2019-09-09] MEDS: Pantoprazole TAB * 40 MG TAB PO SCH (08:22)
[2019-09-09] MEDS: Magnesium Hydroxide LIQ* 30 ML UDC PO SCH ×2 (08:23→22:22)
[2019-09-09] MEDS ORDERED: Lorazepam PYXIS KEY ONE (08:41)
[2019-09-09 08:59] LABS: ABS Eosinophils 0.1 10^3/ul (0-0.6); ABS Monocytes 0.4 10^3/ul (0-0.8); ABS Neutrophils 5.7 10^3/ul (1.5-7.7); Eosinophil % 1.5 %; Hematocrit 23 % (42-52); Hemoglobin 7.6 g/dL (14.0-18.0); Lymphocyte % 13.8 %; Mean Corpuscular HGB Conc 33 g/dL (31-36); Mean Corpuscular Hemoglobin 25 pg (27-31); Mean Corpuscular Volume 77 fL (80-94); Mean Platelet Volume 6.8 fL (7.4-10.4); Nucleated Red Blood Cells % 0.1; Platelet Count 219 10^3/uL (150-450); Red Cell Distribution Width 17 % (10-15); White Blood Count 7.3 10^3/uL (3.5-10.8)
--- NOTE | 2019-09-09 09:51 | PN ---
Progress Note - Progress Note Date of Service: 09/09/19 SOAP: Subjective: []Pt seen today, he is feeling well without complaints. He had pain yesterday as his long acting morphine dose was missed due to being in the OR, pain is much better controlled now that he is back on his home doses. Denies CP, SOB, dizziness, nausea. Objective: []gen: NAD, nontoxic appearing RLE: Dressing CDI without strike through Assessment: POD [address] Perez Plan: 1) NWB RLE 2) IV abx per ID - on vanco 3) on heparin DVT prophy Vital Signs Temp 97.3 F 09/09/19 08:55 Pulse 69 09/09/19 08:55 Resp 18 09/09/19 08:55 BP 180/92 09/09/19 08:55 Pulse Ox 96 09/09/19 08:55 Intake & Output 09/08/19 09/09/19 09/09/19 18:59 06:59 18:59 Intake Total 760 360 Output Total 500 1510 600 Balance 260 -1150 -600 Intake: IV Fluids 400 LR 400 Oral 360 360 Output: Urine 500 1510 600 Other: Estimated Void Medium # Bowel Movements 0 Laboratory Last Values WBC 7.3 10^3/uL (3.5-10.8) 09/09/19 06:10 RBC 3.00 10^6 /uL (4.18-5.48) L 09/09/19 06:10 Hgb 7.6 g/dL (14.0-18.0) L 09/09/19 06:10 Hct 23 % (42-52) L 09/09/19 06:10 MCV 77 fL (80-94) L 09/09/19 06:10 MCH 25 pg (27-31) L 09/09/19 06:10 MCHC 33 g/dL (31-36) 09/09/19 06:10 RDW 17 % (10-15) H 09/09/19 06:10 Plt Count 219 10^3/uL (150-450) 09/09/19 06:10 MPV 6.8 fL (7.4-10.4) L 09/09/19 06:10 Neut % (Auto) 78.7 % 09/09/19 06:10 Lymph % (Auto) 13.8 % 09/09/19 06:10 [place] % (Auto) 5.5 % 09/09/19 06:10 Eos % (Auto) 1.5 % 09/09/19 06:10 Baso % (Auto) 0.5 % 09/09/19 06:10 Absolute Neuts (auto) 5.7 10^3/ul (1.5-7.7) 09/09/19 06:10 Absolute Lymphs (auto) 1.0 10^3/ul (1.0-4.8) 09/09/19 06:10 Absolute Monos (auto) 0.4 10^3/ul (0-0.8) 09/09/19 06:10 Absolute Eos (auto) 0.1 10^3/ul (0-0.6) 09/09/19 06:10 Absolute Basos (auto) 0.0 10^3/ul (0-0.2) 09/09/19 06:10 Absolute Nucleated RBC 0.0 10^3/ul 09/09/19 06:10 Nucleated RBC % 0.1 09/09/19 06:10 ESR > 120 mm/Hr (0-19) H 09/03/19 17:31 INR (Anticoag Therapy) 1.27 (0.82-1.09) H 09/03/19 17:31 Sodium 134 mmol/L (135-145) L 09/09/19 06:00 Potassium 5.0 mmol/L (3.5-5.0) 09/09/19 06:00 Chloride 105 mmol/L (101-111) 09/09/19 06:00 Carbon Dioxide 25 mmol/L (22-32) 09/09/19 06:00 Anion Gap 4 mmol/L (2-11) 09/09/19 06:00 BUN 18 mg/dL (6-24) 09/09/19 06:00 Creatinine 2.03 mg/dL (0.67-1.17) H 09/09/19 06:00 Est GFR ( Amer) 41.2 (>60) 09/09/19 06:00 Est GFR (Non-Af Amer) 34.0 (>60) 09/09/19 06:00 BUN/Creatinine Ratio 8.9 (8-20) 09/09/19 06:00 Glucose 107 mg/dL (70-100) H 09/09/19 06:00 POC Glucose (mg/dL) 142 mg/dL (70-100) H 09/08/19 21:37 Serum Osmolality 279 mOsm/kg (275-295) 09/03/19 17:31 Lactic Acid 0.8 mmol/L (0.5-2.0) 09/03/19 17:42 Calcium 8.0 mg/dL (8.6-10.3) L 09/09/19 06:00 Magnesium 2.0 mg/dL (1.9-2.7) 09/05/19 05:40 Iron 74 ug/dL (50-212) 09/04/19 07:30 TIBC 147 mcg/dL (250-450) L 09/04/19 07:30 % Saturation 50 % (15-55) 09/04/19 07:30 Unsat Iron Binding < 132 ug/dL 09/04/19 07:30 Transferrin 105 mg/dL (203-362) L 09/04/19 07:30 Erythropoietin 10.5 mIU/mL (2.6 - 18.5) 09/04/19 07:30 Ferritin 200.4 ng/mL (24-336) 09/04/19 07:30 Total Bilirubin 1.00 mg/dL (0.2-1.0) 09/04/19 07:30 AST 9 U/L (13-39) L 09/04/19 07:30 ALT 7 U/L (7-52) 09/04/19 07:30 Alkaline Phosphatase 139 U/L (34-104) H 09/04/19 07:30 C-Reactive Protein 206.90 mg/L (<8.01) H 09/05/19 05:40 Total Protein 5.7 g/dL (6.4-8.9) L 09/04/19 07:30 Albumin 2.3 g/dL (3.2-5.2) L 09/04/19 07:30 Globulin 3.4 g/dL (2-4) 09/04/19 07:30 Albumin/Globulin Ratio 0.7 (1-3) L 09/04/19 07:30 Vitamin B12 > 1450 pg/mL (180-914) H 09/04/19 07:30 Folate 12.47 ng/mL (>3.99) 09/04/19 07:30 Urine Color Yellow 09/04/19 02:27 Urine Appearance Cloudy 09/04/19 02:27 Urine pH 5.0 (5-9) 09/04/19 02:27 Ur Specific Percy 1.011 (1.010-1.030) 09/04/19 02:27 Urine Protein Negative (Negative) 09/04/19 02:27 Urine Ketones Negative (Negative) 09/04/19 02:27 Urine Blood 1+ (Negative) A 09/04/19 02:27 Urine Nitrate Negative (Negative) 09/04/19 02:27 Urine Bilirubin Negative (Negative) 09/04/19 02:27 Urine Urobilinogen Negative (Negative) 09/04/19 02:27 Ur Leukocyte Esterase Negative (Negative) 09/04/19 02:27 Urine WBC (Auto) Absent (Absent) 09/04/19 02:27 Urine RBC (Auto) Trace(0-2/hpf) (Absent) 09/04/19 02:27 Urine Bacteria 1+ (Absent) A 09/04/19 02:27 Urine Osmolality 236 mOsm/kg (100-1150) 09/03/19 19:58 U Sodium Concentration < 18 mmol/L 09/03/19 19:58 Urine Glucose 1+(50 mg/dl) (Negative) A 09/04/19 02:27 Vancomycin Trough 19.4 mcg/mL 09/08/19 12:40 Random Vancomycin 22.6 mcg/mL 09/06/19 05:30 Blood Type O Positive 09/03/19 17:42 Antibody Screen Negative 09/03/19 17:42 Crossmatch See Detail 09/03/19 17:42 Transfusion React Rpt 09/04/19 02:05 Donor Unit # [id number] 09/04/19 02:05 Post-Trans Blood Type O Positive 09/04/19 02:05 Post-Trans SHARLENE Negative 09/04/19 02:05 Reaction Interpretation 09/04/19 02:05
--- NOTE | 2019-09-09 10:28 | PN ---
Progress Note - Progress Note Date of Service: 09/09/19 SOAP: Subjective: CC: Bacteremia and right LE stump infection HPI: Mr. Landrum is a 58 yo male with PMH significant for obesity, DM2 with peripheral neuropathy, CKD, anemia, HTN, HLD, and right LE osteomyelitis s/p syme amputation; presented to the hospital with celullitis and abscess. Denies fever, chills, nausea, vomiting, or diarrhea. Objective: Vital Signs 09/09/19 09/09/19 08:21 08:55 Temperature 97.3 F Pulse Rate 69 Respiratory 18 18 Rate Blood Pressure 180/92 (mmHg) O2 Sat by Pulse 96 Oximetry Physical Exam: General: NAD, sitting up in a chair Neurological: Alert and Oriented x4 HEENT: Moist MM, no thrush Cardiovascular: Heart rate regular Respiratory: Lung sounds clear Abdominal: Bowel sounds present; ABD soft, large, non tender Skin: No rash. LYUBOV wrap dressing ot right LE stump clean, dry, and intact Laboratory Results - last 24 hr 09/09/19 09/09/19 06:00 06:10 WBC 7.3 RBC 3.00 L Hgb 7.6 L Hct 23 L MCV 77 L MCH 25 L MCHC 33 RDW 17 H Plt Count 219 MPV 6.8 L Neut % (Auto) 78.7 Lymph % (Auto) 13.8 [place] % (Auto) 5.5 Eos % (Auto) 1.5 Baso % (Auto) 0.5 Absolute Neuts (auto) 5.7 Absolute Lymphs (auto) 1.0 Absolute Monos (auto) 0.4 Absolute Eos (auto) 0.1 Absolute Basos (auto) 0.0 Absolute Nucleated RBC 0.0 Nucleated RBC % 0.1 Sodium 134 L Potassium 5.0 Chloride 105 Carbon Dioxide 25 Anion Gap 4 BUN 18 Creatinine 2.03 H Est GFR ( Amer) 41.2 Est GFR (Non-Af Amer) 34.0 BUN/Creatinine Ratio 8.9 Glucose 107 H POC Glucose (mg/dL) Calcium 8.0 L Vancomycin Trough Microbiology 09/03/19 19:24 Aerobic Blood Culture - Final Blood Venous No Growth Day 5 Anaerobic Blood Culture - Final No Growth Day 5 09/03/19 17:42 Aerobic Blood Culture - Final Blood Venous No Growth Day 5 Anaerobic Blood Culture - Final No Growth Day 5 09/08/19 08:40 Gram Stain - Final Leg Right 09/04/19 17:10 Anaerobic Culture - Final Wound 09/04/19 17:10 Skin and Soft Tissue MRSA/MSSA (PCR - Final Leg Right Mrsa Positive S.aureus Positive Gram Stain - Final Wound Culture - Final MRSA 09/04/19 02:05 Transfusion Reaction Culture - Preliminary Blood Bag No Growth Day 4 Transfusion Reaction Gram Stain - Final 09/04/19 02:27 Urine Culture - Final Urine No Growth (<1,000 CFU/mL) Assessment: 1. Right LE cellulitis, abscess and osteomyelitis. Blood cultures in [place] with MRSA. Repeat blood cultures here with no growth. 09/04/19 s/p right LE stump I+D. 09/08/19 s/p revision amputation, transtibial right LE. 2. MRSA bacteremia. Secondary to #1. TTE with no vegetation. 3. DM2 with peripheral neuropathy. 4. Obesity. BMI 37.1 5. CKD. Plan: Continue vancomycin, day 05/02-. Weekly labs while on IV ABX: CBC, CMP, and CRP.
[2019-09-09] MEDS: Insulin LISPRO* 1 UNITS UNIT SUBCUT SCH ×4 (11:06→21:48)
[2019-09-09] MEDS: Vancomycin(*) 1,000 MG in NS 0.9% 250 ML* 250 ML IVPB SCH (12:46)
--- NOTE | 2019-09-09 17:07 | PN ---
Subjective Date of Service: 09/09/19 Interval History: Pt feels more encouraged than yesterday. Had "nerve pain shooting down R leg" Objective Active Medications: Acetaminophen (Tylenol Tab*) 975 mg PO Q8HR [facility] Last Admin: 09/09/19 12:47 Dose: 975 mg Aspirin (Aspirin Tab*) 325 mg PO DAILY [facility] Last Admin: 09/09/19 08:20 Dose: 325 mg Atorvastatin Calcium (Lipitor*) 10 mg PO QPM [facility]; Protocol Last Admin: 09/08/19 18:06 Dose: 10 mg Bisacodyl (Dulcolax Supp*) 10 mg SD DAILY PRN PRN Reason: CONSTIPATION Last Admin: 09/09/19 11:19 Dose: 10 mg Clonidine HCl (Catapres Tab*) 0.2 mg PO BID [facility] Last Admin: 09/09/19 08:20 Dose: 0.2 mg Cyclobenzaprine HCl (Flexeril Tab*) 10 mg PO Q6H PRN PRN Reason: SPASMS Last Admin: 09/09/19 14:52 Dose: 10 mg Dextrose (Dextrose 50% Vial 50 Ml*) 25 ml IV PUSH .FOR FS < 60 - SS PRN PRN Reason: FS < 60 Diphenhydramine HCl (Benadryl Iv*) 25 mg IV Q6H PRN PRN Reason: PRURITIS Diphenhydramine HCl (Benadryl Po*) 25 mg PO Q6H PRN PRN Reason: PRURITIS Docusate Sodium (Colace Cap*) 100 mg PO BID [facility] Last Admin: 09/09/19 08:19 Dose: 100 mg Gabapentin (Neurontin Cap(*)) 200 mg PO TID [facility] Heparin Sodium (Porcine) (Heparin Flush Picc/Ml/Cvc(*)) 1 ml FLUSH 0600,1800 PRN; Protocol PRN Reason: flush Last Admin: 09/09/19 06:06 Dose: 1 ml Heparin Sodium (Porcine) (Heparin Vial(*)) 5,000 units SUBCUT Q8HR [facility] Last Admin: 09/09/19 14:02 Dose: 5,000 units Vancomycin HCl 1,000 mg/ (Sodium Chloride) 250 mls @ 166.667 mls/hr IVPB Q24H [facility] Last Admin: 09/09/19 12:46 Dose: 166.667 mls/hr Insulin Glargine (Lantus(*)) 8 units SUBCUT 1800 [facility] Last Admin: 09/08/19 18:05 Dose: 8 units Insulin Human Lispro (Humalog*) 0 units SUBCUT ACHS [facility]; Protocol Last Admin: 09/09/19 12:46 Dose: 2 units Magnesium Hydroxide (Milk Of Magnesia Liq*) 30 ml PO BID [facility] Last Admin: 09/09/19 08:23 Dose: Not Given Magnesium Hydroxide (Milk Of Magnesia Liq*) 30 ml PO BID PRN PRN Reason: CONSTIPATION Metoprolol Tartrate (Lopressor Tab*) 50 mg PO Q12HR [facility] Last Admin: 09/09/19 08:21 Dose: 50 mg Morphine Sulfate (Ms Contin(*)) 15 mg PO Q12H [facility] Last Admin: 09/09/19 06:00 Dose: 15 mg Multivitamins (Theragran Tab*) 1 tab PO DAILY [facility] Last Admin: 09/09/19 08:21 Dose: 1 tab Ondansetron HCl (Zofran Inj*) 4 mg IV Q6H PRN PRN Reason: NAUSEA Last Admin: 09/07/19 08:51 Dose: 4 mg Ondansetron HCl (Zofran Odt Tab*) 4 mg PO Q6H PRN PRN Reason: NAUSEA Last Admin: 09/06/19 16:58 Dose: 4 mg Oxycodone HCl (Roxycodone Tab*) 5 mg PO Q4H PRN PRN Reason: Pain - Breakthrough Last Admin: 09/09/19 08:21 Dose: 5 mg Oxycodone HCl (Roxycodone Tab*) 10 mg PO TID PRN PRN Reason: PAIN - SEVERE Last Admin: 09/09/19 16:28 Dose: 10 mg Pantoprazole Sodium (Protonix Tab*) 40 mg PO QAM [facility] Last Admin: 09/09/19 08:22 Dose: 40 mg Pharmacy Consult (Vancomycin Per Pharmacy*) 1 note FOLLOW UP .VANC PER PHARMACY [facility]; Protocol Pharmacy Profile Note (Vancomycin Trough Check) 1 note FOLLOW UP 1130 ONE Stop: 09/10/19 11:31 Polyethylene Glycol/Electrolytes (Miralax*) 17 gm PO DAILY PRN PRN Reason: CONSTIPATION Senna (Senokot 8.6 Mg Tab*) 1 tab PO BEDTIME PRN PRN Reason: CONSTIPATION Last Admin: 09/09/19 08:19 Dose: 1 tab Vital Signs - 8 hr 09/09/19 09/09/19 09/09/19 11:19 11:22 12:47 Temperature Pulse Rate Respiratory 18 18 Rate Blood Pressure 160/82 (mmHg) O2 Sat by Pulse Oximetry 09/09/19 09/09/19 09/09/19 12:53 14:52 16:00 Temperature 97.1 F Pulse Rate 61 Respiratory 18 18 Rate Blood Pressure 156/70 (mmHg) O2 Sat by Pulse 96 96 Oximetry 09/09/19 16:28 Temperature Pulse Rate Respiratory 18 Rate Blood Pressure (mmHg) O2 Sat by Pulse Oximetry Oxygen Devices in Use Now: None Appearance: 58 yo m in nAD, aAOx3 Eyes: No Scleral Icterus, PERRLA Ears/Nose/Mouth/Throat: NL Teeth, Lips, Gums, Mucous Membranes Moist Neck: NL Appearance and Movements; NL JVP, Trachea Midline Respiratory: Symmetrical Chest Expansion and Respiratory Effort, Clear to Auscultation Cardiovascular: NL Sounds; No Murmurs; No JVD, RRR Abdominal: NL Sounds; No Tenderness; No Distention Lymphatic: No Cervical Adenopathy Extremities: No Clubbing, Cyanosis, - - R leg stump wrapped in post op dressings Skin: No Nodules or Sclerosis Neurological: Alert and Oriented x 3, NL Muscle Strength and Tone Result Diagrams: 09/09/19 06:10 09/09/19 06:00 Microbiology and Other Data: Microbiology 09/04/19 02:05 Transfusion Reaction Gram Stain - Final Blood Bag Assess/Plan/Problems-Billing Assessment: 58 yo m with h/o DM2, CKD 3, HTN transferred from [place] for R stump abscess - Patient Problems (1) Amputation stump infection Comment: cont Vanc , s/p I&D on 09/04/19 , s/p transtibial amputation on R on 09/08/19 ID consult appreciated Pt had MRSA bacteremia at [place], repeat blood cx NTD. TTE with no vegetations at [place]. No need to ZEE PICC in place, planned to STR on IV antibiotics will start gabapentin for neuropathic pain (2) Diabetes Comment: - Cont ISS -cont Lantus (3) Hypertension Comment: - Cont Clonidine, lopressor, restarting Torsemide at a smaller than home dose due to elevated BP today (4) Atrial fib/flutter, transient Comment: one episode that occured when pt was bacteremic, converted to NSR in [place]. Off amiodarone. Anicoagulation not needed as d/w cardiology On ASA cont telem (5) CKD (chronic kidney disease) Comment: - Cr at baseline 1.7 ,increased this hospital stay likely [facility] due to bacteremia - Euvolemic -holding torsemide, cont to monitor (6) Anemia Comment: Of chronic disease, s/p 2 U PRBC transfusion on 09/03/19 today Hb slightly lower, but likely dilutional. cont to monitor (7) Hyponatremia Comment: mild, monitor (8) DVT prophylaxis Comment: HSQ, ASA Status and Disposition: inpatient, medically ready for STR awaiting bed
[2019-09-09] MEDS: Gabapentin CAP(*) 100 MG PO SCH ×2 (17:14→22:03)
[2019-09-09] MEDS: Atorvastatin* 10 MG TAB PO SCH (17:15)
[2019-09-09] MEDS: Insulin GLARGINE(*) 1 UNITS UNIT SUBCUT SCH (17:16)
[2019-09-09] MEDS: Torsemide TAB 10 MG PO SCH (17:20)
[2019-09-10] MEDS: Heparin VIAL(*) 5000 UNITS/ML VIAL (FIVE THOUSAND) SUBCUT SCH ×3 (06:06→22:12)
[2019-09-10] MEDS: Morphine TAB Extended Release (*) 15 MG TAB.ER PO SCH ×2 (06:07→18:07)
[2019-09-10] MEDS: Acetaminophen TAB* 325 MG PO SCH ×3 (06:07→20:46)
[2019-09-10] MEDS: oxyCODONE TAB* 5 MG TAB PO PRN ×3 (06:54→23:23)
--- NOTE | 2019-09-10 08:24 | PN ---
Subjective Date of Service: 09/10/19 Interval History: HOSPITALIST PROGRESS NOTE Patient seen and examined at bedside. Care reviewed and d/w Portia Yi RN. He feels well this AM, but still had "shooting pains" on his RLE last night. Would like to have Gabapentin at bedime as he thinks the medication is helping. Family History: Unchanged from Admission Social History: Unchanged from Admission Past Medical History: Unchanged from Admission Objective Active Medications: Acetaminophen (Tylenol Tab*) 975 mg PO Q8HR [facility] Last Admin: 09/10/19 06:07 Dose: 975 mg Aspirin (Aspirin Tab*) 325 mg PO DAILY [facility] Last Admin: 09/09/19 08:20 Dose: 325 mg Atorvastatin Calcium (Lipitor*) 10 mg PO QPM [facility]; Protocol Last Admin: 09/09/19 17:15 Dose: 10 mg Bisacodyl (Dulcolax Supp*) 10 mg ND DAILY PRN PRN Reason: CONSTIPATION Last Admin: 09/09/19 11:19 Dose: 10 mg Clonidine HCl (Catapres Tab*) 0.2 mg PO BID [facility] Last Admin: 09/09/19 22:02 Dose: 0.2 mg Cyclobenzaprine HCl (Flexeril Tab*) 10 mg PO Q6H PRN PRN Reason: SPASMS Last Admin: 09/09/19 22:04 Dose: 10 mg Dextrose (Dextrose 50% Vial 50 Ml*) 25 ml IV PUSH .FOR FS < 60 - SS PRN PRN Reason: FS < 60 Diphenhydramine HCl (Benadryl Iv*) 25 mg IV Q6H PRN PRN Reason: PRURITIS Diphenhydramine HCl (Benadryl Po*) 25 mg PO Q6H PRN PRN Reason: PRURITIS Docusate Sodium (Colace Cap*) 100 mg PO BID [facility] Last Admin: 09/09/19 22:03 Dose: 100 mg Gabapentin (Neurontin Cap(*)) 200 mg PO TID [facility] Last Admin: 09/09/19 22:03 Dose: 200 mg Heparin Sodium (Porcine) (Heparin Flush Picc/Ml/Cvc(*)) 1 ml FLUSH 0600,1800 PRN; Protocol PRN Reason: flush Last Admin: 09/09/19 06:06 Dose: 1 ml Heparin Sodium (Porcine) (Heparin Vial(*)) 5,000 units SUBCUT Q8HR [facility] Last Admin: 09/10/19 06:06 Dose: 5,000 units Vancomycin HCl 1,000 mg/ (Sodium Chloride) 250 mls @ 166.667 mls/hr IVPB Q24H [facility] Last Admin: 09/09/19 12:46 Dose: 166.667 mls/hr Insulin Glargine (Lantus(*)) 8 units SUBCUT 1800 [facility] Last Admin: 09/09/19 17:16 Dose: 8 units Insulin Human Lispro (Humalog*) 0 units SUBCUT ACHS [facility]; Protocol Last Admin: 09/09/19 21:48 Dose: Not Given Magnesium Hydroxide (Milk Of Magnesia Liq*) 30 ml PO BID [facility] Last Admin: 09/09/19 22:22 Dose: Not Given Magnesium Hydroxide (Milk Of Magnesia Liq*) 30 ml PO BID PRN PRN Reason: CONSTIPATION Metoprolol Tartrate (Lopressor Tab*) 50 mg PO Q12HR [facility] Last Admin: 09/09/19 22:02 Dose: 50 mg Morphine Sulfate (Ms Contin(*)) 15 mg PO Q12H [facility] Last Admin: 09/10/19 06:07 Dose: 15 mg Multivitamins (Theragran Tab*) 1 tab PO DAILY [facility] Last Admin: 09/09/19 08:21 Dose: 1 tab Ondansetron HCl (Zofran Inj*) 4 mg IV Q6H PRN PRN Reason: NAUSEA Last Admin: 09/07/19 08:51 Dose: 4 mg Ondansetron HCl (Zofran Odt Tab*) 4 mg PO Q6H PRN PRN Reason: NAUSEA Last Admin: 09/06/19 16:58 Dose: 4 mg Oxycodone HCl (Roxycodone Tab*) 5 mg PO Q4H PRN PRN Reason: Pain - Breakthrough Last Admin: 09/09/19 22:01 Dose: 5 mg Oxycodone HCl (Roxycodone Tab*) 10 mg PO TID PRN PRN Reason: PAIN - SEVERE Last Admin: 09/10/19 06:54 Dose: 10 mg Pantoprazole Sodium (Protonix Tab*) 40 mg PO QAM [facility] Last Admin: 09/09/19 08:22 Dose: 40 mg Pharmacy Consult (Vancomycin Per Pharmacy*) 1 note FOLLOW UP .VANC PER PHARMACY [facility]; Protocol Pharmacy Profile Note (Vancomycin Trough Check) 1 note FOLLOW UP 1130 ONE Stop: 09/10/19 11:31 Polyethylene Glycol/Electrolytes (Miralax*) 17 gm PO DAILY PRN PRN Reason: CONSTIPATION Senna (Senokot 8.6 Mg Tab*) 1 tab PO BEDTIME PRN PRN Reason: CONSTIPATION Last Admin: 09/09/19 08:19 Dose: 1 tab Torsemide (Torsemide) 20 mg PO DAILY [facility] Last Admin: 09/09/19 17:20 Dose: 20 mg Vital Signs - 8 hr 09/10/19 09/10/19 09/10/19 03:51 06:07 06:10 Temperature 98.7 F Pulse Rate 67 Respiratory 18 16 16 Rate Blood Pressure 160/80 (mmHg) O2 Sat by Pulse 95 Oximetry 09/10/19 06:54 Temperature Pulse Rate Respiratory 18 Rate Blood Pressure (mmHg) O2 Sat by Pulse Oximetry Oxygen Devices in Use Now: None Appearance: Pleasant morbid obese gentleman lying in bed in NAD Eyes: No Scleral Icterus Ears/Nose/Mouth/Throat: Mucous Membranes Moist Neck: Trachea Midline Respiratory: Symmetrical Chest Expansion and Respiratory Effort, Clear to Auscultation Cardiovascular: NL Sounds; No Murmurs; No JVD, RRR Abdominal: NL Sounds; No Tenderness; No Distention - obese. Moist erythematous rash to inguinal folds Extremities: - - RLE extremity splint intact Neurological: Alert and Oriented x 3, NL Muscle Strength and Tone Result Diagrams: 09/09/19 06:10 09/10/19 12:19 Assess/Plan/Problems-Billing Assessment: 58 yo m with h/o DM2, CKD 3, HTN transferred from [place] for R stump abscess - Patient Problems (1) Amputation stump infection Comment: - s/p I&D on 09/04/19, s/p transtibial amputation on the right on - Patient had MRSA bacteremia at [place], repeat blood cultures here are negative so far. - TTE with no vegetations at [place]. - ID input appreciated - plan for Vancomycin # - Will increase Gabapentin to 200mg QID (2) Diabetes Comment: - Check A1c. - Increase Lantus to 10 units and continue Lispro SS. (3) Hypertension Comment: - Fairly controlled. - Continue Clonidine, Metoprolol, and Torsemide. (4) Atrial fib/flutter, transient Comment: - One episode that occured when patient was bacteremic, converted to NSR in [place]. Off amiodarone. Anicoagulation not needed as per Dr Jackson's d/w Cardiology - Continue Aspirin. (5) CKD (chronic kidney disease) Comment: - CKD stage 3-4 - Creatinine at baseline is 1.7, up to 2.1 this hospital stay likely [facility] due to bacteremia - Patient is euvolemic at this time (6) Anemia Comment: - Anemia of chronic disease, s/p 2 U PRBC transfusion on 09/03/19 - Continue to monitor (7) Hyponatremia Comment: - Mild hyponatremia - continue to monitor (8) DVT prophylaxis Comment: - SQ heparin. (9) Full code status Status and Disposition: Inpatient. Anticipate d/c in AM to [facility].
[2019-09-10] MEDS ORDERED: Torsemide TAB 10 MG PO SCH (09:00)
[2019-09-10] MEDS: Torsemide TAB 10 MG PO SCH (10:14)
[2019-09-10] MEDS: Metoprolol Tartrate TAB* 50 mg PO SCH ×2 (10:14→20:46)
[2019-09-10] MEDS: Pantoprazole TAB * 40 MG TAB PO SCH (10:15)
[2019-09-10] MEDS: cloNIDine TAB* 0.1 MG PO SCH ×2 (10:15→20:46)
[2019-09-10] MEDS: Docusate CAP* 100 MG PO SCH ×2 (10:15→20:46)
[2019-09-10] MEDS: Vitamin THERAPEUTIC TAB PO SCH (10:15)
[2019-09-10] MEDS: Gabapentin CAP(*) 100 MG PO SCH ×3 (10:15→20:47)
[2019-09-10] MEDS: Aspirin TAB* 325 MG PO SCH (10:15)
[2019-09-10] MEDS: Insulin LISPRO* 1 UNITS UNIT SUBCUT SCH ×4 (10:16→22:12)
[2019-09-10] MEDS: Magnesium Hydroxide LIQ* 30 ML UDC PO SCH ×2 (10:26→20:48)
[2019-09-10] MEDS ORDERED: Vancomycin Trough Check NOTE FOLLOW UP ONE (11:30)
--- NOTE | 2019-09-10 11:32 | PN ---
Progress Note - Progress Note Date of Service: 09/10/19 SOAP: Subjective: CC: Bacteremia and right LE stump infection HPI: Mr. Landrum is a 58 yo male with PMH significant for obesity, DM2 with peripheral neuropathy, CKD, anemia, HTN, HLD, and right LE osteomyelitis s/p syme amputation; presented to the hospital with celullitis and abscess; now S/P right BKA. Denies fever, chills, nausea, vomiting, or diarrhea. He is planning on discharge to SNF tomorrow. Objective: Vital Signs 09/10/19 09/10/19 09/10/19 06:54 07:40 08:00 Temperature 98.6 F Pulse Rate 64 Respiratory 18 18 12 Rate Blood Pressure 144/82 (mmHg) O2 Sat by Pulse 93 Oximetry Physical Exam: General: NAD, sitting up in bed Neurological: Alert and Oriented x4 HEENT: Moist MM, no thrush Cardiovascular: Heart rate regular Respiratory: Lung sounds clear Abdominal: Bowel sounds present; ABD large, soft and non tender MSK: ORTIZ Skin: No rash. LYUBOV wrap dressing to right LE stump; clean, dry and intact Laboratory Last Values WBC 7.3 10^3/uL (3.5-10.8) 09/09/19 06:10 RBC 3.00 10^6 /uL (4.18-5.48) L 09/09/19 06:10 Hgb 7.6 g/dL (14.0-18.0) L 09/09/19 06:10 Hct 23 % (42-52) L 09/09/19 06:10 MCV 77 fL (80-94) L 09/09/19 06:10 MCH 25 pg (27-31) L 09/09/19 06:10 MCHC 33 g/dL (31-36) 09/09/19 06:10 RDW 17 % (10-15) H 09/09/19 06:10 Plt Count 219 10^3/uL (150-450) 09/09/19 06:10 MPV 6.8 fL (7.4-10.4) L 09/09/19 06:10 Neut % (Auto) 78.7 % 09/09/19 06:10 Lymph % (Auto) 13.8 % 09/09/19 06:10 [place] % (Auto) 5.5 % 09/09/19 06:10 Eos % (Auto) 1.5 % 09/09/19 06:10 Baso % (Auto) 0.5 % 09/09/19 06:10 Absolute Neuts (auto) 5.7 10^3/ul (1.5-7.7) 09/09/19 06:10 Absolute Lymphs (auto) 1.0 10^3/ul (1.0-4.8) 09/09/19 06:10 Absolute Monos (auto) 0.4 10^3/ul (0-0.8) 09/09/19 06:10 Absolute Eos (auto) 0.1 10^3/ul (0-0.6) 09/09/19 06:10 Absolute Basos (auto) 0.0 10^3/ul (0-0.2) 09/09/19 06:10 Absolute Nucleated RBC 0.0 10^3/ul 09/09/19 06:10 Nucleated RBC % 0.1 09/09/19 06:10 ESR > 120 mm/Hr (0-19) H 09/03/19 17:31 INR (Anticoag Therapy) 1.27 (0.82-1.09) H 09/03/19 17:31 Sodium 134 mmol/L (135-145) L 09/09/19 06:00 Potassium 5.0 mmol/L (3.5-5.0) 09/09/19 06:00 Chloride 105 mmol/L (101-111) 09/09/19 06:00 Carbon Dioxide 25 mmol/L (22-32) 09/09/19 06:00 Anion Gap 4 mmol/L (2-11) 09/09/19 06:00 BUN 18 mg/dL (6-24) 09/09/19 06:00 Creatinine 2.03 mg/dL (0.67-1.17) H 09/09/19 06:00 Est GFR ( Amer) 41.2 (>60) 09/09/19 06:00 Est GFR (Non-Af Amer) 34.0 (>60) 09/09/19 06:00 BUN/Creatinine Ratio 8.9 (8-20) 09/09/19 06:00 Glucose 107 mg/dL (70-100) H 09/09/19 06:00 POC Glucose (mg/dL) 144 mg/dL (70-100) H 09/10/19 07:31 Serum Osmolality 279 mOsm/kg (275-295) 09/03/19 17:31 Lactic Acid 0.8 mmol/L (0.5-2.0) 09/03/19 17:42 Calcium 8.0 mg/dL (8.6-10.3) L 09/09/19 06:00 Magnesium 2.0 mg/dL (1.9-2.7) 09/05/19 05:40 Iron 74 ug/dL (50-212) 09/04/19 07:30 TIBC 147 mcg/dL (250-450) L 09/04/19 07:30 % Saturation 50 % (15-55) 09/04/19 07:30 Unsat Iron Binding < 132 ug/dL 09/04/19 07:30 Transferrin 105 mg/dL (203-362) L 09/04/19 07:30 Erythropoietin 10.5 mIU/mL (2.6 - 18.5) 09/04/19 07:30 Ferritin 200.4 ng/mL (24-336) 09/04/19 07:30 Total Bilirubin 1.00 mg/dL (0.2-1.0) 09/04/19 07:30 AST 9 U/L (13-39) L 09/04/19 07:30 ALT 7 U/L (7-52) 09/04/19 07:30 Alkaline Phosphatase 139 U/L (34-104) H 09/04/19 07:30 C-Reactive Protein 206.90 mg/L (<8.01) H 09/05/19 05:40 Total Protein 5.7 g/dL (6.4-8.9) L 09/04/19 07:30 Albumin 2.3 g/dL (3.2-5.2) L 09/04/19 07:30 Globulin 3.4 g/dL (2-4) 09/04/19 07:30 Albumin/Globulin Ratio 0.7 (1-3) L 09/04/19 07:30 Vitamin B12 > 1450 pg/mL (180-914) H 09/04/19 07:30 Folate 12.47 ng/mL (>3.99) 09/04/19 07:30 Urine Color Yellow 09/04/19 02:27 Urine Appearance Cloudy 09/04/19 02:27 Urine pH 5.0 (5-9) 09/04/19 02:27 Ur Specific [place] 1.011 (1.010-1.030) 09/04/19 02:27 Urine Protein Negative (Negative) 09/04/19 02:27 Urine Ketones Negative (Negative) 09/04/19 02:27 Urine Blood 1+ (Negative) A 09/04/19 02:27 Urine Nitrate Negative (Negative) 09/04/19 02:27 Urine Bilirubin Negative (Negative) 09/04/19 02:27 Urine Urobilinogen Negative (Negative) 09/04/19 02:27 Ur Leukocyte Esterase Negative (Negative) 09/04/19 02:27 Urine WBC (Auto) Absent (Absent) 09/04/19 02:27 Urine RBC (Auto) Trace(0-2/hpf) (Absent) 09/04/19 02:27 Urine Bacteria 1+ (Absent) A 09/04/19 02:27 Urine Osmolality 236 mOsm/kg (100-1150) 09/03/19 19:58 U Sodium Concentration < 18 mmol/L 09/03/19 19:58 Urine Glucose 1+(50 mg/dl) (Negative) A 09/04/19 02:27 Vancomycin Trough 19.4 mcg/mL 09/08/19 12:40 Random Vancomycin 22.6 mcg/mL 09/06/19 05:30 Blood Type O Positive 09/03/19 17:42 Antibody Screen Negative 09/03/19 17:42 Crossmatch See Detail 09/03/19 17:42 Transfusion React Rpt 09/04/19 02:05 Donor Unit # [id number] 09/04/19 02:05 Post-Trans Blood Type O Positive 09/04/19 02:05 Post-Trans SHARLENE Negative 09/04/19 02:05 Reaction Interpretation 09/04/19 02:05 Microbiology 09/08/19 08:40 Anaerobic Culture - Preliminary Wound - Right Leg No Growth Day 2 09/08/19 08:40 Gram Stain - Final Leg Right Wound Culture - Preliminary No Growth Day 2 09/04/19 02:05 Transfusion Reaction Culture - Final Blood Bag No Growth Day 5 Transfusion Reaction Gram Stain - Final 09/03/19 19:24 Aerobic Blood Culture - Final Blood Venous No Growth Day 5 Anaerobic Blood Culture - Final No Growth Day 5 09/03/19 17:42 Aerobic Blood Culture - Final Blood Venous No Growth Day 5 Anaerobic Blood Culture - Final No Growth Day 5 09/04/19 17:10 Anaerobic Culture - Final Wound 09/04/19 17:10 Skin and Soft Tissue MRSA/MSSA (PCR - Final Leg Right Mrsa Positive S.aureus Positive Gram Stain - Final Wound Culture - Final MRSA 09/04/19 02:27 Urine Culture - Final Urine No Growth (<1,000 CFU/mL) Assessment: 1. Right LE cellulitis, abscess and osteomyelitis. Blood cultures in [place] with MRSA. Repeat blood cultures here with no growth. 09/04/19 s/p right LE stump I+D. 09/08/19 s/p revision amputation with transtibial amp right LE. 2. MRSA bacteremia. Secondary to #1. TTE with no vegetation. 3. DM2 with peripheral neuropathy. 4. Obesity. BMI 37.1 5. CKD. Plan: Continue vancomycin, day 06/01-. Weekly labs while on IV ABX: CBC, CMP, and CRP. Followup with ID outpatient in 2 weeks. 25 minutes floor time: > 50% face to face with the patient discussing long course of IV ABX, need for followup care, and when to call the office (fever, rash or diarrhea).
--- NOTE | 2019-09-10 11:55 | PN ---
Progress Note - Progress Note Date of Service: 09/10/19 SOAP: Subjective: []Pt seen at bedside, he feels well without CP, SOB, dizziness or nausea. Addition of gabapentin has offered good pain control of RLE. Objective: []Gen: NAD, nontoxic appearing RLE: Dressing CDI without strike through Assessment: POD [address] Perez Plan: 1) NWB RLE 2) IV abx per ID - on vanco with plans for continuation x 4-6 weeks 3) on heparin, ASA for DVT prophy 4) ready for DC from ortho standpoint with fu next week in ortho clinic with Dr Perez. If in house for timeline nearing 1 week will remove splint for wound check. If he leaves earlier than this his splint can remain CDI until follow up visit Vital Signs Temp 98.6 F 09/10/19 08:00 Pulse 64 09/10/19 08:00 Resp 18 09/10/19 10:17 BP 144/82 09/10/19 08:00 Pulse Ox 93 09/10/19 08:00 Intake & Output 09/09/19 09/10/19 09/10/19 18:59 06:59 18:59 Intake Total 778 900 Output Total 1000 775 400 Balance -222 125 -400 Intake: IV Fluids 298 Vancomycin 298 Oral 480 900 Output: Urine 1000 775 400 Other: Estimated Void Large # Bowel Movements 1 1 Estimated Stool Amount Medium Small # Voids 1 Laboratory Last Values WBC 7.3 10^3/uL (3.5-10.8) 09/09/19 06:10 RBC 3.00 10^6 /uL (4.18-5.48) L 09/09/19 06:10 Hgb 7.6 g/dL (14.0-18.0) L 09/09/19 06:10 Hct 23 % (42-52) L 09/09/19 06:10 MCV 77 fL (80-94) L 09/09/19 06:10 MCH 25 pg (27-31) L 09/09/19 06:10 MCHC 33 g/dL (31-36) 09/09/19 06:10 RDW 17 % (10-15) H 09/09/19 06:10 Plt Count 219 10^3/uL (150-450) 09/09/19 06:10 MPV 6.8 fL (7.4-10.4) L 09/09/19 06:10 Neut % (Auto) 78.7 % 09/09/19 06:10 Lymph % (Auto) 13.8 % 09/09/19 06:10 [place] % (Auto) 5.5 % 09/09/19 06:10 Eos % (Auto) 1.5 % 09/09/19 06:10 Baso % (Auto) 0.5 % 09/09/19 06:10 Absolute Neuts (auto) 5.7 10^3/ul (1.5-7.7) 09/09/19 06:10 Absolute Lymphs (auto) 1.0 10^3/ul (1.0-4.8) 09/09/19 06:10 Absolute Monos (auto) 0.4 10^3/ul (0-0.8) 09/09/19 06:10 Absolute Eos (auto) 0.1 10^3/ul (0-0.6) 09/09/19 06:10 Absolute Basos (auto) 0.0 10^3/ul (0-0.2) 09/09/19 06:10 Absolute Nucleated RBC 0.0 10^3/ul 09/09/19 06:10 Nucleated RBC % 0.1 09/09/19 06:10 ESR > 120 mm/Hr (0-19) H 09/03/19 17:31 INR (Anticoag Therapy) 1.27 (0.82-1.09) H 09/03/19 17:31 Sodium 134 mmol/L (135-145) L 09/09/19 06:00 Potassium 5.0 mmol/L (3.5-5.0) 09/09/19 06:00 Chloride 105 mmol/L (101-111) 09/09/19 06:00 Carbon Dioxide 25 mmol/L (22-32) 09/09/19 06:00 Anion Gap 4 mmol/L (2-11) 09/09/19 06:00 BUN 18 mg/dL (6-24) 09/09/19 06:00 Creatinine 2.03 mg/dL (0.67-1.17) H 09/09/19 06:00 Est GFR ( Amer) 41.2 (>60) 09/09/19 06:00 Est GFR (Non-Af Amer) 34.0 (>60) 09/09/19 06:00 BUN/Creatinine Ratio 8.9 (8-20) 09/09/19 06:00 Glucose 107 mg/dL (70-100) H 09/09/19 06:00 POC Glucose (mg/dL) 144 mg/dL (70-100) H 09/10/19 07:31 Serum Osmolality 279 mOsm/kg (275-295) 09/03/19 17:31 Lactic Acid 0.8 mmol/L (0.5-2.0) 09/03/19 17:42 Calcium 8.0 mg/dL (8.6-10.3) L 09/09/19 06:00 Magnesium 2.0 mg/dL (1.9-2.7) 09/05/19 05:40 Iron 74 ug/dL (50-212) 09/04/19 07:30 TIBC 147 mcg/dL (250-450) L 09/04/19 07:30 % Saturation 50 % (15-55) 09/04/19 07:30 Unsat Iron Binding < 132 ug/dL 09/04/19 07:30 Transferrin 105 mg/dL (203-362) L 09/04/19 07:30 Erythropoietin 10.5 mIU/mL (2.6 - 18.5) 09/04/19 07:30 Ferritin 200.4 ng/mL (24-336) 09/04/19 07:30 Total Bilirubin 1.00 mg/dL (0.2-1.0) 09/04/19 07:30 AST 9 U/L (13-39) L 09/04/19 07:30 ALT 7 U/L (7-52) 09/04/19 07:30 Alkaline Phosphatase 139 U/L (34-104) H 09/04/19 07:30 C-Reactive Protein 206.90 mg/L (<8.01) H 09/05/19 05:40 Total Protein 5.7 g/dL (6.4-8.9) L 09/04/19 07:30 Albumin 2.3 g/dL (3.2-5.2) L 09/04/19 07:30 Globulin 3.4 g/dL (2-4) 09/04/19 07:30 Albumin/Globulin Ratio 0.7 (1-3) L 09/04/19 07:30 Vitamin B12 > 1450 pg/mL (180-914) H 09/04/19 07:30 Folate 12.47 ng/mL (>3.99) 09/04/19 07:30 Urine Color Yellow 09/04/19 02:27 Urine Appearance Cloudy 09/04/19 02:27 Urine pH 5.0 (5-9) 09/04/19 02:27 Ur Specific [place] 1.011 (1.010-1.030) 09/04/19 02:27 Urine Protein Negative (Negative) 09/04/19 02:27 Urine Ketones Negative (Negative) 09/04/19 02:27 Urine Blood 1+ (Negative) A 09/04/19 02:27 Urine Nitrate Negative (Negative) 09/04/19 02:27 Urine Bilirubin Negative (Negative) 09/04/19 02:27 Urine Urobilinogen Negative (Negative) 09/04/19 02:27 Ur Leukocyte Esterase Negative (Negative) 09/04/19 02:27 Urine WBC (Auto) Absent (Absent) 09/04/19 02:27 Urine RBC (Auto) Trace(0-2/hpf) (Absent) 09/04/19 02:27 Urine Bacteria 1+ (Absent) A 09/04/19 02:27 Urine Osmolality 236 mOsm/kg (100-1150) 09/03/19 19:58 U Sodium Concentration < 18 mmol/L 09/03/19 19:58 Urine Glucose 1+(50 mg/dl) (Negative) A 09/04/19 02:27 Vancomycin Trough 19.4 mcg/mL 09/08/19 12:40 Random Vancomycin 22.6 mcg/mL 09/06/19 05:30 Blood Type O Positive 09/03/19 17:42 Antibody Screen Negative 09/03/19 17:42 Crossmatch See Detail 09/03/19 17:42 Transfusion React Rpt 09/04/19 02:05 Donor Unit # [id number] 09/04/19 02:05 Post-Trans Blood Type O Positive 09/04/19 02:05 Post-Trans SHARLENE Negative 09/04/19 02:05 Reaction Interpretation 09/04/19 02:05
[2019-09-10 13:20] LABS: Vancomycin Trough 20.9 mcg/mL
[2019-09-10 14:06] LABS: EGFR African American 38.3 (>60); EGFR Non-African American 31.7 (>60)
[2019-09-10] MEDS: Vancomycin(*) 1,000 MG in NS 0.9% 250 ML* 250 ML IVPB SCH (14:43)
[2019-09-10 15:32] LABS: ABS Eosinophils 0.1 10^3/ul (0-0.6); ABS Lymphocytes 0.9 10^3/ul (1.0-4.8); ABS Monocytes 0.3 10^3/ul (0-0.8); ABS Neutrophils 3.3 10^3/ul (1.5-7.7); Eosinophil % 1.9 %; Hematocrit 23 % (42-52); Hemoglobin 7.4 g/dL (14.0-18.0); Mean Corpuscular HGB Conc 32 g/dL (31-36); Mean Corpuscular Hemoglobin 25 pg (27-31); Mean Corpuscular Volume 79 fL (80-94); Mean Platelet Volume 6.7 fL (7.4-10.4); Nucleated Red Blood Cells % 0.1; Platelet Count 180 10^3/uL (150-450); Red Blood Count 2.94 10^6 /uL (4.18-5.48); Red Cell Distribution Width 18 % (10-15); White Blood Count 4.6 10^3/uL (3.5-10.8)
[2019-09-10] MEDS ORDERED: Vancomycin(*) 750 MG in NS 0.9% 250 ML* 250 ML IV SCH (17:00)
[2019-09-10 17:24] LABS: BUN/Creatinine Ratio 9.8 (8-20); Calcium 7.9 mg/dL (8.6-10.3); EGFR African American 38.5 (>60); EGFR Non-African American 31.8 (>60); Potassium 4.9 mmol/L (3.5-5.0)
[2019-09-10] MEDS ORDERED: Insulin GLARGINE(*) 1 UNITS UNIT SUBCUT SCH (18:00)
[2019-09-10] MEDS: Atorvastatin* 10 MG TAB PO SCH (18:07)
[2019-09-10] MEDS: Nystatin TOP POWDER* 15 GM BTL TOPICAL SCH (22:11)
[2019-09-10] MEDS ORDERED: Gabapentin CAP(*) 100 MG PO SCH (23:00)
[2019-09-11] MEDS: Acetaminophen TAB* 325 MG PO SCH ×2 (06:03→13:19)
[2019-09-11] MEDS: Heparin VIAL(*) 5000 UNITS/ML VIAL (FIVE THOUSAND) SUBCUT SCH ×2 (06:03→13:20)
[2019-09-11] MEDS: Morphine TAB Extended Release (*) 15 MG TAB.ER PO SCH (06:03)
[2019-09-11 06:31] LABS: ABS Eosinophils 0.1 10^3/ul (0-0.6); ABS Monocytes 0.4 10^3/ul (0-0.8); ABS Neutrophils 3.4 10^3/ul (1.5-7.7); Eosinophil % 2.1 %; Hematocrit 24 % (42-52); Hemoglobin 7.6 g/dL (14.0-18.0); Lymphocyte % 20.6 %; Mean Corpuscular HGB Conc 32 g/dL (31-36); Mean Corpuscular Hemoglobin 25 pg (27-31); Mean Corpuscular Volume 78 fL (80-94); Mean Platelet Volume 6.7 fL (7.4-10.4); Nucleated Red Blood Cells % 0.1; Platelet Count 189 10^3/uL (150-450); Red Blood Count 3.05 10^6 /uL (4.18-5.48); Red Cell Distribution Width 18 % (10-15); White Blood Count 4.9 10^3/uL (3.5-10.8)
[2019-09-11 06:46] LABS: BUN/Creatinine Ratio 10.2 (8-20); EGFR African American 38.5 (>60); EGFR Non-African American 31.8 (>60); Potassium 4.9 mmol/L (3.5-5.0)
[2019-09-11] MEDS: Insulin LISPRO* 1 UNITS UNIT SUBCUT SCH ×2 (09:09→13:19)
[2019-09-11] MEDS: oxyCODONE TAB* 5 MG TAB PO PRN (09:11)
[2019-09-11] MEDS: Metoprolol Tartrate TAB* 50 mg PO SCH (09:12)
[2019-09-11] MEDS: Torsemide TAB 10 MG PO SCH (09:12)
[2019-09-11] MEDS: Aspirin TAB* 325 MG PO SCH (09:12)
[2019-09-11] MEDS: Pantoprazole TAB * 40 MG TAB PO SCH (09:13)
[2019-09-11] MEDS: cloNIDine TAB* 0.1 MG PO SCH (09:13)
[2019-09-11] MEDS: Gabapentin CAP(*) 100 MG PO SCH ×2 (09:13→13:19)
[2019-09-11] MEDS: Docusate CAP* 100 MG PO SCH (09:14)
[2019-09-11] MEDS: Vitamin THERAPEUTIC TAB PO SCH (09:14)
--- NOTE | 2019-09-11 11:27 | DS ---
CC: Dr. Donta Ramirez; Dr. Iniguez; Dr. Perez; Dr. Hill; Dr. Nicolas; Dr. Harriett Bellamy DISCHARGE SUMMARY: DATE OF ADMISSION: 09/03/19 DATE OF DISCHARGE: 09/11/19 PRIMARY CARE PROVIDER: Dr. Donta Ramirez. ORTHOPEDISTS: Dr. Iniguez and Dr. Perez. INFECTIOUS DISEASE SPECIALIST: Dr. Hill. CARRIER BLOWER: Dr. Nicolas and Dr. Harriett Bellamy. DISCHARGE DIAGNOSES: 1. Methicillin-resistant Staphylococcus aureus bacteremia. 2. Right lower extremity stump infection. 3. Atrial fibrillation. 4. Anemia of chronic disease and renal disease. 5. Chronic kidney disease, stage 3-4. SECONDARY DIAGNOSES: 1. Type 2 diabetes. 2. Diabetic neuropathy. 3. Charcot foot. 4. Hypertension. 5. Hyperlipidemia. MEDICATION LIST: 1. Acetaminophen 975 mg p.o. q.8 hours. 2. Aspirin 325 mg p.o. daily. 3. Dulcolax suppository 10 mg per rectum daily as needed for constipation. 4. Clonidine 0.2 mg p.o. b.i.d. 5. Cyclobenzaprine 10 mg p.o. q.6 hours p.r.n. spasms. 6. Colace 100 mg p.o. b.i.d. 7. Folic acid 1 mg p.o. daily. 8. Gabapentin 200 mg p.o. q.i.d. 9. Heparin flush 1 mL/PICC line at 6 a.m. and 6 p.m. 10. Heparin 5000 units subcutaneously q.8 hours. 11. Lantus 10 units subcutaneously daily. 12. Lispro sliding scale as follows. 13. Glucose 131 to 150, 2 units; 151 to 200, 3 units; 201 to 250, 6 units; 251 to300, 9 units; 301 t o 350, 12 units; 351 to 400, 15 units; greater than 400, 18 units and call MD. 14. Milk of magnesia 30 mL p.o. b.i.d. as needed for constipation. 15. Metoprolol tartrate 50 mg p.o. q.12 hours. 16. MS Contin 15 mg p.o. q.12 hours. 17. Nystatin powder topical t.i.d. to inguinal folds. 18. Omeprazole 20 mg p.o. daily. 19. Ondansetron ODT 4 mg p.o. q.6 hours p.r.n. nausea and vomiting. 20. Oxycodone 10 mg p.o. t.i.d. as needed for severe pain. 21. MiraLAX 17 g p.o. daily as needed for constipation. 22. Pravastatin 40 mg p.o. at bedtime. 23. Torsemide 20 mg p.o. daily. 24. Vancomycin 750 mg IV daily, today is day #8 of 28 to 42 days depending on Infectious Disease rec ommendation. 25. Multivitamin 1 tablet p.o. daily. HOSPITAL COURSE: Mr. Landrum is a 58-year-old male with a past medical history as stated above luis t was transferred from [facility] for further evaluation in our facility. The patient earlier had a Syme amputation done in March 2019 complicated by wound dehiscence requiring revision in May 2019. At that point, he was treated with 4 weeks of IV antibiotics and he had done well, but end of August 2019, he had developed some open areas on the lateral aspect of the wound wi th redness, pain, swelling and he went to the emergency room in [place] for further evaluation. In [place], he had an MRI that showed the possibility of early tibial osteomyelitis and abscess. Blood cultures done at that facility grew MRSA, echocardiogram showed normal ejection fraction and normal heart valves. He was transferred to our facility on 09/03/19 for further management. For more detai ls about presentation, I refer you to the history and physical dictated by Shayy Hightower Physician Tiffanie ssistant on 09/03/19. Initially, the hospitalist service was consulting on the case to assist with m anagement of comorbidities. 1. MRSA bacteremia and stump infection. The patient had duplex scan of the right lower extremity th at showed the arterial tree from common femoral to the distal calf are patent with essentially normal waveforms. He was taking to the OR on 09/04/[address] Iniguez where he underwent right lower extre mity stump irrigation and debridement with placement of a wound VAC. He was taken back to the operat ing room on 09/08/[address] Perez where he had a revision amputation of transtibial right leg. Woun d cultures from this admission grew MRSA, but his blood cultures done at this facility yielded no dasia wth. He was seen in consultation by Infectious Disease (Dr. Hill) and his impression was the pat ient had a history of right Syme amputation in March 2019, now presenting with cellulitis, abscess and possible osteomyelitis by MRI. The etiology is MRSA, which he has not had in the past as his prior i nfections were secondary to MSSA. The initial recommendation was for treatment with vancomycin and Z osyn, while cultures from the surgical procedures were awaited and the plan was for a long course of IV antibiotics. The patient has done well in the postop period. An orthopedics recommendation is fo r nonweightbearing to the right lower extremity. Continue IV antibiotics as per ID recommendation. To continue heparin for DVT prophylaxis and to keep splint intact and the plan is to remove the dress ing 1 week postop for wound check. This will be arranged as outpatient either with Dr. Perez or Dr. Iniguez. Final ID recommendation was to continue vancomycin with goal trough of 20. Today is day #8 of 28 to 42 days depending on ID recommendation. While on vancomycin, the patient is to have weekly CBC, CMPs , and CRPs. Those are ordered and results will be sent to Dr. Hill and Dr. Ramirez. He will need follow up with ID as outpatient in 2 weeks. 2. Atrial fibrillation. While at [facility], the patient was noted to have as ymptomatic atrial fibrillation and he was seen by Dr. Harriett Bellamy for consultation. At that time, he was given IV digoxin with therapeutic Lovenox followed by amiodarone. He was seen in consultation by Cardiology at our facility (Dr. Nicolas), and his impression was the patient has no history of PR, CH F, severe valve disease or malignant arrhythmias. His current EKG shows normal sinus rhythm with no ischemic changes. He has less than 4 METs of functional capacity limited by amputations but no angin a on level of activity. Dr. Nicolas felt that his mild dyspnea on exertion was likely related to anem ia and that he had no absolute cardiac contraindications to proposed amputation surgery under general anesthesia and could proceed without further cardiac evaluation warranted. Regarding the patient's a trial fibrillation, Dr. Nicolas suspected it was provoked by bacteremia and as the patient was now rocio k in sinus rhythm, he did not think long-term anticoagulation and recommended aspirin and continuatio n of clonidine and metoprolol. The patient has remained in normal sinus rhythm with no further cardia c complaints. 3. Anemia. The patient had hemoglobin of 7.2 on admission and anemia workup revealed iron of 74, TIB C of 147, ferritin of 200.4, erythropoietin of 10.5, vitamin B12 greater than 1400 and a folate of 12 .47. The impression was the patient had anemia of chronic and renal disease. He received 2 PRBCs an d his hemoglobin on the day of discharge is 7.6. At this time, he denies chest pain or dyspnea on ex ertion, but he will need monitoring of his H and H weekly and we would recommend transfusion if his h emoglobin is below 7. He has no signs of active bleeding at this time. As he continues to improve, he would also benefit of hematology evaluation to set up Epogen therapy as outpatient. He will be co ntinued on folate. 4. CKD, stage 3-4. The patient has known CKD with a baseline creatinine around 1.7. His creatinine during this hospital stay has remained stable between 2 and 2.5. This will need to be monitored weissac lopez as the patient will be on vancomycin. 5. Hypertension, has been controlled, but is trending up. The patient was continued on his metoprol ol and clonidine. We resumed his torsemide at a lower dose. He was on 80 mg as outpatient, he is no w on 20 mg daily, but due to his renal function, we will have to monitor closely and he may need gissel tion of another agent depending on how his blood pressure behaves. 6. Type 2 diabetes. The patient's A1c is 9.7 and while in the hospital, he has had much lower insul in requirements. His glucose has been consistently below 200, so we will just continue the same princess men with fingersticks a.c. and h.s., Lantus 10 units and lispro sliding scale as described. 7. The patient will be continued on subcu heparin for DVT prophylaxis until orthopedics deems this i s no longer necessary. The patient is medically stable to be discharged to [facility] today to continue his rehabilitation process and treatment. PHYSICAL EXAMINATION: Vital Signs: Temperature 98.3, heart rate is 68, respiratory rate is 18, oxyg en saturation 97% on room air, blood pressure is 139/72. General: The patient is a morbidly obese e lderly gentleman, appears older than stated age, sitting up in bed in no acute distress. CVS: Dian l S1, S2. Regular rate and rhythm. Chest: Breath sounds bilaterally with no added sounds. Diminishe d at bases. Abdomen: Morbidly obese, soft, bowel sounds present. Extremities: Clean, splint intact to the right lower extremity. Neuro: He is alert, oriented x3. He is able to move all 4 extremiti es. DIET: Consistent carb diet. ACTIVITIES: Nonweightbearing to the right lower extremity. Continue PT/OT as tolerated. DISPOSITION: [facility] to continue rehabilitation. STATUS IN THE PATIENT: Inpatient. CONDITION AT THE TIME OF DISCHARGE: Fair. Please keep in mind this is summarized version of this patient's complex and prolonged hospital stay. If you need more information, please feel to call me at [phone] or please obtain the full [facility] records TIME SPENT: Approximately 65 minutes was spent to complete the discharge. [id number]/[facility] #: [id number]
--- NOTE | 2019-09-11 11:36 | PN ---
Progress Note - Progress Note Date of Service: 09/11/19 SOAP: Subjective: []Pt seen at bedside, he feels well without fever, chills, CP, SOB, dizziness, nausea. No RLE pain. Objective: []Gen: NAD, nontoxic appearing RLE: Dressing CDI without strike through Assessment: POD 3 sp R JOSE ANTONIO Perez Plan: 1) NWB RLE 2) IV abx per ID - on vanco with plans for continuation x 4-6 weeks 3) on heparin, ASA for DVT prophy. Needs chemical DVT prophy at DC during period of immobility - ASA or lovenox appropriate post op dvt prophy 4) ready for DC from ortho standpoint with fu next week in ortho clinic with Dr Perez. 5) DC to rehab today Vital Signs Temp 98.6 F 09/11/19 08:22 Pulse 70 09/11/19 08:22 Resp 16 09/11/19 09:13 BP 154/82 09/11/19 08:22 Pulse Ox 97 09/11/19 08:22 Intake & Output 09/10/19 09/11/19 09/11/19 18:59 06:59 18:59 Intake Total 500 1030 Output Total 1325 800 870 Balance -1325 -300 160 Intake: Oral 500 1030 Output: Urine 1325 800 870 Other: Estimated Void Medium Date of Last Bowel 09/10/2019 Movement # Bowel Movements 2 # Voids 1 Laboratory Last Values WBC 4.9 10^3/uL (3.5-10.8) 09/11/19 06:15 RBC 3.05 10^6 /uL (4.18-5.48) L 09/11/19 06:15 Hgb 7.6 g/dL (14.0-18.0) L 09/11/19 06:15 Hct 24 % (42-52) L 09/11/19 06:15 MCV 78 fL (80-94) L 09/11/19 06:15 MCH 25 pg (27-31) L 09/11/19 06:15 MCHC 32 g/dL (31-36) 09/11/19 06:15 RDW 18 % (10-15) H 09/11/19 06:15 Plt Count 189 10^3/uL (150-450) 09/11/19 06:15 MPV 6.7 fL (7.4-10.4) L 09/11/19 06:15 Neut % (Auto) 68.8 % 09/11/19 06:15 Lymph % (Auto) 20.6 % 09/11/19 06:15 [place] % (Auto) 7.9 % 09/11/19 06:15 Eos % (Auto) 2.1 % 09/11/19 06:15 Baso % (Auto) 0.6 % 09/11/19 06:15 Absolute Neuts (auto) 3.4 10^3/ul (1.5-7.7) 09/11/19 06:15 Absolute Lymphs (auto) 1.0 10^3/ul (1.0-4.8) 09/11/19 06:15 Absolute Monos (auto) 0.4 10^3/ul (0-0.8) 09/11/19 06:15 Absolute Eos (auto) 0.1 10^3/ul (0-0.6) 09/11/19 06:15 Absolute Basos (auto) 0.0 10^3/ul (0-0.2) 09/11/19 06:15 Absolute Nucleated RBC 0.0 10^3/ul 09/11/19 06:15 Nucleated RBC % 0.1 09/11/19 06:15 ESR > 120 mm/Hr (0-19) H 09/03/19 17:31 INR (Anticoag Therapy) 1.27 (0.82-1.09) H 09/03/19 17:31 Sodium 136 mmol/L (135-145) 09/11/19 06:15 Potassium 4.9 mmol/L (3.5-5.0) 09/11/19 06:15 Chloride 105 mmol/L (101-111) 09/11/19 06:15 Carbon Dioxide 26 mmol/L (22-32) 09/11/19 06:15 Anion Gap 5 mmol/L (2-11) 09/11/19 06:15 BUN 22 mg/dL (6-24) 09/11/19 06:15 Creatinine 2.15 mg/dL (0.67-1.17) H 09/11/19 06:15 Est GFR ( Amer) 38.5 (>60) 09/11/19 06:15 Est GFR (Non-Af Amer) 31.8 (>60) 09/11/19 06:15 BUN/Creatinine Ratio 10.2 (8-20) 09/11/19 06:15 Glucose 157 mg/dL (70-100) H 09/11/19 06:15 POC Glucose (mg/dL) 220 mg/dL (70-100) H 09/10/19 12:12 Hemoglobin A1c 9.7 % (4.0-5.6) H 09/10/19 15:28 Serum Osmolality 279 mOsm/kg (275-295) 09/03/19 17:31 Lactic Acid 0.8 mmol/L (0.5-2.0) 09/03/19 17:42 Calcium 8.0 mg/dL (8.6-10.3) L 09/11/19 06:15 Magnesium 2.0 mg/dL (1.9-2.7) 09/05/19 05:40 Iron 74 ug/dL (50-212) 09/04/19 07:30 TIBC 147 mcg/dL (250-450) L 09/04/19 07:30 % Saturation 50 % (15-55) 09/04/19 07:30 Unsat Iron Binding < 132 ug/dL 09/04/19 07:30 Transferrin 105 mg/dL (203-362) L 09/04/19 07:30 Erythropoietin 10.5 mIU/mL (2.6 - 18.5) 09/04/19 07:30 Ferritin 200.4 ng/mL (24-336) 09/04/19 07:30 Total Bilirubin 1.00 mg/dL (0.2-1.0) 09/04/19 07:30 AST 9 U/L (13-39) L 09/04/19 07:30 ALT 7 U/L (7-52) 09/04/19 07:30 Alkaline Phosphatase 139 U/L (34-104) H 09/04/19 07:30 C-Reactive Protein 206.90 mg/L (<8.01) H 09/05/19 05:40 Total Protein 5.7 g/dL (6.4-8.9) L 09/04/19 07:30 Albumin 2.3 g/dL (3.2-5.2) L 09/04/19 07:30 Globulin 3.4 g/dL (2-4) 09/04/19 07:30 Albumin/Globulin Ratio 0.7 (1-3) L 09/04/19 07:30 Vitamin B12 > 1450 pg/mL (180-914) H 09/04/19 07:30 Folate 12.47 ng/mL (>3.99) 09/04/19 07:30 Urine Color Yellow 09/04/19 02:27 Urine Appearance Cloudy 09/04/19 02:27 Urine pH 5.0 (5-9) 09/04/19 02:27 Ur Specific [place] 1.011 (1.010-1.030) 09/04/19 02:27 Urine Protein Negative (Negative) 09/04/19 02:27 Urine Ketones Negative (Negative) 09/04/19 02:27 Urine Blood 1+ (Negative) A 09/04/19 02:27 Urine Nitrate Negative (Negative) 09/04/19 02:27 Urine Bilirubin Negative (Negative) 09/04/19 02:27 Urine Urobilinogen Negative (Negative) 09/04/19 02:27 Ur Leukocyte Esterase Negative (Negative) 09/04/19 02:27 Urine WBC (Auto) Absent (Absent) 09/04/19 02:27 Urine RBC (Auto) Trace(0-2/hpf) (Absent) 09/04/19 02:27 Urine Bacteria 1+ (Absent) A 09/04/19 02:27 Urine Osmolality 236 mOsm/kg (100-1150) 09/03/19 19:58 U Sodium Concentration < 18 mmol/L 09/03/19 19:58 Urine Glucose 1+(50 mg/dl) (Negative) A 09/04/19 02:27 Vancomycin Trough 20.9 mcg/mL 09/10/19 12:19 Random Vancomycin 22.6 mcg/mL 09/06/19 05:30 Blood Type O Positive 09/03/19 17:42 Antibody Screen Negative 09/03/19 17:42 Crossmatch See Detail 09/03/19 17:42 Transfusion React Rpt 09/04/19 02:05 Donor Unit # [id number] 09/04/19 02:05 Post-Trans Blood Type O Positive 09/04/19 02:05 Post-Trans SHARLENE Negative 09/04/19 02:05 Reaction Interpretation 09/04/19 02:05
[2019-09-11] MEDS: Nystatin TOP POWDER* 15 GM BTL TOPICAL SCH ×2 (11:41→13:20)
[2019-09-11 12:20] VITALS: BP 158/70
[2019-09-12] MEDS ORDERED: Vancomycin Trough Check NOTE FOLLOW UP ONE (16:30)
== END 2019-09-11 16:55 | DRG 475 ==
LOC: SSU 16:59 → MEDTELE 19:45 → SSU 09-08 11:03
PROVIDERS: ADMIT Orthopaedic Surgery; ATTEND Internal Medicine
PROC: 30233N1 Transfusion of Nonautologous Red Blood Cells into Peripheral Vein, Percutaneous Approach (ICD-10-PCS; 2019-09-03)
PROC: 0QBJ0ZZ Excision of Right Fibula, Open Approach (ICD-10-PCS; 2019-09-04)
PROC: 0QBG0ZZ Excision of Right Tibia, Open Approach (ICD-10-PCS; 2019-09-04)
PROC: 0Y6H0Z2 Detachment at Right Lower Leg, Mid, Open Approach (ICD-10-PCS; principal; 2019-09-04 11:30)
DX: T87.43 Infection of amputation stump, right lower extremity (principal); R78.81 Bacteremia; L03.115 Cellulitis of right lower limb; M86.8X6 Other osteomyelitis, lower leg; L02.415 Cutaneous abscess of right lower limb; E87.1 Hypo-osmolality and hyponatremia; I48.92 Unspecified atrial flutter; N18.4 Chronic kidney disease, stage 4 (severe); Y83.5 Amputation of limb(s) as the cause of abnormal reaction of the patient, or of later complication, without mention of misadventure at the time of the procedure; I12.9 Hypertensive chronic kidney disease with stage 1 through stage 4 chronic kidney disease, or unspecified chronic kidney disease; E11.22 Type 2 diabetes mellitus with diabetic chronic kidney disease; E78.5 Hyperlipidemia, unspecified; B95.62 Methicillin resistant Staphylococcus aureus infection as the cause of diseases classified elsewhere; G89.29 Other chronic pain; M54.5 Low back pain; F32.9 Major depressive disorder, single episode, unspecified; D63.1 Anemia in chronic kidney disease; D52.9 Folate deficiency anemia, unspecified; D51.9 Vitamin B12 deficiency anemia, unspecified; E11.610 Type 2 diabetes mellitus with diabetic neuropathic arthropathy; K21.9 Gastro-esophageal reflux disease without esophagitis; I48.0 Paroxysmal atrial fibrillation; E66.01 Morbid (severe) obesity due to excess calories; F41.9 Anxiety disorder, unspecified; Y92.009 Unspecified place in unspecified non-institutional (private) residence as the place of occurrence of the external cause; Z88.6 Allergy status to analgesic agent; Z68.37 Body mass index [BMI] 37.0-37.9, adult; Z79.82 Long term (current) use of aspirin; Z79.899 Other long term (current) drug therapy; Z79.01 Long term (current) use of anticoagulants; Z79.4 Long term (current) use of insulin
CPT/HCPCS: 36415; 71046; 80048; 80053; 80202; 81003; 81015; 82565; 82607; 82668; 82728; 82746; 83036; 83540; 83550; 83605; 83735; 83930; 83935; 84300; 84520; 85025; 85027; 85610; 85652; 86078; 86140; 86850; 86900; 86901; 86922; 87040; 87070; 87073; 87077; 87086; 87186; 87205; 87640; 87641; 88307; 88311; 93005; 97530; A9270-GY; G8978-GP-CJ; G8978-GP-CK; G8979-GP-CI; G8979-GP-CJ; J0330; J1240; J1644; J2001; J2250; J2405; J2543; J2704; J3010; J3370; J3490; P9040